=== PATIENT | male | born 1965 ===

== ENCOUNTER 2020-06-10 19:27 | Emergency (ER) | payer MEDICAID, SELFPAY ==
[2020-06-10 19:42] VITALS: BP 123/65; PULSE 127; RESP 18; TEMP 37.9; O2SAT 96; BMI 30.5
[2020-06-10 20:00] VITALS: BP 140/77; PULSE 95; RESP 18; TEMP 37.1; O2SAT 97
[2020-06-10 22:00] VITALS: BP 141/73; PULSE 83; RESP 16; TEMP 37.8; O2SAT 96
--- NOTE | 2020-06-10 22:22 | ED.WOUNDLAC ---
HPI - Wound/Laceration General Chief Complaint: Wound/Laceration Stated Complaint: RED INFLAMED SKIN (FINGER) Time Seen by Provider: 06/10/20 22:22 History of Present Illness HPI narrative: Patient is a 54-year-old male status post laceration to the dorsum of left long finger. At the distal IP joint. Patient claims he was trying to open a bag was trimmed been it. Subsequently cut his own hand. This happened approximately 2-3 days ago. Patient denies any fever or chills. No coughing or congestion or upper respiratory symptoms. No diaphoresis. No systemic complaints. Complaining increasing swelling to the finger. Patient not sure about his tetanus status. No history of diabetes, hypertension, mi, family history of [place]. Related Data Previous Rx's Medication Instructions Recorded amoxicillin-pot clavulanate 1 tab PO BID #14 tab 06/10/20 [Augmentin] Allergies Allergy/AdvReac Type Severity Reaction Status Date / Time No Known Allergies Allergy Verified 06/10/20 19:48 Review of Systems Review of Systems: Constitutional: No Weight loss, No Fever, No Chills, No Night Sweats, No Fatigue, No Malaise ENT/Mouth: No Hearing loss, No Ear Pain, No Nasal Congestion, No Sinus Pain, No Hoarseness, No sore throat, No Rhinorrhea, No Swallowing Difficulty Eyes: No Eye Pain, No Swelling, No Redness, No Foreign Body, No Discharge, No Vision Changes Cardiovascular: No Chest Pain, No SOB, No Dyspnea on Exertion, No Orthopnea, No Edema, No Palpitations Respiratory: No Cough, No Sputum, No Wheezing, No Smoke Exposure, No Dyspnea Gastrointestinal: No Nausea, No Vomiting, No Diarrhea, No Constipation, No abdominal Pain, No Hematochezia, No Melena Genitourinary: no irregular bleeding, No Dysuria, No Urinary Frequency, No Hematuria, No Urinary Incontinence, No Urgency, No Flank Pain, No Urinary Flow Changes, No Hesitancy Musculoskeletal: No joint pain, No Myalgias, No Joint Swelling Skin: Positive laceration to the left long finger Positive swelling Neuro: No Weakness, No Numbness, No Paresthesias, No Loss of Consciousness, No Dizziness, No Headache Psych: No Anxiety/Panic, No Depression, No SI/HI/AH/VH, No Social Issues, Heme/Lymph: No Bruising, No Bleeding,No Lymphadenopathy Endocrine: No Polyuria, No Polydipsia, No Temperature Intolerance [facility] Past Medical History Attestation statement: The following information was validated with the patient. Medical History High cholesterol Social History Social History Alcohol intake: current Alcohol intake frequency: a few times a week Smoking Status: Current every day smoker Use of substances other than those prescribed or required for medical reasons: No Advance Directives: No Advance Directives Information Provided: No Physical Exam Vital Signs: Vital Signs: Vital Signs Temp Pulse Resp BP Pulse Ox 06/10/20 22:00 100.0 F 83 16 141/73 H 96 06/10/20 20:00 98.8 F 95 18 140/77 H 97 06/10/20 19:42 100.2 F 127 H 18 123/65 96 Body Mass Index 30.5 Appearance: Alert. Oriented X3. No acute distress. Eyes: Pupils equal, round and reactive to light. ENT: Pharynx normal. Neck: Normal inspection. Neck supple. No lymph nodes noted. No crepitus CVS: Normal heart rate and rhythm. Pulses normal. Normal S1 and S2 Respiratory: No respiratory distress. Breath sounds normal. No Wheezing. No rales Abdomen: Soft and nontender. No rigidity. No distention. good BS x4 Skin: Skin warm and dry. Normal skin color. Normal skin turgor. Extremities: examination of the left long finger showed a 3 cm laceration over the distal artery or IP joint on the dorsum side. There is swelling of the finger. There is no sausage finger noted. There is no flexor sheath tenderness. Patient did not have pain on passive movement of the finger. Patient has good movement of the proximal and distal IP joint. Neuro: Oriented X 3. No motor deficit. No sensory deficit. Moving all extermities. No slurred speech MDM - Wound/Laceration MDM Narrative Medical decision making narrative: Although patient had clear swelling to the area. Signs of infection. Patient did not ]have signs consistent with having tenosynovitis. Will start patient on a dose of IV antibiotics. We will go ahead and have patient closely follow-up with Hand tomorrow. Will discuss the case with Hand surgery. Case discussed with Gem, the PA installation tech for Orthopedics. Will follow up with patient tomorrow. Patient started on Zosyn. Will give patient a prescription for Augmentin. Worsening condition return. Ice elevate as much as possible Lab Data Result diagrams: 06/10/20 23:19 06/10/20 23:19 Labs: Lab Results 06/10/20 06/10/20 06/10/20 Range/Units 23:19 23:19 23:19 WBC 6.9 (4.8-10.8) X10*3/uL RBC 4.31 L (4.60-5.80) X10*6/uL Hgb 13.8 L (14.0-18.0) g/dl Hct 41.1 L (42-52) % MCV 95.4 (80-98) fL MCH 32.0 (27.0-33.0) pg MCHC 33.6 (31.0-36.0) g/dl RDW 11.8 (11.0-16.0) % Plt Count 238 (160-400) X10*3/uL MPV 9.4 (9.4-12.4) fL Immature Gran % (Auto) 0.3 (0.0-0.4) % Neut % (Auto) 65.6 (45-73) % Lymph % (Auto) 24.3 (20-40) % [place] % (Auto) 7.7 (2-11) % Eos % (Auto) 1.5 (0-4) % Baso % (Auto) 0.6 (0-2) % Lymph # (Auto) 1.7 (1.2-4.9) X10*3/uL [place] # (Auto) 0.5 (0.1-1.2) X10*3/uL Eos # (Auto) 0.1 (0.0-0.4) X10*3/uL Baso # (Auto) 0.0 (0.0-0.2) X10*3/uL Abs Immat Gran (auto) 0.02 (0.00-0.03) X10*3/uL Absolute Neuts (auto) 4.5 (2.0-8.3) X10*3/uL Absolute Nucleated RBC 0.000 (0.0-0.012) X10*3/uL Nucleated RBC % (auto) 0.0 (0.0-0.2) /100WBC Sodium 141 (135-145) mmol/L Potassium 3.9 (3.3-5.1) mmol/l Chloride 105 (96-108) mmol/L Carbon Dioxide 30 H (22-29) mmol/L Anion Gap 10 L (12-20) BUN 14 (9-16) mg/dL Creatinine 1.09 (0.5-1.4) mg/dL Estim Creat Clear Calc 82.2 Estimated GFR > 60 Random Glucose 93 (60-115) mg/dL Lactic Acid 1.0 (0.5-2.0) mmol/L Calcium 9.2 (8.4-10.2) mg/dL Discharge Plan Discharge Clinical Impression: Laceration, Cellulitis Patient Disposition: Home, Self-Care Instructions: Cellulitis (ED) Prescriptions: New amoxicillin-pot clavulanate [Augmentin] 875-125 mg tablet 1 tab PO BID Qty: 14 RF: 0 Referrals: Raymond Peñaloza MD [Physician] - 1 day
--- NOTE | 2020-06-10 22:37 | XR_ITS ---
EXAMINATION: XR FINGER, LEFT CLINICAL INFORMATION: 54-year-old male patient with pain and swelling of the left third finger. COMPARISON: None TECHNIQUE: Three views of the left third finger including a PA view of the left hand. FINDINGS: There is diffuse soft tissue swelling of the entire left third finger. There is no visible fracture or dislocation. Punctate calcification is seen in the region of the flexor tendon adjacent to the middle phalanx. Also, a small bone spicule is seen in the soft tissues just medial to the distal aspect of the proximal phalanx. No active joint disease is seen. No visible erosions. No radiopaque foreign bodies are present. IMPRESSION: Significant soft tissue swelling of the left third finger. Punctate calcification of the flexor tendon. Bone spicule the soft tissues adjacent to the proximal interphalangeal joint. No fracture.
[2020-06-10] MEDS: Piperacillin Sodium/Tazobactam 4.5 GM in 0.9 % Sodium Chloride 100 ML IV (23:23)
[2020-06-10 23:31] LABS: MANUAL DIFF FLAG NO
[2020-06-10 23:32] LABS: Basophils Percent Auto 0.6 % (0-2); Eosinophils Absolute Auto 0.1 X10*3/uL (0.0-0.4); Eosinophils Percent Auto 1.5 % (0-4); Hematocrit 41.1 % (42-52); Hemoglobin 13.8 g/dl (14.0-18.0); Imm Gran Abs Auto 0.02 X10*3/uL (0.00-0.03); Imm Gran Pct Auto 0.3 % (0.0-0.4); Lymphocytes Absolute Auto 1.7 X10*3/uL (1.2-4.9); Lymphocytes Percent Auto 24.3 % (20-40); Mean Corpuscular HGB Conc 33.6 g/dl (31.0-36.0); Mean Corpuscular Volume 95.4 fL (80-98); Mean Platelet Volume 9.4 fL (9.4-12.4); Monocytes Absolute Auto 0.5 X10*3/uL (0.1-1.2); Monocytes Percent Auto 7.7 % (2-11); Neutrophils Absolute Auto 4.5 X10*3/uL (2.0-8.3); Neutrophils Percent Auto 65.6 % (45-73); Platelet Count 238 X10*3/uL (160-400); Red Blood Count 4.31 X10*6/uL (4.60-5.80); Red Cell Distribution Width 11.8 % (11.0-16.0); White Blood Count 6.9 X10*3/uL (4.8-10.8)
[2020-06-11 00:02] LABS: Anion Gap 10 (12-20); Blood Urea Nitrogen 14 mg/dL (9-16); Calcium 9.2 mg/dL (8.4-10.2); Carbon Dioxide 30 mmol/L (22-29); Chloride 105 mmol/L (96-108); Creatinine Clr Calc Pharmacy 82.2; Estimated Glomerular Filt Rate > 60; Glucose Random 93 mg/dL (60-115); Potassium 3.9 mmol/l (3.3-5.1); Sodium 141 mmol/L (135-145)
== END 2020-06-11 00:33 | disposition home or self-care (01) ==
PROVIDERS: Emergency Provider Emergency Medicine Emergency Medical Services
DX: S61.213A Laceration without foreign body of left middle finger without damage to nail, initial encounter (principal); W45.8XXA Other foreign body or object entering through skin, initial encounter; L03.012 Cellulitis of left finger; F17.200 Nicotine dependence, unspecified, uncomplicated; Y93.89 Activity, other specified; Y92.019 Unspecified place in single-family (private) house as the place of occurrence of the external cause; Y99.9 Unspecified external cause status
CPT/HCPCS: 36415; 73140; 80048; 83605; 85025; 87040; 96365; 99284

== ENCOUNTER 2020-06-23 22:09 | Emergency (ER) | payer MEDICAID, SELFPAY ==
--- NOTE | 2020-06-23 22:47 | XR_ITS ---
EXAMINATION: XR FINGER, LEFT CLINICAL INFORMATION: Injury to middle finger. COMPARISON: 06/10/2020 TECHNIQUE: 3 views of the left 3rd digit. FINDINGS: Again noted is a few swelling of the left 3rd digit. The previously seen calcification in the region of the flexor tendon seen previously is again noted. Again seen is the well defined ovoid spicule of bone just medial to the distal proximal phalanx which could be secondary to degenerative change or old trauma. Some mild degenerative changes are present at the DIP joint. XR/XR finger LT min 2V IMPRESSION: No real significant interval change when compared to the study of 06/10/2020. Again seen are the small calcifications in the region of the flexor tendon bone spicule medial to the PIP joint. No acute finding is seen.
[2020-06-23 23:31] VITALS: BP 96/50; PULSE 83; RESP 16; TEMP 36.8; O2SAT 93; BMI 31.9
--- NOTE | 2020-06-23 23:32 | ED_ITS ---
HPI - Extremity Problem General Chief complaint: Extremity Injury, Upper Stated complaint: lac on finger Time Seen by Provider: 06/23/20 22:38 Source: patient Mode of arrival: ambulatory Limitations: no limitations ( charge master specialist present) History of Present Illness HPI Narrative: states he injured his finger 2-1/2 weeks ago or so for him which he was seen here in emergency room had a cut repaired and has since follow-up with his primary care doctor and new in orthopedics where he has a procedure scheduled unsure with the procedures they called him today in and has a scheduled follow-up however in the intermediate he states he was working in a car and hit his finger cause pain. He has a finger splint on he denies any blood broken skin, redness, swelling, fever. No other injury. MD Complaint: extremity pain Onset (ago): hour(s) Pain Consistency: intermittent Location: left Relieving factors: cold therapy Associated symptoms: denies other symptoms Related Data Previous Rx's Medication Instructions Recorded amoxicillin-pot clavulanate 1 tab PO BID #14 tab 06/10/20 [Augmentin] Allergies Allergy/AdvReac Type Severity Reaction Status Date / Time No Known Allergies Allergy Verified 06/10/20 19:48 Review of Systems Review of Systems: Constitutional: No Weight loss, No Fever, No Chills, No Night Sweats, No Fatigue, No Malaise ENT/Mouth: No Hearing loss, No Ear Pain, No Nasal Congestion, No Sinus Pain, No Hoarseness, No sore throat, No Rhinorrhea, No Swallowing Difficulty Eyes: No Eye Pain, No Swelling, No Redness, No Foreign Body, No Discharge, No Vision Changes Cardiovascular: No Chest Pain, No SOB, No Dyspnea on Exertion, No Orthopnea, No Edema, No Palpitations Respiratory: No Cough, No Sputum, No Wheezing, No Smoke Exposure, No Dyspnea Musculoskeletal: No joint pain, No Myalgias, No Joint Swelling Skin: No Skin Lesions, No rash Neuro: No Weakness, No Numbness, No Paresthesias, No Loss of Consciousness, No Dizziness, No Headache Psych: No Social Issues Heme/Lymph: No Bruising, No Bleeding,No Lymphadenopathy Endocrine: No Polyuria, No Polydipsia, No Temperature Intolerance Yes all othe r systems are reviewed and are negative PMFSH Past Medical History Attestation statement: The following information was validated with the patient. Medical History High cholesterol Social History Social History Alcohol intake: current Alcohol intake frequency: a few times a week Smoking Status: Current every day smoker Advance Directives: No Advance Directives Information Provided: No Physical Exam Vital Signs: Vital Signs: Reviewed Const: General: cooperative and healthy appearing; No acute distress or intoxicated appearing Nutritional Appearance: average body habitus Orientation/consciousness: patient oriented x3 HENMT: Head: Yes normal to inspection Ears: hearing grossly normal bilaterally Eyes: General: appearance normal, both eyes and all related structures Visual Pretty: normal visual pretty by confrontation Chest: Chest palpation & inspection: normal inspection of the chest Resp: Effort & Inspection: normal respiratory effort Cardio: Jugular venous distension: no JVD Skin: General skin exam: no rashes or lesions noted Neuro: General: patient oriented x3 Extrem: Other: MDM - Extremity (Nontraumatic) MDM Narrative Medical decision making narrative: no signs of acute infection. Repeat x-ray without any evidence of acute abnormality. Unsure about type of procedure he has scheduled with doing an ortho he will call tomorrow has a scheduled appointment. Given that it is little past midnight offices are closed at this time. Will have him follow-up closely with Ortho. Patient verbalized understanding charge master specialist present for the duration of the visit. Patient will be discharged home with splint. Imaging Data Left finger x-ray: Radiologist's impression: [place] [id number] XRay Report Signed Patient: Dedrick Reed [facility]#: [id number] : 1965Acct:[id number] Age/Sex: 54 / MADM Date: 06/23/20 Loc: HO.ED Attending Dr: Ordering Physician: Ivan Chand NP Date of Service: 06/23/20 Procedure(s): XR finger LT min 2V Accession Number(s): [id number] cc: Ivan Chand SYNTHETIC STAPLE EXTRUDER~ EXAMINATION: XR FINGER, LEFT CLINICAL INFORMATION: Injury to middle finger. COMPARISON: 06/10/2020 TECHNIQUE: 3 views of the left 3rd digit. FINDINGS: Again noted is a few swelling of the left 3rd digit. The previously seen calcification in the region of the flexor tendon seen previously is again noted. Again seen is the well defined ovoid spicule of bone just medial to the distal proximal phalanx which could be secondary to degenerative change or old trauma. Some mild degenerative changes are present at the DIP joint. XR/XR finger LT min 2V IMPRESSION: No real significant interval change when compared to the study of 06/10/2020. Again seen are the small calcifications in the region of the flexor tendon bone spicule medial to the PIP joint. No acute finding is seen. Dictated By:KIKI BIGGS MD Signed By:<Electronically signed by KIKI BIGGS MD in OV>06/23/209 DD/ 46 TD/TT: [address] Magistrate: Discharge Plan Discharge Clinical Impression: Finger pain, left Patient Disposition: Home, Self-Care Instructions: Finger Sprain (ED) Prescriptions: No Action amoxicillin-pot clavulanate [Augmentin] 875-125 mg tablet 1 tab PO BID Qty: 14 RF: 0 Referrals: Tyrell De Los Santos MD [Physician] - 1 week
--- NOTE | 2020-06-24 00:06 | PC.NURSE ---
PT UPSET BECAUSE [facility] WILL NOT GIVE PATIENT ANYTHING MORE THAN MOTRIN OR TYLENOL. USED TELEPHONE TO D.C PATIENT. PT LEAVING WITHOUT PAPERWORK
== END 2020-06-24 00:08 | disposition home or self-care (01) ==
PROVIDERS: Emergency Provider Student in an Organized Health Care Education/Training Program
DX: M79.645 Pain in left finger(s) (principal); M79.89 Other specified soft tissue disorders; F17.200 Nicotine dependence, unspecified, uncomplicated; Z71.6 Tobacco abuse counseling
CPT/HCPCS: 73140; 99283

== ENCOUNTER 2022-02-01 11:32 | Emergency (ER) | payer OTHER, SELFPAY ==
--- NOTE | 2022-02-01 11:41 | ECG_ITS ---
Test Reason : OD? Blood Pressure : / mmHG Vent. Rate : 086 BPM Atrial Rate : 086 BPM P-R Int : 150 ms QRS Dur : 084 ms QT Int : 370 ms P-R-T Axes : 055 -02 025 degrees QTc Int : 442 ms Normal sinus rhythm Normal ECG When compared with ECG of 22-JAN-2009 12:20, No significant change was found Referred By: Cara Donnelly Electronically Signed By:Linden Chowdhury
--- NOTE | 2022-02-01 11:41 | ED_ITS ---
HPI - Overdose General Chief Complaint: ETOH/Substance Use Stated Complaint: ETOH INTOXICATION PER EMS Time Seen by Provider: 02/01/22 11:33 Source: EMS Mode of arrival: EMS Limitations: other (Intoxicated) History of Present Illness HPI Narrative: Patient comes to the emergency room by EMS. Bystanders called the ambulance, patient was found intoxicated sitting outside a liquor store. Patient admits that he has been drinking quite a bit this morning and also has been using cocaine and heroin. Patient is very somnolent, unable to give any further history. States that he occasionally has chest pain, unclear if he has chest pain at this moment. Patient has this with him a bag full of Suboxone lozenges Related Data Previous Rx's Medication Instructions Recorded amoxicillin 875 mg-potassium 1 tab PO BID #14 tabs 06/10/20 clavulanate 125 mg tablet (Augmentin) Allergies Allergy/AdvReac Type Severity Reaction Status Date / Time No Known Allergies Allergy Verified 06/10/20 19:48 Review of Systems Review of Systems: Yes Unobtainable due to mental status [facility] Past Medical History Medical History (Updated 02/01/22 @ 13:12 by Cara Donnelly MD) High cholesterol Polysubstance abuse Social History Social History Alcohol intake: current Alcohol intake frequency: a few times a week Advance Directives: No Advance Directives Information Provided: No Physical Exam Vital Signs: Vital Signs: Last Vital Signs Pulse 108 H 02/01/22 11:58 Resp 12 02/01/22 11:48 BP 116/57 L 02/01/22 11:48 Pulse Ox 95 02/01/22 11:58 O2 Del Method 02/01/22 11:58 BMI result Body Mass Index 34.5 Const: Other: Appearance: Somnolent, easily arousable but falls back asleep quickly Eyes: Bilateral pinpoint pupils, round and reactive to light. ENT: Pharynx normal. Neck: Normal inspection. Neck supple. No lymph nodes noted. No crepitus CVS: Normal heart rate and rhythm. Pulses normal. Normal S1 and S2 Respiratory: No respiratory distress. Breath sounds normal. No Wheezing. No rales , oxygen saturation 85% on room air Abdomen: Soft and nontender. No rigidity. No distention. Skin: Skin warm and dry. Normal skin color. Normal skin turgor. Extremities: No lower extremity edema. No Lacerations. No Rash Neuro: Oriented X 3. No motor deficit. No sensory deficit. Moving all extremities. No slurred speech. CN 2 through 12 grossly intact Psych: Somnolent Course Course Course Narrative: Patient's oxygen saturations 85% on room air, patient is somnolent, easily arousable but falls asleep. Patient was given IM Zofran and 1 dose of Narcan. Patient is waking up, denies SI or HI Patient remains somnolent, much more easily arousable, converse aiding. Oxygen saturation 96% on room air. CARE/SUDE consult pending. Patient will be provided with home Narcan upon discharge. Physician observation started at 13:10 14:32, patient is alert, awake, has steady gait. The care team evaluated the patient. Patient states that he is already in therapy and has Suboxone. Patient states he used heroin this time because of a stressor in his life but he usually does well with Suboxone. Patient declined any further care. MDM - Overdose Lab Data Result diagrams: 02/01/22 11:51 02/01/22 11:51 Labs: Lab Results 02/01/22 02/01/22 02/01/22 Range/Units 11:51 11:51 11:51 WBC 9.2 (4.8-10.8) X10*3/uL RBC 4.43 L (4.60-5.80) X10*6/uL Hgb 14.2 (14.0-18.0) g/dl Hct 41.6 L (42.0-52.0) % MCV 93.9 (80.0-98.0) fL MCH 32.1 (27.0-33.0) pg MCHC 34.1 (31.0-36.0) g/dl RDW 12.2 (11.0-16.0) % Plt Count 182 (160-400) X10*3/uL MPV 10.2 (9.4-12.4) fL Immature Gran % (Auto) 0.2 (0.0-0.4) % Neut % (Auto) 67.7 (45-73) % Lymph % (Auto) 23.9 (20-40) % [place] % (Auto) 6.6 (2-11) % Eos % (Auto) 1.2 (0-4) % Baso % (Auto) 0.4 (0-2) % Lymph # (Auto) 2.2 (1.2-4.9) X10*3/uL [place] # (Auto) 0.6 (0.1-1.2) X10*3/uL Eos # (Auto) 0.1 (0.0-0.4) X10*3/uL Baso # (Auto) 0.0 (0.0-0.2) X10*3/uL Abs Immat Gran (auto) 0.02 (0.00-0.03) X10*3/uL Absolute Neuts (auto) 6.2 (2.0-8.3) x10*3/uL Absolute Nucleated RBC 0.000 (0.0-0.012) X10*3/uL Nucleated RBC % (auto) 0.0 (0.0-0.2) /100WBC Sodium 138 (135-145) mmol/L Potassium 3.8 (3.3-5.1) mmol/L Chloride 106 (96-108) mmol/L Carbon Dioxide 21 L (22-29) mmol/L Anion Gap 15 (12-20) BUN 16 (9-16) mg/dL Creatinine 1.09 (0.5-1.4) mg/dL Estim Creat Clear Calc 90.8 Estimated GFR > 60 Random Glucose 86 (60-115) mg/dL Calcium 8.9 (8.4-10.2) mg/dL Magnesium 2.1 (1.6-2.6) mg/dL Total Bilirubin 0.7 (0.0-1.0) mg/dL Direct Bilirubin 0.3 (0.0-0.5) mg/dL AST 40 H (5-37) U/L ALT 34 (0-40) U/L Alkaline Phosphatase 77 (39-117) U/L Troponin I High Sens (<3.5-35.0) ng/L Total Protein 6.7 (6.5-8.0) g/dL Albumin 4.2 (3.5-5.0) g/dL Ethyl Alcohol 132 mg/dL 02/01/22 Range/Units 11:51 WBC (4.8-10.8) X10*3/uL RBC (4.60-5.80) X10*6/uL Hgb (14.0-18.0) g/dl Hct (42.0-52.0) % MCV (80.0-98.0) fL MCH (27.0-33.0) pg MCHC (31.0-36.0) g/dl RDW (11.0-16.0) % Plt Count (160-400) X10*3/uL MPV (9.4-12.4) fL Immature Gran % (Auto) (0.0-0.4) % Neut % (Auto) (45-73) % Lymph % (Auto) (20-40) % [place] % (Auto) (2-11) % Eos % (Auto) (0-4) % Baso % (Auto) (0-2) % Lymph # (Auto) (1.2-4.9) X10*3/uL [place] # (Auto) (0.1-1.2) X10*3/uL Eos # (Auto) (0.0-0.4) X10*3/uL Baso # (Auto) (0.0-0.2) X10*3/uL Abs Immat Gran (auto) (0.00-0.03) X10*3/uL Absolute Neuts (auto) (2.0-8.3) x10*3/uL Absolute Nucleated RBC (0.0-0.012) X10*3/uL Nucleated RBC % (auto) (0.0-0.2) /100WBC Sodium (135-145) mmol/L Potassium (3.3-5.1) mmol/L Chloride (96-108) mmol/L Carbon Dioxide (22-29) mmol/L Anion Gap (12-20) BUN (9-16) mg/dL Creatinine (0.5-1.4) mg/dL Estim Creat Clear Calc Estimated GFR Random Glucose (60-115) mg/dL Calcium (8.4-10.2) mg/dL Magnesium (1.6-2.6) mg/dL Total Bilirubin (0.0-1.0) mg/dL Direct Bilirubin (0.0-0.5) mg/dL AST (5-37) U/L ALT (0-40) U/L Alkaline Phosphatase (39-117) U/L Troponin I High Sens 6.7 (<3.5-35.0) ng/L Total Protein (6.5-8.0) g/dL Albumin (3.5-5.0) g/dL Ethyl Alcohol mg/dL Discharge Plan Discharge Clinical Impression: Polysubstance abuse, Accidental overdose Patient Disposition: Home, Self-Care Instructions: Adult Overdose (ED), Polysubstance Abuse (ED) Additional Instructions: Please follow-up with your primary care physician tomorrow. If you have any worsening or new symptoms, please return to the emergency room or call 911 Prescriptions: No Action amoxicillin-pot clavulanate [Augmentin] 875-125 mg tablet 1 tab PO BID Qty: 14 0RF
[2022-02-01] MEDS: ondansetron HCL 4 MG/2 ML VIAL IM (11:46)
[2022-02-01 11:48] VITALS: BP 107/65; BP 116/57; PULSE 100; PULSE 86; RESP 12; O2SAT 85; O2SAT 95; BMI 34.5
[2022-02-01] MEDS: Naloxone HCl Nasal 4 MG SPRAY 8 MG NOSTRILALT (11:48)
--- NOTE | 2022-02-01 11:50 | PC.NURSE ---
patient lethargic upon arrival to ED. O2 sat 85%. patient given 4mg nasal narcan with good effect. security called to bedside to record changer patient.
[2022-02-01 11:55] LABS: MANUAL DIFF FLAG NO
[2022-02-01 11:58] VITALS: PULSE 108; O2SAT 95
[2022-02-01 11:59] LABS: Basophils Percent Auto 0.4 % (0-2); Eosinophils Absolute Auto 0.1 X10*3/uL (0.0-0.4); Eosinophils Percent Auto 1.2 % (0-4); Hematocrit 41.6 % (42.0-52.0); Hemoglobin 14.2 g/dl (14.0-18.0); Imm Gran Abs Auto 0.02 X10*3/uL (0.00-0.03); Imm Gran Pct Auto 0.2 % (0.0-0.4); Lymphocytes Absolute Auto 2.2 X10*3/uL (1.2-4.9); Lymphocytes Percent Auto 23.9 % (20-40); Mean Corpuscular HGB Conc 34.1 g/dl (31.0-36.0); Mean Corpuscular Hemoglobin 32.1 pg (27.0-33.0); Mean Corpuscular Volume 93.9 fL (80.0-98.0); Mean Platelet Volume 10.2 fL (9.4-12.4); Monocytes Absolute Auto 0.6 X10*3/uL (0.1-1.2); Monocytes Percent Auto 6.6 % (2-11); Neutrophils Absolute Auto 6.2 x10*3/uL (2.0-8.3); Neutrophils Percent Auto 67.7 % (45-73); Platelet Count 182 X10*3/uL (160-400); Red Blood Count 4.43 X10*6/uL (4.60-5.80); Red Cell Distribution Width 12.2 % (11.0-16.0); White Blood Count 9.2 X10*3/uL (4.8-10.8)
[2022-02-01 12:13] LABS: Ethanol 132 mg/dL
[2022-02-01 12:17] LABS: Alanine Aminotransferase 34 U/L (0-40); Albumin Level 4.2 g/dL (3.5-5.0); Alkaline Phosphatase 77 U/L (39-117); Anion Gap 15 (12-20); Aspartate Amino Transferase 40 U/L (5-37); Bilirubin Direct 0.3 mg/dL (0.0-0.5); Bilirubin Total 0.7 mg/dL (0.0-1.0); Blood Urea Nitrogen 16 mg/dL (9-16); Calcium 8.9 mg/dL (8.4-10.2); Carbon Dioxide 21 mmol/L (22-29); Chloride 106 mmol/L (96-108); Creatinine Clr Calc Pharmacy 90.8; Estimated Glomerular Filt Rate > 60; Glucose Random 86 mg/dL (60-115); Magnesium 2.1 mg/dL (1.6-2.6); Potassium 3.8 mmol/L (3.3-5.1); Sodium 138 mmol/L (135-145); Total Protein 6.7 g/dL (6.5-8.0)
[2022-02-01 12:53] LABS: Troponin-I High Sensitivity 6.7 ng/L (<3.5-35.0)
--- NOTE | 2022-02-01 13:55 | MHC.RECOVSUP ---
Recovery Support note: Patient is a 56 year old Nepali speaking male who presented to [facility] ED after being found in the community on the ground. This software writer met with patient to discuss substance use and recovery supports. Patient reports he did not use any heroin however he was drinking. Patient reports he typically is able to control his drinking and moderate it however he has a lot of life stressors and today his drinking got out of control. Patient states I'm on Suboxone, I can't use heroin. Patient reports he has not used heroin in a long time and indicates it has been months since his last use. Patient reports he gets his Suboxone through the [facility] and that he also has a counselor and acid recovery operator through [facility]. Patient reports he has been diagnosed with major depressive disorder and bipolar disorder. Patient reports he feels well supported by [facility] and states he is able to go there for additional support if he feels he needs it. Encouraged patient to reach out for support when he feels he is unable to moderate his alcohol consumption and encouraged patient to consider abstinance. Patient acknowledged. Discussed case with patient's RN and ED provider.
== END 2022-02-01 14:53 | disposition home or self-care (01) ==
PROVIDERS: Emergency Provider Emergency Medicine
DX: T40.1X1A Poisoning by heroin, accidental (unintentional), initial encounter (principal); F11.20 Opioid dependence, uncomplicated; F14.10 Cocaine abuse, uncomplicated; Y92.480 Sidewalk as the place of occurrence of the external cause
CPT/HCPCS: 36415; 80048; 80076; 82077; 83735; 84484; 85025; 93005; 96372; 99283; 99284; J2405

== ENCOUNTER → 2022-07-19 12:40 | Outpatient (REF) | payer MEDICAID, SELFPAY ==
--- NOTE | 2022-07-19 12:43 | CA_ITS ---
Transthoracic Echocardiogram Patient (Last, First, Middle): Dedrick Reed M Gender: Male Date of : 1965 Age: 56 Procedure Date: 07/19/2022 Procedure Type: Transthoracic Echocardiogram Location: OP Height: 170.18 cm Weight: 99.79 kg BSA: 2.11 m2 Heart Rate: 84 bpm BP: 122 / 74 mmHg Preschool Principal: DEANDRE Referring MD: Karoline NORMAN Symptoms: SOB R06.02 Study Quality: Adequate w contrast ECG Rhythm: Sinus Conclusions: - The left ventricular systolic function is normal. The calculated ejection fraction is 55% by biplane method. - No obvious valvular pathology seen on this study. Findings Procedure Information Contrast agent, definity, is being given per protocol without apparent complications. Left Ventricle Normal left ventricular cavity size. There is normal left ventricular wall thickness. The left ventricular systolic function is normal. The calculated ejection fraction is 55% by biplane method. There is no evidence of regional wall motion abnormalities. Diastolic function is normal for age. Right Ventricle Normal right ventricular cavity size and systolic function. Atria Both atria are normal in size. Aortic Valve There is a normal trileaflet aortic valve. There is no aortic valve stenosis. There is no aortic valve regurgitation. Mitral Valve The mitral valve appears normal. There is no mitral valve regurgitation. There is no mitral valve stenosis. Pulmonic Valve The pulmonic valve is likely normal. Tricuspid Valve There is no tricuspid valve regurgitation. Tricuspid regurgitation envelope is inadequate for calculation of right ventricular systolic pressure. Great Vessels The asc aorta is normal in size. Venous The inferior vena cava is normal in size and collapses greater than 50% with inspiration. Pericardium/Pleural There is no evidence of pericardial effusion. Prior Study Comparison No prior study available for comparison. Recommendations, Care & Conclusions No obvious valvular pathology seen on this study. Measurements 2D Linear Measurements IVSd: 0.75 0.6-0.9/0.6-1.0 cm LVIDd: 5.27 3.9-5.3/4.2-5.9 cm LVIDd Index: 2.50 2.4-3.2/2.2-3.1 cm/m2 LVIDs: 3.26 2.0-3.6 cm LVPWd: 0.73 0.7-1.1 cm LA Diam: 3.50 2.7-3.8/3.0-4.0 cm LAIDs Index: 1.66 1.5-2.3 cm/m2 LV Mass: 167.63 67-162/88-224 g LV Mass Index: 79.45 43-95/49-115 g/m2 LVOT Diam: 2.10 3.0+(-)1.3 cm 2D Systolic Function EF 4C: 58.40 >55% EF 2C: 49.10 >55% EF BiP: 54.50 >55% Mitral Valve MV Pk E: 0.81 MV PK A: 0.54 MV Decel Time: 173.00 E/A: 1.50 E'Lateral: 11.30 E'Medial: 9.25 E/E' Med: 8.80 E/E' Lat: 7.20 PHT: 51.00 MVA PHT: 4.31 Decel Cowley: 4.67 Aortic Valve AoV Pk Julian: 1.61 AoV Mn Julian: 1.05 AoV VTI: 0.30 AoV Pk Grad: 10.00 Aov Mn Grad: 5.00 MAC Cont.VTI: 3.00 LVOT LVOT Pk Julian: 1.29 LVOT Mn Julian: 0.86 LVOT VTI: 0.26 LVOT Pk Grad: 7.00 LVOT Mn Grad: 3.00 LVOT Diam: 2.10 LVOT Area: 3.46 Diastolic Function MV Pk E: 0.81 MV Pk A: 0.54 E/A: 1.50 E'Medial: 9.25 E/E' Med: 8.80 E' Laterial: 11.30 E/E' Lat: 7.20 Right Ventricle TAPSE (mm): 29.10 TVS' Julian: 14.00 Tricuspid Valve RA Press: 3.00 Great Vessels Aorta Sinus of Valsalva: 3.30 2.0-3.5 cm Ao Asc: 3.20 2.1-3.4 cm Pulmonary Veins Pulm Vein S/D 1.20 Pulmonary Valve PV Pk Julian: 1.14 Peak PV Grad: 5.00 Updated in Other Vendor System with Status of Final Del Brown MD electronically signed on 07/19/2022 4:05:09 PM with status of Final
== END ==
LOC: HO.CARD 12:40
PROVIDERS: PCP Registered Nurse; Visit Provider Registered Nurse
DX: R06.02 Shortness of breath (principal)
CPT/HCPCS: 93306; Q9957

== ENCOUNTER 2022-12-28 10:40 | Outpatient (REF) | payer MEDICAID, SELFPAY ==
--- NOTE | ~2022-12-28 | XR_ITS ---
EXAMINATION: XR HAND, RIGHT XR HAND, LEFT CLINICAL INFORMATION: Bilateral hand pain at the DIP joints. COMPARISON: Previous left finger x-ray June 2020. TECHNIQUE: 3 views of both hands. FINDINGS: LEFT: There is amputation of the distal 3rd finger. No fracture or dislocation. Mild arthritis at the IP joints with joint space narrowing and osteophyte formation. This is greatest at the IP joint of the thumb. Soft tissues are unremarkable. RIGHT: Bone alignment is normal. No fracture or dislocation. Small radiopaque soft tissue foreign bodies adjacent to the proximal phalanx of the thumb. Mild osteoarthritis at the 1st INTERMEDIATE joint and IP joint, greatest at the IP joint of the thumb and DIP joint of the 3rd finger. XR/XR hand RT min 3V IMPRESSION: Mild bilateral osteoarthritis. 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 Small radiopaque soft tissue foreign bodies adjacent to the proximal phalanx of the right thumb.
--- NOTE | ~2022-12-28 | XR_ITS ---
EXAMINATION: XR HAND, RIGHT XR HAND, LEFT CLINICAL INFORMATION: Bilateral hand pain at the DIP joints. COMPARISON: Previous left finger x-ray June 2020. TECHNIQUE: 3 views of both hands. FINDINGS: LEFT: There is amputation of the distal 3rd finger. No fracture or dislocation. Mild arthritis at the IP joints with joint space narrowing and osteophyte formation. This is greatest at the IP joint of the thumb. Soft tissues are unremarkable. RIGHT: Bone alignment is normal. No fracture or dislocation. Small radiopaque soft tissue foreign bodies adjacent to the proximal phalanx of the thumb. Mild osteoarthritis at the 1st [facility] joint and IP joint, greatest at the IP joint of the thumb and DIP joint of the 3rd finger. XR/XR hand LT min 3V IMPRESSION: Mild bilateral osteoarthritis. 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 Small radiopaque soft tissue foreign bodies adjacent to the proximal phalanx of the right thumb.
== END 2022-12-28 10:41 | disposition home or self-care (01) ==
LOC: HO.XRAY 10:40
PROVIDERS: Visit Provider Registered Nurse
DX: M79.641 Pain in right hand (principal); M79.642 Pain in left hand
CPT/HCPCS: 73130

== ENCOUNTER 2023-04-28 10:03 | Outpatient (AMB) | payer MEDICAID, SELFPAY ==
--- NOTE | 2023-04-28 10:13 | A.OFFVIS_ITS ---
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 Patient reports pain started in his thumb that radiates into his other fingers. He has numbness and tingling. No previous tx. He was seen by his PCP who told him that he has arthritis. Finds no relief with gabapentin. 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 He states he has constant pain, numbness and tingling in his bilateral thumb which radiates into his arm and other fingers. His pain is worse in the right hand. He also c/o pain with grasping objects and his pain is aggravated in the mornings. He finds no relief with gabapentin. He has not had any treatment or injury in the past. He is currently not working. [facility] Medical History (Updated 04/28/23 @ 12:49 by Praveen Casarez PA-C) Polysubstance abuse High cholesterol Social History (Updated 04/28/23 @ 10:19 by Vanessa Devries Keira) Alcohol intake: current Alcohol intake frequency: a few times a week Patient Tobacco Use Status: Current everyday Tobacco user Current occupational status: unemployed Current occupation: right hand dominant Review of Systems Const All systems reviewed & are unremarkable except as noted in HPI and below Physical Exam Vital Signs: BMI result Body Mass Index 40.7 Extrem Other: Bilateral thumb: Pain at the base of the thumb along the CMC joint. Pain with CMC grind, they are able to make a full fist and fully extend. NVI. Results Reviewed Results Reviewed: xrays of bilat hands obtained 01/17/23 show mild cmc oa Assessment & Plan Assessment & Plan (1) Osteoarthritis of carpometacarpal (CMC) joint of both thumbs: Code(s): M18.0 - Bilateral primary osteoarthritis of first carpometacarpal joints Plan An EMG/nerve conduction study was ordered for bilateral hands. He was also given an off the shelf bilateral thumb spica brace to wear at nighttime. Once the study is complete, he will see us back for further recommendations. Orders: Orders NE electromyogram (EMG) Today R20.0 - Anesthesia of skin, R20.2 - Paresthesia of skin NE nerve conduction velocity Today R20.0 - Anesthesia of skin, R20.2 - Paresthesia of skin Patient Instructions: Scribed for Praveen Casarez PA-C, by Trav Leonard medical technician assistant, on 04/28/2023 at 10:00 AM EST. I, Praveen Casarez PA-C, have personally reviewed and agree with the information entered by the scribe. Coding Level of Care Code New Pt Level 3 (88439) Diagnoses Osteoarthritis of carpometacarpal (CMC) joint of both thumbs M18.0
[2023-04-28 10:15] VITALS: BMI 40.7
== END 2023-04-28 11:38 | disposition home or self-care (01) ==
PROVIDERS: PCP Registered Nurse; Visit Provider Physician Assistant
DX: M18.0 Bilateral primary osteoarthritis of first carpometacarpal joints (principal)
CPT/HCPCS: 99203

== ENCOUNTER → 2023-04-28 10:03 | Outpatient (BNVA) | payer MEDICAID, SELFPAY | PROVIDERS: PCP Registered Nurse; Visit Provider Physician Assistant | DX: M18.0 Bilateral primary osteoarthritis of first carpometacarpal joints (principal) | CPT/HCPCS: 99212 ==

== ENCOUNTER 2023-05-13 12:58 | Outpatient (AMB) | payer MEDICAID, SELFPAY ==
--- NOTE | 2023-05-13 13:06 | MHC.OFFVIS ---
Intake Vital Signs 05/13/23 13:13 Height 5 ft 7 in Weight 260 lb BMI 40.7 BP 126/84 Blood Pressure Location Lt brachial Position Sitting Respiration 16 Pulse 70 Pulse Source Pulse Oximeter Pulse Oximetry (%) 95 Oxygen Delivery Method Room Air Intake Visit Reasons: lumbar pain Allergies No Known Allergies Allergy (Verified 05/13/23 13:14) HPI HPI Comments History of Present Illness Details Dedrick is a very pleasant 57-year-old male who presents to the office today for evaluation and management of his chronic lower back pain. Patient reports he has been suffering with pain across his lower back for greater than 10 years. Patient reports today his pain is 10/10. He completed physical therapy about 4 months ago and has been doing home exercise program with no relief. He has tried Tylenol, Motrin without relief. He currently takes gabapentin 100 mg 3 times daily and states this does not alleviate his pain. Patient endorses pain across lower back with radiation into the buttocks and thighs. Pain is worse with sitting for extended period time, standing for extended period of time, walking and using the stairs. Patient denies shocking or electrical pain down either leg. He states he had an MRI at the beginning of the year in [place], we do not have these images for review. He was told by his primary care doctor that there is a pinched nerve. Patient denies red flag symptoms including new loss of bowel, bladder or saddle anesthesia. In terms of muscle damage condition is described as aching, throbbing, stabbing, burning and sharp. Patient reports the pain is negatively impacting his normal function and ability to perform activities of daily living. Patient currently smoking 1 pack per day, denies current use of alcohol or illicit substances. He is currently enrolled in outpatient MAT program and takes Suboxone daily. [facility] Medical History (Updated 05/13/23 @ 13:56 by Aretha Peguero APRN, INTERIOR SURFACE INSULATION WORKER) Polysubstance abuse High cholesterol Social History (Updated 04/28/23 @ 10:19 by Vanessa Devries Keira) Alcohol intake: current Alcohol intake frequency: a few times a week Patient Tobacco Use Status: Current everyday Tobacco user Current occupational status: unemployed Current occupation: right hand dominant Review of Systems Const All systems reviewed & are unremarkable except as noted in HPI and below Physical Exam Vital Signs: Last Vital Signs Pulse 70 05/13/23 13:13 Resp 16 05/13/23 13:13 BP 126/84 05/13/23 13:13 Pulse Ox 95 05/13/23 13:13 Oxygen Delivery Method Room Air 05/13/23 13:13 BMI result Body Mass Index 40.7 General: awake, alert, oriented. Answers questions appropriately. Fully engaged in examination. Skin: warm, dry, intact HEENT: Normocephalic. Hearing intact. Cardiac: External chest normal in appearance. Respiratory: No cough, audible wheezing or stridor. Abdomen: without gross distension. Neurological: Oriented to person, place, time and situation. Thought process intact. No gait abnormalities appreciated. Psychiatric: Appropriate mood and affect. Good judgment and insight. Back/Spine/Pelvis Other: Lumbar exam: Able to stand on bilateral tiptoes and bilateral heels. Able to transition from sit to stand unassisted. Ambulates with bilaterally normal heel strike and toe off Visual inspection without gross abnormality Tender to palpation over PSIS Nontender to palpation over midline lumbar vertebrae ROM: extension to 15 degrees. flexion to 80 degrees Strength: 5/5 BLE Sensation: intact and symmetric BLE DTR: intact and symmetric Straight leg raises with and without dorsiflexion negative bilaterally Facet loading positive bilaterally TAMIKO positive bilaterally Gaenslen positive bilaterally Thigh thrust positive bilaterally SI compression positive bilaterally Assessment & Plan Assessment & Plan (1) Lumbar facet arthropathy: Code(s): M47.816 - Spondylosis without myelopathy or radiculopathy, lumbar region (2) Lumbar spondylosis: Code(s): M47.816 - Spondylosis without myelopathy or radiculopathy, lumbar region (3) Sacroiliac joint dysfunction of both sides: Code(s): M53.3 - Sacrococcygeal disorders, not elsewhere classified Plan Dedrick is a very pleasant 57-year-old male who presented to the office today for evaluation management of his chronic lower back pain. History, physical exam and provocative testing consistent with bilateral sacroiliac joint dysfunction and lumbar facet arthritis. XR LS ordered for further evaluation Patient has exhausted conservative treatment including nonsteroidal anti-inflammatory medication, prescription gabapentin, physical therapy and home exercise program. Discussed options for treatment including diagnostic interventional testing, steroid injections, peripheral nerve stimulation with Sprint, RFA and more permanent neuromodulation. Will schedule patient for fluoroscopy guided bilateral diagnostic sacroiliac joint injection with local anesthetic. If patient does not receive adequate relief of his pain consider diagnostic bilateral L3-L4 dorsal root L5 medial branch blocks. All questions and concerns have been answered and patient agrees with the plan. Follow up after injections and sooner if needed. Orders: Orders XR lumbar spine 4V min Today M47.816 - Spondylosis without myelopathy or radiculopathy, lumbar region Coding Level of Care Code New Pt Level 4 (54579) Diagnoses Lumbar facet arthropathy M47.816 Lumbar spondylosis M47.816 Sacroiliac joint dysfunction of both sides M53.3
[2023-05-13 13:13] VITALS: BP 126/84; PULSE 70; RESP 16; O2SAT 95; BMI 40.7
== END 2023-05-13 13:32 | disposition home or self-care (01) ==
PROVIDERS: PCP Registered Nurse; Visit Provider Registered Nurse Emergency
DX: M47.816 Spondylosis without myelopathy or radiculopathy, lumbar region (principal); M53.3 Sacrococcygeal disorders, not elsewhere classified
CPT/HCPCS: 99204

== ENCOUNTER → 2023-05-13 12:58 | Outpatient (BNVA) | payer MEDICAID, SELFPAY | PROVIDERS: PCP Registered Nurse; Visit Provider Registered Nurse Emergency | DX: M47.816 Spondylosis without myelopathy or radiculopathy, lumbar region (principal); M53.3 Sacrococcygeal disorders, not elsewhere classified | CPT/HCPCS: 99212 ==

== ENCOUNTER 2023-05-18 12:19 | Outpatient (REF) | payer MEDICAID, SELFPAY ==
--- NOTE | ~2023-05-18 | XR_ITS ---
EXAMINATION: XR LUMBOSACRAL SPINE WITH OBLIQUES CLINICAL INFORMATION: Spondylosis without myelopathy or radiculopathy. COMPARISON: MRI from 01/01/2019 and the radiograph from 07/04/2006 TECHNIQUE: AP, both oblique, and lateral views of the lumbar spine. Lateral view of the lumbosacral junction. FINDINGS: There is mild straightening of lumbar lordosis, similar to 2006. There is no significant narrowing of the joint spaces but there is marginal Vonda oh spurring of endplates of L2-L5 and there is trace of vacuum phenomenon at the level of L5-S1. Oblique views revealed no evidence of spondylolysis or listhesis but mild facet arthropathy at the level of L4-L5 bilaterally. Sacroiliac joints are unremarkable. XR/XR lumbar spine 4V min IMPRESSION: Mild multilevel degenerative changes in lumbar spine, more prominent at the level of L5-S1.
== END 2023-05-18 12:20 | disposition home or self-care (01) ==
LOC: HO.XRAY 12:19
PROVIDERS: PCP Registered Nurse; Visit Provider Registered Nurse Emergency
DX: M47.816 Spondylosis without myelopathy or radiculopathy, lumbar region (principal)
CPT/HCPCS: 72110

== ENCOUNTER 2023-05-31 06:08 | Outpatient (REF) | payer MEDICAID, SELFPAY ==
--- NOTE | ~2023-05-31 | FL_ITS ---
EXAMINATION: XR FLUOROSCOPY WITH IMAGES CLINICAL INFORMATION: Sacrococcygeal disorders, not elsewhere classified. COMPARISON: None available. TECHNIQUE: Fluoroscopy Supervised By: Dr. Jose Alberto Hill. Fluoroscopy Time: 0.1 minute. Cumulative Dose: 8.95 mGy. DAP: 0.155 Gycm2. Images: 2. FINDINGS: Image demonstrate needle placement and contrast injection of bilateral sacroiliac joints FL/FL guidance in treatment room IMPRESSION: Fluoroscopy guidance for pain management procedure
== END 2023-05-31 06:09 | disposition home or self-care (01) ==
LOC: CF 06:08
PROVIDERS: Visit Provider Anesthesiology
DX: M53.3 Sacrococcygeal disorders, not elsewhere classified (principal); M47.816 Spondylosis without myelopathy or radiculopathy, lumbar region
CPT/HCPCS: 27096

== ENCOUNTER 2023-05-31 13:33 | Outpatient (AMB) | payer MEDICAID, SELFPAY ==
--- NOTE | 2023-05-31 13:52 | MHC.OFFVIS ---
Intake Vital Signs 05/31/23 14:38 05/31/23 14:38 Height 5 ft 7 in 5 ft 7 in Weight 260 lb 260 lb BMI 40.7 40.7 BP 136/72 136/80 Blood Pressure Location Lt brachial Lt brachial Position Sitting Sitting Respiration 18 18 Pulse 95 99 Pulse Source Pulse Oximeter Pulse Oximeter Pulse Oximetry (%) 96 96 Oxygen Delivery Method Room Air Room Air Comment pre-op post-op Intake Visit Reasons: BILATERAL DIAGNOSTIC SIJ INJECTIONS Allergies No Known Allergies Allergy (Verified 05/31/23 14:39) [facility] Medical History (Updated 05/13/23 @ 13:56 by Aretha Peguero APRN, ZIPPER MEASURER) Polysubstance abuse High cholesterol Social History (Updated 04/28/23 @ 10:19 by Vanessa Devries [facility]) Alcohol intake: current Alcohol intake frequency: a few times a week Patient Tobacco Use Status: Current everyday Tobacco user Current occupational status: unemployed Current occupation: right hand dominant Physical Exam Vital Signs: Last Vital Signs Pulse 99 05/31/23 14:38 Resp 18 05/31/23 14:38 BP 136/80 05/31/23 14:38 Pulse Ox 96 05/31/23 14:38 Oxygen Delivery Method Room Air 05/31/23 14:38 BMI result Body Mass Index 40.7 Assessment & Plan Assessment & Plan (1) Lumbar facet arthropathy: Code(s): M47.816 - Spondylosis without myelopathy or radiculopathy, lumbar region (2) Lumbar spondylosis: Code(s): M47.816 - Spondylosis without myelopathy or radiculopathy, lumbar region (3) Sacroiliac joint dysfunction of both sides: Code(s): M53.3 - Sacrococcygeal disorders, not elsewhere classified Plan: bilateral diagnostic sacroiliac joint injection Informed consent was explained thoroughly to the patient. All questions about benefits and risks for the procedure were answered. Patient came to the operating room and was positioned prone on the operating table with the pillow under the pelvis. Time out was performed delineating name and of the patient, allergies and the nature of the procedure. The lower back and buttocks of the patient were prepped with ChloraPrep prepped and draped with sterile utility towels. C-arm was brought over the operating field and sq picture of patient's pelvis was demonstrated on the screen. For the right joint tilting C-arm contralateral to the site of the joint the most posterior portion of the joints was superimposed with anterior silhouette of the joint. Skin was injected in the projection of the joint slightly medial to the location of the joint with 25 gauge 1/2 inch needle using local lidocaine 2% .After that 22 gauge 3 and 1/2 inch needle was driven to the right joint in tunnel vision fashion. When needle entered the joint capsule injection of the contrast was performed demonstrating intra-articular and minimally periarticular spread of the contrast. After that 5 cc. of ropivacaine 0.5% was injected into the joint. Upon completion of the injections the needle was removed Sterile dressing was applied. The procedure was repeated on the lefts SI joint in the mirroring fashion. Upon completion of the injection patient was taken outside of the operating room to the recovery room where recovered uneventfully. Plan Dedrick is a very pleasant 57-year-old male who presented to the office today for evaluation management of his chronic lower back pain. History, physical exam and provocative testing consistent with bilateral sacroiliac joint dysfunction and lumbar facet arthritis. XR LS ordered for further evaluation Patient has exhausted conservative treatment including nonsteroidal anti-inflammatory medication, prescription gabapentin, physical therapy and home exercise program. Discussed options for treatment including diagnostic interventional testing, steroid injections, peripheral nerve stimulation with Sprint, RFA and more permanent neuromodulation. Will schedule patient for fluoroscopy guided bilateral diagnostic sacroiliac joint injection with local anesthetic. If patient does not receive adequate relief of his pain consider diagnostic bilateral L3-L4 dorsal root L5 medial branch blocks. All questions and concerns have been answered and patient agrees with the plan. Follow up after injections and sooner if needed. Orders: Orders FL guidance in treatment room Today M53.3 - Sacrococcygeal disorders, not elsewhere classified Coding Level of Care Code Procedure Only Diagnoses Lumbar facet arthropathy M47.816 Lumbar spondylosis M47.816 Sacroiliac joint dysfunction of both sides M53.3
[2023-05-31 14:38] VITALS: BP 136/72; BP 136/80; PULSE 95; PULSE 99; RESP 18; O2SAT 96; BMI 40.7
== END 2023-05-31 14:29 | disposition home or self-care (01) ==
LOC: HO.PMCPRC 13:33
PROVIDERS: PCP Registered Nurse; Visit Provider Anesthesiology
DX: M53.3 Sacrococcygeal disorders, not elsewhere classified (principal); M47.816 Spondylosis without myelopathy or radiculopathy, lumbar region
CPT/HCPCS: 27096

== ENCOUNTER 2023-06-01 13:11 | Outpatient (REF) | payer MEDICAID, SELFPAY | END 2023-06-01 13:12 | disposition home or self-care (01) | LOC: HO.HHCLNP 13:11 | PROVIDERS: Visit Provider Registered Nurse | DX: L60.2 Onychogryphosis (principal) | CPT/HCPCS: 87101; 87220 ==

== ENCOUNTER 2023-06-08 13:26 | Outpatient (AMB) | payer MEDICAID, SELFPAY ==
[2023-06-08 13:33] VITALS: BP 120/86; PULSE 80; O2SAT 97; BMI 40.7
--- NOTE | 2023-06-08 13:33 | MHC.OFFVIS ---
Intake Vital Signs 06/08/23 13:33 Height 5 ft 7 in Weight 260 lb BMI 40.7 BP 120/86 Blood Pressure Location Lt brachial Position Sitting Pulse 80 Pulse Source Pulse Oximeter Pulse Oximetry (%) 97 Oxygen Delivery Method Room Air Intake Visit Reasons: BILATERAL DIAGNOSTIC SIJ INJECTIONS/05/31/23 Memory Care Program Resident Required: Yes Memory Care Program Resident Name: Nancy Tomlin Allergies No Known Allergies Allergy (Verified 06/08/23 13:34) HPI HPI Comments History of Present Illness Details Dedrick presents back to the office today for follow up, 1 week s/p bilateral diagnostic SIJ injections. Patient reports 90% pain relief following the injection that lasted through the night and into the next morning. He also reports improvement in mobility and function in the hours after the injection. Patient denies untoward effects of the procedure. He would like to proceed with bilateral therapeutic SIJ injections. Prior: Dedrick is a very pleasant 57-year-old male who presents to the office today for evaluation and management of his chronic lower back pain. Patient reports he has been suffering with pain across his lower back for greater than 10 years. Patient reports today his pain is 10/10. He completed physical therapy about 4 months ago and has been doing home exercise program with no relief. He has tried Tylenol, Motrin without relief. He currently takes gabapentin 100 mg 3 times daily and states this does not alleviate his pain. Patient endorses pain across lower back with radiation into the buttocks and thighs. Pain is worse with sitting for extended period time, standing for extended period of time, walking and using the stairs. Patient denies shocking or electrical pain down either leg. He states he had an MRI at the beginning of the year in [place], we do not have these images for review. He was told by his primary care doctor that there is a pinched nerve. Patient denies red flag symptoms including new loss of bowel, bladder or saddle anesthesia. In terms of muscle damage condition is described as aching, throbbing, stabbing, burning and sharp. Patient reports the pain is negatively impacting his normal function and ability to perform activities of daily living. Patient currently smoking 1 pack per day, denies current use of alcohol or illicit substances. He is currently enrolled in outpatient MAT program and takes Suboxone daily. [facility] Medical History (Updated 05/13/23 @ 13:56 by Aretha Peguero APRN, PROCUREMENT MANAGER) Polysubstance abuse High cholesterol Social History (Updated 04/28/23 @ 10:19 by FAISAL Elmore) Alcohol intake: current Alcohol intake frequency: a few times a week Patient Tobacco Use Status: Current everyday Tobacco user Current occupational status: unemployed Current occupation: right hand dominant Review of Systems Const All systems reviewed & are unremarkable except as noted in HPI and below Physical Exam Vital Signs: Last Vital Signs Pulse 80 06/08/23 13:33 BP 120/86 06/08/23 13:33 Pulse Ox 97 06/08/23 13:33 Oxygen Delivery Method Room Air 06/08/23 13:33 BMI result Body Mass Index 40.7 General: awake, alert, oriented. Answers questions appropriately. Fully engaged in examination. Skin: warm, dry, intact HEENT: Normocephalic. Hearing intact. Cardiac: External chest normal in appearance. Respiratory: No cough, audible wheezing or stridor. Abdomen: without gross distension. Neurological: Oriented to person, place, time and situation. Thought process intact. Psychiatric: Appropriate mood and affect. Good judgment and insight. Back/Spine/Pelvis Other: Lumbar exam: Able to transition from sit to stand unassisted. Ambulates with bilaterally normal heel strike and toe off Assessment & Plan Assessment & Plan (1) Lumbar facet arthropathy: Code(s): M47.816 - Spondylosis without myelopathy or radiculopathy, lumbar region (2) Lumbar spondylosis: Code(s): M47.816 - Spondylosis without myelopathy or radiculopathy, lumbar region (3) Sacroiliac joint dysfunction of both sides: Code(s): M53.3 - Sacrococcygeal disorders, not elsewhere classified Plan Dedrick is a very pleasant 57-year-old male who presented to the office today for follow up 1 week s/p bilateral diagnostic SIJ injections. Patient reports 90% pain relief following the procedure that lasted until the following day. He states he was able to be more active with improved function without pain increase in the hours after the injection. Schedule for Fluoroscopy guided bilateral therapeutic SIJ injections with local anesthetic. Patient has exhausted conservative treatment including nonsteroidal anti-inflammatory medication, prescription gabapentin, physical therapy and home exercise program. All questions and concerns have been answered and patient agrees with the plan. Follow up after injections and sooner if needed. Coding Level of Care Code Est Pt Level 3 (00337) Diagnoses Lumbar facet arthropathy M47.816 Lumbar spondylosis M47.816 Sacroiliac joint dysfunction of both sides M53.3
== END 2023-06-08 13:41 | disposition home or self-care (01) ==
PROVIDERS: PCP Registered Nurse; Visit Provider Registered Nurse Emergency
DX: M47.816 Spondylosis without myelopathy or radiculopathy, lumbar region (principal); M53.3 Sacrococcygeal disorders, not elsewhere classified
CPT/HCPCS: 99213

== ENCOUNTER 2023-06-08 13:50 | Outpatient (REF) | payer MEDICAID, SELFPAY ==
--- NOTE | 2023-06-08 13:53 | EMG_ITS ---
Chief complaint: Bilateral hand pain and numbness Reason for referral: Evaluate for Carpal Tunnel Syndrome Referred by: Praveen DHILLON Procedure done: Bilateral upper extremities NCS Precautions and/or limitations: No needle EMG, poor study tolerance The limb temperature was monitored continuously and remained between 32-36 degrees C during the performance of the NCS. Nerve Conduction Studies Anti Sensory Summary Table ?Stim Site NR Onset (ms) Norm Onset (ms) Peak (ms) Norm Peak (ms) O-P Amp (?V) Norm O-P Amp Site1 Site2 Delta-0 (ms) Dist (cm) Julian (m/s) Norm Julian (m/s) Left Median Anti Sensory (2nd Digit) Wrist ? 4.2 4.9 <3.6 16.8 >10 Wrist 2nd Digit 4.2 14.0 33 Right Median Anti Sensory (2nd Digit) Wrist ? 4.2 5.2 <3.6 9.0 >10 Wrist 2nd Digit 4.2 14.0 33 Right Radial Anti Sensory (Thumb) Forearm ? 2.2 2.7 <3.1 18.5 Forearm Thumb 2.2 0.0 Left Ulnar Anti Sensory (5th Digit) Wrist ? 3.3 4.4 <3.7 18.6 >15.0 Wrist 5th Digit 3.3 14.0 42 Right Ulnar Anti Sensory (5th Digit) Wrist ? 3.9 4.3 <3.7 5.3 >15.0 Wrist 5th Digit 3.9 14.0 36 Motor Summary Table ?Stim Site NR Onset (ms) Norm Onset (ms) O-P Amp (mV) Norm O-P Amp iAmp (mV) Amp (1st) (%) Site1 Site2 Delta-0 (ms) Dist (cm) Julian (m/s) Norm Julian (m/s) Left Median Motor (Abd Poll Brev) Wrist ? 4.9 <3.9 12.5 >4.5 14.1 100.0 Elbow Wrist 4.5 23.0 51 >45 Elbow ? 9.4 12.1 13.6 96.8 Right Median Motor (Abd Poll Brev) Wrist ? 4.5 <3.9 11.6 >4.5 13.8 100.0 Elbow Wrist 4.7 19.0 40 >45 Elbow ? 9.2 10.9 13.0 94.0 Left Ulnar Motor (Abd Dig Minimi) Wrist ? 3.1 <3.0 2.1 >5 2.6 100.0 B Elbow Wrist 3.5 19.0 54 >45 B Elbow ? 6.6 2.1 2.5 100.0 A Elbow B Elbow 2.2 10.0 45 >45 A Elbow ? 8.8 1.9 2.4 90.5 Right Ulnar Motor (Abd Dig Minimi) Wrist ? 2.2 <3.0 5.5 >5 6.6 100.0 B Elbow Wrist 4.8 22.5 47 >45 B Elbow ? 7.0 5.2 6.1 94.5 A Elbow B Elbow 1.7 10.0 59 >45 A Elbow ? 8.7 5.1 6.1 92.7 FINDINGS: Right median motor nerve showed prolonged distal latency, normal amplitude and slow conduction velocity. Left median motor nerve showed prolonged distal latency, normal amplitude and normal conduction velocity. Left ulnar motor nerve showed prolonged distal latency, small amplitudes and slowing of conduction velocity across the elbow. Bilateral median sensory nerves showed prolonged peak latency. Right median sensory also showed small amplitude. Bilateral ulnar sensory nerves showed prolonged peak latency. Right ulnar sensory also showed small amplitude. All other nerves tested were within normal. IMPRESSION: 1. This is an abnormal study. 2. There is electrodiagnostic evidence for bilateral moderate-severe median neuropathy at the wrist, consistent with carpal tunnel syndrome. 3. There is electrodiagnostic evidence for left ulnar neuropathy at the elbow. 4. Cannot rule out a chronic right ulnar neuropathy. Thank you for your kind referral. Meredith Murphy MD, OLIVIA Board Certified, [place] [employer] and [employer] (ABPMR) Board Certified, [place] Board [employer] Electro[employer]ostic [employer] (ABEM) CODIN and MTDD
== END 2023-06-08 13:51 | disposition home or self-care (01) ==
LOC: HO.NEURO 13:50
PROVIDERS: PCP Registered Nurse; Visit Provider Physician Assistant
DX: R20.0 Anesthesia of skin (principal); R20.2 Paresthesia of skin; M47.816 Spondylosis without myelopathy or radiculopathy, lumbar region; M53.3 Sacrococcygeal disorders, not elsewhere classified
CPT/HCPCS: 95911; 99212

== ENCOUNTER → 2023-06-08 13:53 | Outpatient (BNV) | payer MEDICAID, SELFPAY | PROVIDERS: PCP Registered Nurse; Visit Provider Physical Medicine & Rehabilitation | DX: G56.13 Other lesions of median nerve, bilateral upper limbs (principal); G56.03 Carpal tunnel syndrome, bilateral upper limbs | CPT/HCPCS: 95911 ==

== ENCOUNTER 2023-06-21 06:21 | Outpatient (REF) | payer MEDICAID, SELFPAY | END 2023-06-21 06:22 | disposition home or self-care (01) | LOC: CF 06:21 | PROVIDERS: Visit Provider Anesthesiology | DX: Z13.89 Encounter for screening for other disorder (principal) ==

== ENCOUNTER 2023-08-04 18:56 | Outpatient (REF) | payer MEDICAID, SELFPAY | END 2023-08-04 18:57 | disposition home or self-care (01) | LOC: HO.HHCLNP 18:56 | PROVIDERS: Visit Provider Family Medicine | DX: R30.9 Painful micturition, unspecified (principal) | CPT/HCPCS: 87086 ==

== ENCOUNTER 2023-12-02 09:15 | Outpatient (REF) | payer MEDICAID, SELFPAY ==
[2023-12-02 11:55] LABS: Prothrombin Time 12.3 SEC (11.1-13.3)
[2023-12-02 12:47] LABS: HBc Num1 5.97 S/CO (0.00-0.79); HBsAGNum1 0.33 S/CO (0.00-0.99); Hepatitis A Antibody IgM 0.24 Index (0-0.79); Hepatitis B Surface Antigen Negative (Negative); ~HepC Num1 14.73 S/CO (0.00-0.79); ~Hepatitis A Antibody IgM Nonreactive (Nonreactive); ~Hepatitis B Surface Antibody REACTIVE (Nonreactive); ~Hepatitis C Antibody Reactive (Nonreactive)
[2023-12-02 12:51] LABS: Alanine Aminotransferase 23 U/L (0-40); Albumin Level 4.1 g/dL (3.5-5.0); Alkaline Phosphatase 73 U/L (39-117); Amylase 74 U/L (28-100); Aspartate Amino Transferase 23 U/L (5-37); Bilirubin Direct 0.2 mg/dL (0.0-0.5); Bilirubin Total 0.5 mg/dL (0.0-1.0); Lipase 40 U/L (8-78); Total Protein 7.3 g/dL (6.5-8.0)
[2023-12-02 14:12] LABS: HBc Num2 6.03 S/CO; HBc Num3 6.05 S/CO; Hepatitis B Core Antibody Reactive (Nonreactive)
[2023-12-06 06:48] LABS: HCV Log PCR <1.18 NOT DETECTED Log IU/mL (NOT DETECTED); HepC Viral Load <15 NOT DETECTED IU/mL (NOT DETECTED)
[2023-12-08 18:18] LABS: FIB-ALT 15 U/L (9-46); FIB-Alpha-2-Macroglobulin 170 mg/dL (106-279); FIB-Apolipoprotein A1 128 mg/dL (94-176); FIB-GGT 35 U/L (3-85); FIB-Haptoglobin 142 mg/dL (43-212); FIB-Total Bilirubin 0.5 mg/dL (0.2-1.2); Liver Fibrosis Score 0.25; Liver Fibrosis Stage F0-F1; Nec Inflam Act Grade A0; Nec Inflam Act Score 0.05
== END 2023-12-02 09:16 | disposition home or self-care (01) ==
LOC: HO.HHCL 09:15
PROVIDERS: Visit Provider Registered Nurse
DX: R10.13 Epigastric pain (principal); R10.11 Right upper quadrant pain; Z86.19 Personal history of other infectious and parasitic diseases
CPT/HCPCS: 36415; 80076; 81596; 82150; 83690; 85610; 86704; 86706; 86709; 86803; 87340; 87522

== ENCOUNTER 2023-12-06 09:34 | Outpatient (REF) | payer MEDICAID, SELFPAY ==
[2023-12-07 08:17] LABS: ~HepC Num1 15.12 S/CO (0.00-0.79); ~Hepatitis C Antibody Reactive (Nonreactive)
[2023-12-08 14:18] LABS: HCV Log PCR <1.18 NOT DETECTED Log IU/mL (NOT DETECTED); HepC Viral Load <15 NOT DETECTED IU/mL (NOT DETECTED)
[2023-12-14 00:14] LABS: FIB-ALT 23 U/L (9-46); FIB-Alpha-2-Macroglobulin 176 mg/dL (106-279); FIB-Apolipoprotein A1 124 mg/dL (94-176); FIB-GGT 34 U/L (3-85); FIB-Haptoglobin 158 mg/dL (43-212); FIB-Total Bilirubin 0.5 mg/dL (0.2-1.2); Liver Fibrosis Score 0.26; Liver Fibrosis Stage F0-F1; Nec Inflam Act Grade A0; Nec Inflam Act Score 0.09
== END 2023-12-06 09:35 | disposition home or self-care (01) ==
LOC: HO.HHCL 09:34
PROVIDERS: Visit Provider Registered Nurse
DX: R10.13 Epigastric pain (principal)
CPT/HCPCS: 36415; 81596; 86803; 87522

== ENCOUNTER 2023-12-07 11:37 | Outpatient (REF) | payer MEDICAID, SELFPAY | END 2023-12-07 11:38 | disposition home or self-care (01) | LOC: HO.CHCLNP 11:37 | PROVIDERS: Visit Provider Registered Nurse | DX: Z13.89 Encounter for screening for other disorder (principal) ==

== ENCOUNTER 2023-12-08 13:05 | Outpatient (REF) | payer MEDICAID, SELFPAY | END 2023-12-08 13:06 | disposition home or self-care (01) | LOC: HO.HHCL 13:05 | PROVIDERS: Visit Provider Registered Nurse | DX: Z13.89 Encounter for screening for other disorder (principal) ==

== ENCOUNTER 2023-12-09 11:51 | Outpatient (REF) | payer MEDICAID, SELFPAY | END 2023-12-09 11:52 | disposition home or self-care (01) | LOC: HO.CHCLNP 11:51 | PROVIDERS: Visit Provider Registered Nurse | DX: R10.13 Epigastric pain (principal); Z86.19 Personal history of other infectious and parasitic diseases | CPT/HCPCS: 87338 ==

== ENCOUNTER 2023-12-14 10:53 | Outpatient (REF) | payer MEDICAID, SELFPAY ==
[2023-12-14 12:29] LABS: Alanine Aminotransferase 18 U/L (0-40); Albumin Level 4.1 g/dL (3.5-5.0); Alkaline Phosphatase 71 U/L (39-117); Anion Gap 11 (12-20); Aspartate Amino Transferase 19 U/L (5-37); Bilirubin Total 0.8 mg/dL (0.0-1.0); Blood Urea Nitrogen 8 mg/dL (9-16); Calcium 9.3 mg/dL (8.4-10.2); Carbon Dioxide 25 mmol/L (22-29); Chloride 107 mmol/L (96-108); Estimated Glomerular Filt Rate > 60; Glucose Random 94 mg/dL (60-115); Potassium 4.1 mmol/L (3.3-5.1); Sodium 139 mmol/L (135-145); Total Protein 7.3 g/dL (6.5-8.0)
== END 2023-12-14 10:54 | disposition home or self-care (01) ==
LOC: HO.LAB 10:53
PROVIDERS: PCP Registered Nurse; Visit Provider Registered Nurse
DX: B35.1 Tinea unguium (principal)
CPT/HCPCS: 36415; 80053

== ENCOUNTER 2023-12-22 18:26 | Outpatient (REF) | payer MEDICAID, SELFPAY ==
[2023-12-22 18:41] LABS: Appearance Urine Clear; Color Urine Yellow; Glucose Urine UA Negative (Negative); Leukocyte Esterase Urine Large (3+) (Negative); Nitrite Urine Negative (Negative); PH 7.5 (5.0-9.0); UMIC TRIGGER UACC YES; Urine Blood Negative (Negative); Urine Ketones Negative (Negative); Urine Protein Negative (Neg-Trace)
[2023-12-22 18:43] LABS: Bacteria Urine None Seen (None Seen); Hyaline Casts Urine 0-2 /LPF (0-2); RBC Urine 0-2 /HPF (0-2); Squamous Epithelial Cell Urine 0-2 /HPF (0-2); UACC Culture Trigger YES; WBC Urine 21-50 /HPF (0-5)
[2023-12-23 03:56] LABS: CT PCR NOT DETECTED (Not Detect.); NG PCR NOT DETECTED (Not Detect.)
== END 2023-12-22 18:27 | disposition home or self-care (01) ==
LOC: HO.HHCLNP 18:26
PROVIDERS: Visit Provider Student in an Organized Health Care Education/Training Program
DX: R31.9 Hematuria, unspecified (principal)
CPT/HCPCS: 0353U; 81001; 87086; 87088; 87186

== ENCOUNTER 2023-12-23 09:44 | Outpatient (REF) | payer MEDICAID, SELFPAY ==
--- NOTE | ~2023-12-23 | XR_ITS ---
EXAMINATION: XR ABDOMEN COMPLETE CLINICAL INDICATION: Hematuria, evaluate for nephrolithiasis. COMPARISON: Abdominal ultrasound 03/23/2007. TECHNIQUE: 2 views of the abdomen. FINDINGS: No radiopacities or calcific densities to suggest nephrolithiasis, although evaluation is mildly limited due to overlying gaseous and stool distention of the colon. Right upper quadrant surgical clips. Nonobstructive bowel gas pattern. Mild to moderate degree of colonic stool burden. Visualized lung bases are clear. No acute osseous findings. XR/XR abdomen min 2V IMPRESSION: 1. No radiographic evidence of nephrolithiasis. 2. Nonobstructive bowel gas pattern. 3. Mild to moderate colonic stool burden.
== END 2023-12-23 09:45 | disposition home or self-care (01) ==
LOC: HO.HHCX 09:44
PROVIDERS: Visit Provider Student in an Organized Health Care Education/Training Program
DX: R31.9 Hematuria, unspecified (principal)
CPT/HCPCS: 74019

== ENCOUNTER 2024-01-10 19:42 | Outpatient (REF) | payer MEDICAID, SELFPAY | END 2024-01-10 19:43 | disposition home or self-care (01) | LOC: HO.HHCLNP 19:42 | PROVIDERS: Visit Provider Internal Medicine | DX: R39.9 Unspecified symptoms and signs involving the genitourinary system (principal) | CPT/HCPCS: 87086; 87088; 87186 ==

== ENCOUNTER 2024-01-23 16:23 | Outpatient (REF) | payer MEDICAID, SELFPAY ==
[2024-01-23 17:50] LABS: Appearance Urine Clear; Color Urine Yellow; Glucose Urine UA Negative (Negative); Leukocyte Esterase Urine Trace (Negative); Nitrite Urine Negative (Negative); PH 6.5 (5.0-9.0); Specific Gravity - Urine 1.025 (1.005-1.025); UMIC TRIGGER UACC YES; Urine Blood Negative (Negative); Urine Ketones Trace mg/dL (Negative); Urine Protein Negative (Neg-Trace)
[2024-01-23 18:23] LABS: Bacteria Urine None Seen (None Seen); Calcium Oxalate Crystals Urine Present; Hyaline Casts Urine 0-2 /LPF (0-2); RBC Urine 0-2 /HPF (0-2); Squamous Epithelial Cell Urine 0-2 /HPF (0-2); WBC Urine 0-5 /HPF (0-5)
== END 2024-01-23 16:24 | disposition home or self-care (01) ==
LOC: HO.CHCLNP 16:23
PROVIDERS: Visit Provider Registered Nurse
DX: R39.9 Unspecified symptoms and signs involving the genitourinary system (principal)
CPT/HCPCS: 81001

== ENCOUNTER 2024-01-30 16:20 | Outpatient (REF) | payer MEDICAID, SELFPAY | END 2024-01-30 16:21 | disposition home or self-care (01) | LOC: HO.HHCLNP 16:20 | PROVIDERS: Visit Provider Nurse Practitioner Family | DX: R39.9 Unspecified symptoms and signs involving the genitourinary system (principal) | CPT/HCPCS: 87086 ==

== ENCOUNTER 2024-02-20 12:49 | Outpatient (REF) | payer MEDICAID, SELFPAY ==
--- NOTE | ~2024-02-20 | US_ITS ---
EXAMINATION: US RETROPERITONEAL LIMITED (RENAL ONLY) CLINICAL INFORMATION: Microscopic hematuria. Flank pain.. COMPARISON: None available. TECHNIQUE: Grayscale ultrasound and color Doppler exam used. FINDINGS: RIGHT KIDNEY: 12.6 x 6.4 x 7 cm (SAG x AP x TRV). The kidney is normal in size, contour, and echogenicity. Renal cortical thickness is normal. No calculi or suspicious focal parenchymal lesions. No hydronephrosis. There is a 2.3 cm cyst upper pole right kidney which is anechoic, simple cyst. No follow-up imaging is recommended for simple renal cyst. LEFT KIDNEY: 12.7 x 5.5 x 5.1 cm (SAG x AP x TRV). The kidney is normal in size, contour, and echogenicity. Renal cortical thickness is normal. No renal calculi or hydronephrosis. Complex septated cystic lesion upper pole left kidney measuring 1.7 cm. This is a 4 mm calcification along the wall. This can be further evaluated with CT urogram exam. US/US renal BI IMPRESSION: Complex cystic lesion upper pole left kidney measuring 1.7 cm. This is a 4 mm calcification along the wall. This can be further evaluated with CT urogram.
== END 2024-02-20 12:50 | disposition home or self-care (01) ==
LOC: HO.US 12:49
PROVIDERS: PCP Registered Nurse; Visit Provider Internal Medicine
DX: R10.9 Unspecified abdominal pain (principal)
CPT/HCPCS: 76775

== ENCOUNTER 2024-02-24 13:40 | Emergency (ER) | payer MEDICAID, SELFPAY ==
--- NOTE | ~2024-02-24 | CT_ITS ---
EXAMINATION: CT ABDOMEN AND PELVIS WITHOUT CONTRAST CLINICAL INFORMATION: Bilateral flank pain COMPARISON: None available. TECHNIQUE: Multidetector volumetric imaging was performed from the superior aspect of the liver through the pubic symphysis. Sagittal and coronal reformatted images were obtained on the technologist's workstation. This CT examination was performed using dose optimization techniques as appropriate, variously including the following: *Automated exposure control *Adjustment of mA and/or kV according to patient size (this includes techniques or standardized protocols for targeted exams where dose is matched to indication/reason for exam; i.e. extremities or head) *Use of iterative reconstruction technique DLP: 850 mGy-cm FINDINGS: LUNG BASES: The visualized lung bases are unremarkable. LIVER, GALLBLADDER, AND BILIARY TREE: The liver is normal in size, shape, and attenuation. No focal hepatic lesion or biliary ductal dilatation is present. Gallbladder is surgically absent. PANCREAS: Unremarkable. SPLEEN: Unremarkable. There is small splenule seen ADRENAL GLANDS: Unremarkable. KIDNEYS AND URETERS: Right kidney revealed punctate calcification in the parenchyma most likely small stone in upper pole 2.9 x 2.4 cm low-attenuation lesion most likely cyst with attenuation of 6 HU, most likely cyst. Left kidney revealed punctate parenchymal calcification, no hydroureteronephrosis or cyst cysts. BLADDER: Unremarkable. GASTROINTESTINAL TRACT: The small and large bowel are unremarkable. The appendix is unremarkable. ABDOMINAL WALL: No significant hernia is appreciated. LYMPH NODES: Normal. VASCULAR: Unremarkable. PELVIC VISCERA: Unremarkable. OSSEOUS STRUCTURES: Mild degenerative changes lower lumbar spine CT/CT abdomen pelvis wo IV con IMPRESSION: 1. No explanation for flank pain. 2. Right renal cyst. 3. Bilateral nephrolithiasis without hydroureteronephrosis. 4. Status post cholecystectomy. 5. Mild degenerative changes lower lumbar spine. Fleischner guidelines were followed.
[2024-02-24 13:45] VITALS: BP 153/76; PULSE 62; RESP 18; TEMP 36.4; O2SAT 99; BMI 35.9
--- NOTE | 2024-02-24 13:49 | ED_ITS ---
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 Vaughan HPI narrative: 58-year-old male came in for evaluation of left flank pain x3 days ago, pain was described as 10/10, no recent strenuous activity, has not noticed any blood in the urine, normal urination without dysuria or frequency urination, no fever, no chills. Related Data Home Medications ?Medication ?Instructions ?Recorded ?Confirmed gabapentin 800 mg tablet 800 mg PO TID 04/28/23 buprenorphine 8 mg-naloxone 2 mg 2 tab sublingual DAILY 05/13/23 sublingual tablet ketotifen fumarate 0.025 % (0.035 1 drp ophthalmic-Right itch 05/13/23 %) eye drops (Eye Itch Relief) lidocaine 5 % topical patch patch topical 05/13/23 nicotine 7 mg/24 hr daily transdermal 05/13/23 transdermal patch omeprazole 40 mg capsule,delayed 40 mg PO QAM 05/13/23 release prazosin 2 mg capsule 4 mg PO BEDTIME PRN nightmares 05/13/23 quetiapine 100 mg tablet mg PO 05/13/23 quetiapine 200 mg tablet 200 mg PO BEDTIME 05/13/23 Previous Rx's ?Medication ?Instructions ?Recorded amoxicillin 875 mg-potassium 1 tab PO BID #14 tabs 06/10/20 clavulanate 125 mg tablet (Augmentin) Allergies Allergy/AdvReac Type Severity Reaction Status Date / Time No Known Allergies Allergy Verified 02/24/24 13:48 Review of Systems 2 Review of Systems: All other systems are reviewed and are negative Constitutional: Reports as per HPI and Reports no additional constitutional complaints Eyes: Reports as per HPI and Reports no additional eye complaints Reports system reviewed and no additional complaints, except as documented Cardiovascular: Reports as per HPI and Reports no additional cardiovascular complaints Respiratory: Reports as per HPI and Reports no additional respiratory complaints Gastrointestinal: Reports as per HPI and Reports no additional gastrointestinal complaints Genitourinary: Reports no additional female genitourinary complaints Musculoskeletal: Reports no additional musculoskeletal complaints Skin/Breast: Reports system reviewed and no additional complaints, except as docu Psychiatric: Reports no additional psychiatric complaints Endocrine: Reports no additional endocrine complaints Hematologic/Lymphatic: Reports no additional hematologic/lymphatic complaints Allergic/Immunologic: Reports no additional allergic/immunologic complaints Reports system reviewed and no additional complaints, except as documented and Reports Abnormal speech present [facility] Past Medical History Medical History Nicotine dependence, cigarettes, uncomplicated History of latent tuberculosis Polysubstance abuse High cholesterol Surgical History History of cholecystectomy (~2004) Social History Social History Alcohol intake: current Alcohol intake frequency: a few times a week Patient Tobacco Use Status: Current everyday Tobacco user Advance Directives: No Advance Directives Information Provided: No Do you have a plan to hurt others: No Plan Current occupational status: unemployed Current occupation: right hand dominant Physical Exam ED Vital Signs: Vital Signs - 24 hr 02/24/24 13:45 02/24/24 15:13 Temperature 97.5 F 98.0 F Pulse Rate 62 63 Respiratory Rate 18 16 Blood Pressure 153/76 H 131/73 Pulse Oximetry 99 96 Oxygen Delivery Method Room Air Room Air BMI result Body Mass Index 35.9 Vital signs have been reviewed and appear to be correct. Blood pressure elevated. Heart rate normal. Respiratory rate normal. Temperature normal. Oxygen saturation normal. Appearance: Alert. Oriented X3. No acute distress. Head: Normal external exam. Normocephalic. Atraumatic. No Stone signs noted. No raccoon eyes noted Eyes: PERRLA. EOMI. Conjunctiva and sclera normal. Eyelids normal. ENT: TM's Normal. Pharynx normal. Uvula midline. Moist mucous membranes. No trismus noted. No drooling noted. No muffled voice noted. Neck: Normal inspection. Neck supple. FROM. No adenopathy. Thyroid Normal. No meningeal signs. No neck mass noted. CVS: Normal heart rate and rhythm. Heart sound normal. No murmurs noted. Pulses normal throughout. Respiratory: No respiratory distress. Painless inspiration. Breath sounds normal. No wheezes/rales/rhonchi noted. Chest nontender. No accessory muscle usage noted or decreased air movement noted. Abdomen: Soft and nontender. Bowel sounds normal in all 4 quadrants. No distention noted. No organomegaly noted. No visible injury noted. Back: No CVA tenderness. Full range of motion noted. Skin: Skin warm and dry. Normal skin color. Normal skin turgor. No rashes/lesions/lacerations noted. Extremities: No lower extremity edema. Extremities exhibit normal range of motion. Extremities nontender. Neuro: Oriented X 3. Cranial nerve exam: II-XII are grossly intact No motor deficit. No sensory deficit. Reflexes normal. Course Course Course Narrative: This is an RME done by JACQUIE Hess: Additional HPI, ROS, PE not included below will be deferred to primary provider. 58 yo male with pmh SI joint dysfunction, osteoarthritis of thumbs presenting with bilateral flank pain. Reports he had a US of kidneys which showed renal cysts, here for worsening pain. Appearance: Alert.? Oriented X3.? No acute cardiopulmonary distress distress.? Head: Normocephalic, atraumatic, no step-offs or deformities Neck: Normal inspection.? Neck supple.? CVS: Pulses normal.? Respiratory: No respiratory distress.? Skin: ? Normal skin color. Extremities: 5/5 strength to bilateral upper and lower extremities Back: No midline tenderness, no C-spine tenderness, full range of motion, No CVA tenderness bilaterally Neuro: Oriented X 3.? No motor deficit.? No sensory deficit. Reevaluation(s) Reevaluation #1: Left flank pain unclear etiology, hematuria, CT of the abdomen pelvis show no acute pathology. Will discharge the patient to follow up with Dr. Chapa for hematuria and flank pain. Time: 17:33 Medical Decision Making Differential Diagnosis Differential Diagnoses: The differential diagnosis associated with the presentation includes (Renal colic, kidney stone, YENIFER, electrolyte derangement, severe anemia, UTI, diverticulitis, colitis, pancreatitis, acute appendicitis.) Admission/Observation Consideration of admission/observation: Escalation of care including admission/observation considered Lab Data MDM Lab Attestation statement: I reviewed the patient's lab results. 02/24/24 15:19 02/24/24 15:19 Labs: Lab Results 02/24/24 02/24/24 Range/Units 15:19 16:04 WBC 7.4 (4.8-10.8) X10*3/uL RBC 4.62 (4.60-5.80) X10*6/uL Hgb 14.4 (14.0-18.0) g/dl Hct 40.8 L (42.0-52.0) % MCV 88.3 (80.0-98.0) fL MCH 31.2 (27.0-33.0) pg MCHC 35.3 (31.0-36.0) g/dl RDW 12.7 (11.0-16.0) % Plt Count 213 (160-400) X10*3/uL MPV 9.5 (9.4-12.4) fL Immature Gran % (Auto) 0.3 (0.0-0.4) % Neut % (Auto) 60.5 (45-73) % Lymph % (Auto) 32.5 (20-40) % [place] % (Auto) 5.2 (2-11) % Eos % (Auto) 1.1 (0-4) % Baso % (Auto) 0.4 (0-2) % Lymph # (Auto) 2.4 (1.2-4.9) X10*3/uL [place] # (Auto) 0.4 (0.1-1.2) X10*3/uL Eos # (Auto) 0.1 (0.0-0.4) X10*3/uL Baso # (Auto) 0.0 (0.0-0.2) X10*3/uL Abs Immat Gran (auto) 0.02 (0.00-0.03) X10*3/uL Absolute Neuts (auto) 4.5 (2.0-8.3) x10*3/uL Absolute Nucleated RBC 0.000 (0.0-0.012) X10*3/uL Nucleated RBC % (auto) 0.0 (0.0-0.2) /100WBC Sodium 139 (135-145) mmol/L Potassium 4.1 (3.3-5.1) mmol/L Chloride 105 (96-108) mmol/L Carbon Dioxide 26 (22-29) mmol/L Anion Gap 12 (12-20) BUN 9 (9-16) mg/dL Creatinine 0.80 (0.5-1.4) mg/dL Estim Creat Clear Calc 115.7 Estimated GFR > 60 Random Glucose 93 (60-115) mg/dL Calcium 9.5 (8.4-10.2) mg/dL Total Bilirubin 0.5 (0.0-1.0) mg/dL AST 25 (5-37) U/L ALT 20 (0-40) U/L Alkaline Phosphatase 73 (39-117) U/L Total Protein 7.2 (6.5-8.0) g/dL Albumin 4.2 (3.5-5.0) g/dL Urine Color Yellow Urine Appearance Clear Urine pH 6.0 (5.0-9.0) Ur Specific [place] 1.020 (1.005-1.025) Urine Protein Negative (Neg-Trace) mg/dL Urine Glucose (UA) Negative (Negative) mg/dL Urine Ketones Negative (Negative) mg/dL Urine Blood Small (1+) H (Negative) Urine Nitrite Negative (Negative) Ur Leukocyte Esterase Negative (Negative) Urine RBC 3-5 H (0-2) /HPF Urine WBC 0-5 (0-5) /HPF Ur Squamous Epith Cells 0-2 (0-2) /HPF Urine Bacteria None Seen (None Seen) Hyaline Casts 0-2 (0-2) /LPF Independent Interpretation I performed an independent interpretation of an: CT Scan (Abdomen pelvis:1. No explanation for flank pain. 2. Right renal cyst. 3. Bilateral nephrolithiasis without hydroureteronephrosis. 4. Status post cholecystectomy. 5. Mild degenerative changes lower lumbar spine. ) Radiology Impression Discussion of test interpretation with radiology: I have reviewed the radiologist's reading. Discharge Plan Discharge Clinical Impression: Acute left flank pain, Hematuria Patient Disposition: Home, Self-Care Instructions: Hematuria (ED) Additional Instructions: Take Tylenol 500 mg tablet every 6 hours if needed for pain, drink plenty of fluid. Prescriptions: No Action amoxicillin-pot clavulanate [Augmentin] 875-125 mg tablet 1 tab PO BID Qty: 14 0RF gabapentin 800 mg tablet 800 mg PO TID quetiapine 200 mg tablet 200 mg PO BEDTIME nicotine 7 mg/24 hr patch 24 hour transdermal omeprazole 40 mg capsule,delayed release(DR/EC) 40 mg PO QAM quetiapine 100 mg tablet PO lidocaine 5 % adhesive patch,medicated topical ketotifen fumarate [Eye Itch Relief] 0.025 % (0.035 %) drops 1 drp ophthalmic-Right prazosin 2 mg capsule 4 mg PO BEDTIME PRN (Reason: nightmares) buprenorphine-naloxone 8-2 mg tablet, sublingual 2 tab sublingual DAILY Referrals: Ed Chapa MD [Physician] - Print Language: French
[2024-02-24 15:13] VITALS: BP 131/73; PULSE 63; RESP 16; TEMP 36.7; O2SAT 96
--- NOTE | 2024-02-24 15:22 | MHC.EDTECH ---
This pct just assumed care of Patient ,vitals taken and blood drawn and sent to lab ,Patient a&o ,call deluna within Patient reach .
[2024-02-24 15:23] LABS: MANUAL DIFF FLAG NO
[2024-02-24 15:24] LABS: Basophils Percent Auto 0.4 % (0-2); Eosinophils Absolute Auto 0.1 X10*3/uL (0.0-0.4); Eosinophils Percent Auto 1.1 % (0-4); Hematocrit 40.8 % (42.0-52.0); Hemoglobin 14.4 g/dl (14.0-18.0); Imm Gran Abs Auto 0.02 X10*3/uL (0.00-0.03); Imm Gran Pct Auto 0.3 % (0.0-0.4); Lymphocytes Absolute Auto 2.4 X10*3/uL (1.2-4.9); Lymphocytes Percent Auto 32.5 % (20-40); Mean Corpuscular HGB Conc 35.3 g/dl (31.0-36.0); Mean Corpuscular Hemoglobin 31.2 pg (27.0-33.0); Mean Corpuscular Volume 88.3 fL (80.0-98.0); Mean Platelet Volume 9.5 fL (9.4-12.4); Monocytes Absolute Auto 0.4 X10*3/uL (0.1-1.2); Monocytes Percent Auto 5.2 % (2-11); Neutrophils Absolute Auto 4.5 x10*3/uL (2.0-8.3); Neutrophils Percent Auto 60.5 % (45-73); Platelet Count 213 X10*3/uL (160-400); Red Blood Count 4.62 X10*6/uL (4.60-5.80); Red Cell Distribution Width 12.7 % (11.0-16.0); White Blood Count 7.4 X10*3/uL (4.8-10.8)
[2024-02-24 15:38] LABS: Alanine Aminotransferase 20 U/L (0-40); Albumin Level 4.2 g/dL (3.5-5.0); Alkaline Phosphatase 73 U/L (39-117); Anion Gap 12 (12-20); Aspartate Amino Transferase 25 U/L (5-37); Bilirubin Total 0.5 mg/dL (0.0-1.0); Blood Urea Nitrogen 9 mg/dL (9-16); Calcium 9.5 mg/dL (8.4-10.2); Carbon Dioxide 26 mmol/L (22-29); Chloride 105 mmol/L (96-108); Creatinine Clr Calc Pharmacy 115.7; Estimated Glomerular Filt Rate > 60; Glucose Random 93 mg/dL (60-115); Potassium 4.1 mmol/L (3.3-5.1); Sodium 139 mmol/L (135-145); Total Protein 7.2 g/dL (6.5-8.0)
--- NOTE | 2024-02-24 16:04 | MHC.EDTECH ---
Patient urine sample collected and sent to lab .
[2024-02-24 16:11] LABS: Appearance Urine Clear; Color Urine Yellow; Glucose Urine UA Negative (Negative); Leukocyte Esterase Urine Negative (Negative); Nitrite Urine Negative (Negative); UMIC TRIGGER UACC YES; Urine Blood Small (1+) (Negative); Urine Ketones Negative (Negative); Urine Protein Negative (Neg-Trace)
[2024-02-24 16:30] LABS: Bacteria Urine None Seen (None Seen); Hyaline Casts Urine 0-2 /LPF (0-2); Squamous Epithelial Cell Urine 0-2 /HPF (0-2); WBC Urine 0-5 /HPF (0-5)
[2024-02-24 17:41] VITALS: BP 142/93; PULSE 66; RESP 16; TEMP 36.8; O2SAT 96
[2024-02-24 18:10] VITALS: BP 142/93; PULSE 66; RESP 16; TEMP 36.8; O2SAT 96
== END 2024-02-24 18:11 | disposition home or self-care (01) ==
PROVIDERS: Physician Assistant; Emergency Provider Emergency Medicine
DX: R31.9 Hematuria, unspecified (principal); R10.9 Unspecified abdominal pain; E78.00 Pure hypercholesterolemia, unspecified; F11.20 Opioid dependence, uncomplicated; F19.10 Other psychoactive substance abuse, uncomplicated; F17.210 Nicotine dependence, cigarettes, uncomplicated; Z79.899 Other long term (current) drug therapy
CPT/HCPCS: 36415; 74176; 80053; 81001; 85025; 99283; 99284

== ENCOUNTER 2024-03-16 13:32 | Outpatient (AMB) | payer MEDICAID, SELFPAY ==
--- NOTE | 2024-03-16 13:47 | A.OFFVIS_ITS ---
Intake Visit Reasons: recurrent UTI Intake Note: New Patient presents for initial visit for recurrent uti Urology Medications: none Blood Thinner:none PVR: 18ml's Nut Dehydrator Operator Required: Yes Nut Dehydrator Operator Name: SOLE DUMONT Allergies No Known Allergies Allergy (Verified 03/16/24 14:07) Medication List - Last Reconciled 03/16/24 by ESTER Hermosillo-BC atorvastatin 80 mg PO BEDTIME buprenorphine-naloxone 8-2 mg 2 tabs sublingual DAILY gabapentin 800 mg PO TID ketotifen fumarate 0.025%(0.035%) (Eye Itch Relief) 1 drp ophthalmic-Right lidocaine 5% patches topical nicotine transdermal omeprazole 40 mg PO QAM prazosin 4 mg PO BEDTIME PRN quetiapine 200 mg PO BEDTIME quetiapine mg PO sulfamethoxazole-trimethoprim 800-160 mg (Bactrim DS) 1 tab PO BID 14 days HPI Comments Details: Dedrick is a 58-year-old Comoran-speaking male patient of Dr. Beltran. He has a past medical history of substance abuse, nicotine dependence, and hypercholesteremia. He presents to the office today as a new patient for recurrent urinary tract infections. She reports having seeked emergency room care approximately 3 weeks ago for bilateral flank pain he had been experiencing at which time he was noted to have a urinary tract infection and has since completed antibiotic therapy. He reports he had been doing well up until approximately 2 days ago when he started experiencing urinary frequency, urinary urgency, dysuria, and foul-smelling urine. In office urinalysis results reviewed with the patient today. 2+ leukocytes, positive nitrates, and microscopic hematuria. He does report a longstanding history of nicotine dependence. In review of patient's chart it appears CT of the abdomen was ordered and performed 03/14 these results reviewed with the patient today. Right kidney revealed punctate calcification in the pericardium, most likely small stones. In the upper pole 2.9 cm low-attenuation lesion most likely cyst. Left kidney revealed punctate parenchymal calcifications, no hydronephrosis or cyst noted. The bladder is unremarkable. PVR 18 mL. In review of patient's chart it appears urine cultures 12/22/23 and 01/10/24 note E coli. Discussed potential causes of recurrent urinary tract infections. Discussed possible near future in office cystoscopy and or microgen for further assessment and evaluation. Discussed obtaining PSA however will await treatment of current urinary tract infection. He otherwise denies hematuria, dysuria, foul smelling urine, changes to urinary stream, flank pain, fever, and or chills. [facility] Medical History Nicotine dependence, cigarettes, uncomplicated History of latent tuberculosis Polysubstance abuse High cholesterol Surgical History History of cholecystectomy (~2004) Social History Alcohol intake: current Alcohol intake frequency: a few times a week Patient Tobacco Use Status: Current everyday Tobacco user Current occupational status: unemployed Current occupation: right hand dominant Review of Systems Eyes Reports no additional complaints ENT Reports no additional complaints Card Reports as per HPI Resp Reports no additional complaints GI Reports no additional complaints Reports as per HPI Musc Reports no additional complaints Neuro Reports no additional complaints Psych Reports as per HPI Endo Reports no additional complaints Jignesh/Lymph Reports no additional complaints Aller/Immun Reports no additional complaints Physical Exam Const General: cooperative, healthy appearing, comfortable, no acute distress, well developed, alert and awake Nutritional Appearance: overweight Orientation/consciousness: patient oriented x3 Limitations: no limitations HEENT Head: Yes normal to inspection, Yes normocephalic and Yes atraumatic Ears: hearing grossly normal bilaterally Eyes General: appearance normal, both eyes and all related structures Neck Neck: Yes normal visual inspection and Yes trachea midline Chest Chest palpation & inspection: normal inspection of the chest Resp Effort & Inspection: normal respiratory effort and able to speak in complete sentences Cardio Rate: regular rate GI Inspection: Yes normal to inspection General: Yes no CVA tenderness Back/Spine/Pelvis Back: no CVA tenderness Skin General skin exam: no rashes or lesions noted Neuro General: patient oriented x3 Extrem General: Yes normal to inspection Psych Appearance: grossly normal and well kempt Mental Status: mental status grossly normal Speech and movement: Normal speech and movement present and Clear speech present Affect: normal affect Attitude: cooperative Thought process: Normal thought process present Thought content: Normal thought content present Insight: Fair insight present (Psych) Judgement: Fair judgement present (Psych) Office Procedures Post Void Residual Post Residual Void Post Void Residual (PVR): 18 [id number]-[id number] Void Residual by ultrasound Results AMB Urinalysis, Automated UA Leukoctes 125 Anabel/uL Last Edit by Sionic Mobileyce Laniss on 03/16/24 14:00 UA Nitrite Negative Last Edit by Brandyce Bress on 03/16/24 14:00 UA Urobilinogen 0.2 mg/dL Last Edit by Brandyce Bress on 03/16/24 14:00 UA Protein 15 mg/dL Last Edit by Brandyce Bress on 03/16/24 14:00 UA pH 6.0 Last Edit by Brandyce Bress on 03/16/24 14:00 UA Blood 25 Ravi/uL Last Edit by Sionic [employer] on 03/16/24 14:00 UA Specific [place] 1.020 Last Edit by Sionic Mobiley[employer] on 03/16/24 14:00 UA Ketone Positive Last Edit by Terapiopriscilla [employer] Labsmonserrat on 03/16/24 14:00 UA Bilirubin 1 mg/dL Last Edit by Terapioe Antix Labsmonserrat on 03/16/24 14:00 UA Glucose 0 mg/dL Last Edit by [employer] on 03/16/24 14:00 Results Reviewed Results Reviewed: Laboratory Last Values Urine pH (Auto) 6.0 03/16/24 13:58 Specific [place] (Auto) 1.020 03/16/24 13:58 Urine Protein (Auto) 15 mg/dL 03/16/24 13:58 Glucose (UA)(Auto) 0 mg/dL 03/16/24 13:58 Urine Ketones (Auto) Positive 03/16/24 13:58 Urine Blood (Auto) 25 Ravi/uL 03/16/24 13:58 Urine Nitrite (Auto) Negative 03/16/24 13:58 Urine Bilirubin (Auto) 1 mg/dL 03/16/24 13:58 Urine Urobilinogen (Auto) 0.2 mg/dL 03/16/24 13:58 Leukocyte Esterase (Auto) 125 Anabel/uL 03/16/24 13:58 Date of Service: 02/24/24 EXAMINATION: CT ABDOMEN AND PELVIS WITHOUT CONTRAST FINDINGS: LUNG BASES: The visualized lung bases are unremarkable. LIVER, GALLBLADDER, AND BILIARY TREE: The liver is normal in size, shape, and attenuation. No focal hepatic lesion or biliary ductal dilatation is present. Gallbladder is surgically absent. PANCREAS: Unremarkable. SPLEEN: Unremarkable. There is small splenule seen ADRENAL GLANDS: Unremarkable. KIDNEYS AND URETERS: Right kidney revealed punctate calcification in the parenchyma most likely small stone in upper pole 2.9 x 2.4 cm low-attenuation lesion most likely cyst with attenuation of 6 HU, most likely cyst. Left kidney revealed punctate parenchymal calcification, no hydroureteronephrosis or cyst cysts. BLADDER: Unremarkable. GASTROINTESTINAL TRACT: The small and large bowel are unremarkable. The appendix is unremarkable. ABDOMINAL WALL: No significant hernia is appreciated. LYMPH NODES: Normal. VASCULAR: Unremarkable. PELVIC VISCERA: Unremarkable. OSSEOUS STRUCTURES: Mild degenerative changes lower lumbar spine CT/CT abdomen pelvis wo IV con IMPRESSION: 1. No explanation for flank pain. 2. Right renal cyst. 3. Bilateral nephrolithiasis without hydroureteronephrosis. 4. Status post cholecystectomy. 5. Mild degenerative changes lower lumbar spine. Fleischner guidelines were followed. Assessment & Plan Assessment & Plan (1) Complicated urinary tract infection: Code(s): N39.0 - Urinary tract infection, site not specified Category: Medical (2) Recurrent urinary tract infection: Code(s): N39.0 - Urinary tract infection, site not specified Category: Medical Plan In office urinalysis results reviewed with the patient today; will send for urine culture. PVR [address] results reviewed with the patient today; as noted above. Start Bactrim as discussed and prescribed. Discussed, educated, and stressed the importance of adequate hydration. Discussed possible causes of recurrent urinary tract infections. Discussed obtaining PSA in the near future given patient with current UTI. Discussed possible near future in office cystoscopy and or microgen for further assessment and evaluation. Follow up in one month with PVR; or sooner with any issues, concerns, or questions. Orders: Orders AMB Urinalysis Automated Today Z13.9 - Encounter for screening, unspecified AMB Post Void Residual by ultrasound Today Z13.9 - Encounter for screening, unspecified Urine Culture Today R31.9 - Hematuria, unspecified, Z13.9 - Encounter for screening, unspecified Urine Cytology Today R31.9 - Hematuria, unspecified Medications: New sulfamethoxazole-trimethoprim 800-160 mg (Bactrim DS) 1 tab PO BID 28 tabs 0RF 14 days N39.0 - Urinary tract infection, site not specified Patient Instructions: The patient had an opportunity to ask questions regarding the treatment plan. All questions were answered. Physical exam, labs, and imaging were discussed and reviewed in detail. As well as risks, benefits, and discussion of treatment choices. No major barriers to understanding were identified. The patient expressed understanding and agreement with the above treatment plan. The patient was made aware they should contact our office by phone for worsening of their current condition, the appearance of new symptoms, or with any questions or concerns. Compliance is encouraged with any medications and follow up testing that is ordered. It is a privilege to be allowed the opportunity to participate in? your urological care.? Again, if you have any questions or concerns If you have any questions or concerns please do not hesitate to contact me. The office is [phone]. This note is constructed using voice recognition software. While every effort has been made to ensure accuracy operations forester errors may have been included. Yours sincerely, ESTER Hermosillo-ALEXSANDRA Coding Level of Care Code New Pt Level 4 (71199) Diagnoses Complicated urinary tract infection N39.0 Recurrent urinary tract infection N39.0 CPT Codes Post Residual Void - PVR CPT Code: 33432-Maqa Void Residual by ultrasound ([id number])
== END 2024-03-16 14:16 | disposition home or self-care (01) ==
PROVIDERS: PCP Registered Nurse; Visit Provider Nurse Practitioner Family
DX: Z13.9 Encounter for screening, unspecified (principal); N39.0 Urinary tract infection, site not specified
CPT/HCPCS: 99204

== ENCOUNTER 2024-03-16 13:32 | Outpatient (REF) | payer MEDICAID, SELFPAY ==
[2024-03-16 16:17] LABS: Urine Cytology See Pathology rpt
== END 2024-03-16 13:33 | disposition home or self-care (01) ==
LOC: HO.LNP 13:32
PROVIDERS: PCP Registered Nurse; Visit Provider Nurse Practitioner Family
DX: R31.9 Hematuria, unspecified (principal); N39.0 Urinary tract infection, site not specified
CPT/HCPCS: 51798; 81003; 87086; 87088; 87186; 88112; 99212

== ENCOUNTER 2024-04-16 12:55 | Outpatient (REF) | payer MEDICAID, SELFPAY ==
[2024-04-16 16:22] LABS: Urine Cytology See Pathology rpt
== END 2024-04-16 12:56 | disposition home or self-care (01) ==
LOC: HO.LNP 12:55
PROVIDERS: PCP Registered Nurse; Visit Provider Nurse Practitioner Family
DX: R31.9 Hematuria, unspecified (principal); F17.210 Nicotine dependence, cigarettes, uncomplicated; N39.0 Urinary tract infection, site not specified
CPT/HCPCS: 51798; 81003; 88112; 99212

== ENCOUNTER 2024-04-16 12:55 | Outpatient (AMB) | payer MEDICAID, SELFPAY ==
--- NOTE | 2024-04-16 13:08 | A.OFFVIS_ITS ---
Intake Visit Reasons: 1m follow up/PVR Intake Note: Patient presents for follow up visit on: recurrent uti Urology Medications: none Blood Thinner:none PVR: 79ml's Risk And Insurance Manager Required: Yes Risk And Insurance Manager Services: Risk And Insurance Manager Present Risk And Insurance Manager Name: Bruna Barrera Accompanied by: Self / Same As Patient Allergies No Known Allergies Allergy (Verified 04/16/24 14:01) Medication List - Last Reconciled 04/16/24 by ESTER Hermosillo- atorvastatin 80 mg PO BEDTIME buprenorphine-naloxone 8-2 mg 2 tabs sublingual DAILY gabapentin 800 mg PO TID ketotifen fumarate 0.025%(0.035%) (Eye Itch Relief) 1 drp ophthalmic-Right lidocaine 5% patches topical nicotine transdermal omeprazole 40 mg PO QAM prazosin 4 mg PO BEDTIME PRN quetiapine 200 mg PO BEDTIME quetiapine mg PO HPI Comments Details: Dedrick is a 58-year-old Upper Sor[place]-speaking male patient of Dr. Beltran. He has a past medical history of substance abuse, nicotine dependence, and hypercholesteremia. He presents to the office today for follow-up. Of note, patient was seen approximately 1 month ago as a new patient for recurrent urinary tract infections at which time urinalysis noted 2+ leukocytes and positive nitrates and patient was treated with Bactrim. In discussion with the patient today patient reports completion of antibiotic therapy as prescribed. He reports lower urinary tract symptoms he had been experiencing has since subsided. He does however continue report back pain. In assessment of the patient today no CVA tenderness noted bilaterally. It appears pain upon palpation of low-back. Previous workup has included a CT 03/14 that noted right kidney revealed punctate calcification in the pericardium, most likely small stones. In the upper pole 2.9 cm low-attenuation lesion most likely cyst. Left kidney revealed punctate parenchymal calcifications, no hydronephrosis or cyst noted. The bladder is unremarkable. Urine cultures are as follows: 12/22/23, 01/10/24 and 03/14 noted E coli. In office urinalysis results reviewed with the patient today negative leukocytes negative nitrates however patient continues with microscopic hematuria. Discussed potential causes of recurrent urinary tract infections as well as microscopic hematuria. Discussed possible near future in office cystoscopy and or microgen for further assessment and evaluation. Discussed obtaining PSA. He otherwise denies hematuria, dysuria, foul smelling urine, changes to urinary stream, fever, and or chills. [facility] Medical History Nicotine dependence, cigarettes, uncomplicated History of latent tuberculosis Polysubstance abuse High cholesterol Surgical History History of cholecystectomy (~2004) Social History Alcohol intake: current Alcohol intake frequency: a few times a week Patient Tobacco Use Status: Current everyday Tobacco user Current occupational status: unemployed Current occupation: right hand dominant Review of Systems Eyes Reports no additional complaints ENT Reports no additional complaints Card Reports as per HPI Resp Reports no additional complaints GI Reports no additional complaints Reports as per HPI Musc Reports no additional complaints Neuro Reports no additional complaints Psych Reports as per HPI Endo Reports no additional complaints Jignesh/Lymph Reports no additional complaints Aller/Immun Reports no additional complaints Physical Exam Const General: cooperative, healthy appearing, comfortable, no acute distress, well developed, alert and awake Orientation/consciousness: patient oriented x3 Limitations: no limitations HEENT Head: Yes normal to inspection, Yes normocephalic and Yes atraumatic Ears: hearing grossly normal bilaterally Eyes General: appearance normal, both eyes and all related structures Neck Neck: Yes normal visual inspection and Yes trachea midline Chest Chest palpation & inspection: normal inspection of the chest Resp Effort & Inspection: normal respiratory effort and able to speak in complete sentences Cardio Rate: regular rate GI Inspection: Yes normal to inspection General: Yes no CVA tenderness Back/Spine/Pelvis Back: no CVA tenderness Skin General skin exam: no rashes or lesions noted Neuro General: patient oriented x3 Extrem General: Yes normal to inspection Psych Appearance: grossly normal and well kempt Mental Status: mental status grossly normal Speech and movement: Normal speech and movement present and Clear speech present Affect: normal affect Attitude: cooperative Thought process: Normal thought process present Thought content: Normal thought content present Insight: Fair insight present (Psych) Judgement: Fair judgement present (Psych) Office Procedures Post Void Residual Post Residual Void Post Void Residual (PVR): 79 [id number] Void Residual by ultrasound Results AMB Urinalysis, Automated UA Leukoctes 0 Anabel/uL Last Edit by Parmjit Johnson on 04/16/24 13:26 UA Nitrite Last Edit by Brandyce Elizabeth on 04/16/24 13:26 UA Urobilinogen 0.2 mg/dL Last Edit by Brandyce Bress on 04/16/24 13:26 UA Protein 30 mg/dL Last Edit by Brandyce Elizabeth on 04/16/24 13:26 UA pH 6.0 Last Edit by Brandyce Bress on 04/16/24 13:26 UA Blood 10 Ravi/uL Last Edit by Brandyce Bress on 04/16/24 13:26 UA Specific [place] 1.020 Last Edit by Brandyce Bress on 04/16/24 13:26 UA Ketone Negative Last Edit by Raphaelyce Bress on 04/16/24 13:26 UA Bilirubin 0 mg/dL Last Edit by Raphaelyce Elizabeth on 04/16/24 13:26 UA Glucose 0 mg/dL Last Edit by Parmjit Johnson on 04/16/24 13:26 Results Reviewed Results Reviewed: Laboratory Last Values Urine pH (Auto) 6.0 04/16/24 13:24 Specific [place] (Auto) 1.020 04/16/24 13:24 Urine Protein (Auto) 30 mg/dL 04/16/24 13:24 Glucose (UA)(Auto) 0 mg/dL 04/16/24 13:24 Urine Ketones (Auto) Negative 04/16/24 13:24 Urine Blood (Auto) 10 Ravi/uL 04/16/24 13:24 Urine Bilirubin (Auto) 0 mg/dL 04/16/24 13:24 Urine Urobilinogen (Auto) 0.2 mg/dL 04/16/24 13:24 Leukocyte Esterase (Auto) 0 Anabel/uL 04/16/24 13:24 Date of Service: 02/24/24 EXAMINATION: CT ABDOMEN AND PELVIS WITHOUT CONTRAST FINDINGS: LUNG BASES: The visualized lung bases are unremarkable. LIVER, GALLBLADDER, AND BILIARY TREE: The liver is normal in size, shape, and attenuation. No focal hepatic lesion or biliary ductal dilatation is present. Gallbladder is surgically absent. PANCREAS: Unremarkable. SPLEEN: Unremarkable. There is small splenule seen ADRENAL GLANDS: Unremarkable. KIDNEYS AND URETERS: Right kidney revealed punctate calcification in the parenchyma most likely small stone in upper pole 2.9 x 2.4 cm low-attenuation lesion most likely cyst with attenuation of 6 HU, most likely cyst. Left kidney revealed punctate parenchymal calcification, no hydroureteronephrosis or cyst cysts. BLADDER: Unremarkable. GASTROINTESTINAL TRACT: The small and large bowel are unremarkable. The appendix is unremarkable. ABDOMINAL WALL: No significant hernia is appreciated. LYMPH NODES: Normal. VASCULAR: Unremarkable. PELVIC VISCERA: Unremarkable. OSSEOUS STRUCTURES: Mild degenerative changes lower lumbar spine IMPRESSION: 1. No explanation for flank pain. 2. Right renal cyst. 3. Bilateral nephrolithiasis without hydroureteronephrosis. 4. Status post cholecystectomy. 5. Mild degenerative changes lower lumbar spine. Assessment & Plan Assessment & Plan (1) Recurrent urinary tract infection: Code(s): N39.0 - Urinary tract infection, site not specified Category: Medical Plan In office urinalysis results reviewed with the patient today; as noted above; will send for urine cytology. Recent/previous CT results reviewed with the patient today; as noted above. Patient currently denies any bothersome urinary issues. PVR 0 mL. Discussed at length potential causes of recurrent urinary tract infections. Discussed, educated, and stressed the importance of adequate hydration in relation to recurrent urinary tract infections as well as overall health and well-being. Will obtain retroperitoneal ultrasound for further assessment evaluation. Will obtain PSA Follow-up in 3 months with imaging and PSA to be completed prior; or sooner with any issues, concerns, and or questions. Orders: Orders AMB Post Void Residual by ultrasound Today N39.0 - Urinary tract infection, site not specified US retroperitoneal comp Today N39.0 - Urinary tract infection, site not specified AMB Urinalysis Automated Today Z13.9 - Encounter for screening, unspecified Urine Cytology Today F17.210 - Nicotine dependence, cigarettes, uncomplicated, R31.9 - Hematuria, unspecified Prostate Specific Antigen Today N39.0 - Urinary tract infection, site not specified Patient Instructions: The patient had an opportunity to ask questions regarding the treatment plan. All questions were answered. Physical exam, labs, and imaging were discussed and reviewed in detail. As well as risks, benefits, and discussion of treatment choices. No major barriers to understanding were identified. The patient expressed understanding and agreement with the above treatment plan. The patient was made aware they should contact our office by phone for worsening of their current condition, the appearance of new symptoms, or with any questions or concerns. Compliance is encouraged with any medications and follow up testing that is ordered. It is a privilege to be allowed the opportunity to participate in? your urological care.? Again, if you have any questions or concerns If you have any questions or concerns please do not hesitate to contact me. The office is [phone]. This note is constructed using voice recognition software. While every effort has been made to ensure accuracy power distribution engineer errors may have been included. Yours sincerely, JAYCEE Hermosillo Coding Level of Care Code Est Pt Level 3 (02454) Diagnoses Recurrent urinary tract infection N39.0 CPT Codes Post Residual Void - PVR CPT Code: 85552-Hrhc Void Residual by ultrasound ([id number])
== END 2024-04-16 13:32 | disposition home or self-care (01) ==
PROVIDERS: PCP Registered Nurse; Visit Provider Nurse Practitioner Family
DX: Z13.9 Encounter for screening, unspecified (principal); N39.0 Urinary tract infection, site not specified
CPT/HCPCS: 99213

== ENCOUNTER 2024-05-22 09:30 | Outpatient (REF) | payer MEDICAID, SELFPAY | END 2024-05-22 09:31 | disposition home or self-care (01) | LOC: HO.HHCL 09:30 | PROVIDERS: Visit Provider Emergency Medicine | DX: R63.0 Anorexia (principal) | CPT/HCPCS: 87338 ==

== ENCOUNTER 2024-06-29 11:26 | Outpatient (REF) | payer MEDICAID, SELFPAY ==
--- NOTE | ~2024-06-29 | US_ITS ---
EXAMINATION: US RETROPERITONEAL COMPLETE (RENAL) CLINICAL INFORMATION: Urinary tract infection, site not specified. COMPARISON: CT abdomen and pelvis 02/24/2024. Renal ultrasound 02/20/2024. X-ray abdomen 12/23/2023. Ultrasound abdomen 03/23/2007. TECHNIQUE: Real-time imaging of the kidneys and bladder. FINDINGS: RIGHT KIDNEY: 11.4 x 6.5 x 4.1 cm (SAG x AP x TRV). The kidney is normal in size and contour. Renal cortical thickness is normal. There is increased renal cortical echotexture. No renal calculi. There is mild pelviectasis, without nery hydronephrosis. At the upper pole, a 2.3 cm benign, simple cyst is seen, which requires no imaging follow-up. LEFT KIDNEY: 12.3 x 4.9 x 6.1 cm (SAG x AP x TRV). The kidney is normal in size, contour, and echogenicity. Renal cortical thickness is normal. There is increased renal cortical echotexture. No calculi or focal parenchymal lesions. No hydronephrosis. BLADDER: Well distended and normal. Right ureteral jet is demonstrated; left is not. Prevoid bladder volume is 543 mL. Postvoid bladder volume is 28 mL. PROSTATE GLAND: Prostate dimensions are 3.9 x 3.9 x 4.9 cm, volume 38.4 mL. US/US retroperitoneal comp IMPRESSION: 1. There is increased bilateral renal cortical echotexture, which can be associated with medical renal disease. 2. No renal mass or calculus is seen bilaterally. There is mild right renal pelviectasis. No nery hydronephrosis is seen bilaterally. 3. There is mild prostatomegaly. Electronically signed by: David Wilks MD 07/01/2024 10:23 PM [facility] [place]
== END 2024-06-29 11:27 | disposition home or self-care (01) ==
LOC: HO.US 11:26
PROVIDERS: PCP Registered Nurse; Visit Provider Nurse Practitioner Family
DX: N39.0 Urinary tract infection, site not specified (principal)
CPT/HCPCS: 76770

== ENCOUNTER 2024-07-06 09:52 | Outpatient (REF) | payer MEDICAID, SELFPAY ==
[2024-07-06 11:01] LABS: Anion Gap 13 (12-20); Blood Urea Nitrogen 12 mg/dL (9-16); Calcium 9.4 mg/dL (8.4-10.2); Carbon Dioxide 25 mmol/L (22-29); Chloride 106 mmol/L (96-108); Cholesterol 295 mg/dL (<200); Estimated Glomerular Filt Rate > 60; Glucose Random 115 mg/dL (60-115); HDL Cholesterol 44 mg/dL (>40); LDL Cholesterol Calculated 217 mg/dL (<100); Sodium 140 mmol/L (135-145); Triglycerides 170 mg/dL (<150)
== END 2024-07-06 09:53 | disposition home or self-care (01) ==
LOC: HO.LAB 09:52
PROVIDERS: Nurse Practitioner Family; PCP Registered Nurse; Visit Provider Registered Nurse
DX: I10 Essential (primary) hypertension (principal); N39.0 Urinary tract infection, site not specified
CPT/HCPCS: 36415; 80048; 80061; 84153

== ENCOUNTER 2024-07-09 14:02 | Outpatient (AMB) | payer MEDICAID, SELFPAY ==
--- NOTE | 2024-07-09 14:03 | MHC.OFFVIS ---
Intake Visit Reasons: 1-3 month follow up US/PSA Intake Note: Patient presents today for tele visit follow up on: recurrent uti, ultrasound, and lab results Imaging Completed: 06/29/24 PSA: 1.20 Urology Medications: none Blood Thinner:none Recycling Attendant Required: Yes Recycling Attendant Name: [id number] Accompanied by: Self / Same As Patient Allergies No Known Allergies Allergy (Verified 07/09/24 15:43) Medication List - Last Reconciled 07/09/24 by ESTER Hermosillo- atorvastatin 80 mg PO BEDTIME buprenorphine-naloxone 8-2 mg 2 tabs sublingual DAILY gabapentin 800 mg PO TID ketotifen fumarate 0.025%(0.035%) (Eye Itch Relief) 1 drp ophthalmic-Right lidocaine 5% patches topical nicotine transdermal omeprazole 40 mg PO QAM prazosin 4 mg PO BEDTIME PRN quetiapine 200 mg PO BEDTIME quetiapine mg PO HPI Comments Details: Dedrick is a 58-year-old [place]-speaking male patient of Dr. Beltran. He has a past medical history of substance abuse, nicotine dependence, and hypercholesteremia. He is being followed up on today via telehealth for his recurrent urinary tract infections. In discussion with the patient today he reports noting UTI like symptoms for the last 2 weeks. He reports dysuria and foul-smelling urine. We discussed importance of calling office with any UTI like symptoms at time of UTI like symptoms and or seeking medical treatment. We discussed obtaining urine for urinalysis for further assessment evaluation will await results for potential treatment. Recent retroperitoneal ultrasound results and PSA results reviewed with the patient today. Bilateral kidneys are normal in size and contour. Right kidney with increased renal cortical echotexture. Bilateral kidneys with no renal calculi. Right kidney with 2.3 benign simple cysts seen which requires no imaging follow-up per radiology report. The bladder is well distended and normal. Pre void bladder volume is a proximally 540 mL. Postvoid bladder volume is a proximally 30 mL. Prostate measures a proximally 38 mL. PSA 07/15 1.2. Urine cultures are as follows: 12/22/23, 01/10/24 and 03/14 noted E coli. Discussed potential causes of recurrent urinary tract infections as well as microscopic hematuria. We discussed in office cystoscopy and or microgen for further assessment and evaluation. He otherwise denies hematuria, changes to urinary stream, fever, and or chills. Urine cytology 03/14 and 04/14 Negative for high-grade urothelial carcinoma. [facility] Medical History Nicotine dependence, cigarettes, uncomplicated History of latent tuberculosis Polysubstance abuse High cholesterol Surgical History History of cholecystectomy (~2004) Social History Alcohol intake: current Alcohol intake frequency: a few times a week Patient Tobacco Use Status: Current everyday Tobacco user Current occupational status: unemployed Current occupation: right hand dominant Review of Systems Eyes Reports no additional complaints ENT Reports no additional complaints Card Reports as per HPI Resp Reports no additional complaints GI Reports no additional complaints Reports as per HPI Musc Reports no additional complaints Neuro Reports no additional complaints Psych Reports as per HPI Endo Reports no additional complaints Jignesh/Lymph Reports no additional complaints Aller/Immun Reports no additional complaints Physical Exam Const General: cooperative Orientation/consciousness: patient oriented x3 Resp Effort & Inspection: able to speak in complete sentences Neuro General: patient oriented x3 Psych Speech and movement: Clear speech present Attitude: cooperative Thought content: Normal thought content present Insight: Fair insight present (Psych) Judgement: Fair judgement present (Psych) Telehealth Telehealth Telehealth Platform: T[employer] Location of provider rendering services: practice address Location of patient: address on file Patient Identification confirmed using: Name, : Yes Telehealth method: voice only Patient verbally consented to treatment: Yes Patient verbally consented to billing insurance company: Yes Patient informed of any privacy concerns related to visit: Yes Minutes spent on Phone/Video with Pt.: 20 Results Reviewed Results Reviewed: Date of Service: 06/29/24 Procedure(s): US retroperitoneal comp FINDINGS: RIGHT KIDNEY: 11.4 x 6.5 x 4.1 cm (SAG x AP x TRV). The kidney is normal in size and contour. Renal cortical thickness is normal. There is increased renal cortical echotexture. No renal calculi. There is mild pelviectasis, without nery hydronephrosis. At the upper pole, a 2.3 cm benign, simple cyst is seen, which requires no imaging follow-up. LEFT KIDNEY: 12.3 x 4.9 x 6.1 cm (SAG x AP x TRV). The kidney is normal in size, contour, and echogenicity. Renal cortical thickness is normal. There is increased renal cortical echotexture. No calculi or focal parenchymal lesions. No hydronephrosis. BLADDER: Well distended and normal. Right ureteral jet is demonstrated; left is not. Prevoid bladder volume is 543 mL. Postvoid bladder volume is 28 mL. PROSTATE GLAND: Prostate dimensions are 3.9 x 3.9 x 4.9 cm, volume 38.4 mL. IMPRESSION: 1. There is increased bilateral renal cortical echotexture, which can be associated with medical renal disease. 2. No renal mass or calculus is seen bilaterally. There is mild right renal pelviectasis. No nery hydronephrosis is seen bilaterally. 3. There is mild prostatomegaly. Assessment & Plan Assessment & Plan (1) Foul smelling urine: Code(s): R82.90 - Unspecified abnormal findings in urine Category: Medical (2) Dysuria: Code(s): R30.0 - Dysuria Category: Medical (3) Recurrent urinary tract infection: Code(s): N39.0 - Urinary tract infection, site not specified Category: Medical Plan Order placed for urinalysis and culture; will await culture results for potential treatment. Recent retroperitoneal ultrasound results reviewed with the patient today; as noted above. Recent PSA results reviewed with the patient today; as noted above. Urine cytology results reviewed with the patient today; as noted above. We discussed at length potential causes of recurrent urinary tract infections as well as microscopic hematuria We discussed in office cystoscopy for further assessment evaluation. Discussed and stressed the importance of seeking medical treatment and or calling office with any UTI like symptoms. Follow-up in office cystoscopy; or sooner with any issues, concerns, and or questions. Orders: Orders UA CC w/rflx Micro + Cult Today N39.0 - Urinary tract infection, site not specified, R30.0 - Dysuria, R82.90 - Unspecified abnormal findings in urine Patient Instructions: The patient had an opportunity to ask questions regarding the treatment plan. All questions were answered. Physical exam, labs, and imaging were discussed and reviewed in detail. As well as risks, benefits, and discussion of treatment choices. No major barriers to understanding were identified. The patient expressed understanding and agreement with the above treatment plan. The patient was made aware they should contact our office by phone for worsening of their current condition, the appearance of new symptoms, or with any questions or concerns. Compliance is encouraged with any medications and follow up testing that is ordered. It is a privilege to be allowed the opportunity to participate in? your urological care.? Again, if you have any questions or concerns If you have any questions or concerns please do not hesitate to contact me. The office is [phone]. This note is constructed using voice recognition software. While every effort has been made to ensure accuracy grade teacher errors may have been included. Yours sincerely, JAYCEE Hermosillo Coding Level of Care Code Tele Est Pt Level 4 (35268) Diagnoses Foul smelling urine R82.90 Dysuria R30.0 Recurrent urinary tract infection N39.0
== END 2024-07-09 15:07 | disposition home or self-care (01) ==
LOC: HO.HUSH 14:02
PROVIDERS: PCP Registered Nurse; Visit Provider Nurse Practitioner Family
DX: R82.90 Unspecified abnormal findings in urine (principal); R30.0 Dysuria; N39.0 Urinary tract infection, site not specified
CPT/HCPCS: 99214

== ENCOUNTER → 2024-07-09 14:02 | Outpatient (BNVA) | payer MEDICAID, SELFPAY | PROVIDERS: PCP Registered Nurse; Visit Provider Nurse Practitioner Family ==

== ENCOUNTER 2024-07-17 10:10 | Outpatient (REF) | payer MEDICAID, SELFPAY ==
[2024-07-17 11:43] LABS: Appearance Urine Clear; Color Urine Yellow; Glucose Urine UA Negative (Negative); Leukocyte Esterase Urine Negative (Negative); Nitrite Urine Negative (Negative); PH 7.5 (5.0-9.0); Specific Gravity - Urine 1.015 (1.005-1.025); Urine Blood Negative (Negative); Urine Ketones Negative (Negative); Urine Protein Negative (Neg-Trace)
== END 2024-07-17 10:11 | disposition home or self-care (01) ==
LOC: HO.HHCL 10:10
PROVIDERS: Visit Provider Nurse Practitioner Family
DX: N39.0 Urinary tract infection, site not specified (principal); R30.0 Dysuria; R82.90 Unspecified abnormal findings in urine
CPT/HCPCS: 81003

== ENCOUNTER 2024-09-24 18:02 | Outpatient (REF) | payer MEDICAID, SELFPAY ==
--- OUTSIDE RECORDS SUMMARY | 2024-09-24 18:04 | XMS_ITS | Encounter Summary ---
Author Organization [employer] Address [address] [facility] 7t [place] [address] Care Team Providers Care Rehab Consultant Name Role Phone Karoline Beltran LICENSED NURSE PRACTITIONER Primary Care Provider [phone] Azalia Villalta PharmD Unavailable [phone] Reason for Referral * Consultation (Routine) - Authorized Specialty Diagnoses / Procedures Referred By Contac t Referred To Contact Pharmacy Diagnoses Essential (primary) hypertension Hawa Martins MD [address] [place] [address] Phone: tel: fax: Referral ID Status Reason Start Date Expiration Date Visits Requested Visits Authorized [id number] Authorized Consult and Treat 07/16/2024 07/16/2025 6 6 Encounter Details Date Type Department Care Team ([facility] st Contact Info) Description 07/16/2024 Orders Only [facility] [address] [place] [phone] Hawa Martins MD [address], [place] [phone] Essential (primary) hypertension (Primary Dx) Social History Tobacco Use Types Packs/Day Years Used Date Smoking Tobacco: Some Days Cigarettes Passive Smoke Exposure: Current Smokeless Tobacco: Never Comments:Pt stated stop smok ing two weeks ago. Today 06/01/2023 Alcohol Use Standard Drinks/Week Comments Never 0 (1 standard drink = 0.6 oz pur e alcohol) Alcohol Answer Date Recorded Frequency of Alcohol Consumption Not on file 06/01/2024 Average Number of Drinks Not on file 024 Frequency of Binge Drinking Not on file 05/22 Score 0 06/01/2024 Depression Answer Date Recorded Patient Health Questionnaire-9 Score 15 06/25/2024 Patient Health Questionnaire-9 Score 15 06/25/2024 Last PHQ-9: Questionnaire Data Not on file 1 08/25/2023 Housing Stability Answer Date Recorded What is your housing situation today? I have dora gayle 02/09/[address] you li ve. Do you have problems with any of the following? None of the above 02/09/2024 Food Insecurity Answer Date Recorded Within the past 12 months, y ou worried that your food would run out before you got money to buy more: Never True 02/09/2024 Within the past 12 months,th e food you bought just didn't last and you didn't have enough money to get more: Never True Transportation Answer Date Recorded In the past 12 months, has l ack of transportation kept you from medical appts, meetings, work or from getting things needed for daily living? Yes, it has kept me from medical appointments or getting medications. 02/09/2024 Utilities Answer Date Recorded In the past 12 months, has t he electric, gas, oil or water company threatened to shut off services in your home? No 02/09/2024 Depression Answer Date Recorded Patient Health Questionnaire-2 Score 5 06/25/2024 Internet Access Answer Date Recorded Internet Access Q1 Yes 04/21/2024 Internet Access Q2 Not on file 04/21/2024 Sex and Gender Information Value Date Recorded Sex Assigned at Male 06/21/2022 10:19 AM EDT Legal Sex Male 10:19 AM EDT Gender Identity Male 06/21/2022 10:19 AM EDT Sexual Orientation Straight 06/21/2022 10 :19 AM EDT documented as of this encounter Plan of Treatment Upcoming Encounters Date Type Department Care Team (Late st Contact Info) Description 09/27/2024 1:30 PM EST Office Visit [facility] OPTOM[facility]RY [address] [place] [address] Val Lugo, OD [address] [place] [address] 09/28/2024 2:30 PM EST Office Visit [facility] MED [facility] PEDS [address] [place] [address] Karoline Beltran FNP [address] [place] [address] 10/03/2024 9:00 AM EST Office Visit [facility] [address] [place] [address] Leopoldo Bateman MD [address] [place] [address] Scheduled Referrals Name Type Priority Associated Diagnoses Orde r Schedule Referral to Pharmacy CDTM Outpatient Referral Routine Essential (primary) hypertension Ordered: 07/16/2024 documented as of this encounter Visit Diagnoses Diagnosis Essential (primary) hypertension- Primary Unspecified essential hypertension documented in this encounter Additional Health Concerns Assessment Noted Time PHQ-9 Depression Total Score: 15 024 12:05 PM EST documented as of this encounter Care Teams Rehab Consultant Relationship Specialty Start Date End Date Karoline Beltran FNP [address] [place] [address] PCP - General Family Medicine 06/15/21 Azalia Villalta, WillieD [address] [place] [address] Pharmacist Internal Medicine 05/15/24 documented as of this encounter
--- OUTSIDE RECORDS SUMMARY | 2024-09-24 18:04 | XMS_ITS | Encounter Summary ---
Author Organization [employer] Address [address] [facility] 7t [place] [address] Care Team Providers Care Orthodontic Technician Assistant Name Role Phone Karoline Beltran Primary Care Provider [phone] Anurag Lo Unavailable Unavailable Sarahi Rey RN Unavailable [phone] Azalia Villalta PharmD Unavailable [phone] Reason for Visit * Reason Onset Date Comments Returning Call 05/07/2024 Encounter Details Date Type Department Care Team ([facility] st Contact Info) Description 05/07/[address] [facility] [address] [place] [address] Karoline Beltran FNP [address] [place] [address] Returning Call Social History Tobacco Use Types Packs/Day Years Used Date Smoking Tobacco: Some Days Cigarettes Passive Smoke Exposure: Current Smokeless Tobacco: Never Comments:Pt stated stop smok ing two weeks ago. Today 06/01/2023 Alcohol Use Standard Drinks/Week Comments Never 0 (1 standard drink = 0.6 oz pur e alcohol) Depression Answer Date Recorded Patient Health Questionnaire-9 Score 12 01/29/2024 Patient Health Questionnaire-9 Score 12 01/29/2024 Last PHQ-9: Questionnaire Data Not on file 0 01/29/2024 Housing Stability Answer Date Recorded What is [...] the past 12 months, has t he [email or web address], gas, oil or water company threatened to shut off services in your home? No 02/09/2024 Depression Answer Date Recorded Patient Health Questionnaire-2 Score 4 01/29/2024 Internet Access Answer Date Recorded Internet Access Q1 Yes 04/21/2024 Internet Access Q2 Not on file 04/21/2024 Sex and Gender Information Value Date Recorded Sex Assigned at Male 06/21/2022 10:19 AM EDT Legal Sex Male 10:19 AM EDT Gender Identity Male 06/21/2022 10:19 AM EDT Sexual Orientation Straight 06/21/2022 10 :19 AM EDT documented as of this encounter Miscellaneous Notes * Telephone Encounter - Viraj Albert - 05/07/2024 2:52 PM EDT Tc from pt returning call regarding message below. CHW Anurag Lo placed outbound call to patient for follow up call on SDOH needs and PT1. documented in this encounter Plan of Treatment Upcoming Encounters Date Type Department Care Team (Late st Contact Info) Description 09/27/2024 1:30 PM EST Office Visit [facility] OPT[facility] [address] [place] [address] Parish, Val, OD [address] [place] [address] 09/28/2024 2:30 PM EST Office [address] [facility] MED & PEDS [address] [place] [address] Karoline Beltran FNP [address] [place] [address] 10/03/2024 9:00 AM EST Office [facility] [address] [place] [address] Leopoldo Bateman MD [address] [place] [address] documented as of this encounter Visit Diagnoses Not on filedocumented in this encounter Additional Health Concerns Assessment Noted Time PHQ-9 Depression Total Score: 12 024 8:34 PM EDT documented as of this encounter Care Teams Orthodontic Technician Assistant Relationship Specialty Start Date End Date Karoline Beltran FNP [address] [place] [address] PCP - General Family Medicine 06/15/21 Anurag Lo Community Health Worker 02/09/24 05/10/24 Sarahi Rey RN [address] [place] [address] Door Glass Installer 02/09/24 05/10/24 Azalia Villalta, Maninder [address] [place] [address] Pharmacist Internal Medicine 05/15/24 documented as of this encounter
--- OUTSIDE RECORDS SUMMARY | 2024-09-24 18:04 | XMS_ITS | Encounter Summary ---
Author Organization [employer] Address [address] [facility] 7t [place] [address] Care Team Providers Care Manufacturing Supervisor 2Nd Shift Name Role Phone Karoline Beltran AIRCONDITIONING DRAFTING OFFICER Primary Care Provider [phone] Azalia Villalta PharmD Unavailable [phone] Reason for Visit * Reason Comments Recovery Supports Encounter Details Date Type Department Care Team ([facility] Contact Info) Description 09/19/2024 Patient Outreach [facility] [address] [place], [place] [phone] Davy Bahtia Recovery Supports Social History Tobacco Use Types Packs/Day Years [...] AM EDT documented as of this encounter Progress Notes * Davy Bhatia - 09/19/2024 3:47 PM EST I met with Dedrick today. Setting: in person at [facility] Recovery Wellness Goals worked on: Social Stability Action taken/next steps: Attended recovery support group and Offered person centered recovery support Additional comments: HERMINIO Bhatia documented in this encounter Plan of Treatment Upcoming Encounters Date Type Department Care Team (Late st Contact Info) Description 09/27/2024 1:30 PM EST Office Visit [facility] OPTOM[facility]RY [address] [place] [address] Parish, Val, OD [address] [place] [address] 09/28/2024 2:30 PM EST Office Visit [facility] MED & PEDS [address] [place] [address] Karoline Beltran, AIRCONDITIONING DRAFTING OFFICER [address] [place] [address] 10/03/2024 9:00 AM EST Office Visit [facility] MED[facility] [address] [place] [address] Leopoldo Bateman MD [address] [place] [address] documented as of this encounter Visit Diagnoses Not on filedocumented in this encounter Additional Health Concerns Assessment Noted Time PHQ-9 Depression Total Score: 15 024 12:05 PM EST documented as of this encounter Care Teams Manufacturing Supervisor 2Nd Shift Relationship Specialty Start Date End Date Karoline Beltran FNP [address] [place] [address] PCP - General Family Medicine 06/15/21 Azalia Villalta, WillieD [address] [place] [phone] Pharmacist Internal Medicine 05/15/24 documented as of this encounter
--- OUTSIDE RECORDS SUMMARY | 2024-09-24 18:04 | XMS_ITS | Encounter Summary ---
Author Organization [employer] Address [address] [facility] [address]t [place] [address] Care Team Providers Care Bobbin Cleaner Name Role Phone Karoline Beltran CLINICAL LABORATORY TECHNOLOGIST Primary Care Provider [phone] Azalia Villalta PharmD Unavailable [phone] Reason for Visit * Reason Onset Date Comments Med Refill 08/31/2024 Encounter Details Date Type Department Care Team (Late st Contact Info) Description 08/31/2024 Refill [facility] [address] [place] [address] Zehra Rodgers, ADARSH Opioid dependence, uncomplicated ([facility]) Social History Tobacco Use Types Packs/Day Years [...] the past 12 months, has t he [employer], [employer], oil or water [employer] threatened to shut off services in your [...] Description 09/27/2024 1:30 PM EST Office Visit [facility] OPTOMETRY [address] [place] [address] Parish, Val, OD [address] [place] [address] 09/28/2024 2:30 PM EST Office Visit [facility] CH[facility] MED & PEDS [address] [place] [address] Karoline Beltran FNP [address] [place] [address] 10/03/2024 9:00 AM EST Office Visit [facility] MEDICINE [address] [place] [address] Leopoldo Bateman MD [address] [place] [address] documented as of this encounter Visit Diagnoses Diagnosis Opioid dependence, uncomplicated (CMS/HCC) documented in this encounter Additional Health Concerns Assessment Noted Time PHQ-9 Depression Total Score: 15 024 12:05 PM EST documented as of this encounter Care Teams Bobbin Cleaner Relationship Specialty Start Date End Date Karoline Beltran FNP [address] [place] [address] PCP - General Family Medicine 06/15/21 Azalia Villalta, Maninder [address] [place] [address] Pharmacist Internal Medicine 05/15/24 documented as of this encounter
--- OUTSIDE RECORDS SUMMARY | 2024-09-24 18:04 | XMS_ITS | Encounter Summary ---
Author Organization [employer] Address [address] [facility] [address] [place] [address] Care Team Providers Care Otr Company Driver Name Role Phone Karoline Beltran [place] Primary Care Provider [phone] Azalia Villalta PharmD Unavailable [phone] Encounter Details Date Type Department Care Team (Latest Contact Info) Description 09/24/2024 Travel Social History Tobacco Use Types Packs/Day Years [...] Description 09/27/2024 1:30 PM EST Office Visit [facility] OPT[facility] [address] [place] [address] Parish, Val, OD [address] [place] [address] 09/28/2024 2:30 PM EST Office Visit [facility] MED & PEDS [address] [place] [address] Karoline Beltran FNP [address] [place] [address] 10/03/2024 9:00 AM EST Office Visit [facility] MEDIC[facility] [address] [place] [address] Leopoldo Bateman MD [address] [place] [address] documented as of this encounter Visit Diagnoses Not on filedocumented in this encounter Additional Health Concerns Assessment Noted Time PHQ-9 Depression Total Score: 15 024 12:05 PM EST documented as of this encounter Care Teams Otr Company Driver Relationship Specialty Start Date End Date Karoline Beltran FNP [address] [place] [address] PCP - General Family Medicine 06/15/21 Azalia Villalta, WillieD [address] [place] [address] Pharmacist Internal Medicine 05/15/24 documented as of this encounter
--- OUTSIDE RECORDS SUMMARY | 2024-09-24 18:04 | XMS_ITS | Encounter Summary ---
Author Organization [employer] Address [address] [facility] [address] [place] [address] Care Team Providers Care [place] Point Splitter Name Role Phone Karoline Beltran INSURANCE BROKER Primary Care Provider [phone] Azalia Villalta PharmD Unavailable [phone] Reason for Referral * Consultation (Routine) - Authorized Specialty Diagnoses / Procedures Referred By Contac t Referred To Contact Pharmacy Diagnoses Essential (primary) hypertension Hawa Martins MD [address] [place] [address] Phone: tel: fax: Referral ID Status Reason Start Date Expiration Date Visits Requested Visits Authorized [id number] Authorized Consult and Treat 06/15/2024 06/15/2025 6 6 Encounter Details Date Type Department Care Team ([facility] st Contact Info) Description 06/15/2024 Orders Only [facility] [address] [place] [phone] Hawa Martins MD [address] [place], [place] [phone] Essential (primary) hypertension (Primary Dx) Social History [...] Description 09/27/2024 1:30 PM EST Office Visit [facility] OPT[facility] [address] [place] [address] Val Lugo, OD [address] [place] [address] 09/28/2024 2:30 PM EST Office Visit [facility] [address] [place] [address] Karoline Beltran FNP [address] [place] [address] 10/03/2024 9:00 AM EST Office Visit [facility] [address] [place] [address] Leopoldo Bateman MD [address] [place] [address] Scheduled Referrals Name Type Priority Associated Diagnoses Orde r Schedule Referral to Pharmacy CDTM Outpatient Referral Routine Essential (primary) hypertension Ordered: 06/15/2024 documented as of this encounter Visit Diagnoses Diagnosis Essential (primary) hypertension- Primary Unspecified essential hypertension documented in this encounter Additional Health Concerns Assessment Noted Time PHQ-9 Depression Total Score: 12 01/28/ 024 8:34 PM EDT documented as of this encounter Care Teams Ball Point Splitter Relationship Specialty Start Date End Date Karoline Beltran FNP [address] [place] [address] PCP - General Family Medicine 06/15/21 Azalia Villalta, WillieD [address] [place] [address] Pharmacist Internal Medicine 05/15/24 documented as of this encounter
--- OUTSIDE RECORDS SUMMARY | 2024-09-24 18:04 | XMS_ITS | Encounter Summary ---
Author Organization [employer] Address [address] [facility] [address] [place] [address] Care Team Providers Care Fmd Teacher Name Role Phone Karoline Beltran SHARED SERVICES AND OUTSOURCING MANAGER Primary Care Provider [phone] Azalia Villalta PharmD Unavailable [phone] Encounter Details Date Type Department Care Team ([facility] st Contact Info) Description 05/14/2024 Telephone [facility] MEDICINE [address], [place] [phone] Azalia Villalta, PharmD [address] [place] [address] Social History Tobacco Use Types Packs/Day Years [...] encounter Miscellaneous Notes * Telephone Encounter - Azalia Villalta PharmD - 05/14/2024 8:31 AM EDT Please consider providing a new referral for CDTM HTN as required to be provided from supervising physician of PCP BALDEMAR Beltran. This has been pended to this TC note. Thank you! documented in this encounter Plan of Treatment Upcoming Encounters Date Type Department Care Team (Late st Contact Info) Description 09/27/2024 1:30 PM EST Office Visit [facility] OPTOMETRY [address] [place] [address] Parish, Val, OD [address] [place] [address] 09/28/2024 2:30 PM EST Office Visit [facility] MED & PEDS [address] [place] [address] Karoline Beltran FNP [address] [place] [address] 10/03/2024 9:00 AM EST Office Visit [facility] MEDICINE [address] [place] [address] Leopoldo Bateman MD [address] [place], [place] [phone] documented as of this encounter Visit Diagnoses Diagnosis Essential (primary) hypertension- Primary Unspecified essential hypertension documented in this encounter Additional Health Concerns Assessment Noted Time PHQ-9 Depression Total Score: 12 024 8:34 PM EDT documented as of this encounter Care Teams Fmd Teacher Relationship Specialty Start Date End Date Karoline Beltran FNP [address] [place] [address] PCP - General Family Medicine 06/15/21 Azalia Villalta PharmD [address] [place] [address] Pharmacist Internal Medicine 05/15/24 documented as of this encounter
--- OUTSIDE RECORDS SUMMARY | 2024-09-24 18:04 | XMS_ITS | Encounter Summary ---
Author Organization [employer] Address [address] [facility] [address] [place] [address] Care Team Providers Care Seo Expert Name Role Phone Karoline Beltran CH[employer] Primary Care Provider [phone] Azalia Villalta PharmD Unavailable [phone] Reason for Referral * Consultation (Routine) - Authorized Specialty Diagnoses / Procedures Referred By Contac t Referred To Contact Pharmacy Diagnoses Essential (primary) hypertension Hawa Martins MD [address] [place] [address] Phone: tel: fax: Referral ID Status Reason Start Date Expiration Date Visits Requested Visits Authorized [id number] Authorized Consult and Treat 05/16/2024 05/16/2025 6 6 Encounter Details Date Type Department Care Team ([facility] Contact Info) Description 05/16/2024 Orders Only [facility] MEDICINE [address] [place] [address] [phone] Hawa Martins MD [address] [place], [place] [phone] Essential (primary) hypertension (Primary Dx) Social History [...] Description 09/27/2024 1:30 PM EST Office Visit [facility] OPTOMETRY [address] [place] [address] Parish, Val, OD [address] [place] [address] 09/28/2024 2:30 PM EST Office Visit [facility] CHC MED & PEDS [address] [place] [address] Karoline Beltran, CH[employer]ER [employer]LE [address] [place] [address] 10/03/2024 9:00 AM EST Office Visit [facility] MEDICINE [address] [place] [address] Leopoldo Bateman MD [address] [place] [address] Scheduled Referrals Name Type Priority Associated Diagnoses Orde r Schedule Referral to Pharmacy CDTM Outpatient Referral Routine Essential (primary) hypertension Ordered: 05/16/2024 documented as of this encounter Visit Diagnoses Diagnosis Essential (primary) hypertension- Primary Unspecified essential hypertension documented in this encounter Additional Health Concerns Assessment Noted Time PHQ-9 Depression Total Score: 12 024 8:34 PM EDT documented as of this encounter Care Teams Seo Expert Relationship Specialty Start Date End Date Karoline Beltran FNP [address] [place] [phone] PCP - General Family Medicine 06/15/21 Azalia Villalta, WillieD [address] [place] [phone] Pharmacist Internal Medicine 05/15/24 documented as of this encounter
--- OUTSIDE RECORDS SUMMARY | 2024-09-24 18:04 | XMS_ITS | Clinical Summary ---
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 multivitamin (Theragran) tablet take 1 tablet by oral route every day with food 019 Active econazole nitrate 1 % creamIndications: Tinea pedis of both feet Apply topically if needed each day for rash. 15 g 023 Active Acetaminophen Extra Strength 500 MG tabletIndications :Arthropathy TAKE 1 TO 2 TABLETS BY MOUTH EVERY TWELVE HOURS NEEDED FOR PAIN. DO NOT EXCEED 4 TABLETS PER DAY. 100 tablet 2 024 Active docusate sodium (Colace) 100 MG capsule TAKE 1 CAPSULE BY MOUTH TWICE DAILY NEEDED FOR CONSTIPATION 180 capsule 3 024 Active lidocaine (Lidoderm) 5 % patch APPLY 1 PATCH TOPICALLY TO SKIN, LEAVE ON FOR 12 HOURS AND OFF FOR 12 HOURS DIRECTED 30 patch 11 024 Active omeprazole (PriLOSEC) [address] capsuleIndication s:Gastroesophagea l reflux disease, unspecified whether esophagitis present TAKE 1 CAPSULE BY MOUTH EVERY DAY BEFORE BREAKFAST DO NOT BREAK, CRUSH, DISSOLVE OR CHEW 90 capsule 024 Active cyclobenzaprine (Flexeril) 10 MG tabletIndications :Lumbar facet arthropathy TAKE 1 TABLET BY MOUTH THREE TIMES DAILY IN THE MORNING, AT NOON, AND AT BEDTIME NEEDED FOR MUSCLE SPASMS 90 tablet 2 024 Active naloxone (Narcan) 4 mg/0.1 mL nasal spray FOR SUSPECTED OPIOID OVERDOSE. SPRAY 0.1mL IN ONE NOSTRIL. REPEAT IN ALTERNATE NOSTRIL 2-3 MINUTES IF NEEDED. SEEK MEDICAL ATTENTION IMMEDIATELY EVEN IF PATIENT RESPONDS. 2 each 11 024 Active Blood Pressure kit Use to check blood pressure as directed and when symptomatic 1 kit 024 Active tadalafil (Cialis) 10 MG tablet Take 1 tablet (10 mg) by mouth if needed for erectile dysfunction. 10 mg as a single dose 30 minutes or more prior to anticipated sexual activity; do not take more than once daily 20 tablet 1 024 2024 Active meloxicam (Mobic) 15 MG tablet TAKE 1 TABLET BY MOUTH EVERY DAY NEEDED FOR PAIN MODERATE 30 tablet 2 024 Active nicotine (Nicoderm CQ) 14 MG/24HR patchIndications: Cigarette smoker Place 1 patch on the skin 1 (one) time each day at the same time. 42 patch 024 Active nicotine (Nicoderm CQ) 7 MG/24HR patchIndications: Cigarette smoker Place 1 patch on the skin 1 (one) time each day at the same time. 14 patch 024 Active atorvastatin (Lipitor) 80 MG tablet TAKE 1 TABLET BY MOUTH AT BEDTIME 90 tablet 3 024 Active gabapentin (Neurontin) 800 MG tabletIndications :Lumbar facet arthropathy Take 1 tablet (800 mg) by mouth 3 times daily. 90 tablet 3 024 Active famotidine (Pepcid) 20 MG tabletIndications :Gastroesophageal reflux disease, unspecified whether esophagitis present Take 1 tablet (20 mg) by mouth if needed in the morning and at bedtime for heartburn or indigestion. 180 tablet 1 024 Active ezetimibe (Zetia) 10 MG tabletIndications :Mixed hyperlipidemia TAKE 1 TABLET BY MOUTH ONCE DAILY 90 tablet 024 Active olmesartan (BENIcar) 5 MG tabletIndications :Essential (primary) hypertension TAKE 1 TABLET BY MOUTH EVERY MORNING 90 tablet 025 Active Buprenorphine HCl-Naloxone HCl (Suboxone) 8-2 MG SL filmIndications:O pioid dependence, uncomplicated (CMS/HCC) Place 1 Film under the tongue 3 times daily for 28 days. Do not start before September 05, 2024. 84 Film 025 2024 Active melatonin 3 MG tablet 1 tab PO 2 hr prior to bedtime 020 2024 Discontinued(M ed list cleanup (will not trigger notification to Pharmacy)) ketotifen (Zaditor) 0.025 % ophthalmic solution Administer 1 drop into the right eye if needed in the morning and at bedtime (itching). 5 mL 023 2024 Discontinued(M ed list cleanup (will not trigger notification to Pharmacy)) Carboxymeth-Glyc- Polysorb PF 0.5-1-0.5 % solutionIndicatio ns:Routine health maintenance Administer one drop into affected eye as needed for dry eye and itching 30 each 2 023 2024 Discontinued(M ed list cleanup (will not trigger notification to Pharmacy)) Buprenorphine HCl-Naloxone HCl (Suboxone) 8-2 MG SL filmIndications:O pioid dependence, uncomplicated (CMS/HCC) Place 1 Film under the tongue 3 times daily for 28 days. Do not start before August 08, 2024. 84 Film 024 2024 Discontinued(R eorder (will not trigger notification to Pharmacy)) Active Problems Problem Noted Date Diagnosed Date Flank pain 09/24/2024 Dysuria 09/24/2024 Moderate episode of recurrent major depressive d isorder 06/25/2024 Bilateral renal cysts 06/07/2024 Overview (06/07/2024): Followed by Urology - [facility] Consult Mar 2024 - review of CT abdomen w/ & w/o, demonstrated few stones in right kidney and low density calcification in left kidney. Also demonstrated bilateral simple cysts and 1.1cm Bosniak cat 2 cyst in right kidney lower pole. Non- obstructing nephrolithiasis Screening for colorectal cancer 06/01/2024 Overview (06/07/2024): Colon cancer screening: Cologuard ordered 06/01/24 PSA: followed by Urology (2023) Assessment & Plan (06/07/2024 8:03 PM EDT): COVID IZ administered today Hematuria 02/01/2024 Overview (06/07/2024): Following with [facility] Urine cytology February 2024 negative for high-grade urothelial carcinoma. Consult Mar 2024 - review of CT abdomen w/ & w/o, demonstrated few stones in right kidney and low density calcification in left kidney. Also demonstrated bilateral simple cysts and 1.1cm Bosniak cat 2 cyst in right kidney lower pole. Non- obstructing nephrolithiasis Assessment & Plan (02/02/2024 4:02 PM EDT): Pt with symptomatic hematuria, will treat for uti with culture , if neg will refer to urology Loud snoring 01/29/2024 Overview (01/29/2024): Referral to Sleep Medicine placed 01/23/24 Tinnitus of both ears 01/29/2024 Assessment & Plan (01/29/2024 8:27 PM EDT): Intermittent, bilateral, not worsening Check with pharmacy regarding possible med SE Consider referral to ENT if persistent Cystitis 12/22/2023 Assessment & Plan (12/22/2023 4:37 PM EDT): Pt w LUTS , afebrile . Here Urine dipstick w blood trace. LE mod ,rest neg 12/14/2023 cr 0.79,GFR > 60 Does reports 3 weeks ago noted small amount of blood in urethra Will tx empirically for now as possible UTI ,but will r/o masses or nephrolithiasis -UA w reflex to cx -ch/gn urine -pelvic US and XR to r/o nephrolithiasis for hematuria -nitrofurantoin BID x 7 days -f w PCP -has apt already scheduled for 01/23/2024 , if neg workup and has again episodes of hematuria would need urologist referral and CT urogram -alarm signs and symptoms discussed w pt Cigarette smoker 06/02/2023 Overview (09/24/2023): -Cigg/day: previously 1 ppd -Age started: 15 y/o -Total years smokin -Pack year history: 42 Encouraged smoking cessation resources such as pharmacomtherapy, [facility] smoking cessation group, and [facility] pharmacy smoking cessation clinic -Continues with NRT patches with good effect -LDCT: form signed and faxed to [facility] 09/23/23 Lumbar facet arthropathy 09/02/2022 Overview (06/14/2023): MRI lumbar spine December 2018: 1. There is mild to moderate facet arthropathy at L5-S1 and there is abroad- based posterior disc protrusion. There is impingement on the traversing left S1 nerve root. -Discussed multimodal approach to chronic pain including pharm and non-pharm options. -Continue with gabapentin 800mg TID, reviewed med safety and SE -Continue with lidocaine patches PRN -Encouraged to continue with [facility] acupuncture clinic & PT as has noted improvement with intervention -Following with [facility] Pain Management ?? Received lumbar injection on 05/31/23 and 06/08/23 with noted relief Assessment & Plan (06/07/2024 8:03 PM EDT): -DME request for low back support brace sent May 2024 Assessment & Plan (09/02/2022 7:52 AM EST): -Discussed multimodal approach to chronic pain including pharm and non-pharm options. -Continue with gabapentin 800mg BID, reviewed med safety and SE -Continue with lidocaine patches PRN -Information provided about [facility] acupuncture clinic -Previously referred to PT and reports has noted mild improvement in pain -Consider referral to pain management/physiatry Opioid dependence, uncomplicated 08/30/2022 History of cholecystectomy 02/28/2021 Overview (09/01/2022): Surgical clips in RUQ reported on XR L-spine Bilateral knee pain 02/28/2021 Overview (09/01/2022): Last Assessment & Plan: Already had knee XR, c/w OA Suspect hip pain is also OA Check hip XRays Last Assessment & Plan: Dedrick is a 55-year-old male who is been participating outpatient physical therapy for treatment of bilateral knee pain. Unfortunately patient has only participated in 1 skilled PT session since initial evaluation on 05-20-21. Due to limited physical therapy sessions, patient has made limited progress in skilled PT since initial evaluation. Patient demonstrates improved active right knee flexion range of motion to 124 degrees and left knee range of motion to 114 degrees. Patient continues to demonstrate decreased proximal and lower extremity strength, impaired balance, antalgic gait, and poor sit to stand mechanics. Session today focused on review of bed level proximal strengthening exercises progression to sit to stand mechanics training on edge of plinth. Patient benefited from verbal cues in order to attain anterior superior weight shift and engage gluteal musculature. Patient would benefit from skilled physical therapy focusing on proximal and lower extremity strengthening, flexibility program, balance training, gait training, and progression of functional ability tract training. Patient will benefit from skilled PT 1-2X per week for 4 additional weeks in order to attain stated goals. Hyperlipidemia 12/19/2020 Assessment & Plan (05/04/2023 12:22 PM EDT): -Continue with med management through Cards ?? Atorvastatin 80mg nightly (refill through PCP sent today) ?? PCSK9-I Repatha -Reviewed lifestyle modifications Lab Results Component Value Date CHOLESTEROL 323 (H) 09/23/2022 LDLCHOL 254 (H) 09/23/2022 TRIG 147 09/23/2022 HDLCHOL 38 (L) 09/23/2022 CHOLHDLRAT 8.5 (H) 09/23/2022 Assessment & Plan (02/04/2023 4:37 PM EDT): -Continue with med management through Cards ?? Atorvastatin 80mg nightly ?? PCSK9-I Repatha -Reviewed lifestyle modifications Lab Results Component Value Date CHOLESTEROL 323 (H) 09/23/2022 LDLCHOL 254 (H) 09/23/2022 TRIG 147 09/23/2022 HDLCHOL 38 (L) 09/23/2022 CHOLHDLRAT 8.5 (H) 09/23/2022 Assessment & Plan (12/12/2022 8:37 PM EDT): -Continue with med management through Cards ?? Atorvastatin 80mg nightly ?? PCSK9-I Repatha -Discontinue rosuvastatin prescribed through primary care to avoid duplicate statin -Reviewed lifestyle modifications Essential (primary) hypertension 12/06/2020 Overview (06/07/2024): BP goal: < 140/90 mmHg (ideally < 130/80 mmHg) Medications: Initiated on olmesartan 5mg daily on 06/01/24. Reviewed med safety and SE Maintenance: BMP: check in 2 weeks after med start Lipid Panel: ordered Assessment & Plan (06/07/2024 7:59 PM EDT): Encourage Lifestyle Interventions: -Routine aerobic exercise - initial goal of 30 min walk 3-5x/week. Increase as tolerated with goal 150 minutes weekly -low-sodium diet (goal: <2g/day) and heart healthy diet such as DASH to reduce BP and ASCVD risk. -Home BP monitoring 2-3 x/week (or more frequently as directed) -Seek immediate medical attention for chest pain, palpitations, SOB, syncope, or sudden changes in mental status. -Do not change or discontinue current prescriptions without first consulting health care provider Assessment & Plan (06/14/2023 10:38 AM EDT): -Reports readings normal at home, possibly elevated in the setting of pain -Return precautions reviewed Bilateral lower extremity edema 09/12/2020 Overview (02/04/2023): -Echo 07/19/22 w/o obvious valvular pathology, left ventricular systolic function is normal, EF 55% -Continue bumetanide 1mg daily PRN. Reviewed med safety/SE -BMP WNL 09/20/22 -Established with [facility] Sep 2022 -Recurrent, assoc w BLE edema ?? 10/27/22: Lower extremity vascular study that showed incompetent veins and vessels Assessment & Plan (02/04/2023 4:23 PM EDT): ?? Continue with Bumex 1mg daily PRN ?? Encouraged elevation of feet, compression stockings, low salt diet Assessment & Plan (09/02/2022 7:57 AM EST): -Echo 07/19/22 w/o obvious valvular pathology, left ventricular systolic function is normal, EF 55% -Restart diuretic - switch to bumetanide 0.5mg daily PRN. Reviewed med safety/SE -Repeat BMP in 2 weeks -Referral to Cards for further eval Anxiety disorder 08/04/2020 Overview (09/01/2022): Last Assessment & Plan: Has provider On quetiapine TB lung, latent 08/04/2020 Overview (06/07/2024): From outside documentation: RIF start date: 05/14/2014. stop date 09/10/2014 RIF stare date: 05/14/2014 Osteomyelitis of finger 08/04/2020 Overview (09/01/2022): Added automatically from request for surgery [id number] GERD (gastroesophageal reflux disease) 9 Assessment & Plan (12/05/2023 6:36 PM EDT): Refill omeprazole 40mg daily sent to the pharmacy Assessment & Plan (09/24/2023 2:49 PM EST): Refill sent to the pharmacy Insomnia 01/11/2019 Assessment & Plan (06/14/2023 10:25 AM EDT): ?? After appt, provider able to clarify information with [facility] pharmacy. Pt last picked up psych meds on 02/11/23 for 30 day supply: ?? Seroquel ?? Doxepin ?? Hydroxyzine ?? Psychiatrist: Dr. Whitaker. Pt is not sure if he has upcoming appt with their office. Encourage to call. PCP will also send message to Dr. Whitaker regarding patient plan. Hepatitis C 04/28/2018 Assessment & Plan (12/05/2023 6:36 PM EDT): -Previous hx of tx Hep C -Will recheck for Hep C infx Resolved Problems Problem Noted Date Diagnosed Date Resolved Date UTI symptoms 01/10/2024 06/01/2024 Assessment & Plan (02/02/2024 4:03 PM EDT): Will treat presumtively, if culture neg referral to urology Assessment & Plan (01/29/2024 8:25 PM EDT): UA in office demonstrated hematuria, but not consistent with active infection Encouraged to follow up with Urology as scheduled Encouraged adequate hydration ED/urgent care precautions Assessment & Plan (01/10/2024 11:52 AM EDT): Drink plenty of water, do not hold urine Patient has an upcoming renal US to be done Macrobid for 1 week and pyridium for his symptoms UA with culture, patient to be contacted with results Recurrent urinary tract infection 01/10/2024 06/01/2024 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 stop date 09/10/2014 RIF stare date: 05/14/2014 Chronic low back pain 08/21/20202022 Overview (09/01/2022): LUMBAR SPINE WITH FLEXION AND EXTENSION VIEWS: 10/01/2020 HISTORY: Pain COMPARISON: None listed TECHNIQUE: Standing AP, lateral flexion and extension views. FINDINGS/IMPRESSION: Rightward convexity of the lumbar spine. Lordosis is maintained. Trace posterior offset L5 on S1 noted on extension view that slightly worsens on flexion. Alignment is otherwise preserved on neutral, extension and flexion views. Vertebral body heights are normal. Disc narrowing at L5-S1. Marginal osteophyte formation at multiple levels and facet hypertrophy in the lower lumbar spine. Surgical clips in the right upper quadrant. Visualized lung bases are Clear. MRI LUMBAR SPINE WITHOUT CONTRAST 10/20/2020 HISTORY: lumbar pain with severe radiculopathy sciatica leg weakness and recent fall COMPARISON: Plain films from October 01, 2020 FINDINGS: There are degenerative changes with disc desiccation and Modic type II endplate changes at L5-S1. Modic 2 changes are also seen at T11-T12. The vertebral body heights and disc spaces are otherwise well-maintained and alignment is grossly normal. There is no acute fracture. The conus terminates at the L1 level. There is no abnormal signal seen in the visualized cord. The L2-L3 levels unremarkable. The L3-L4 level demonstrates a disc bulge but no significant canal or neural foraminal narrowing. The L4-L5 level demonstrates a broad-based disc bulge with mild bilateral neural foraminal narrowing. There is no significant canal narrowing. The L5-S1 level demonstrates a disc bulge and facet hypertrophy with mild left neural foraminal narrowing. There is no significant canal narrowing. IMPRESSION: Multilevel degenerative changes as described above. 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 Limited progress towards intermodal owner operator truck driver goals 2nd to recent onset of B knee pain. Objectively, the patient has improved upright posture, and improved lumbar range of motion with minimal pain reported. He reports improved mobility with physical therapy however has recently been complaining of increased left knee pain which limits him. Patient has appointment to f/u with provider regarding recent onset of knee pain. Patient has been discharged from PT with an HEP and has been advised to contact PT with further questions/concerns. Chronic sciatica 09/07/2018 09/02/2022 Encounters * This document contains information received from the source organization and may not represent a complete record from that organization. Date Type Department Care Team Description 09/24/2024 2:40 PM EST Office Visit [facility] [address] [id number] Flank pain (Primary Dx); Dysuria 09/24/2024 Travel 09/19/2024 9:00 AM EST Office Visit [facility] [address] [place] [phone] Leopoldo Bateman MD Opioid dependence, uncomplicated (CMS/HCC) (Primary Dx) 09/19/2024 Patient Outreach [address] [phone] Davy Bhatia Recovery Supports 09/19/2024 Travel 08/31/2024 Refill [facility] [address] [place] [phone] Zehra Rodgers RN Opioid dependence, uncomplicated (CMS/HCC) 08/23/2024 Refill [facility] [address], [place] [phone] Karoline Beltran FNP Essential (primary) hypertension 08/16/2024 Telephone [facility] [address] [place] [address] Karoline Beltran FNP August08/08/2024 9:00 AM EST Office Visit [facility] [address] [place] [phone] Leopoldo Bateman MD Opioid dependence, uncomplicated (CMS/HCC) (Primary Dx) 08/08/2024 Travel 08/07/2024 Refill [facility] [address] [place] [phone] Zehra Rodgers RN Opioid dependence, uncomplicated (CMS/HCC) 08/07/2024 Refill [facility] [address] [place] [phone] Zehra Rodgers RN Opioid dependence, uncomplicated (CMS/HCC) 08/01/2024 9:00 AM EST Office Visit [facility] [address] [place] [phone] Leopoldo Bateman MD Opioid dependence, uncomplicated (CMS/HCC) (Primary Dx) 08/01/2024 Travel 07/26/2024 Refill [facility] [address] [place] [phone] Karoline Beltran FNP Gastroesophageal reflux disease, unspecified whether esophagitis present (Primary Dx) 07/25/2024 9:00 AM EST Clinical Support [address] [phone] Zehra Rodgers RN Opioid type dependence, continuous (CMS/HCC) 07/25/2024 Travel 07/18/2024 9:00 AM EST Clinical Support [address] [address] Anahi Archibald RN Opioid type dependence, continuous (CMS/HCC) (Primary Dx) 07/18/2024 Travel 07/16/2024 Orders Only [address] [address] Hawa Martins MD Essential (primary) hypertension (Primary Dx) 07/13/[address] [address] Zehra Rodgers RN Opioid dependence, uncomplicated (CMS/HCC) 07/12/[address] [address] Hawa Martins MD 07/11/2024 9:00 AM EST Office Visit [address] [phone] Leopoldo Bateman MD Opioid dependence, uncomplicated (CMS/HCC) (Primary Dx) 07/11/2024 Travel 07/10/2024 Telephone [facility] [address] [place], [place] [phone] Karoline Beltran FNP Medication Question 07/06/2024 Orders Only GENERIC EXTERNAL DATA DEPARTMENT Provider, Generic External Data 07/04/2024 9:00 AM EST Office Visit [address] [phone] Leopoldo Bateman MD Opioid dependence, uncomplicated (CMS/HCC) (Primary Dx) 07/04/2024 Travel 07/03/[address] [address] Karoline Beltran FNP Lumbar facet arthropathy 06/29/2024 Orders Only [facility] External Provider, [facility] 06/28/[address] [phone] Karoline Beltran FNP c/b requested 06/27/2024 9:00 AM EST Office Visit [facility] [address] [place] [address] Leopoldo Bateman MD Opioid dependence, uncomplicated (CMS/HCC) (Primary Dx) 06/27/2024 Travel 06/25/2024 Patient Outreach [facility] [address] [facility] [place] [address] Tobias Carballo from Last 3 Months Immunizations Name Administration Dates Next Due Influenza Injectable Quadriv alant Preservative Free IIV4 MDCK 05/21/2021 Influenza injectable quadriv alent preservative free 06/01/2023,07/06/2022,06/13/2020 Influenza, seasonal, injecta ble, preservative free 05/15/2024 Moderna Covid-19 Vaccine 6+ Bivalent 12/02/2022, 11/18/2022 Pfizer Covid-19 Vaccine 12+ 06/01/2024, Pneumococcal Conjugate PCV 20 02/03/2023 Pneumococcal Polysaccharide PPSV23 04/28/2018 Tdap 04/28/2018 Zoster, Recombinant 08/08/2024 Family History Medical History Relation Name Comments Diabetes Brother Coronary artery disease Father Heart attack Father Hypertension Mother Relation Name Status Comments Brother Father Mother Social History Tobacco Use Types Packs/Day Years Used Date Smoking Tobacco: Some Days Cigarettes Passive Smoke Exposure: Current Smokeless Tobacco: Never Tobacco Cessation:Ready to Q uit: No; Counseling Given: Yes Comments:Pt stated stop smoking two weeks ago. Today 06/01/2023 Alcohol Use [...] Orientation Straight 06/21/2022 10 :19 AM EDT Last Filed Vital Signs Vital Sign Reading Time Taken Comments Blood Pressure 139/75 09/24/2024 2:54 PM EST Pulse 81 09/24/2024 2:54 PM EST Temperature 36.8 ??C (98.2 ??F) 09/24/2024 2:54 PM ES T Respiratory Rate 18 09/24/2024 2:54 PM EST Oxygen Saturation 99% 09/24/2024 2:54 PM EST Inhaled Oxygen Concentration - - Weight 108 kg (237 lb) 09/24/2024 2:54 PM EST Height 170.2 cm (5' 7 ) 06/01/2024 2:06 PM EDT Body Mass Index 37.12 06/01/2024 2:06 PM EDT Plan of Treatment Upcoming Encounters Date Type Department Care Team (Late st Contact Info) Description 09/27/2024 1:30 PM EST Office Visit [facility] [address] [place] [address] Val Lugo, OD [address] [place] [address] 09/28/2024 2:30 PM EST Office Visit [facility] [address], [place] [phone] Rachelldayanna Karoline, WIRE THREADER [address] [place], [place] [phone] 10/03/2024 9:00 AM EST Office Visit [facility] [address] [place] [address] Leopoldo Bateman MD [address] [place], [place] [phone] Health Maintenance Due Date Last Done Comments CT Colonography 1965 Colonoscopy 1965 FIT 1965 FOBT 1965 Sigmoidoscopy 1965 Hepatitis A Vaccines (1 of 2 - Risk 2-dose series) 1984 Zoster Vaccines (2 of 2) 10/03/2024 08/08/2024 Depression Monitoring (PHQ-9) 12/23/2024 06/25/2024, 06/25/2024 SDOH Screening 02/08/2025 02/09/2024 Alcohol/Substance Use Screening 06/01/2025 06/01/2024 Depression Screening 06/25/2025 06/25/2024, 06/25/20 Tobacco Screening 08/08/2025 08/08/2024 Colorectal Cancer Screening 07/05/2027 FIT DNA/Cologuard 07/05/2027 07/05/2024 DTaP/Tdap/Td Vaccines (2 - Td or Tdap) 04/28/2028 04/28/2018 Lipid Panel 07/06/2029 07/06/2024, 09/23/2022 RSV Patients and Patients Aged 60 years or older (1 - 1-dose 75+ series) 2040 HIV Screening Completed 09/23/2022, 05/23, 12/16/2021, Additional history exists Pneumococcal Vaccine: 50+ Years Completed 02/03/2023, 04/28/2018 Influenza Vaccine Completed 05/15/2024, , 07/06/2022, Additional history exists COVID-19 Vaccine Completed 06/01/2024, 10/2023, 12/02/2022, Additional history exists HIB Vaccines Aged Out No longer eligi ble based on patient's age to complete this topic HPV Vaccines Aged Out No longer eligi ble based on patient's age to complete this topic Hepatitis B Vaccines Discontinued IPV Vaccines Aged Out No longer eligi ble based on patient's age to complete this topic Meningococcal Vaccine Aged Out No robina kiley eligible based on patient's age to complete this topic RSV under 20 months Aged Out No longe r eligible based on patient's age to complete this topic Rotavirus Vaccines Aged Out No longer eligible based on patient's age to complete this topic Procedures Procedure Name Priority Date/Time Associated Diagnosis Comments POCT URINALYSIS DIPSTICK Routine 09/24/2024 3:13 PM EST Dysuria POCT AVANI-14 URINE DRUG SCREEN Routine 08/09/2024 8:44 AM EST Opioid dependence, uncomplicated (CMS/HCC) POCT AVANI-14 URINE DRUG SCREEN Routine 07/18/2024 9:04 AM EST Opioid type dependence, continuous (CMS/HCC) PSA, TOTAL Routine 07/06/2024 10:05 AM EST LIPID PANEL, STANDARD Routine 07/06/2024 10:05 AM EST Essential (primary) hypertension BASIC METABOLIC PANEL Routine 07/06/2024 10:05 AM EST Essential (primary) hypertension LAB COLOGUARD?? COLON CANCER SCREEN Routine 07/05/2024 7:30 AM EST Screening for colon cancer US RETROPERITONEAL COMPLETE Routine 06/29/2024 1:05 PM EST HIV 1 RNA, QN PCR W/RFL VLADIMIR (RTI,PI,INTEGRASE) Routine 09/23/2022 9:32 AM EST Routine adult health maintenance from Last 3 Months or Most Recently Relevant to Health Maintenance Results * (ABNORMAL) POCT urinalysis dipstick manually resulted (09/24/2024 3:13 PM EST) Color, UA Yellow Clarity, UA Clear Glucose, UA Negative Bilirubin, UA Negative Ketones, UA Negative Spec Grav, UA 1.030 Blood, UA Positive(A) Negative, None Detected Comment:Trace pH, UA 6.0 Protein, UA Negative Urobilinogen, UA 1.0 Leukocytes, UA Negative Negative, Rare, Trace Nitrite, UA Negative Negative, None Detected Appearance, UA OK Urine 09/24/2024 3:13 PM EST Doris Brooks NP POINT OF CARE TEST ENTER/EDIT OR DERABLES Final Result * POCT AVANI-14 Urine Drug Screen (08/09/2024 8:44 AM EST) Only the most recent of2 resultswithin the time period is included. THC Positive Cocaine Screen, Urine Negative Opiate Screen, Urine Negative Methamphetamine Screen Urine Negative Amphetamine Screen, Urine Negative Benzodiazepines Screen, Urine Negative Barbiturate Screen, Urine Negative Methadone Screen, Urine Negative Buprenophine Screen, Urine Positive TCA, Urine Negative MDMA Urine Negative ng/mL Oxycodone Screen, Urine Negative Phencyclidine (PCP), Urine Negative Propoxyphene, Urine Negative Fentanyl, Urine Negative Urine Urine specimen obtained by clean catch procedure / Unknown 08/09/2024 8:44 AM EST Leopoldo Bateman MD POINT OF CARE TEST ENTER/EDIT OR DERABLES Final Result * PSA,Total (07/06/2024 10:05 AM EST) Prostate Specific Antigen 1.20 <0.05 - 4.0 ng/mL [facility] Comment:PSA methodology: Abb lilly Alijaredty i ChemiluminescentMicroparticle Immunoassay (CMIA) 07/06/2024 10:0 5 AM EST 07/06/2024 10:05 AM EST us Generic External Data Provider LAB BLOOD ORDERAB LES Final Result [facility] [address] [place] [address] [phone] * (ABNORMAL) Lipid Panel, Standard (07/06/2024 10:05 AM EST) Triglycerides 170(H) <150 mg/dL [facility] Comment:Desirable Triglyceri de: less than 150 mg/dLBorderline High Triglyceride 150-199 mg/dLHigh Triglyceride: 200-499 mg/dLVery High Triglyceride: greater than or equal to 5OO mg/dL Cholesterol 295(H) <200 mg/dL [facility] Comment:Desirable Cholestero l: less than 200 mg/dLBorderline High Cholesterol: 200-239 mg/dLHigh Cholesterol: greater than 239 mg/dL LDL Cholesterol Calculated 217(H) <100 mg/dL [facility] Comment:Desirable LDL: less than 100 mg/dLNear Optimal/Above Optimal LDL: 110- 129 mg/dLBorderline High LDL: 130-159 mg/dLHigh LDL: 160-189 mg/dLVery High LDL: greater than or equal to 190 mg/dL HDL Cholesterol 44 >40 mg/dL [facility] Comment:Desirable HDL: great er than 40 mg/dL Note: This HDL assay may give artificially low results in patients with liver disease. Blood Venous blood specimen / Unknown 07/06/2024 10:05 AM EST 07/06/2024 10:05 AM EST us Karoline Beltran WIRE THREADER LAB BLOOD ORDERABLES Final Res ult [facility] [address] [place] [address] [phone] * Basic Metabolic Panel (07/06/2024 10:05 AM EST) Sodium 140 135 - 145 mmol/L [facility] Potassium 4.0 3.3 - 5.1 mmol/L [facility] Chloride 106 96 - 108 mmol/L [facility] Carbon Dioxide 25 22 - 29 mmol/L [facility] Anion Gap 13 12 - 20 [facility] Urea Nitrogen (BUN) 12 9 - 16 mg/dL [facility] Creatinine, Serum 0.79 0.5 - 1.4 mg/dL [facility] Estimated Glomerular Filt Rate >60 [facility] Comment:Chronic Kidney Disea se: Estimated GFR < 60 mL/min/1.52z9Ynnije Kidney Disease: Estimated GFR < 15 mL/min/1.73m2 Glucose 115 60 - 115 mg/dL [facility] Calcium 9.4 8.4 - 10.2 mg/dL [facility] Blood Venous blood specimen / Unknown 07/06/2024 10:05 AM EST 07/06/2024 10:05 AM EST us Karoline Beltran WIRE THREADER LAB BLOOD ORDERABLES Final Res ult [facility] [address] [place] [phone] * (ABNORMAL) Cologuard?? colon cancer screening (07/05/2024 7:30 AM EST) Cologuard Result Positive( A) Negative 07/15/2024 3:28 AM EST [facility] [employer] (CLIA #:[id number]) Comment: POSITIVE TEST RESULT. A positive Cologuard result should be followed with a colonoscopy or visual examination of the colon. The normal value (reference range) for this assay is negative. TEST DESCRIPTION: Composite algorithmic analysis of stool DNA-biomarkers with hemoglobin immunoassay. ?? Quantitative values of individual biomarkers are not reportable and are not associated with individual biomarker result reference ranges. Cologuard is intended for colorectal cancer screening of adults of either sex, 45 years or older, who are at average-risk for colorectal cancer (CRC). Cologuard has been approved for use by the U.S. FDA. The performance of Cologuard was established in a cross sectional study of average-risk adults aged 50-84. Cologuard performance in patients ages 45 to 49 years was estimated by sub-group analysis of near-age groups. Colonoscopies performed for a positive result may find as the most clinically significant lesion: colorectal cancer [4.0%], advanced adenoma (including sessile serrated polyps greater than or equal to 1cm diameter) [20%] or non- advanced adenoma [31%]; or no colorectal neoplasia [45%]. These estimates are derived from a prospective cross-sectional screening study of 10,000 individuals at average risk for colorectal cancer who were screened with both Cologuard and colonoscopy. (Nik Mittal al, N Engl J Med 2014;370(14):9526-9379.) Cologuard may produce a false negative or false positive result (no colorectal cancer or precancerous polyp present at colonoscopy follow up). A negative Cologuard test result does not guarantee the absence of CRC or advanced adenoma (pre-cancer). The current Cologuard screening interval is every 3 years. ([employer] [employer] and U.S. Multi-Society Task Force). Cologuard performance data in a 10,000 patient pivotal study using colonoscopy as the reference method can be accessed at the following location: www.RoboCent/results. Additional description of the Cologuard test process, warnings and precautions can be found at www.eyeQrd.Pockethernet. Stool specimen (specimen) 07/05/2024 7:30 AM EST 07/07/2024 3:42 PM EST Karoline Beltran [facility] MOLECULAR DIAGNOSTICS TODD BARAHONA Final Result [employer] (CLIA #:[id number]) [address] [place] [address], * US Retroperitoneal Complete (06/29/2024 1:05 PM EST) Anatomical Region Laterality Modality Ultrasound 06/29/2024 1:05 PM EST Narrative 07/01/2024 10:26 PM EST ? [facility] ?[address] ?[place] [address] ? Ultrasound Report ? Signed ? Patient: Reed Camargo,Ricardo ?MR#: ?? [id number] ? : 1965 ?Acct:[id number] ? Age/Sex: 58 / M ?ADM Date: 06/29/24 ? Loc: HO.US ? Attending Dr: Maria Del Carmen NORMAN-BC ? Ordering Physician: Maria Del Carmen Hall ?? Date of Service: 06/29/24 ?? Procedure(s): US retroperitoneal comp ?? Accession Number(s): [id number] ? cc: Maria Del Carmen HallBC; Karoline Beltran ? EXAMINATION: ?? US RETROPERITONEAL COMPLETE (RENAL) ? CLINICAL INFORMATION: ?? Urinary tract infection, site not specified. ? COMPARISON: ?? CT abdomen and pelvis 02/24/2024. Renal ultrasound 02/20/2024. X-ray ?? abdomen 12/23/2023. Ultrasound abdomen 03/23/2007. ? TECHNIQUE: ?? Real-time imaging of the kidneys and bladder. ? FINDINGS: ? RIGHT KIDNEY: 11.4 x 6.5 x 4.1 cm (SAG x AP x TRV). The kidney is ?? normal in size and contour. Renal cortical thickness is normal. There ?? is increased renal cortical echotexture. No renal calculi. There is ?? mild pelviectasis, without nery hydronephrosis. ? At the upper pole, a 2.3 cm benign, simple cyst is seen, which requires ?? no imaging follow-up. ? LEFT KIDNEY: 12.3 x 4.9 x 6.1 cm (SAG x AP x TRV). The kidney is normal ?? in size, contour, and echogenicity. Renal cortical thickness is normal. ?? There is increased renal cortical echotexture. No calculi or focal ?? parenchymal lesions. No hydronephrosis. ? BLADDER: Well distended and normal. Right ureteral jet is demonstrated; ?? left is not. Prevoid bladder volume is 543 mL. Postvoid bladder volume ?? is 28 mL. ? PROSTATE GLAND: Prostate dimensions are 3.9 x 3.9 x 4.9 cm, volume 38.4 ?? mL. ? US/US retroperitoneal comp ?? IMPRESSION: ? 1. There is increased bilateral renal cortical echotexture, which can ?? be associated with medical renal disease. ? 2. No renal mass or calculus is seen bilaterally. There is mild right ?? renal pelviectasis. No nery hydronephrosis is seen bilaterally. ? 3. There is mild prostatomegaly. ? Electronically signed by: ??David Wilks MD ??07/01/2024 10:23 PM EST RP ? Dictated By: ?David Wilks MD ? Signed By: ?<Electronically signed by David Wilks MD in OV> ? 07/01/243 ? DD/ 1305 ? TD/TT: 06/29/24 1329 ? [facility] Therapist: SUJATHA ? Procedure Note Donemiliano, Image - 07/01/2024 [place] [address] Ultrasound Report Signed Patient: Dedrick Dawn [facility]#: [id number] : 1965Acct:[id number] Age/Sex: 58 / MADM Date: 06/29/24 Loc: HO.US Attending Dr: Maria Del Carmen CHAMPION Ordering Physician: Maria Del Carmen Hall Date of Service: 06/29/24 Procedure(s): US retroperitoneal comp Accession Number(s): [id number] cc: Maria Del Carmen Hall; Karoline Beltran EXAMINATION: US RETROPERITONEAL COMPLETE (RENAL) CLINICAL INFORMATION: Urinary tract infection, site not specified. COMPARISON: CT abdomen and pelvis 02/24/2024. Renal ultrasound 02/20/2024. X-ray abdomen 12/23/2023. Ultrasound abdomen 03/23/2007. TECHNIQUE: Real-time imaging of the kidneys and bladder. FINDINGS: RIGHT KIDNEY: 11.4 x 6.5 x 4.1 cm (SAG x AP x TRV). The kidney is normal in size and contour. Renal cortical thickness is normal. There is increased renal cortical echotexture. No renal calculi. There is mild pelviectasis, without nery hydronephrosis. At the upper pole, a 2.3 cm benign, simple cyst is seen, which requires no imaging follow-up. LEFT KIDNEY: 12.3 x 4.9 x 6.1 cm (SAG x AP x TRV). The kidney is normal in size, contour, and echogenicity. Renal cortical thickness is normal. There is increased renal cortical echotexture. No calculi or focal parenchymal lesions. No hydronephrosis. BLADDER: Well distended and normal. Right ureteral jet is demonstrated; left is not. Prevoid bladder volume is 543 mL. Postvoid bladder volume is 28 mL. PROSTATE GLAND: Prostate dimensions are 3.9 x 3.9 x 4.9 cm, volume 38.4 mL. US/US retroperitoneal comp IMPRESSION: 1. There is increased bilateral renal cortical echotexture, which can be associated with medical renal disease. 2. No renal mass or calculus is seen bilaterally. There is mild right renal pelviectasis. No nery hydronephrosis is seen bilaterally. 3. There is mild prostatomegaly. Electronically signed by: David Wilks MD 07/01/2024 10:23 PM [facility] Dictated By: David Wilks MD Signed By: <Electronically signed by David Wilks MD in OV> 07/01/24 2223 DD/ 1305 TD/TT: 06/29/24 1329 [facility] Therapist: SUJATHA Authordenise Provider Result Type Result Stat [facility] External Provider IMG US PROCEDURES Final Result * HIV-1 RNA, Quantitative, Real-Time PCR with Reflex to Genotype (RTI, PI, Integrase) (09/23/2022 9:32 AM EST) HIV 1 RNA, QN PCR NOT DETECTED copies/mL [facility], HIV 1 RNA, QN PCR NOT DETECTED Log copies/mL [facility], Comment: REFERENCE RANGE: NOT DETECTED copies/mL ?NOT DETECTED ??Log copies/mL This test was performed using Real-Time Polymerase Chain Reaction. Reportable range is 20 to 10,000,000 copies/mL (1.30-7.00 Log copies/mL). 09/23/2022 9:32 AM EST 09/23/2022 9:33 AM EST Narrative [facility] - 09/26/2022 1:23 AM EST FASTING:UNKNOWN FASTING: UNKNOWN Karoline NORMAN LAB BLOOD ORDERABLES Final Res ult [facility] [address], [place] [address] [facility], [place] [address] from Last 3 Months or Most Recently Relevant to Health Maintenance [place] [address] [address] C3 Care Teams Steam Table Worker Relationship Specialty Start Date End Date Karoline Beltran FNP [address] [place] [address] PCP - General Family Medicine 06/15/21 Azalia Villalta, PharmD [address] [place] [phone] Pharmacist Internal Medicine 05/15/24
--- OUTSIDE RECORDS SUMMARY | 2024-09-24 18:04 | XMS_ITS | Encounter Summary ---
Author Organization [employer] Address [address] [facility] 7t [place] [address] Care Team Providers Care Skin Installer Name Role Phone Karoline Beltran Primary Care Provider [phone] Anurag Lo Unavailable Unavailable Sarahi Rey RN Unavailable [phone] Azalia Villalta PharmD Unavailable [phone] Reason for Visit * Reason Onset Date Comments Ultrasound Order 11/29/2023 Encounter Details Date Type Department Care Team ([facility] st Contact Info) Description 11/29/2023 Telephone [facility] [address] [place] [address] Karoline Beltran FNP [address] [place] [address] Ultrasound Order Social History Tobacco Use Types Packs/Day Years Used Date Smoking Tobacco: Every Day Cigarettes Passive Smoke Exposure: Current Smokeless Tobacco: Never Comments:Pt stated stop smok ing two weeks ago. Today 06/01/2023 Alcohol Use Standard Drinks/Week Comments Never 0 (1 standard drink = 0.6 oz pur e alcohol) PHQ-2 Answer Date Recorded Patient Health Questionnaire-2 Score 3 09/01/2022 Housing Stability Answer Date Recorded What is your housing situation today? I have dora nalini 06/07/[address] you li ve. Do you have problems with any of the following? None of the above 06/07/2023 Food Insecurity Answer Date Recorded Within the past 12 months, y ou worried that your food would run out before you got money to buy more: Never True 06/07/2023 Within the past 12 months,th e food you bought just didn't last and you didn't have enough money to get more: Never True Transportation Answer Date Recorded In the past 12 months, has l ack of transportation kept you from medical appts, meetings, work or from getting things needed for daily living? No 06/07/2023 Utilities Answer Date Recorded In the past 12 months, has t he electric, gas, oil or water company threatened to shut off services in your home? No 06/07/2023 Depression Answer Date Recorded Patient Health Questionnaire-2 Score 3 09/01/2022 Sex and Gender Information Value Date Recorded Sex Assigned at Male 06/21/2022 10:19 AM EDT Legal Sex Male 10:19 AM EDT Gender Identity Male 06/21/2022 10:19 AM EDT Sexual Orientation Straight 06/21/2022 10 :19 AM EDT documented as of this encounter Miscellaneous Notes * Telephone Encounter - Viraj Albert - 11/29/2023 12:48 PM EDT Tc from [facility] with [facility] calling to inform ultrasound order of the abdomen with elastography can't be completed with them. If any questions please contact Dilan at [phone]. documented in this encounter Plan of Treatment Upcoming Encounters Date Type Department Care Team (Late st Contact Info) Description 09/27/2024 1:30 PM EST Office Visit [facility] [address] [place] [address] ParishVal kaur, OD [address] [place] [address] 09/28/2024 2:30 PM EST Office Visit [facility] [address] [place] [address] Karoline Beltran FNP [address] [place] [address] 10/03/2024 9:00 AM EST Office Visit [facility] [address] [place] [address] Leopoldo Bateman MD [address] [place] [address] documented as of this encounter Visit Diagnoses Not on filedocumented in this encounter Care Teams Skin Installer Relationship Specialty Start Date End Date Karoline Beltran FNP [address] [place] [address] PCP - General Family Medicine 06/15/21 Anurag Lo Community Health Worker 02/09/24 05/10/24 Sarahi Rey, ADARSH [address] [place] [address] Bee Raiser 02/09/24 05/10/24 Azalia Villalta, WillieD [address] [place] [phone] Pharmacist Internal Medicine 05/15/24 documented as of this encounter
--- OUTSIDE RECORDS SUMMARY | 2024-09-24 18:04 | XMS_ITS | Encounter Summary ---
Author Organization [employer] Address [address] [facility] 7t [place] [address] Care Team Providers Care Muffle Operator Name Role Phone Karoline Beltran OUTBOARD MOTOR TESTER Primary Care Provider [phone] Azalia Villalta PharmD Unavailable [phone] Reason for Visit * Reason Onset Date Comments Med Refill 08/07/2024 Encounter Details Date Type Department Care Team (Late st Contact Info) Description 08/07/2024 Refill [facility] MED[facility] [address] [place] [address] Zehra Rodgers, ADARSH Opioid dependence, uncomplicated ([facility]) Social History Tobacco Use Types Packs/Day Years [...] the past 12 months, has t he [email or web address], [employer], oil or water [employer] threatened to shut off services in your [...] Description 09/27/2024 1:30 PM EST Office Visit [facility] OPTOMETRY [address] [place] [address] Parish, Avl, OD [address] [place] [address] 09/28/2024 2:30 PM EST Office Visit [facility] PEDS [address] [place] [address] Karoline Beltran FNP [address] [place] [address] 10/03/2024 9:00 AM EST Office Visit [facility] MED[facility] [address] [place] [address] Leopoldo Bateman MD [address] [place] [address] documented as of this encounter Visit Diagnoses Diagnosis Opioid dependence, uncomplicated (CMS/HCC) documented in this encounter Additional Health Concerns Assessment Noted Time PHQ-9 Depression Total Score: 15 024 12:05 PM EST documented as of this encounter Care Teams Muffle Operator Relationship Specialty Start Date End Date Karoline Beltran FNP [address] [place] [address] PCP - General Family Medicine 06/15/21 Azalia Villalta, Maninder [address] [place] [address] Pharmacist Internal Medicine 05/15/24 documented as of this encounter
--- OUTSIDE RECORDS SUMMARY | 2024-09-24 18:04 | XMS_ITS | Encounter Summary ---
Author Organization [employer] Address [address] [facility] [address] [place] [address] Care Team Providers Care Receiver Name Role Phone Karoline Beltran DOOR FRAME BUILDER Primary Care Provider [phone] Azalia Villalta PharmD Unavailable [phone] Reason for Referral * Imaging (Routine) - Authorized Specialty Diagnoses / Procedures Referred By Contac t Referred To Contact Radiology Diagnoses Flank pain Procedures US RENAL BI Doris Brooks NP [address] [place] [address] Phone: tel: fax: [address] Phone: tel: fax: Referral ID Status Reason Start Date Expiration Date V isits Requested Visits Authorized [id number] Authorized 09/24/2024 09/24/2025 1 1 Reason for Visit * Reason Comments Flank Pain Encounter Details Date Type Department Care Team (Late st Contact Info) Description 09/24/2024 2:40 PM EST Office Visit [facility] [address] [place], [place] [phone] Flank pain (Primary Dx); Dysuria Social History Tobacco Use Types Packs/Day Years [...] AM EDT documented as of this encounter Last Filed Vital Signs Vital Sign Reading Time Taken Comments Blood Pressure 139/75 09/24/2024 2:54 PM EST Pulse 81 09/24/2024 2:54 PM EST Temperature 36.8 ??C (98.2 ??F) 09/24/2024 2:54 PM ES T Respiratory Rate 18 09/24/2024 2:54 PM EST Oxygen Saturation 99% 09/24/2024 2:54 PM EST Inhaled Oxygen Concentration - - Weight 108 kg (237 lb) 09/24/2024 2:54 PM EST Height - - Body Mass Index 37.12 06/01/2024 2:06 PM EDT documented in this encounter Plan of Treatment Upcoming Encounters Date Type Department Care Team (Late st Contact Info) Description 09/27/2024 1:30 PM EST Office Visit [facility] OPTOMETRY [address] [place] [address] ParishVal kaur, OD [address] [place] [address] 09/28/2024 2:30 PM EST Office Visit [facility] [address] [place], [place] [phone] Karoline Beltran, DOOR FRAME BUILDER [address] [place] [address] 10/03/2024 9:00 AM EST Office Visit [facility] [address] [place] [address] Leopoldo Bateman MD [address] [place] [address] Scheduled Orders Name Type Priority Associated Diagnoses Orde r Schedule US RENAL BI Imaging Routine Flank pain Expected: 09/24/2024, Expires: 09/24/2025 Basic Metabolic Panel Lab Routine Flank pain Expected: 09/24/2024 (Approximate), Expires: 09/24/2025 Culture, Urine, Routine Microbiology Routine Dysuria Ordered: 09/24/2024 documented as of this encounter Procedures Procedure Name Priority Date/Time Associated Diagnosis Comments POCT URINALYSIS DIPSTICK Routine 09/24/2024 3:13 PM EST Dysuria documented in this encounter Results * (ABNORMAL) POCT urinalysis dipstick manually [...] Urine 09/24/2024 3:13 PM EST Doris Brooks PERSONAL LINES SALES EXECUTIVE POINT OF CARE TEST ENTER/EDIT OR DERABLES Final Result documented in this encounter Visit Diagnoses Diagnosis Flank pain- Primary Abdominal pain, unspecified site Dysuria documented in this encounter Additional Health Concerns Assessment Noted Time PHQ-9 Depression Total Score: 15 024 12:05 PM EST documented as of this encounter Care Teams Receiver Relationship Specialty Start Date End Date Karoline Beltran FNP [address] [place] [phone] PCP - General Family Medicine 06/15/21 Azalia Villalta PharmD [address] [place] [phone] Pharmacist Internal Medicine 05/15/24 documented as of this encounter
--- OUTSIDE RECORDS SUMMARY | 2024-09-24 18:04 | XMS_ITS | Encounter Summary ---
Author Organization [employer] Address [address] [facility] 7t [place] [address] Care Team Providers Care Infertility Nurse Name Role Phone Karoline Beltran TAX EXAMINING TECHNICIAN Primary Care Provider [phone] Anurag Lo Unavailable Unavailable Sarahi Rey RN Unavailable [phone] Azalia Villalta PharmD Unavailable [phone] Encounter Details Date Type Department Care Team ([facility] st Contact Info) Description 11/29/2023 Telephone [facility] CHC MED & PEDS [address] [place], [place] [phone] Karoline Beltran FNP [address] [place] [address] Social History Tobacco Use Types Packs/Day Years [...] housing situation today? I have dora gayle 06/07/[address] you li [...] enough money to get more: Never True 10/ Transportation Answer Date Recorded In the past [...] encounter Miscellaneous Notes * Telephone Encounter - Steph Alex - 11/29/2023 1:42 PM EDT Pt calling in to inform had a missed call from the office . But I did not see any message tasked . Pt is waiting for a response regarding last message . * Telephone Encounter - ESTER Sterling - 11/29/2023 1:15 PM EDT The H . Pylori Antigen EIA Stool is viewable in [employer], ordered 11/28/23. Please call to follow up. If they wanted a printed order could easily be looked up by the [facility] or team FD staff while pt was in office, no need to waste the sample and pt time/effort. If there is an issue with the order itself, please let me know. Otherwise, please follow up to determine where breakdown in communication happened. Thank you. * Telephone Encounter - Steph Alex - 11/29/2023 11:08 AM EDT Tc from pt calling in to inform came in to drop off stool sample today to the labs but pt was inform they do not have order on file . Pt was upset and throw out the sample and left . Pt is calling into inform situation and would need a new sample cup . Please call pt to clarify . documented in this encounter Plan of Treatment Upcoming Encounters Date Type Department Care Team (Late st Contact Info) Description 09/27/2024 1:30 PM EST Office Visit [facility] OPTOMETRY [address] [place] [address] Val Lugo, OD [address] [place] [address] 09/28/2024 2:30 PM EST Office Visit [facility] CHC MED & PEDS [address] [place] [address] Karoline Beltran FNP [address] [place] [address] 10/03/2024 9:00 AM EST Office Visit [facility] MEDICINE [address] [place] [address] Leopoldo Bateman MD [address] [place] [address] documented as of this encounter Visit Diagnoses Not on filedocumented in this encounter Care Teams Infertility Nurse Relationship Specialty Start Date End Date Karoline Beltran FNP [address] [place] [address] PCP - General Family Medicine 06/15/21 Anurag Lo Community Health Worker 02/09/24 05/10/24 Sarahi Rey, ADARSH 505 [place] [address] Rod Hanger 02/09/24 05/10/24 Azalia Villalta PharmD 230 [place] [address] Pharmacist Internal Medicine 05/15/24 documented as of this encounter
--- OUTSIDE RECORDS SUMMARY | 2024-09-24 18:04 | XMS_ITS | Encounter Summary ---
Author Organization [employer] Address [address] [facility] 7t [place] [address] Care Team Providers Care Barn Boss Name Role Phone Karoline Beltran BLOW MOLDING MACHINE TENDER Primary Care Provider [phone] Azalia Villalta PharmD Unavailable [phone] Reason for Visit * Reason Comments GBAT Encounter Details Date Type Department Care Team (Latest Contact Info) Description 09/19/2024 9:00 AM EST Office Visit [facility] MEDICINE [address] [place], [place] [phone] Leopoldo Bateman MD [address] [place] [address] Opioid dependence, uncomplicated (CMS/HCC) (Primary Dx) Social History Tobacco Use Types [...] as of this encounter Progress Notes * Leopoldo Bateman MD - 09/19/2024 9:00 AM EST Patient has been in the MAT program for 4 years 11 months, Intake date: 11/05/2019 Current Suboxone dose of 24/6 mg daily with appointments on a 4-week schedule Behavioral health provider is PEDRO LFTs last done 06/10/22 Hep C 06/10/22: HCV RNA <15 HIV: 06/10/22: non-reactive Last PCP appt 02/03/23 [place] PAT reviewed by provider Last LFT: 09/23/2022 LAST GBAT VISIT 08/08/2024 UTOX: POS BUP, THC NEG FOR ALL OTHER SUBSTANCES Patient presents for Group-Based Opioid Treatment for OUD Reviewed the group goals, expectations and policies Consented to the group treatment options Actively participated in the group discussion with the topic of: Toolbox for Maintaining Sobriety Following staff present at the visit: Physician, Fish Straightener, Clinician, Team RN, and MedicalAssistant Opportunities provided to address individual medical/medication/BH concerns States doing well without cravings or relapse TODAY GBAT VISIT 09/19/2024 Patient presents for Group-Based Opioid Treatment for OUD Reviewed the group goals, expectations and policies Consented to the group treatment options Actively participated in the group discussion with the topic of: Extended Check-In Following staff present at the visit: Physician, Fish Straightener, Clinician, Team RN, and MedicalAssistant Opportunities provided to address individual medical/medication/BH concerns States doing well without cravings or relapse Review of Systems Psychiatric/Behavioral: Negative for behavioral problems and dysphoric mood. The patient is not nervous/anxious. Physical Exam Constitutional: Appearance: Normal appearance. Pulmonary: Effort: Pulmonary effort is normal. Neurological: Mental Status: He is alert. Psychiatric: Mood and Affect: Mood normal. Behavior: Behavior normal. Dedrick was seen today for gbat. Diagnoses and all orders for this visit: Opioid dependence, uncomplicated (CMS/HCC) (Primary) Patient presents for Group-Based Addiction Treatment of OUD Reviewed the group goals, expectations and policies Consented to the group treatment options Actively participated in the group discussed Future discussion topics reviewed Patient is tolerating current treatment of Buprenorphine Reviewed behavioral modification and accessing services Group counseling provided with a focus on support system, tools for achieving/maintaining recovery Reviewed barriers for these goals Discussed strategies to address when faced situations that may trigger use Mass ENTRY LEVEL ACCOUNTANT reviewed Following staff present at the visit: Physician, Clinician, Team RN, Fish Straightener and Forensic Locksmith Follow up in 1 week for the next GBAT meeting This information has been disclosed to you from records protected by federal confidentiality rules (42 CFR Part 2). The federal rules prohibit you from making any further disclosure of information inthis record that identifies a patient as having or having had a substance use disorder either directly, by reference to publicly available information, or through verification of such identification by another person unless further disclosure is expressly permitted by the written consent of the individual whose information is being disclosed or as otherwise permitted by (see2.3.1). The federal rules restrict any use of the information to investigate or prosecute with regard to a crime any patient with a substance use disorder, except as provided at 2.12??(5) and 2.65. documented in this encounter Plan of Treatment Upcoming Encounters Date Type Department Care Team (Late st Contact Info) Description 09/27/2024 1:30 PM EST Office Visit [facility] OPTOMETRY [address] [place] [address] Parish, Val, OD 230 [place] [address] 09/28/2024 2:30 PM EST Office Visit [facility] CHC MED & PEDS [address] [place] [address] Karoline Beltran FNP 505 [place] [address] 10/03/2024 9:00 AM EST Office Visit [facility] MEDICINE [address] [place] [address] Leopoldo Bateman MD [address] [place] [address] documented as of this encounter Visit Diagnoses Diagnosis Opioid dependence, uncomplicated (CMS/HCC)- Primary documented in this encounter Additional Health Concerns Assessment Noted Time PHQ-9 Depression Total Score: 15 024 12:05 PM EST documented as of this encounter Care Teams Barn Boss Relationship Specialty Start Date End Date Karoline Beltran FNP [address] [place] [address] PCP - General Family Medicine 06/15/21 Azalia Villalta PharmD [address] [place] [address] Pharmacist Internal Medicine 05/15/24 documented as of this encounter
--- OUTSIDE RECORDS SUMMARY | 2024-09-24 18:04 | XMS_ITS | Encounter Summary ---
Author Organization [employer] Address [address] [facility] 7t [place] [address] Care Team Providers Care Residency Coordinator Name Role Phone Karoline Beltran EQUITIES ANALYST Primary Care Provider [phone] Anurag Lo Unavailable Unavailable Sarahi Rey RN Unavailable [phone] Azalia Villalta PharmD Unavailable Reason for Visit * Reason Comments Med Refill Encounter Details Date Type Department Care Team (Late st Contact Info) Description 02/01/2023 Refill [facility] MEDICINE [address] [place] [address] Nj Hong MD [address] [place] [address] Opioid dependence, uncomplicated (CMS/HCC) Social History Tobacco Use Types Packs/Day Years Used Date Smoking Tobacco: Every Day Cigarettes Smokeless Tobacco: Never Alcohol Use Standard Drinks/Week Comments Never 0 (1 standard drink = 0.6 oz pur e alcohol) PHQ-2 Answer Date Recorded Patient Health Questionnaire-2 Score 3 09/01/2022 Depression Answer Date Recorded Patient Health Questionnaire-2 Score 3 09/01/2022 Sex and Gender Information Value Date Recorded Sex Assigned at Male 06/21/2022 10:19 AM EDT Legal Sex Male 10:19 AM EDT Gender Identity Male 06/21/2022 10:19 AM EDT Sexual Orientation Straight 06/21/2022 10 :19 AM EDT COVID-19 Exposure Response Date Recorded In the last 10 days, have yo u been in contact with someone who was confirmed or suspected to have Coronavirus/COVID-19? No / Unsure 02/03/2023 10:11 AM EDT documented as of this encounter Plan of Treatment Upcoming Encounters Date Type Department Care Team (Late st Contact Info) Description 09/27/2024 1:30 PM EST Office Visit [facility] OPTOMETRY [address] [place] [address] Parish Val, OD [address] [place] [address] 09/28/2024 2:30 PM EST Office Visit [facility] CHC MED & PEDS [address] [place] [address] Karoline Beltran FNP 505 [place] [address] 10/03/2024 9:00 AM EST Office Visit [facility] MEDICINE [address] [place] [address] Leopoldo Bateman MD [address] [place] [address] documented as of this encounter Visit Diagnoses Diagnosis Opioid dependence, uncomplicated (CMS/HCC) documented in this encounter Care Teams Residency Coordinator Relationship Specialty Start Date End Date Karoline Beltran FNP [address] [place] [address] PCP - General Family Medicine 06/15/21 Anurag Lo Community Health Worker 02/09/24 05/10/24 Sarahi Rey RN [address] [place] [address] Spray Operator 02/09/24 05/10/24 Azalia Villalta PharmD [address] [place] [address] Pharmacist Internal Medicine 05/15/24 documented as of this encounter
--- OUTSIDE RECORDS SUMMARY | 2024-09-24 18:04 | XMS_ITS | Encounter Summary ---
Author Organization [employer] Address [address] [facility] 7t [place] [address] Care Team Providers Care Supervisor Customer Records Division Name Role Phone Karoline Beltran SET BUILDER Primary Care Provider [phone] Anurag Lo Unavailable Unavailable Sarahi Rey RN Unavailable [phone] Azalia Villalta PharmD Unavailable [phone] Reason for Visit * Reason Comments Med Refill Encounter Details Date Type Department Care Team (Late st Contact Info) Description 02/05/2024 Refill [facility] MEDICINE [address] [place] [address] Karoline Beltran FNP [address] [place] [address] Arthropathy Social History Tobacco Use Types Packs/Day Years [...] Recorded Patient Health Questionnaire-2 Score 4 01/29/2024 Sex and Gender Information Value Date Recorded Sex Assigned at Male 06/21/2022 10:19 AM EDT Legal Sex Male 10:19 AM EDT Gender Identity Male 06/21/2022 10:19 AM EDT Sexual Orientation Straight 06/21/2022 10 :19 AM EDT documented as of this encounter Plan of Treatment Upcoming Encounters Date Type Department Care Team (Late st Contact Info) Description 09/27/2024 1:30 PM EST Office Visit [facility] OPTOMETRY [address] [place] [address] Parish, Val, OD [address] [place] [address] 09/28/2024 2:30 PM EST Office Visit [facility] CHC MED & PEDS [address] [place] [address] Karoline Beltran, SET BUILDER 505 [place] [address] 10/03/2024 9:00 AM EST Office Visit [facility] MEDICINE [address] [place] [address] Leopoldo Bateman MD [address] [place] [address] documented as of this encounter Visit Diagnoses Diagnosis Arthropathy Unspecified arthropathy, site unspecified documented in this encounter Additional Health Concerns Assessment Noted Time PHQ-9 Depression Total Score: 12 024 8:34 PM EDT documented as of this encounter Care Teams Supervisor Customer Records Division Relationship Specialty Start Date End Date Karoline Beltran FNP [address] [place] [address] PCP - General Family Medicine 06/15/21 Anurag Lo Community Health Worker 02/09/24 05/10/24 Sarahi Rey RN [address] [place] [address] Bread And Pastry Baker 02/09/24 05/10/24 Azalia Villalta PharmD [address] [place] [address] Pharmacist Internal Medicine 05/15/24 documented as of this encounter
--- OUTSIDE RECORDS SUMMARY | 2024-09-24 18:04 | XMS_ITS | Encounter Summary ---
Author Organization [employer] Address 75 [facility] 7t [place] [address] Care Team Providers Care Pony Edger Name Role Phone Karoline Beltran GRASS CUTTER Primary Care Provider [phone] Azalia Villalta PharmD Unavailable [phone] Encounter Details Date Type Department Care Team (Latest Contact Info) Description 09/19/2024 Travel Social History Tobacco Use Types Packs/Day [...] Description 09/27/2024 1:30 PM EST Office Visit [facility] OPTOMETRY [address] [place] [address] Parish, Val, OD [address] [place] [address] 09/28/2024 2:30 PM EST Office Visit [facility] CHC MED & PEDS [address] [place] [address] Karoline Beltran FNP [address] [place] [address] 10/03/2024 9:00 AM EST Office Visit [facility] MEDICINE [address] [place] [address] Leopoldo Bateman MD [address] [place] [address] documented as of this encounter Visit Diagnoses Not on filedocumented in this encounter Additional Health Concerns Assessment Noted Time PHQ-9 Depression Total Score: 15 024 12:05 PM EST documented as of this encounter Care Teams Pony Edger Relationship Specialty Start Date End Date Karoline Beltran FNP [address] [place] [address] PCP - General Family Medicine 06/15/21 Azalia Villalta, WillieD [address] [place] [address] Pharmacist Internal Medicine 05/15/24 documented as of this encounter
== END 2024-09-24 18:03 | disposition home or self-care (01) ==
LOC: HO.HHCLNP 18:02
PROVIDERS: Visit Provider Nurse Practitioner Family
DX: R30.0 Dysuria (principal)
CPT/HCPCS: 87086

== ENCOUNTER 2024-09-25 08:47 | Outpatient (REF) | payer MEDICAID, SELFPAY ==
[2024-09-25 12:14] LABS: Alanine Aminotransferase 26 U/L (0-40); Albumin Level 4.4 g/dL (3.5-5.0); Alkaline Phosphatase 61 U/L (39-117); Anion Gap 14 (12-20); Aspartate Amino Transferase 33 U/L (5-37); Bilirubin Direct 0.2 mg/dL (0.0-0.5); Bilirubin Total 0.7 mg/dL (0.0-1.0); Blood Urea Nitrogen 12 mg/dL (9-16); Calcium 9.1 mg/dL (8.4-10.2); Carbon Dioxide 27 mmol/L (22-29); Chloride 106 mmol/L (96-108); Cholesterol 176 mg/dL (<200); Estimated Glomerular Filt Rate > 60; Glucose Random 96 mg/dL (60-115); HDL Cholesterol 36 mg/dL (>40); LDL Cholesterol Calculated 121 mg/dL (<100); Potassium 4.3 mmol/L (3.3-5.1); Sodium 143 mmol/L (135-145); Total Protein 7.5 g/dL (6.5-8.0); Triglycerides 97 mg/dL (<150)
== END 2024-09-25 08:48 | disposition home or self-care (01) ==
LOC: HO.HHCL 08:47
PROVIDERS: Visit Provider Nurse Practitioner Family
DX: R10.9 Unspecified abdominal pain (principal); E78.2 Mixed hyperlipidemia
CPT/HCPCS: 36415; 80048; 80061; 80076

== ENCOUNTER 2024-10-10 14:28 | Outpatient (REF) | payer MEDICAID, SELFPAY ==
--- NOTE | ~2024-10-10 | US_ITS ---
CLINICAL HISTORY: flank pain, intermittent hematuria US Renal Comparison: None Findings: Right kidney normal size and echotexture, 12.9 cm length. Left kidney normal size and echotexture, 13.5 cm length. A few bilateral simple renal cysts measuring up to 21 mm. Duplicated left renal collecting system. No hydronephrosis. IMPRESSION: No hydronephrosis. No evidence of renal stone on ultrasound. This document has been electronically signed by: Mary Hollis MD on 10/12/2024 10:36:00
--- OUTSIDE RECORDS SUMMARY | 2024-10-10 14:32 | XMS_ITS | Encounter Summary ---
Author Organization [employer] Address 75 [facility] 7t [place] [address] Care Team Providers Care Stump Blower Name Role Phone Karoline Beltran DECORATING AND ASSEMBLY SUPERVISOR Primary Care Provider [phone] Azalia Villalta PharmD Unavailable [phone] Encounter Details Date Type Department Care Team (Latest Contact Info) Description 09/28/2024 Travel Social History Tobacco Use Types Packs/Day [...] Care Team (Late st Contact Info) Description 10/31/2024 9:00 AM EDT Office Visit [facility] MEDICINE [address] [place] [address] Leopoldo Bateman MD [address] [place] [address] 12/24/2024 1:45 PM EDT Office Visit [facility] CHC MED & PEDS [address] [place] [address] Karoline Beltran FNP [address] [place] [address] 01/21/2025 10:30 AM EDT Office Visit [facility] OPTOMETRY [address] [place] [address] Val Lugo, JENNIFER [address] [place] [address] documented as of this encounter Visit Diagnoses Not on filedocumented in this encounter Additional Health Concerns Assessment Noted Time PHQ-9 Depression Total Score: 15 024 12:05 PM EST documented as of this encounter Care Teams Stump Blower Relationship Specialty Start Date End Date Karoline Beltran FNP [address] [place] [address] PCP - General Family Medicine 06/15/21 Azalia Villalta, WillieD [address] [place] [address] Pharmacist Internal Medicine 05/15/24 documented as of this encounter
--- OUTSIDE RECORDS SUMMARY | 2024-10-10 14:32 | XMS_ITS | Encounter Summary ---
Author Organization [employer] Address [address] [facility] 7t [place] [address] Care Team Providers Care Wax Specialist Name Role Phone Karoline Beltran RATE REVIEWER Primary Care Provider [phone] Anurag Lo Unavailable Unavailable Sarahi Rye RN Unavailable [phone] Azalia Villalta PharmD Unavailable Reason for Visit * Reason Comments Med Refill Encounter Details Date Type Department Care Team (Late st Contact Info) Description 02/01/2023 Refill [facility] MEDICINE [address] [place] [address] Nj Hong MD [address] [place] [address] Opioid dependence, uncomplicated (CMS/HCC) Social History Tobacco [...] Description 10/31/2024 9:00 AM EDT Office Visit [facility] MEDICINE [address] [place] [address] Leopoldo Bateman MD [address] [place] [address] 12/24/2024 1:45 PM EDT Office Visit [facility] CHC MED & PEDS [address] [place] [address] Karoline Beltran FNP [address] [place] [address] 01/21/2025 10:30 AM EDT Office Visit [facility] OPTOMETRY [address] [place] [address] ParishVal kaur, OD [address] [place] [address] documented as of this encounter Visit Diagnoses Diagnosis Opioid dependence, uncomplicated (CMS/HCC) documented in this encounter Care Teams Wax Specialist Relationship Specialty Start Date End Date Karoline Beltran FNP [address] [place] [address] PCP - General Family Medicine 06/15/21 Anurag Lo Community Health Worker 02/09/24 05/10/24 Sarahi Rey, ADARSH [address] [place] [address] Hands And Dial Inspector 02/09/24 05/10/24 Azalia Villalta PharmD [address] [place] [address] Pharmacist Internal Medicine 05/15/24 documented as of this encounter
--- OUTSIDE RECORDS SUMMARY | 2024-10-10 14:32 | XMS_ITS | Encounter Summary ---
Author Organization [employer] Address [address] [facility] 7t [place] [address] Care Team Providers Care Nurse'S Assistant Name Role Phone Karoline Beltran [employer]TER [employer]PORT Primary Care Provider [phone] Azalia Villalta PharmD Unavailable [phone] Reason for Referral * Consultation (Routine) - Authorized Specialty Diagnoses / Procedures Referred By Contac t Referred To Contact Pharmacy Diagnoses Essential (primary) hypertension Hawa Martins MD [address] [place] [address] Phone: tel: fax: Referral ID Status Reason Start Date Expiration Date Visits Requested Visits Authorized [id number] Authorized Consult and Treat 05/16/2024 05/16/2025 6 6 Encounter Details Date Type Department Care Team ([facility] Contact Info) Description 05/16/2024 Orders Only [facility] MEDICINE [address] [place] [phone] Hawa Martins MD [address] [place], [place] [phone] Essential (primary) hypertension (Primary Dx) Social History [...] Description 10/31/2024 9:00 AM EDT Office Visit [facility] MEDICINE [address] [place] [address] Leopoldo Bateman MD [address] [place] [address] 12/24/2024 1:45 PM EDT Office Visit [facility] CHC MED & PEDS [address] [place] [address] Karoline Beltran FNP [address] [place] [address] 01/21/2025 10:30 AM EDT Office Visit [facility] OPTOMETRY [address] [place] [address] Parish Val, OD [address] [place] [address] Scheduled Referrals Name Type Priority Associated Diagnoses Orde r Schedule Referral to Pharmacy CDTM Outpatient Referral Routine Essential (primary) hypertension Ordered: 05/16/2024 documented as of this encounter Visit Diagnoses Diagnosis Essential (primary) hypertension- Primary Unspecified essential hypertension documented in this encounter Additional Health Concerns Assessment Noted Time PHQ-9 Depression Total Score: 12 024 8:34 PM EDT documented as of this encounter Care Teams Nurse'S Assistant Relationship Specialty Start Date End Date Karoline Beltran FNP [address] [place] [address] PCP - General Family Medicine 06/15/21 Azalia Villalta, WillieD [address] [place] [address] Pharmacist Internal Medicine 05/15/24 documented as of this encounter
--- OUTSIDE RECORDS SUMMARY | 2024-10-10 14:32 | XMS_ITS | Encounter Summary ---
Author Organization [employer] Address [address] [facility] 7[address] [place] [address] Care Team Providers Care Automobile Body Repair Chief Name Role Phone Karoline Beltran KNITTING SUPERVISOR Primary Care Provider [phone] Azalia Villalta PharmD Unavailable [phone] Reason for Referral * Imaging (Routine) - Authorized Specialty Diagnoses / Procedures Referred By Contac t Referred To Contact Radiology Diagnoses Flank pain Procedures US RENAL BI Doris Brooks NP [address] [place] [address] Phone: tel: fax: [address] Phone: tel: fax: Referral ID Status Reason Start Date Expiration Date V isits Requested Visits Authorized [id number] Authorized 09/24/2024 09/24/2025 1 1 Reason for Visit * Reason Comments Flank Pain Encounter Details Date Type Department Care Team (Late st Contact Info) Description 09/24/2024 2:40 PM EST Office Visit [facility] [address] [place], [place] [phone] Doris Brooks NP [address] [place], [place] [phone] Flank pain (Primary Dx); Dysuria; Hematuria, unspecified type Social History Tobacco Use Types Packs/Day Years [...] 2:06 PM EDT documented in this encounter Progress Notes * Doris Brooks, SPREADER BOX OPERATOR - 09/24/2024 3:20 PM EST Subjective: Derdick Reed is a 59 y.o. male who presents to the office for a sick visit. HPI 1.5 weeks of kidney pain Has had two infections , treated with abx Getting up from a chair causes pain Finished yesterday, ampicillin from [place] No dysuria, intermittent hematuria Pain is constant Denies prostate symptoms, urgency , incomplete emptying, fever or chills Patient Active Problem List Diagnosis ??? Opioid dependence, uncomplicated (CMS/HCC) ??? Anxiety disorder ??? Bilateral lower extremity edema ??? Essential (primary) hypertension ??? GERD (gastroesophageal reflux disease) ??? Hepatitis C ??? History of cholecystectomy ??? Hyperlipidemia ??? TB lung, latent ??? Insomnia ??? Bilateral knee pain ??? Osteomyelitis of finger (CMS/HCC) ??? Lumbar facet arthropathy ??? Cigarette smoker ??? Cystitis ??? Loud snoring ??? Tinnitus of both ears ??? Hematuria ??? Screening for colorectal cancer ??? Bilateral renal cysts ??? Moderate episode of recurrent major depressive disorder (CMS/HCC) ??? Flank pain ??? Dysuria Review of Systems Constitutional: Negative for activity change and appetite change. Cardiovascular: Negative for chest pain. Genitourinary: Positive for flank pain and hematuria. Negative for decreased urine volume, difficulty urinating, dysuria, penile pain, penile swelling and scrotal swelling. Allergies Allergen Reactions ??? Bupropion Anaphylaxis Objective: Visit Vitals BP 139/75 (BP Location: Left arm, Patient Position: Sitting, BP Cuff Size: Adult) Pulse 81 Temp 98.2 ??F (36.8 ??C) (Temporal) Resp 18 Wt 237 lb (108 kg) SpO2 99% BMI 37.12 kg/m?? Smoking Status Some Days BSA 2.26 m?? Physical Exam Vitals reviewed. Constitutional: Appearance: Normal appearance. HENT: Head: Normocephalic. Cardiovascular: Rate and Rhythm: Normal rate and regular rhythm. Heart sounds: Normal heart sounds. Pulmonary: Breath sounds: Normal breath sounds. Abdominal: Palpations: Abdomen is soft. Tenderness: There is no right CVA tenderness or left CVA tenderness. Comments: Right sided lower flank pain Musculoskeletal: Cervical back: Neck supple. Neurological: Mental Status: He is alert. Psychiatric: Mood and Affect: Mood normal. Assessment/Plan: Problem List Items Addressed This Visit Hematuria Overview Following with [facility]/ Urology Urine cytology February 2024 negative for high-grade urothelial carcinoma. Consult Mar 2024 - review of CT abdomen w/ & w/o, demonstrated few stones in right kidney and low density calcification in left kidney. Also demonstrated bilateral simple cysts and 1.1cm Bosniak cat 2 cyst in right kidney lower pole. Non-obstructing nephrolithiasis Current Assessment & Plan Microscopic hematuria today Pt reports pain is consistent with previous kidney pain Ultrasound ordered Culture pending Flank pain - Primary Current Assessment & Plan See plan below,. Ua reassuring pt reports completed abx course Culture pending Relevant Orders US RENAL BI Basic Metabolic Panel Dysuria Relevant Orders POCT urinalysis dipstick manually resulted (Completed) Culture, Urine, Routine Current Outpatient Medications Medication Sig Dispense Refill ??? Acetaminophen Extra Strength 500 MG tablet TAKE 1 TO 2 TABLETS BY MOUTH EVERY TWELVE HOURS NEEDED FOR PAIN. DO NOT EXCEED 4 TABLETS PER DAY. 100 tablet 2 ??? atorvastatin (Lipitor) 80 MG tablet TAKE 1 TABLET BY MOUTH AT BEDTIME 90 tablet 3 ??? Blood Pressure kit Use to check blood pressure as directed and when symptomatic 1 kit 0 ??? Buprenorphine HCl-Naloxone HCl (Suboxone) 8-[address] 1 Film under the tongue 3 times daily for 28 days. Do not start before September 05, 2024. 84 Film 0 ??? cyclobenzaprine (Flexeril) 10 MG tablet TAKE 1 TABLET BY MOUTH THREE TIMES DAILY IN THE MORNING, AT NOON, AND AT BEDTIME NEEDED FOR MUSCLE SPASMS 90 tablet 2 ??? docusate sodium (Colace) 100 MG capsule TAKE 1 CAPSULE BY MOUTH TWICE DAILY NEEDED FOR CONSTIPATION 180 capsule 3 ??? econazole nitrate 1 % cream Apply topically if needed each day for rash. 15 g 0 ??? ezetimibe (Zetia) 10 MG tablet TAKE 1 TABLET BY MOUTH ONCE DAILY 90 tablet 0 ??? famotidine (Pepcid) 20 MG tablet Take 1 tablet (20 mg) by mouth if needed in the morning and atbedtime for heartburn or indigestion. 180 tablet 1 ??? gabapentin (Neurontin) 800 MG tablet Take 1 tablet (800 mg) by mouth 3 times daily. 90 tablet 3 ??? lidocaine (Lidoderm) 5 % patch APPLY 1 PATCH TOPICALLY TO SKIN, LEAVE ON FOR 12 HOURS AND OFF FOR 12 HOURS DIRECTED 30 patch 11 ??? meloxicam (Mobic) 15 MG tablet TAKE 1 TABLET BY MOUTH EVERY DAY NEEDED FOR PAIN MODERATE 30 tablet 2 ??? multivitamin (Theragran) tablet take 1 tablet by oral route every day with food ??? naloxone (Narcan) 4 mg/0.1 mL nasal spray FOR SUSPECTED OPIOID OVERDOSE. SPRAY 0.1mL IN ONE NOSTRIL. REPEAT IN ALTERNATE NOSTRIL 2-3 MINUTES IF NEEDED. SEEK MEDICAL ATTENTION IMMEDIATELY EVEN IF PATIENT RESPONDS. 2 each 11 ??? nicotine (Nicoderm CQ) 14 MG/24HR patch Place 1 patch on the skin 1 (one) time each day at the same time. 42 patch 0 ??? nicotine (Nicoderm CQ) 7 MG/24HR patch Place 1 patch on the skin 1 (one) time each day at the same time. 14 patch 0 ??? olmesartan (BENIcar) 5 MG tablet TAKE 1 TABLET BY MOUTH EVERY MORNING 90 tablet 0 ??? omeprazole (PriLOSEC) [address] capsule TAKE 1 CAPSULE BY MOUTH EVERY DAY BEFORE BREAKFAST DO NOT BREAK, CRUSH, DISSOLVE OR CHEW 90 capsule 0 ??? tadalafil (Cialis) 10 MG tablet Take 1 tablet (10 mg) by mouth if needed for erectile dysfunction. 10 mg as a single dose 30 minutes or more prior to anticipated sexual activity; do not take morethan once daily 20 tablet 1 No current facility-administered medications for this visit. Visit Conducted in: Korean Translation by: Provided by [facility] staff member AB Cho , documented in this encounter Miscellaneous Notes * Assessment & Plan Note - Doris Brooks NP - 09/24/2024 6:44 PM ESTAssociated Problem(s): Flank pain See plan below,. Ua reassuring pt reports completed abx course Culture pending * Assessment & Plan Note - Doris Brooks NP - 09/24/2024 6:43 PM ESTAssociated Problem(s): Hematuria Microscopic hematuria today Pt reports pain is consistent with previous kidney pain Ultrasound ordered Culture pending documented in this encounter Plan of Treatment Upcoming Encounters Date Type Department Care Team (Late st Contact Info) Description 10/31/2024 9:00 AM EDT Office Visit [facility] [address] [place] [address] Leopoldo Bateman MD [address] [place] [address] 12/24/2024 1:45 PM EDT Office Visit [facility] [address] [place] [address] Karoline Beltran, KNITTING SUPERVISOR [address] [place] [address] 01/21/2025 10:30 AM EDT Office Visit [facility] [address] [place] [address] ParishVal kaur, OD [address] [place] [address] Scheduled Orders Name Type Priority Associated Diagnoses Orde r Schedule US RENAL BI Imaging Routine Flank pain Expected: 09/24/2024, Expires: 09/24/2025 documented as of this encounter Procedures Procedure Name Priority Date/Time Associated Diagnosis Comments BASIC METABOLIC PANEL Routine 09/25/2024 8:53 AM EST Flank pain CULTURE, URINE, ROUTINE Routine 09/24/2024 3:14 PM EST Dysuria POCT URINALYSIS DIPSTICK Routine 09/24/2024 3:13 PM EST Dysuria documented in this encounter Results * Basic Metabolic Panel (09/25/2024 8:53 AM EST) Sodium 143 135 - 145 mmol/L [facility] Potassium 4.3 3.3 - 5.1 mmol/L [facility] Chloride 106 96 - 108 mmol/L [facility] Carbon Dioxide 27 22 - 29 mmol/L [facility] Anion Gap 14 12 - 20 [facility] Urea Nitrogen (BUN) 12 9 - 16 mg/dL [facility] Creatinine, Serum 0.81 0.5 - 1.4 mg/dL [facility] Estimated Glomerular Filt Rate >60 [facility] Comment:Chronic Kidney Disea se: Estimated GFR < 60 mL/min/[id number] Kidney Disease: Estimated GFR < 15 mL/min/1.73m2 Glucose 96 60 - 115 mg/dL [facility] Calcium 9.1 8.4 - 10.2 mg/dL [facility] Blood Venous blood specimen / Unknown 09/25/2024 8:53 AM EST 09/25/2024 11:27 AM EST Doris Brooks NP LAB BLOOD ORDERABLES Final Resul t [facility] [address] [place] [address] [phone] * Culture, Urine, Routine (09/24/2024 3:14 PM EST) Urine Urine specimen obtained by clean catch procedure / Unknown 09/24/2024 3:14 PM EST 09/24/2024 6:03 PM EST Comment:UACC Narrative [facility] - 09/26/2024 11:34 AM EST Urine Culture Report Result Urine Culture < 10,000 cfu/ml Specimen Source: Urine clean catch Doris Brooks SPREADER BOX OPERATOR LAB MICROBIOLOGY - GENERAL ORDER DANIEL Final Result [facility] [address] [place] [address] [phone] * (ABNORMAL) POCT urinalysis dipstick manually resulted [...] Urine 09/24/2024 3:13 PM EST Doris Brooks SPREADER BOX OPERATOR POINT OF CARE TEST ENTER/EDIT OR DERABLES Final Result documented in this encounter Visit Diagnoses Diagnosis Flank pain- Primary Abdominal pain, unspecified site Dysuria Hematuria, unspecified type documented in this encounter Additional Health Concerns Assessment Noted Time PHQ-9 Depression Total Score: 15 024 12:05 PM EST documented as of this encounter Care Teams Automobile Body Repair Chief Relationship Specialty Start Date End Date Karoline Beltran FNP [address] [place] [address] PCP - General Family Medicine 06/15/21 Azalia Villalta PharmD [address] [place] [address] Pharmacist Internal Medicine 05/15/24 documented as of this encounter
--- OUTSIDE RECORDS SUMMARY | 2024-10-10 14:32 | XMS_ITS | Encounter Summary ---
Author Organization [employer] Address [address] [facility] 7[address] [place] [address] Care Team Providers Care Closing Agent Name Role Phone Karoline Beltran MANAGER VEHICLE Primary Care Provider [phone] Azalia Villalta PharmD Unavailable [phone] Reason for Visit * Reason Onset Date Comments Results 09/26/2024 Encounter Details Date Type Department Care Team ([facility] st Contact Info) Description 09/26/2024 Telephone [facility] [address] [place], [place] [phone] Katherine Guerrero MA Results Social History Tobacco Use Types Packs/Day Years [...] encounter Miscellaneous Notes * Telephone Encounter - Katherine Guerrero MA - 09/26/2024 2:48 PM EST Related information to Pt. Pt understood. * Telephone Encounter - Katherine Guerrero MA - 09/26/2024 2:48 PM EST ----- Message from Doris Brooks sent at 09/26/2024 12:20 PM EST ----- Please let pt know urine culture was negative and blood work was normal documented in this encounter Plan of Treatment Upcoming Encounters Date Type Department Care Team (Late st Contact Info) Description 10/31/2024 9:00 AM EDT Office Visit [facility] [address] [place] [address] Leopoldo Bateman MD [address] [place] [address] 12/24/2024 1:45 PM EDT Office Visit [facility] [address] [place] [address] Karoline Beltran FNP [address] [place] [address] 01/21/2025 10:30 AM EDT Office Visit [facility] [address] [place] [address] Val Lugo, OD [address] [place] [address] documented as of this encounter Visit Diagnoses Not on filedocumented in this encounter Additional Health Concerns Assessment Noted Time PHQ-9 Depression Total Score: 15 024 12:05 PM EST documented as of this encounter Care Teams Closing Agent Relationship Specialty Start Date End Date Karoline Beltran FNP [address] [place] [address] PCP - General Family Medicine 06/15/21 Azalia Villalta, WillieD [address] [place] [address] Pharmacist Internal Medicine 05/15/24 documented as of this encounter
--- OUTSIDE RECORDS SUMMARY | 2024-10-10 14:32 | XMS_ITS | Encounter Summary ---
Author Organization [employer] Address [address] [facility] 7t [place] [address] Care Team Providers Care Senior Recruitment Consultant Name Role Phone Karoline Beltran PUBLIC HEALTH ADMINISTRATOR Primary Care Provider [phone] Azalia Villalta PharmD Unavailable [phone] Encounter Details Date Type Department Care Team (Latest Contact Info) Description 10/10/2024 Travel Social History Tobacco Use Types Packs/Day [...] Description 10/31/2024 9:00 AM EDT Office Visit [facility] [address] [place] [address] Leopoldo Bateman MD [address] [place] [address] 12/24/2024 1:45 PM EDT Office Visit [facility] [address] [place] [address] Karoline Beltran, PUBLIC HEALTH ADMINISTRATOR [address] [place] [address] 01/21/2025 10:30 AM EDT Office Visit [facility] [address] [place] [address] Val Lugo, OD [address] [place] [address] documented as of this encounter Goals Goal Patient Goal Type Associated Problems Recent Progress Patient-Stated? Author Increase coping skills to promote long-term recovery and improve ability to perform daily activities General On track( 025 1:28 PM EST) No Zehra Rodgers RN documented as of this encounter Visit Diagnoses Not on filedocumented in this encounter Additional Health Concerns Assessment Noted Time PHQ-9 Depression Total Score: 15 024 12:05 PM EST documented as of this encounter Care Teams Senior Recruitment Consultant Relationship Specialty Start Date End Date Karoline Beltran FNP [address] [place] [address] PCP - General Family Medicine 06/15/21 Azalia Villalta, WillieD [address] [place] [address] Pharmacist Internal Medicine 05/15/24 documented as of this encounter
--- OUTSIDE RECORDS SUMMARY | 2024-10-10 14:32 | XMS_ITS | Encounter Summary ---
Author Organization [employer] Address [address] [facility] 7t [place] [address] Care Team Providers Care Parent Partner Name Role Phone Karoline Beltran INDUSTRIAL GAS FITTER HELPER Primary Care Provider [phone] Azalia Villalta PharmD Unavailable [phone] Reason for Referral * Consultation (Routine) - Authorized Specialty Diagnoses / Procedures Referred By Contac t Referred To Contact Pharmacy Diagnoses Essential (primary) hypertension Hawa Martins MD [address] [place] [address] Phone: tel: fax: Referral ID Status Reason Start Date Expiration Date Visits Requested Visits Authorized [id number] Authorized Consult and Treat 06/15/2024 06/15/2025 6 6 Encounter Details Date Type Department Care Team ([facility] st Contact Info) Description 06/15/2024 Orders Only [facility] [address] [place] [phone] Hawa Martins MD [address] [place], [place] [phone] Essential (primary) hypertension (Primary Dx) Social History [...] Description 10/31/2024 9:00 AM EDT Office Visit [facility] [address] [place] [address] Leopoldo Bateman MD [address] [place] [address] 12/24/2024 1:45 PM EDT Office Visit [facility] [address] [place] [address] Karoline Beltran FNP [address] [place] [address] 01/21/2025 10:30 AM EDT Office Visit [facility] [address] [place] [address] ParishVal kaur, OD [address] [place] [address] Scheduled Referrals Name Type Priority Associated Diagnoses Orde r Schedule Referral to Pharmacy CDTM Outpatient Referral Routine Essential (primary) hypertension Ordered: 06/15/2024 documented as of this encounter Visit Diagnoses Diagnosis Essential (primary) hypertension- Primary Unspecified essential hypertension documented in this encounter Additional Health Concerns Assessment Noted Time PHQ-9 Depression Total Score: 12 024 8:34 PM EDT documented as of this encounter Care Teams Parent Partner Relationship Specialty Start Date End Date Karoline Beltran FNP [address] [place] [address] PCP - General Family Medicine 06/15/21 Azalia Villalta, WillieD [address] [place] [address] Pharmacist Internal Medicine 05/15/24 documented as of this encounter
--- OUTSIDE RECORDS SUMMARY | 2024-10-10 14:32 | XMS_ITS | Encounter Summary ---
Author Organization [employer] Address [address] [facility] 7t [place] [address] Care Team Providers Care Cloth Roll Winder Name Role Phone Karoline Beltran Primary Care Provider [phone] Azalia Villalta PharmD Unavailable [phone] Reason for Referral * Consultation (Routine) - Authorized Specialty Diagnoses / Procedures Referred By Dusty latif Referred To Contact Gastroenterology Diagnoses Positive colorectal cancer screening using Cologuard test Karoline Beltran FNP [address] [place] [address] Phone: tel: fax: [facility]ology [address] [facility] 3rd [address] [place], [place] Phone: tel: fax: Referral ID Status Reason Start Date Expiration Date Visits Requested Visits Authorized [id number] Authorized Specialty Services Required 10/08/2024 10/08/2025 1 1 * Imaging (Routine) - Authorized Specialty Diagnoses / Procedures Referred By Dusty latif Referred To Contact Radiology Diagnoses Mass of right hand Procedures US SOFT TISSUE Karoline Beltran FNP [address] [place] [address] Phone: tel: fax: [facility] [address] [place] [address] Phone: tel: fax: Referral ID Status Reason Start Date Expiration Date V isits Requested Visits Authorized [id number] Authorized 09/28/2024 09/28/2025 1 1 Encounter Details Date Type Department Care Team (Late st Contact Info) Description 09/28/2024 2:30 PM EST Office Visit [facility] [address] [place] [address] Karoline Beltran FNP [address] [place] [address] Positive colorectal cancer screening using Cologuard test (Primary Dx); Mass of right hand; UTI symptoms; Mixed hyperlipidemia; Cystitis; Loud snoring Social History Tobacco Use Types Packs/Day Years [...] Sign Reading Time Taken Comments Blood Pressure 134/86 09/28/2024 2:22 PM EST Pulse 97 09/28/2024 2:18 PM EST Temperature 36.9 ??C (98.5 ??F) 09/28/2024 2:18 PM ES T Respiratory Rate 20 09/28/2024 2:18 PM EST Oxygen Saturation 98% 09/28/2024 2:18 PM EST Inhaled Oxygen Concentration - - Weight 104 kg (230 lb 6 oz) 09/28/2024 2:[address] Height 170.2 cm (5' 7 ) 09/28/2024 2:18 PM EST Body Mass Index 36.08 09/28/2024 2:18 PM EST documented in this encounter Progress Notes * Karoline Beltran, ECOTHERAPIST - 09/28/2024 2:30 PM EST Subjective: Dedrick Reed is a 59 y.o. male w/ PMH GERD, Hep C s/p tx, H.Pylori, LTBI, OUD on suboxone, who presents to the office for a follow up visit: chronic conditions. Interim History: Last PCP visit: 06/01/24 Cologuard positive on 07/05/24. He was scheduled for [facility] GI appt in Jul 2024 for decreased appetite (does not recall if he attended appt - will request records and send updated referral for positive cologuard). HPI: - Intermittent dysuria with flank pain. Has been following closely with [facility]. Denies any gross hematuria. Reports symptoms present over the past few days. Recently evaluated on 09/24/24 for hematuria and flank pain s/p course of abx - urine culture not c/w infection. Renal US pending. Reports has upcoming Urology appt. Denies F/C/N/V/D. - Mass on posterior aspect right hand that has been present for the past 1-2 months. Non-tender. Noredness or swelling. Review of Systems Constitutional: Negative for chills, fatigue and fever. Respiratory: Negative for cough, shortness of breath and wheezing. Cardiovascular: Negative for chest pain and palpitations. Gastrointestinal: Negative for diarrhea and vomiting. Genitourinary: Positive for dysuria and flank pain. Negative for hematuria, scrotal swelling and urgency. Skin: Negative for rash. Psychiatric/Behavioral: Negative for suicidal ideas. Visit Vitals BP 134/86 (BP Location: Right arm, Patient Position: Sitting, BP Cuff Size: Large adult) Pulse 97 Temp 98.5 ??F (36.9 ??C) (Oral) Resp 20 Ht 5' 7 (1.702 m) Wt 230 lb 6 oz (104 kg) SpO2 98% BMI 36.08 kg/m?? Smoking Status Some Days BSA 2.22 m?? Physical Exam Vitals reviewed. Constitutional: Appearance: Normal appearance. HENT: Head: Atraumatic. Right Ear: External ear normal. Left Ear: External ear normal. Cardiovascular: Rate and Rhythm: Normal rate and regular rhythm. Pulmonary: Effort: Pulmonary effort is normal. Breath sounds: Normal breath sounds. Abdominal: Tenderness: There is left CVA tenderness. Comments: Mild left CVA tenderness on exam Skin: Comments: Right hand: posterior side 12mm skin lesion. No erythema, edema, or tenderness to palpation Neurological: Mental Status: He is alert and oriented to person, place, and time. Psychiatric: Mood and Affect: Mood normal. Behavior: Behavior normal. Problem List Items Addressed This Visit Respiratory Loud snoring Overview Referral to Sleep Medicine placed 01/23/24 Established with [facility] Consult Aug 2024 - plan for home sleep study Genitourinary Cystitis Overview Jun 2024: US retroperitoneal ordered by [facility] 1. There is increased bilateral renal cortical echotexture, which can be associated with medical renal disease. 2. No renal mass or calculus is seen bilaterally. There is mild right renal pelviectasis. No nery hydronephrosis is seen bilaterally. 3. There is mild prostatomegaly. Current Assessment & Plan - Continues following with [facility] - Intermittent dysuria and CVA tenderness on exam - UA (+) hematuria and (+) proteinuria. Nephrolithiasis in differential - Encouraged to call to schedule pending imaging - Reports upcoming appt with Urology shortly, reviewed ED precautions before PRN Other Hyperlipidemia Current Assessment & Plan -LDL improved from 217 to 121 over the course of 3 months, which Mr. Reed primarily attributes tomed adherence and eliminating soda from his diet. Congratulated on the improvement. -Continue with med management through [facility] Atorvastatin 80mg nightly (previous refill through PCP) Ezetimibe 10mg daily PCSK9-I Repatha -Reviewed lifestyle modifications Lab Results Component Value Date CHOL 176 09/25/2024 CHOL 295 (H) 07/06/2024 TRIG 97 09/25/2024 TRIG 170 (H) 07/06/2024 TRIG 147 09/23/2022 HDL 36 (L) 09/25/2024 HDL 44 07/06/2024 LDLCHOLCAL 121 (H) 09/25/2024 LDLCHOLCAL 217 (H) 07/06/2024 Other Visit Diagnoses Positive colorectal cancer screening using Cologuard test - Primary Relevant Orders Referral to Gastroenterology Mass of right hand Relevant Orders US SOFT TISSUE UTI symptoms Relevant Orders POCT Urinalysis (Completed) Follow up: 3 months, sooner as needed documented in this encounter Miscellaneous Notes * Assessment & Plan Note - ESTER Sterling - 10/08/2024 4:33 PM ESTAssociated Problem(s): Cystitis - Continues following with [facility] - Intermittent dysuria and CVA tenderness on exam - UA (+) hematuria and (+) proteinuria. Nephrolithiasis in differential - Reports upcoming appt with Urology shortly, reviewed ED precautions before PRN * Assessment & Plan Note - ESTER Sterling - 10/08/2024 4:31 PM ESTAssociated Problem(s): Hyperlipidemia -LDL improved from 217 to 121 over the course of 3 months, which Mr. Reed primarily attributes tomed adherence and eliminating soda from his diet. Congratulated on the improvement. -Continue with med management through [facility] Atorvastatin 80mg nightly (previous refill through PCP) Ezetimibe 10mg daily PCSK9-I Repatha -Reviewed lifestyle modifications Lab Results Component Value Date CHOL 176 09/25/2024 CHOL 295 (H) 07/06/2024 TRIG 97 09/25/2024 TRIG 170 (H) 07/06/2024 TRIG 147 09/23/2022 HDL 36 (L) 09/25/2024 HDL 44 07/06/2024 LDLCHOLCAL 121 (H) 09/25/2024 LDLCHOLCAL 217 (H) 07/06/2024 documented in this encounter Plan of Treatment Upcoming Encounters Date Type Department Care Team (Late st Contact Info) Description 10/31/2024 9:00 AM EDT Office Visit [facility] [address] [place] [address] Leopoldo Bateman MD [address] [place] [address] 12/24/2024 1:45 PM EDT Office Visit [facility] [address] [place] [address] Karoline Beltran FNP [address] [place] [address] 01/21/2025 10:30 AM EDT Office Visit [facility] [address] [place] [address] Val Lugo, JENNIFER [address] [place] [address] Scheduled Orders Name Type Priority Associated Diagnoses Orde r Schedule US SOFT TISSUE Imaging Routine Mass of right hand Expected: 09/28/2024, Expires: 09/28/2025 Scheduled Referrals Name Type Priority Associated Diagnoses Order Schedule Referral to Gastroenterology Outpatient Referral Routine Positive colorectal cancer screening using Cologuard test Expected: 10/08/2024 (Approximate), Expires: 10/08/2025 documented as of this encounter Procedures Procedure Name Priority Date/Time Associated Diagnosis Comments POCT URINALYSIS DIPSTICK Routine 09/28/2024 3:12 PM EST UTI symptoms documented in this encounter Results * (ABNORMAL) POCT Urinalysis (09/28/2024 3:12 PM EST) Color, UA Yellow Clarity, UA Clear Glucose, UA Negative Bilirubin, UA Negative Ketones, UA Negative Spec Grav, UA 1.030 Blood, UA Positive(A) Negative, None Detected Comment:small pH, UA 6.0 Protein, UA 2+ 125++ Urobilinogen, UA 1.0 Leukocytes, UA Negative Negative, Rare, Trace Nitrite, UA Negative Negative, None Detected Appearance, UA clear QC Media Lot # [id number] Lot# Expiration Date ,255 Urine 09/28/2024 3:12 PM EST Karoline [facility] POINT OF CARE TEST ENTER/EDIT ORDERABLES Final Result documented in this encounter Visit Diagnoses Diagnosis Positive colorectal cancer screening using Cologuard test- Primary Mass of right hand UTI symptoms Mixed hyperlipidemia Cystitis Unspecified cystitis Loud snoring documented in this encounter Additional Health Concerns Assessment Noted Time PHQ-9 Depression Total Score: 15 06/25/ 024 12:05 PM EST documented as of this encounter Care Teams Cloth Roll Winder Relationship Specialty Start Date End Date Karoline Beltran FNP [address] [place] [address] PCP - General Family Medicine 06/15/21 Azalia Villalta PharmD [address] [place] [address] Pharmacist Internal Medicine 05/15/24 documented as of this encounter
--- OUTSIDE RECORDS SUMMARY | 2024-10-10 14:32 | XMS_ITS | Encounter Summary ---
Author Organization [employer] Address [address] [facility] 7t [place] [address] Care Team Providers Care Metal Furniture Assembly Supervisor Name Role Phone Karoline Beltran Primary Care Provider [phone] Azalia Villalta PharmD Unavailable [phone] Reason for Visit * Reason Comments Med Refill Encounter Details Date Type Department Care Team ([facility] Contact Info) Description 10/10/2024 Refill [facility] [address] [place] [address] Karoline Beltran FNP [address] [place] [address] Lumbar facet arthropathy Social History Tobacco Use Types Packs/Day Years [...] the past 12 months, has t he [employer], gas, oil or water company threatened to [...] Description 10/31/2024 9:00 AM EDT Office Visit [facility] [address] [place] [address] Leopoldo Bateman MD [address] [place] [address] 12/24/2024 1:45 PM EDT Office Visit [facility] [address] [place] [address] Karoline Beltran FNP [address] [place] [address] 01/21/2025 10:30 AM EDT Office Visit [facility] [address] [place] [address] Val Lugo, OD [address] [place] [address] documented as of this encounter Goals Goal Patient Goal Type Associated Problems Recent Progress Patient-Stated? Author Increase coping skills to promote long-term recovery and improve ability to perform daily activities General On track( 025 1:28 PM EST) Zehra Danielle, RN documented as of this encounter Visit Diagnoses Diagnosis Lumbar facet arthropathy Spondylosis of unspecified site without mention of myelopathy documented in this encounter Additional Health Concerns Assessment Noted Time PHQ-9 Depression Total Score: 15 024 12:05 PM EST documented as of this encounter Care Teams Metal Furniture Assembly Supervisor Relationship Specialty Start Date End Date Karoline Beltran FNP [address] [place] [address] PCP - General Family Medicine 06/15/21 Azalia Villalta PharmD [address] [place] [address] Pharmacist Internal Medicine 05/15/24 documented as of this encounter
--- OUTSIDE RECORDS SUMMARY | 2024-10-10 14:32 | XMS_ITS | Encounter Summary ---
Author Organization [employer] Address [address] [facility] 7t [place] [address] Care Team Providers Care Parking Meter Mechanic Name Role Phone Karoline Beltran SIGNAL OPERATOR Primary Care Provider [phone] Azalia Villalta PharmD Unavailable [phone] Reason for Visit * Reason Comments GBOT F/U Encounter Details Date Type Department Care Team (Latest Contact Info) Description 10/10/2024 9:00 AM EST Clinical Support [facility] [address] [place] [address] Zehra Rodgers, ADARSH Opioid dependence, uncomplicated (CMS/HCC) Social History Tobacco [...] the past 12 months, has t he [employer], [employer], oil or water [employer] threatened to shut off services in your [...] as of this encounter Progress Notes * Zehra Rodgers RN - 10/10/2024 9:00 AM EST Patient has been in the MAT program for 4 years 11 months, Intake date: 11/05/2019 Current Suboxone dose of 24/6 mg daily with appointments on a 4-week schedule Behavioral health provider is PEDRO LFTs last done 06/10/22 Hep C 06/10/22: HCV RNA <15 HIV: 06/10/22: non-reactive Last PCP appt 02/03/23 AB TRISTAN reviewed by provider Last LFT: 09/23/2022 LAST GBAT VISIT: 10/03/2024 UTOX: POS BUP, THC NEG FOR ALL OTHER SUBSTANCES Patient presents for Group-Based Opioid Treatment for OUD Reviewed the group goals, expectations and policies Consented to the group treatment options Actively participated in the group discussion with the topic of: Changing Negative Perspectives ofDetoxification Following staff present at the visit: Physician, International Tax Manager, Clinician, Team RN, and MedicalAssistant Opportunities provided to address individual medical/medication/ concerns States doing well without cravings or relapse THIS GBOT VISIT: 10/10/2023 Patient presents for Group-Based Opioid Treatment for OUD Reviewed the group goals, expectations and policies Consented to the group treatment options Mindfulness practice Actively participated in the group discussion with the topic of: Continued Discussion on Changing Negative Perspectives of Detoxification Following staff present at the visit: International Tax Manager, Clinician, Clinician Coiled Tubing Supervisor, Team RN, and Battery Checker Opportunities provided to address individual medical/medication/ concerns States doing well without cravings or relapse Follow up in 3 weeks for the GBAT meeting This information has been disclosed [...] Description 10/31/2024 9:00 AM EDT Office Visit [facility] [address] [place] [address] Leopoldo Bateman MD [address] [place] [address] 12/24/2024 1:45 PM EDT Office Visit [facility] [address] [place] [address] Karoline Beltran FNP [address] [place] [address] 01/21/2025 10:30 AM EDT Office Visit [facility] [address] [place] [address] Parish Val, OD [address] [place] [address] documented as of this encounter Goals Goal Patient Goal Type Associated Problems Recent Progress Patient-Stated? Author Increase coping skills to promote long-term recovery and improve ability to perform daily activities General On track( 025 1:28 PM EST) No Zehra Rodgers, ADARSH documented as of this encounter Visit Diagnoses Diagnosis Opioid dependence, uncomplicated (CMS/HCC) documented in this encounter Additional Health Concerns Assessment Noted Time PHQ-9 Depression Total Score: 15 024 12:05 PM EST documented as of this encounter Care Teams Parking Meter Mechanic Relationship Specialty Start Date End Date Karoline Beltran FNP [address] [place] [address] PCP - General Family Medicine 06/15/21 Azalia Villalta PharmD [address] [place] [address] Pharmacist Internal Medicine 05/15/24 documented as of this encounter
--- OUTSIDE RECORDS SUMMARY | 2024-10-10 14:32 | XMS_ITS | Encounter Summary ---
Author Organization [employer] Address [address] [facility] 7t [place] [address] Care Team Providers Care Fur Puller Name Role Phone Karoline Beltran MILK DRIER Primary Care Provider [phone] Anurag Lo Unavailable Unavailable Sarhai Rey RN Unavailable [phone] Azalia Villalta PharmD Unavailable [phone] Encounter Details Date Type Department Care Team (Late st Contact Info) Description 06/01/2023 Abstract [facility] [address] [place] [address] Karoline Beltran FNP [address] [place] [address] Social History Tobacco Use Types Packs/Day Years [...] housing situation today? I have dora gayle 05/30/[address] you li ve. Do you have problems with any of the following? None of the above 05/30/2023 Food Insecurity Answer Date Recorded Within the past 12 months, y ou worried that your food would run out before you got money to buy more: Never True 05/30/2023 Within the past 12 months,th e food you bought just didn't last and you didn't have enough money to get more: Never True 04/2023 Transportation Answer Date Recorded In the past 12 months, has l ack of transportation kept you from medical appts, meetings, work or from getting things needed for daily living? No 05/30/2023 Utilities Answer Date Recorded In the past 12 months, has t he electric, gas, oil or water company threatened to shut off services in your home? No 05/30/2023 Depression Answer Date Recorded Patient Health Questionnaire-2 [...] Description 10/31/2024 9:00 AM EDT Office Visit [facility] [address] [place] [address] Leopoldo Bateman MD [address] [place] [address] 12/24/2024 1:45 PM EDT Office Visit [facility] [address] [place] [address] Karoline Beltran FNP [address] [place] [address] 01/21/2025 10:30 AM EDT Office Visit [facility] [address] [place] [address] Val Lugo, OD [address] [place] [address] documented as of this encounter Visit Diagnoses Not on filedocumented in this encounter Care Teams Fur Puller Relationship Specialty Start Date End Date Karoline Beltran FNP [address] [place] [address] PCP - General Family Medicine 06/15/21 Anurag Lo Community Health Worker 02/09/24 05/10/24 Sarahi Rey, ADARSH [address] [place] [address] Electrolysis Operator 02/09/24 05/10/24 Azalia Villalta, Maninder [address] [place] [address] Pharmacist Internal Medicine 05/15/24 documented as of this encounter
--- OUTSIDE RECORDS SUMMARY | 2024-10-10 14:32 | XMS_ITS | Encounter Summary ---
Author Organization [employer] Address [address] [facility] 7t [place] [address] Care Team Providers Care Car Repairer Pullman Name Role Phone Karoline Beltran Primary Care Provider [phone] Anurag Lo Unavailable Unavailable Sarahi Rey RN Unavailable [phone] Azalia Villalta PharmD Unavailable [phone] Reason for Visit * Reason Onset Date Comments Ultrasound Order 11/29/2023 Encounter Details Date Type Department Care Team ([facility] st Contact Info) Description 11/29/2023 Telephone [facility] [address] [place] [address] Karoline Beltran FNP [address] [place] [address] Ultrasound Order Social History Tobacco Use Types [...] If any questions please contact Dilan at [phone]. documented in this encounter Plan of Treatment Upcoming Encounters Date Type Department Care Team ([facility] st Contact Info) Description 10/31/2024 9:00 AM EDT Office Visit [facility] [address] [place] [address] Leopoldo Bateman MD [address] [place] [address] 12/24/2024 1:45 PM EDT Office Visit [facility] [address] [place] [address] Karoline Beltran FNP [address] [place] [address] 01/21/2025 10:30 AM EDT Office Visit [facility] [address] [place] [address] Val Lugo, JENNIFER [address] [place] [address] documented as of this encounter Visit Diagnoses Not on filedocumented in this encounter Care Teams Car Repairer Pullman Relationship Specialty Start Date End Date Karoline Beltran FNP [address] [place] [address] PCP - General Family Medicine 06/15/21 Anurag Lo Community Health Worker 02/09/24 05/10/24 Sarahi Rey, ADARSH [address] [place] [address] Social Organization Professor 02/09/24 05/10/24 Azalia Villalta, Maninder [address] [place] [address] Pharmacist Internal Medicine 05/15/24 documented as of this encounter
--- OUTSIDE RECORDS SUMMARY | 2024-10-10 14:32 | XMS_ITS | Encounter Summary ---
Author Organization [employer] Address [address] [facility] [address] [place] [address] Care Team Providers Care Leadership Recruiter Name Role Phone Karoline Beltran COMPUTED TOMOGRAPHY TECHNICIAN Primary Care Provider [phone] Azalia Villalta PharmD Unavailable [phone] Reason for Visit * Reason Comments GBAT Encounter Details Date Type Department Care Team (Latest Contact Info) Description 10/03/2024 9:00 AM EST Office Visit [facility] [address] [place], [place] [phone] Leopoldo Bateman MD [address] [place] [address] Opioid dependence, uncomplicated (CMS/HCC) (Primary Dx) Social [...] Progress Notes * Leopoldo Bateman MD - 10/03/2024 9:00 AM EST Patient has been in [...] provider Last LFT: 09/23/2022 LAST GBAT VISIT 09/19/2024 Patient presents for Group-Based Opioid Treatment for OUD Reviewed the group goals, expectations and policies Consented to the group treatment options Actively participated in the group discussion with the topic of: Extended Check-In Following staff present at the visit: Physician, Pediatric Physician, Clinician, Team RN, and MedicalAssistant Opportunities provided to address individual medical/medication/ concerns States doing well without cravings or relapse TODAY GBAT VISIT 10/03/2024 UTOX: POS BUP, THC NEG FOR ALL OTHER SUBSTANCES Patient presents for Group-Based Opioid Treatment for OUD Reviewed the group goals, expectations and policies Consented to the group treatment options Actively participated in the group discussion with the topic of: Changing Negative Perspectives ofDetoxification Following staff present at the visit: Physician, Pediatric Physician, Clinician, Team RN, and MedicalAssistant Opportunities provided [...] orders for this visit: Opioid dependence, uncomplicated ([facility]) (Primary) - POCT AVANI-14 Urine Drug Screen Patient presents for Group-Based Addiction Treatment of [...] faced situations that may trigger use [employer] reviewed Following staff present at the visit: Physician, Clinician, Team RN, Pediatric Physician and Computer Systems Analyst Follow up in 1 week for the [...] Description 10/31/2024 9:00 AM EDT Office Visit [facility] [address] [place] [address] Leopoldo Bateman MD [address] [place] [address] 12/24/2024 1:45 PM EDT Office Visit [facility] [address] [place], [place] [phone] Karoline Beltran, COMPUTED TOMOGRAPHY TECHNICIAN [address] [place], [place] [phone] 01/21/2025 10:30 AM EDT Office Visit [facility] [address] [place] [address] Parish, Val, OD [address] [place] [address] documented as of this encounter Procedures Procedure Name Priority Date/Time Associated Diagnosis Comments POCT AVANI-14 URINE DRUG SCREEN Routine 10/03/2024 8:54 AM EST Opioid dependence, uncomplicated ([facility]) documented in this encounter Results * POCT AVANI-14 Urine Drug Screen (10/03/2024 8:54 AM EST) THC Positive Cocaine Screen, Urine Negative Opiate [...] obtained by clean catch procedure / Unknown 10/03/2024 8:54 AM EST us Leopoldo Bateman MD POINT OF CARE TEST ENTER/EDIT OR DERABLES Final Result documented in this encounter Visit Diagnoses Diagnosis Opioid dependence, uncomplicated (CMS/HCC)- Primary documented in this encounter Additional Health Concerns Assessment Noted Time PHQ-9 Depression Total Score: 15 024 12:05 PM EST documented as of this encounter Care Teams Leadership Recruiter Relationship Specialty Start Date End Date Karoline Beltran FNP [address] [place] [address] PCP - General Family Medicine 06/15/21 Azalia Villalta PharmD [address] [place] [address] Pharmacist Internal Medicine 05/15/24 documented as of this encounter
--- OUTSIDE RECORDS SUMMARY | 2024-10-10 14:32 | XMS_ITS | Encounter Summary ---
Author Organization [employer] Address [address] [facility] [address] [place] [address] Care Team Providers Care Hydraulic Repairer Name Role Phone Karoline Beltran PRESS SHOP SUPERVISOR Primary Care Provider [phone] Azalia Villalta PharmD Unavailable [phone] Reason for Visit * Reason Onset Date Comments Chart Prep 09/25/2024 Encounter Details Date Type Department Care Team ([facility] st Contact Info) Description 09/25/2024 Telephone C [facility] [address] [place] [address] Jayla Hager MA Chart Prep Social History Tobacco Use Types Packs/Day Years [...] the past 12 months, has t he [employer], gas, oil or water [employer] threatened to shut off services in your [...] encounter Miscellaneous Notes * Telephone Encounter - Jayla Ren MA - 09/25/2024 5:38 PM EST Chart Prep Labs: done Images: not done Vaccines due: yes Referrals: pending appt Screenings: n/a Overdue care gaps: PHQ-9 documented in this encounter Plan of Treatment Upcoming Encounters Date Type Department Care Team (Late st Contact Info) Description 10/31/2024 9:00 AM EDT Office Visit [facility] [address] [place] [address] Leopoldo Bateman MD [address] [place] [address] 12/24/2024 1:45 PM EDT Office Visit [facility] [address] [place], [place] [phone] Karoline Beltran FNP [address] [place] [address] 01/21/2025 10:30 AM EDT Office Visit [facility] [address] [place] [address] Val Lugo, OD [address] [place] [address] documented as of this encounter Visit Diagnoses Not on filedocumented in this encounter Additional Health Concerns Assessment Noted Time PHQ-9 Depression Total Score: 15 024 12:05 PM EST documented as of this encounter Care Teams Hydraulic Repairer Relationship Specialty Start Date End Date Karoline Beltran FNP [address] [place] [address] PCP - General Family Medicine 06/15/21 Azalia Villalta, WillieD [address] [place] [address] Pharmacist Internal Medicine 05/15/24 documented as of this encounter
--- OUTSIDE RECORDS SUMMARY | 2024-10-10 14:32 | XMS_ITS | Clinical Summary ---
Author Organization [employer] Address [address] [facility] 7t [place] [address] Care Team Providers Care Central Services Tech Name Role Phone Karoline Beltran DAMAGE ADJUSTER Primary Care Provider [phone] Azalia Villalta PharmD Unavailable [phone] Allergies Active Allergy Reactions Criticality Noted Date [...] for 28 days. Do not start before October 03, 2024. 84 Film 025 2024 Active melatonin [...] September 05, 2024. 84 Film 025 2024 Discontinued(R eorder (will not trigger notification to Pharmacy)) Active Problems Problem Noted Date Diagnosed Date Flank pain 09/24/2024 Assessment & Plan (09/24/2024 6:44 PM EST): See plan below,. Ua reassuring pt reports completed abx course Culture pending Dysuria 09/24/2024 Moderate episode of recurrent major depressive d isorder 06/25/2024 Bilateral renal cysts 06/07/2024 Overview (06/07/2024): Followed by Urology - [facility] Consult Mar 2024 - review of [...] today Hematuria 02/01/2024 Overview (06/07/2024): Following with [facility]/ Urology Urine cytology February 2024 negative for high-grade urothelial carcinoma. Consult Mar 2024 - review of CT abdomen w/ & w/o, demonstrated few stones in right kidney and low density calcification in left kidney. Also demonstrated bilateral simple cysts and 1.1cm Bosniak cat 2 cyst in right kidney lower pole. Non- obstructing nephrolithiasis Assessment & Plan (09/24/2024 6:43 PM EST): Microscopic hematuria today Pt reports pain is consistent with previous kidney pain Ultrasound ordered Culture pending Assessment & Plan (02/02/2024 4:02 PM EDT): Pt with symptomatic hematuria, will treat for uti with culture , if neg will refer to urology Loud snoring 01/29/2024 Overview (10/08/2024): Referral to Sleep Medicine placed 01/23/24 Established with [facility] Consult Aug 2024 - plan for home sleep study Tinnitus of both ears 01/29/2024 Assessment & Plan (01/29/2024 8:27 PM EDT): Intermittent, bilateral, not worsening Check with pharmacy regarding possible med SE Consider referral to ENT if persistent Cystitis 12/22/2023 Overview (10/08/2024): Jun 2024: US retroperitoneal ordered by [facility] Urology 1. There is increased bilateral renal cortical echotexture, which can be associated with medical renal disease. 2. No renal mass or calculus is seen bilaterally. There is mild right renal pelviectasis. No nery hydronephrosis is seen bilaterally. 3. There is mild prostatomegaly. Assessment & Plan (10/08/2024 4:33 PM EST): - Continues following with [facility] Urology - Intermittent dysuria and CVA tenderness on exam - UA (+) hematuria and (+) proteinuria. Nephrolithiasis in differential - Reports upcoming appt with Urology shortly, reviewed ED precautions before PRN Assessment & Plan (12/22/2023 4:37 PM EDT): [...] as pharmacomtherapy, [facility] smoking cessation group, and [facility] pharmacy smoking cessation clinic -Continues with NRT patches with good effect -LDCT: form signed and faxed to [facility] 09/23/23 Lumbar facet arthropathy 09/02/2022 Overview (06/14/2023): [...] lidocaine patches PRN -Encouraged to continue with [facility] acupuncture clinic & PT as has noted improvement with intervention -Following with [facility] Pain Management ?? Received lumbar injection on [...] with lidocaine patches PRN -Information provided about [facility] acupuncture clinic -Previously referred to PT and [...] stated goals. Hyperlipidemia 12/19/2020 Assessment & Plan (10/08/2024 4:31 PM EST): -LDL improved from 217 to 121 over the course of 3 months, which Mr. Reed primarily attributes to med adherence and eliminating soda from his diet. [...] 121 (H) 09/25/2024 LDLCHOLCAL 217 (H) 07/06/2024 Assessment & Plan (05/04/2023 12:22 PM EDT): [...] (09/01/2022): Added automatically from request for surgery [id number] GERD (gastroesophageal reflux disease) 9 Assessment & Plan (12/05/2023 6:36 PM EDT): Refill omeprazole 40mg daily sent to the pharmacy Assessment & Plan (09/24/2023 2:49 PM EST): Refill sent to the pharmacy Insomnia 01/11/2019 Assessment & Plan (06/14/2023 10:25 AM EDT): ?? After appt, provider able to clarify information with [facility] pharmacy. Pt last picked up psych meds [...] has met all short term and 1 senior living goal. Limited progress towards senior living goals 2nd to recent onset of B [...] further questions/concerns. Chronic sciatica 09/07/2018 09/02/2022 Encounters Date Type Department Care Team Description 10/10/2024 9:00 AM EST Clinical Support [facility] MEDICINE [address] [place] [address] Zehra Rodgers, RN Opioid dependence, uncomplicated ([facility]) 10/10/2024 Travel 10/10/2024 Refill [facility] MEDICINE [address] [place] [address] Phalen, Karoline, DAMAGE ADJUSTER Lumbar facet arthropathy 10/03/2024 9:00 AM EST Office Visit [facility] MEDICINE [address] [place] [phone] Leopoldo Bateman MD Opioid dependence, uncomplicated (CMS/HCC) (Primary Dx) 10/03/2024 Travel 09/28/2024 2:30 PM EST Office Visit [facility]EDS [address] [place] [address] Karoline Beltran, DAMAGE ADJUSTER Positive colorectal cancer screening using Cologuard test (Primary Dx); Mass of right hand; UTI symptoms; Mixed hyperlipidemia; Cystitis; Loud snoring 09/28/2024 Travel 09/26/2024 Refill [facility] MEDICINE [address] [place] [phone] Zehra Rodgers RN Opioid dependence, uncomplicated (CMS/HCC) 09/26/[address] [address] Katherine Guerrero MA Results 09/25/2024 Telephone [facility] [address] [place] [address] Jayla Hager MA Chart Prep 09/25/2024 Orders Only [facility] [address] [place] [address] Karoline Beltran, DAMAGE ADJUSTER 09/24/2024 2:40 PM EST Office Visit [facility] WALK-IN CENTER [address] [place] [phone] Doris Brooks NP Flank pain (Primary Dx); Dysuria; Hematuria, unspecified type 09/24/2024 Travel 09/19/2024 9:00 AM EST Office Visit [address] [address] Leopoldo Bateman MD Opioid dependence, uncomplicated (CMS/HCC) (Primary Dx) 09/19/2024 Patient Outreach [address] [address] Davy Bhatia Recovery Supports 09/19/2024 Travel 08/31/[address] [address] Zehra Rodgers RN Opioid dependence, uncomplicated (CMS/HCC) 08/23/2024 Refill [facility] CHC MED & PEDS [address] [place] [address] Karoline Beltran FNP Essential (primary) hypertension 08/16/2024 Telephone [facility] [address] [place] [address] Karoline Beltran FNP August08/08/2024 9:00 AM EST Office Visit [facility] MEDICINE [address] [place] [phone] Leopoldo Bateman MD Opioid dependence, uncomplicated (CMS/HCC) (Primary Dx) 08/08/2024 Travel 08/07/2024 Refill [facility] MEDICINE [address] [place] [phone] Zehra Rodgers RN Opioid dependence, uncomplicated (CMS/HCC) 08/07/2024 Refill [facility] MEDICINE [address] [place] [phone] Zehra Rodgers RN Opioid dependence, uncomplicated (CMS/HCC) 08/01/2024 9:00 AM EST Office Visit [address] [address] Leopoldo Bateman MD Opioid dependence, uncomplicated (CMS/HCC) (Primary Dx) 08/01/2024 Travel 07/26/2024 Refill [facility] WALK-IN CENTER [address] [place] [phone] Karoline Beltran FNP Gastroesophageal reflux disease, unspecified whether esophagitis present (Primary Dx) 07/25/2024 9:00 AM EST Clinical Support [address] [address] Zehra Rodgers RN Opioid type dependence, continuous (CMS/HCC) 07/25/2024 Travel 07/18/2024 9:00 AM EST Clinical Support [address] [address] Anahi Archibald RN Opioid type dependence, continuous (CMS/HCC) (Primary Dx) 07/18/2024 Travel 07/16/2024 Orders Only [facility] MEDICINE [address] [place] [address] Hawa Martins MD Essential (primary) hypertension (Primary Dx) 07/13/2024 Refill [facility] MEDICINE [address] [place] [phone] Zehra Rodgers, RN Opioid dependence, uncomplicated (CMS/HCC) 07/12/2024 Telephone [facility] MEDICINE [address] [place] [address] Hawa Martins MD 07/11/2024 9:00 AM EST Office Visit [facility] MEDICINE [address] [place] [address] Leopoldo Bateman MD Opioid dependence, uncomplicated (CMS/HCC) (Primary Dx) 07/11/2024 Travel 07/10/2024 Telephone [facility] CHC MED & PEDS [address] [place], [place] [phone] Karoline Beltran FNP Medication Question from Last 3 Months Immunizations Name Administration [...] Mass Index 36.08 09/28/2024 2:18 PM EST Plan of Treatment Upcoming Encounters Date Type Department Care Team (Late st Contact Info) Description 10/31/2024 9:00 AM EDT Office Visit [facility] MEDICINE [address] [place] [address] Leopoldo Bateman MD [address] [place] [address] 12/24/2024 1:45 PM EDT Office Visit [facility] CHC MED & PEDS [address] [place] [address] Karoline Beltran, DAMAGE ADJUSTER [address] [place] [address] 01/21/2025 10:30 AM EDT Office Visit [facility] OPTOMETRY [address] [place] [address] Parish, Val, OD [address] [place] [address] Health Maintenance Due Date Last Done Comments CT Colonography 1965 Colonoscopy 1965 FIT 1965 FOBT 1965 Sigmoidoscopy 1965 Hepatitis A Vaccines (1 of 2 - Risk 2-dose series) 1984 Zoster Vaccines (2 of 2) 10/03/2024 08/08/2024 Colorectal Cancer Screening 10/08/2024 FIT DNA/Cologuard 10/08/2024 07/05/2024 Depression Monitoring (PHQ-9) 12/23/2024 06/25/2024, 06/25/2024 SDOH Screening 02/08/2025 02/09/2024 Alcohol/Substance Use Screening 06/01/2025 06/01/2024 Depression Screening 06/25/2025 06/25/2024, 06/25/20 Tobacco Screening 09/28/2025 09/28/2024 DTaP/Tdap/Td Vaccines (2 - Td or Tdap) 04/28/2028 04/28/2018 Lipid Panel 09/25/2029 09/25/2024, 06/22, 09/23/2022 RSV Patients and Patients Aged 60 [...] on patient's age to complete this topic Goals Goal Patient Goal Type Associated Problems Recent Progress Patient-Stated? Author Increase coping skills to promote long-term recovery and improve ability to perform daily activities General On track( 025 1:28 PM EST) Zehra Danielle psychologist industrial organizational Procedure Name Priority Date/Time Associated Diagnosis Comments POCT AVANI-14 URINE DRUG SCREEN Routine 10/03/2024 8:54 AM EST Opioid dependence, uncomplicated (CMS/HCC) POCT URINALYSIS DIPSTICK Routine 09/28/2024 3:12 PM EST UTI symptoms LIPID PANEL, STANDARD Routine 09/25/2024 8:53 AM EST HEPATIC FUNCTION PANEL Routine 09/25/2024 8:53 AM EST BASIC METABOLIC PANEL Routine 09/25/2024 8:53 AM EST Flank pain CULTURE, URINE, ROUTINE Routine 09/24/2024 3:14 PM EST Dysuria POCT URINALYSIS DIPSTICK Routine 09/24/2024 3:13 PM EST Dysuria POCT AVANI-14 URINE DRUG SCREEN Routine 08/09/2024 8:44 AM EST Opioid dependence, uncomplicated (CMS/HCC) POCT AVANI-14 URINE DRUG SCREEN Routine 07/18/2024 9:04 AM EST Opioid type dependence, continuous (CMS/HCC) LAB COLOGUARD?? COLON CANCER SCREEN Routine 07/05/2024 7:30 AM EST Screening for colon cancer HIV 1 RNA, QN PCR W/RFL VLADIMIR (RTI,PI,INTEGRASE) Routine 09/23/2022 9:32 AM EST Routine adult health maintenance from Last 3 Months or Most Recently Relevant to Health Maintenance Results * POCT AVANI-14 Urine Drug Screen (10/03/2024 8:54 AM EST) Only the most recent of3 resultswithin the time period is included. THC [...] procedure / Unknown 10/03/2024 8:54 AM EST Leopoldo Bateman MD POINT OF CARE TEST ENTER/EDIT OR DERABLES Final Result * (ABNORMAL) POCT Urinalysis (09/28/2024 3:12 PM EST) Only the most recent of2 resultswithin the time period is included. Color, UA Yellow Clarity, UA Clear Glucose, UA Negative Bilirubin, UA Negative Ketones, UA Negative Spec Grav, UA 1.030 Blood, UA Positive(A) Negative, None Detected Comment:small pH, UA 6.0 Protein, UA 2+ 125++ Urobilinogen, UA 1.0 Leukocytes, UA Negative Negative, Rare, Trace Nitrite, UA Negative Negative, None Detected Appearance, UA clear QC Media Lot # [id number] Lot# Expiration Date Urine 09/28/2024 3:12 PM EST Karoline Beltran [facility] POINT OF CARE TEST ENTER/EDIT ORDERABLES Final Result * Hepatic Function Panel (09/25/2024 8:53 AM EST) Bilirubin, Total 0.7 0.0 - 1.0 mg/dL [facility] Bilirubin, Direct 0.2 0.0 - 0.5 mg/dL [facility] Aspartate Amino Transferase 33 5 - 37 U/L [facility] Alanine Aminotransferase 26 0 - 40 U/L [facility] Total Protein 7.5 6.5 - 8.0 g/dL [facility] Albumin Level 4.4 3.5 - 5.0 g/dL [facility] Alkaline Phosphatase 61 39 - 117 U/L [facility] 09/25/2024 8:53 AM EST 09/25/2024 11:27 AM EST Karoline Beltran [facility] LAB BLOOD ORDERABLES Final Res ult [facility] [address] [place] [phone] [phone] * (ABNORMAL) Lipid Panel, Standard (09/25/2024 8:53 AM EST) Triglycerides 97 <150 mg/dL [facility] Comment:Desirable Triglyceri de: less than 150 mg/dLBorderline High Triglyceride 150-199 mg/dLHigh Triglyceride: 200-499 mg/dLVery High Triglyceride: greater than or equal to 5OO mg/dL Cholesterol 176 <200 mg/dL [facility] Comment:Desirable Cholestero l: less than 200 mg/dLBorderline High Cholesterol: 200-239 mg/dLHigh Cholesterol: greater than 239 mg/dL LDL Cholesterol Calculated 121(H) <100 mg/dL [facility] Comment:Desirable LDL: less than 100 mg/dLNear Optimal/Above Optimal LDL: 110- 129 mg/dLBorderline High LDL: 130-159 mg/dLHigh LDL: 160-189 mg/dLVery High LDL: greater than or equal to 190 mg/dL HDL Cholesterol 36(L) >40 mg/dL [facility] Comment:Desirable HDL: great er than 40 mg/dL Note: This HDL assay may give artificially low results in patients with liver disease. 09/25/2024 8:53 AM EST 09/25/2024 11:27 AM EST us Karoline Beltran DAMAGE ADJUSTER LAB BLOOD ORDERABLES Final Res ult [facility] [address] [place] [phone] * Basic Metabolic Panel (09/25/2024 8:53 AM EST) Sodium 143 135 - 145 mmol/L [facility] Potassium 4.3 3.3 - 5.1 mmol/L [facility] Chloride 106 96 - 108 mmol/L [facility] Carbon Dioxide 27 22 - 29 mmol/L [facility] Anion Gap 14 12 - 20 [facility] Urea Nitrogen (BUN) 12 9 - 16 mg/dL [facility] Creatinine, Serum 0.81 0.5 - 1.4 mg/dL [facility] Estimated Glomerular Filt Rate >60 [facility] Comment:Chronic Kidney Disea se: Estimated GFR < 60 mL/min/1.54c5Hdvzds Kidney Disease: Estimated GFR < 15 mL/min/1.73m2 Glucose 96 60 - 115 mg/dL [facility] Calcium 9.1 8.4 - 10.2 mg/dL [facility] Blood Venous blood specimen / Unknown 09/25/2024 8:53 AM EST 09/25/2024 11:27 AM EST Doris Brooks NP LAB BLOOD ORDERABLES Final Resul t Performing Organization Address City/[facility]/ZIP Co de Phone Number [facility] [address] [place] [phone] * Culture, Urine, Routine (09/24/2024 3:14 PM EST) Urine Urine specimen obtained by clean catch procedure / Unknown 09/24/2024 3:14 PM EST 09/24/2024 6:03 PM EST Comment:UACC Narrative [facility] - 09/26/2024 11:34 AM EST Urine Culture Report Result Urine Culture < 10,000 cfu/ml Specimen Source: Urine clean catch Doris Brooks NP LAB MICROBIOLOGY - GENERAL ORDER DANIEL Final Result Performing Organization Address [facility] Co de Phone Number [facility] [address] [place] [phone] * (ABNORMAL) Cologuard?? colon cancer screening (07/05/2024 7:30 AM EST) Cologuard Result Positive( A) Negative 07/15/2024 3:28 AM EST [facility] (CLIA #:[id number]) Comment: POSITIVE TEST RESULT. A positive Cologuard [...] screened with both Cologuard and colonoscopy. (Nik Rascon. et al, N Engl J Med 2014;370(14):7062-2040.) Cologuard may produce a false negative or false positive result (no colorectal cancer or precancerous polyp present at colonoscopy follow up). A negative Cologuard test result does not guarantee the absence of CRC or advanced adenoma (pre-cancer). The current Cologuard screening interval is every 3 years. ([place] [employer] Society and U.S. Multi-Society Task Force). Cologuard performance data in a 10,000 patient pivotal study using colonoscopy as the reference method can be accessed at the following location: www.[employer]/results. Additional description of the Cologuard test process, warnings and precautions can be found at www.cologuard.com. Stool specimen (specimen) 07/05/2024 7:30 AM EST 07/07/2024 3:42 PM EST Karoline Beltran [facility] MOLECULAR DIAGNOSTICS TODD BARAHONA Final Result [facility] (CLIA #:[id number]) [phone] [place] [address], * HIV-1 RNA, Quantitative, Real-Time PCR with Reflex to Genotype (RTI, PI, Integrase) (09/23/2022 9:32 AM EST) HIV 1 RNA, QN PCR NOT DETECTED copies/mL [facility], HIV 1 RNA, QN PCR NOT DETECTED Log copies/mL [facility], Comment: REFERENCE RANGE: NOT DETECTED copies/mL ?NOT DETECTED ??Log copies/mL This test was performed using Real-Time Polymerase Chain Reaction. Reportable range is 20 to 10,000,000 copies/mL (1.30-7.00 Log copies/mL). 09/23/2022 9:32 AM EST 09/23/2022 9:33 AM EST Narrative [facility] - 09/26/2022 1:23 AM EST FASTING:UNKNOWN FASTING: UNKNOWN Karoline Beltran [facility] BLOOD ORDERABLES Final Res ult [facility] [address], [place] [phone] [facility], [address] [place] [phone] from Last 3 Months or Most Recently Relevant to Health Maintenance Insurance C3 Care Teams Central Services Tech Relationship Specialty Start Date End Date Karoline Beltran FNP [address] [place] [phone] PCP - General Family Medicine 06/15/21 Azalia Villalta, WillieD [address] [place] [phone] Pharmacist Internal Medicine 05/15/24
--- OUTSIDE RECORDS SUMMARY | 2024-10-10 14:32 | XMS_ITS | Encounter Summary ---
Author Organization [employer] Address [address] [facility] [address] [place] [address] Care Team Providers Care Agricultural Service Worker Name Role Phone Karoline Beltran Primary Care Provider [phone] Anurag Lo Unavailable Unavailable Sarahi Rey RN Unavailable [phone] Azalia Villalta PharmD Unavailable Reason for Visit * Reason Onset Date Comments Returning Call 05/07/2024 Encounter Details Date Type Department Care Team ([facility] st Contact Info) Description 05/07/2024 Telephone [facility] MEDICINE [address] [place] [address] Karoline Beltran FNP [address] [place] [address] Returning Call Social History Tobacco Use Types [...] Description 10/31/2024 9:00 AM EDT Office Visit [facility] MEDICINE [address] [place] [address] Leopoldo Bateman MD [address] [place] [address] 12/24/2024 1:45 PM EDT Office Visit [facility] CH[facility] MED & PEDS [address] [place] [address] Karoline Beltran FNP [address] [place] [address] 01/21/2025 10:30 AM EDT Office Visit [facility] OPTOMETRY [address] [place] [address] Val Lugo, OD [address] [place] [address] documented as of this encounter Visit Diagnoses Not on filedocumented in this encounter Additional Health Concerns Assessment Noted Time PHQ-9 Depression Total Score: 12 024 8:34 PM EDT documented as of this encounter Care Teams Agricultural Service Worker Relationship Specialty Start Date End Date Karoline Beltran FNP [address] [place] [address] PCP - General Family Medicine 06/15/21 Anurag Lo Community Health Worker 02/09/24 05/10/24 Sarahi Rey RN [address] [place] [phone] [employer] 02/09/24 05/10/24 Azalia Villalta PharmD [address] [place] [address] Pharmacist Internal Medicine 05/15/24 documented as of this encounter
--- OUTSIDE RECORDS SUMMARY | 2024-10-10 14:32 | XMS_ITS | Encounter Summary ---
Author Organization [employer] Address [address] [facility] [address] [place] [address] Care Team Providers Care Furnace Filler Name Role Phone Rbuy Karoline CRAYON GRADER Primary Care Provider [phone] Azalia Villalta PharmD Unavailable [phone] Encounter Details Date Type Department Care Team ([facility] st Contact Info) Description 09/25/2024 Orders Only [facility] CHC MED & PEDS [address] [place], [place] [phone] Karoline Beltran FNP [address] [place] [address] Social History Tobacco Use Types Packs/Day Years [...] the past 12 months, has t he [employer] gas, oil or water company threatened to [...] 10/31/2024 9:00 AM EDT Office Visit [facility] MEDICINE [address] [place] [address] Leopoldo Bateman MD [address] [place] [address] 12/24/2024 1:45 PM EDT Office Visit [facility] CHC MED & PEDS [address] [place] [address] Karoline Beltran, CRAYON GRADER [address] [place] [address] 01/21/2025 10:30 AM EDT Office Visit [facility] OPTOMETRY [address] [place] [address] ParishVal kaur, OD [address] [place] [address] documented as of this encounter Procedures Procedure Name Priority Date/Time Associated Diagnosis Comments HEPATIC FUNCTION PANEL Routine 09/25/2024 8:53 AM EST LIPID PANEL, STANDARD Routine 09/25/2024 8:53 AM EST documented in this encounter Results * (ABNORMAL) Lipid Panel, Standard (09/25/2024 8:53 AM EST) Triglycerides 97 <150 mg/dL [facility] Comment:Desirable Triglyceri de: less than 150 mg/dLBorderline High Triglyceride 150-199 mg/dLHigh Triglyceride: 200-499 mg/dLVery High Triglyceride: greater than or equal to 5OO mg/dL Cholesterol 176 <200 mg/dL [facility] Comment:Desirable Cholestero l: less than 200 mg/dLBorderline High Cholesterol: 200-239 mg/dLHigh Cholesterol: greater than 239 mg/dL LDL Cholesterol Calculated 121(H) <100 mg/dL [facility] Comment:Desirable LDL: less than 100 mg/dLNear Optimal/Above Optimal LDL: 110- 129 mg/dLBorderline High LDL: 130-159 mg/dLHigh LDL: 160-189 mg/dLVery High LDL: greater than or equal to 190 mg/dL HDL Cholesterol 36(L) >40 mg/dL [facility] Comment:Desirable HDL: great er than 40 mg/dL Note: This HDL assay may give artificially low results in patients with liver disease. 09/25/2024 8:53 AM EST 09/25/2024 11:27 AM EST us Karoline Beltran CRAYON GRADER LAB BLOOD ORDERABLES Final Res ult [facility] [address] [place] [address] [phone] * Hepatic Function Panel (09/25/2024 8:53 AM EST) Bilirubin, Total 0.7 0.0 - 1.0 mg/dL [facility] Bilirubin, Direct 0.2 0.0 - 0.5 mg/dL [facility] Aspartate Amino Transferase 33 5 - 37 U/L [facility] Alanine Aminotransferase 26 0 - 40 U/L [facility] Total Protein 7.5 6.5 - 8.0 g/dL [facility] Albumin Level 4.4 3.5 - 5.0 g/dL [facility] Alkaline Phosphatase 61 39 - 117 U/L [facility] 09/25/2024 8:53 AM EST 09/25/2024 11:27 AM EST us Karoline NORMAN LAB BLOOD ORDERABLES Final Res ult [facility] [address] [place] [address] [phone] documented in this encounter Visit Diagnoses Not on filedocumented in this encounter Additional Health Concerns Assessment Noted Time PHQ-9 Depression Total Score: 15 024 12:05 PM EST documented as of this encounter Care Teams Furnace Filler Relationship Specialty Start Date End Date Karoline Beltran FNP [address] [place] [address] PCP - General Family Medicine 06/15/21 Azalia Villalta, WillieD [address] [place] [address] Pharmacist Internal Medicine 05/15/24 documented as of this encounter
--- OUTSIDE RECORDS SUMMARY | 2024-10-10 14:32 | XMS_ITS | Encounter Summary ---
Author Organization [employer] Address [address] [facility] [address] [place] [address] Care Team Providers Care Engineering Drawings Checker Name Role Phone Karoline Beltran SOCCER COMMENTATOR Primary Care Provider [phone] Azalia Villalta PharmD Unavailable [phone] Encounter Details Date Type Department Care Team [...] Description 10/31/2024 9:00 AM EDT Office Visit [facility] MEDICINE [address] [place] [address] Leopoldo Bateman MD [address] [place] [address] 12/24/2024 1:45 PM EDT Office Visit [facility] CHC MED & PEDS [address] [place] [address] Karoline Beltran FNP [address] [place] [address] 01/21/2025 10:30 AM EDT Office Visit [facility] OPTOMETRY [address] [place] [address] Val Lugo, JENNIFER [address] [place] [address] documented as of this encounter Visit Diagnoses Not on filedocumented in this encounter Additional Health Concerns Assessment Noted Time PHQ-9 Depression Total Score: 15 024 12:05 PM EST documented as of this encounter Care Teams Engineering Drawings Checker Relationship Specialty Start Date End Date Karoline Beltran FNP [address] [place] [address] PCP - General Family Medicine 06/15/21 Azalia Villalta, WillieD [address] [place] [address] Pharmacist Internal Medicine 05/15/24 documented as of this encounter
--- OUTSIDE RECORDS SUMMARY | 2024-10-10 14:32 | XMS_ITS | Encounter Summary ---
Author Organization [employer] Address [address] [facility] [address] [place] [address] Care Team Providers Care Gas Meter Installer Helper Name Role Phone Karoline Beltran ASSOCIATE ATTORNEY Primary Care Provider [phone] Azalia Villalta PharmD Unavailable [phone] Reason for Visit * Reason Onset Date Comments Med Refill 09/26/2024 Encounter Details Date Type Department Care Team (Late st Contact Info) Description 09/26/2024 Refill [facility] MEDICINE [address] [place] [address] Zehra Rodgers, ADARSH Opioid dependence, uncomplicated ([facility]) Social History Tobacco Use Types Packs/Day Years [...] the past 12 months, has t he [employer] oil or water [employer] threatened to shut off services in your [...] Description 10/31/2024 9:00 AM EDT Office Visit [facility] MEDICINE [address] [place] [address] Leopoldo Bateman MD [address] [place] [address] 12/24/2024 1:45 PM EDT Office Visit [facility] CHC MED & PEDS [address] [place] [address] Karoline Beltran, ASSOCIATE ATTORNEY [address] [place] [address] 01/21/2025 10:30 AM EDT Office Visit [facility] OPTOMETRY [address] [place] [address] Val Lugo, OD [address] [place] [address] documented as of this encounter Visit Diagnoses Diagnosis Opioid dependence, uncomplicated (CMS/HCC) documented in this encounter Additional Health Concerns Assessment Noted Time PHQ-9 Depression Total Score: 15 024 12:05 PM EST documented as of this encounter Care Teams Gas Meter Installer Helper Relationship Specialty Start Date End Date Karoline Beltran FNP [address] [place] [address] PCP - General Family Medicine 06/15/21 Azalia Villalta, Maninder [address] [place] [address] Pharmacist Internal Medicine 05/15/24 documented as of this encounter
--- OUTSIDE RECORDS SUMMARY | 2024-10-10 14:32 | XMS_ITS | Encounter Summary ---
Author Organization [facility] Address [address] [place] [address] Care Team Providers Care Upholstery Estimator Name Role Phone Physician, No Pcp Primary Care Provider Unavaila ble Reason for Visit * Reason Comments Flank Pain Encounter Details Date Type Department Care Team (Late st Contact Info) Description 10/02/2024 5:54 PM EST - 10/02/2024 7:[address] [facility] [address] [place] [address] Acute right-sided low back pain with right-sided sciatica (Primary Dx) Discharge Disposition: Home or Self Care Social History Tobacco Use Types Packs/Day Years Used Date Smoking Tobacco: Every Day Cigarettes Smokeless Tobacco: Never Tobacco Cessation:Ready to Q uit: Not Asked; Counseling Given: Not Answered Alcohol Use Standard Drinks/Week Comments Not Currently 0 (1 standard drink = 0.6 oz pur e alcohol) Sex and Gender Information Value Date Recorded Sex Assigned at Male 10/02/2024 6:54 PM EST Legal Sex Male 1:10 PM EST Gender Identity Male 10/02/2024 6:54 PM EST Sexual Orientation Straight 10/02/2024 6: 54 PM EST documented as of this encounter Last Filed Vital Signs Vital Sign Reading Time Taken Comments Blood Pressure 168/68 10/02/2024 4:22 PM EST Pulse 63 10/02/2024 4:22 PM EST Temperature 37 ??C (98.6 ??F) 10/02/2024 4:22 PM EST Respiratory Rate 19 10/02/2024 4:22 PM EST Oxygen Saturation 98% 10/02/2024 4:22 PM EST Inhaled Oxygen Concentration - - Weight 104 kg (230 lb) 10/02/2024 12:28 PM EST Height 170.2 cm (5' 7 ) 10/02/2024 12:28 PM EST Body Mass Index 36.02 10/02/2024 12:28 PM EST documented in this encounter Discharge Instructions * Discharge Instructions* JACQUIE Barajas - 10/02/2024 7:15 PM EST You were seen in the ER for evaluation of back pain. We recommend that you rest and apply a heating pad to your back. Perform gentle range of motion exercies. Avoid any strenuous activity or heavy lifting. You have been prescribed naproxen which is an anti-inflammatory medication you can take twice a day. While taking this, do not take any other NSAIDs which include Motrin/ibuprofen and Aleve. You have also been prescribed a muscle relaxant called Robaxin. Be aware this medication can make you drowsy. Do not drive or drink alcohol while taking this. Follow-up in 2-3 days with your primary care doctor for repeat evaluation. Return to the ER if you develop any high fever, chills, worsening back pain, bladder/bowel dysfunction, numbness/weakness in the legs, you cannot walk or develop any other concerning symptoms. * Attachments The following attachments cannot be sent through Care Everywhere. * Back Pain (Nepali) documented in this encounter Medications at Time of Discharge methocarbamoL (ROBAXIN) 750 mg tablet Take 1 tablet (750 mg total) by mouth 4 (four) times a day for 5 days. 20 each 10/02/2024 naproxen (NAPROSYN) 500 mg tablet Take 1 tablet (500 mg total) by mouth 2 (two) times a day if needed for moderate pain for up to 5 days. 10 tablet 10/02/2024 10/07/2024 documented as of this encounter Ordered Prescriptions Prescription Sig Dispense Quantity Refills Last Filled Start Date End Date methocarbamoL (ROBAXIN) 750 mg tablet Take 1 tablet (750 mg total) by mouth 4 (four) times a day for 5 days. 20 each 10/02/2024 naproxen (NAPROSYN) 500 mg tablet Take 1 tablet (500 mg total) by mouth 2 (two) times a day if needed for moderate pain for up to 5 days. 10 tablet 10/02/2024 documented in this encounter Discharge Disposition Disposition Code Departure Means Destination Comment s Home or Self Care documented in this encounter Progress Notes * Cory Dias RN - 10/02/2024 12:24 PM EST Pt presents from home, reported flank pain, right sided- onset x 2 weeks, symptoms intermittent perpt. Denies urinary symptoms. Denies nausea, vomiting. Reported blood in stool. Alert and oriented x3 * JACQUIE Barajas - 10/02/2024 12:06 PM EST Emergency Medicine Note Patient Name: Dedrick Reed Initial Evaluation: 10/02/2024 : 1965 Patient's PCP: No Pcp Physician Emergency Physician: JACQUIE Barajas History of Present Illness Chief Complaint: Chief Complaint Patient presents with Flank Pain HPI: This is a 59-year-old male with past medical history of GERD, hypercholesterolemia, presentingwith right low back pain rating down the right posterior thigh x 2 weeks in the absence of any falls or injuries. No recent heavy lifting or specific injuries that he can think of. The pain is localized to the right low back musculature, no midline pain. Denies any numbness or tingling of the lowerextremities. Denies any dysuria, hematuria, increased urinary urgency or frequency, urinary retention. Denies any history of kidney stones. He is able to ambulate well. Denies fevers, chills, dizziness, endoscopic was, nausea vomiting, abdominal pain, bowel or bladder abnormalities. No IVDU, saddleanesthesia, urinary retention, incontinence, recent steroid use. ROS: I have performed a ROS with the pertinent positives and negatives documented in the history ofpresent illness. Previous History Past Medical History: Diagnosis Date Acid reflux Hypercholesteremia Past Surgical History: Procedure Laterality Date TONSILLECTOMY Social History Tobacco Use Smoking status: Every Day Types: Cigarettes Smokeless tobacco: Never Substance Use Topics Alcohol use: Not Currently Drug use: Not Currently No family history on file. has No Known Allergies. No current facility-administered medications on file prior to encounter. No current outpatient medications on file prior to encounter. Physical Exam ED Triage Vitals [10/02/24 1228] Temp Heart Rate Resp BP 36.7 ??C (98.1 ??F) 89 20 (!) 141/73 SpO2 Temp Source Heart Rate Source Patient Position 96 % Oral Monitor Sitting BP Location FiO2 (%) Right arm -- GENERAL: Well-Appearing, well-nourished patient. SKIN: Appropriate color for ethnicity, warm, dry. No rashes. HEENT: No stridor, no lymphadenopathy. NECK: Soft, supple, full ROM, Midline structures, nontender, no step-off, no deformity. CHEST: Heart regular rate and rhythm, no rubs, no gallops or murmurs. PULMONARY: Clear to auscultation bilaterally without any adventitious lung sounds. ABDOMINAL: Soft, nondistended nontender with positive bowel sounds. No rebound, no guarding, no CVAtenderness bilaterally. MUSCULOSKELETAL: Normal tone appropriate range of motion, 5 x 5 motor. Negative straight leg raise bilaterally. Focally tender palpation over the right low back musculature. Ambulates with a stable gait. Distal circulation intact. NEURO: Alert and oriented x3, Cranial nerves II through XII are intact, sensation grossly intact tolight touch. Patellar DTRs intact. PSYCHIATRIC: Normal affect, fluid speech, good eye contact and appropriate demeanor. Results Labs Reviewed COMPREHENSIVE METABOLIC PANEL - Abnormal Result Value Sodium 139 Potassium 4.0 Chloride 108 CO2 25 Anion Gap 6 Glucose 106 (*) BUN 9 Creatinine 0.71 eGFR 106 BUN/Creatinine Ratio 12.7 Calcium 9.0 AST (SGOT) 28 ALT (SGPT) 21 Alkaline Phosphatase 69 Total Protein 6.8 Albumin 4.0 Total Bilirubin 0.7 CBC WITH AUTO DIFFERENTIAL - Abnormal WBC 7.9 RBC 4.30 (*) Hemoglobin 13.6 Hematocrit 39.5 (*) MCV 92.1 MCH 31.7 MCHC 34.4 RDW 12.2 Platelets 220 MPV 10.2 NRBC 0.0 NRBC Absolute 0.00 Neutrophils Relative 59.4 Lymphocytes Relative 31.5 Monocytes Relative 6.2 Eosinophils Relative 1.9 Basophils Relative 0.5 Immature Granulocytes Relative 0.5 Neutrophils Absolute 4.70 Lymphocytes Absolute 2.49 Monocytes Absolute 0.49 Eosinophils Absolute 0.15 Basophils Absolute 0.04 Immature Granulocytes Absolute 0.04 (*) URINALYSIS WITH REFLEX MICROSCOPIC AND CULTURE - Abnormal Specific [place] Urine 1.018 pH, Urine 7.0 Leukocytes, Urine Negative Nitrite, Urine Negative Protein, Urine Trace Glucose, Urine Negative Ketones, Urine Negative Urobilinogen, Urine 1.0 Bilirubin, Urine Negative Blood, Urine Trace (*) RBC, Urine 2.3 WBC, Urine 0.5 Squamous Epithelial, Urine 5 Bacteria, Urine Negative Hyaline Casts, Urine 0.0 PROTHROMBIN TIME WITH INR - Normal Protime 11.9 INR 0.9 ACTIVATED PARTIAL THROMBOPLASTIN TIME - Normal aPTT 30.7 CBC AND DIFFERENTIAL Narrative: The following orders were created for panel order CBC and differential. Procedure Abnormality Status --------- ------ CBC auto differential[[id number]] Abnormal Final result Please view results for these tests on the individual orders. URINALYSIS WITH REFLEX MICROSCOPIC AND CULTURE Narrative: The following orders were created for panel order Urinalysis with reflex microscopic and culture. Procedure Abnormality Status --------- ------ Urinalysis with reflex ...[[id number]] Abnormal Final result Russell urine culture tube[[id number]] Final result Please view results for these tests on the individual orders. TYPE AND SCREEN ABO Group A Rh Type Positive Antibody Screen Negative Abnormal Labs Reviewed COMPREHENSIVE METABOLIC PANEL - Abnormal; Notable for the following components: Result Value Glucose 106 (*) All other components within normal limits CBC WITH AUTO DIFFERENTIAL - Abnormal; Notable for the following components: RBC 4.30 (*) Hematocrit 39.5 (*) Immature Granulocytes Absolute 0.04 (*) All other components within normal limits URINALYSIS WITH REFLEX MICROSCOPIC AND CULTURE - Abnormal; Notable for the following components: Blood, Urine Trace (*) All other components within normal limits No orders to display I have discussed the incidental/abnormal imaging and/or lab abnormalities with the patient and haveinstructed them the need for further evaluation and workup with their primary care doctor. I have provided the patient with a paper copy of the abnormality. The laboratory results, imaging results and other diagnostic exam results were reviewed in the EMR. EKG Interpretation Critical Care Time None Differential Diagnosis Sciatica Lumbar strain Lumbar spasm Degenerative disc disease Cord compression syndrome-low suspicion Spinal epidural abscess-low suspicion Nephrolithiasis-low suspicion ? Medical Decision Making Medications - No data to display ED Course as of 021924Oct 02, [id number] Seen and evaluated. Patient is stable, nontoxic in no acute distress. Presents with right low back pain radiating down the posterior right leg over the past 2 weeks. Patient comes in convinced he has a kidney stone however he has no CVA tenderness, UA is not concerning, lab work looks good. Heis focal tenderness to palpation in the right low back musculature and the description of his pain is consistent with sciatica. He has no red flag symptoms for back pain. doubt cord compression syndrome or spinal epidural abscess. He has good strength of bilateral lower extremities. Abdomen is nontender, he has no urinary retention or dysuria. Patient be discharged with Robaxin, warm compresses, n aproxen, close PCP follow-up, gentle stretching, strict return precaution. Patient expressed understanding of plan, all questions answered, [employer] Nepali video surveillance analyst used for all encounters with this patient. [YB] ED Course User Index [YB] JACQUIE Barajas Clinical Impressions as of 10/02/241924 Acute right-sided low back pain with right-sided sciatica Procedures Procedures Diagnosis 1. Acute right-sided low back pain with right-sided sciatica Disposition Discharge ED Prescriptions Medication Sig Dispense Start Date End Date Auth. Provider methocarbamoL (ROBAXIN) 750 mg tablet Take 1 tablet (750 mg total) by mouth 4 (four) times a day for 5 days. 20 each 10/02/2024 10/07/2024 JACQUIE Barajas naproxen (NAPROSYN) 500 mg tablet Take 1 tablet (500 mg total) by mouth 2 (two) times a day if needed for moderate pain for up to 5 days. 10 tablet 10/02/2024 10/07/2024 JACQUIE Barajas Physician Attestation JACQUIE Barajas 10/02/241836 JACQUIE Barajas 10/02/241924 Cosigned by Alex Rose MD at 10/02/2024 7:26 PM EST Associated attestation - Alex Rose MD - 10/02/2024 7:26 PM EST I agree with the Nurse practitioner's/Physician trust manager assistant's note and plan by JACQUIE Barajas dated 10/02/2024 which I have reviewed and edited where appropriate. Alex Rose MD 10/02/24 7:26 PM EST documented in this encounter Plan of Treatment Not on file documented as of this encounter Procedures Procedure Name Priority Date/Time Associated Diagnosis Comments URINALYSIS WITH REFLEX MICROSCOPIC AND CULTURE STAT 10/02/2024 1:13 PM EST RUSSELL URINE CULTURE TUBE STAT 10/02/19 1:13 PM EST URINALYSIS WITH REFLEX MICROSCOPIC AND CULTURE STAT 10/02/2024 1:13 PM EST CBC WITH AUTO DIFFERENTIAL STAT 10/02/2024 1:11 PM EST ACTIVATED PARTIAL THROMBOPLASTIN TIME STAT 10/02/2024 1:11 PM EST PROTHROMBIN TIME WITH INR STAT 10/02/2024 1:11 PM EST CBC AND DIFFERENTIAL STAT 10/02/2024 1:11 PM EST TYPE AND SCREEN STAT 10/02/2024 1:11 PM EST COMPREHENSIVE METABOLIC PANEL STAT 10/02/2024 1:11 PM EST documented in this encounter Results * Russell urine culture tube (10/02/2024 1:13 PM EST) Extra Tube Hold for add-ons. 10/02/2024 3:02 PM EST [facility] Comment:Auto resulted. Urine Urine specimen obtained by clean catch procedure / Unknown Non-blood Collection / Unknown 10/02/2024 1:13 PM EST 10/02/2024 1:58 PM EST Jaspal Crockett DO LAB URINE ORDERABLES Final Result Performing Organization Address City/State/[facility] Co de Phone Number [facility] [address] [place] [address], [place] [phone] * (ABNORMAL) Urinalysis with reflex microscopic and culture (10/02/2024 1:13 PM EST) Specific [place] Urine 1.018 1.003 - 1.030 LAB URINALYSIS - AUTOMATED METHOD 10/02/2024 2:41 PM [facility] pH, Urine 7.0 5.0 - 8.0 pH LAB URINALYSIS - AUTOMATED METHOD 10/02/2024 2:41 PM [facility] Leukocytes, Urine Negative Negative LAB URINALYSIS - AUTOMATED METHOD 10/02/2024 2:41 PM [facility] Nitrite, Urine Negative Negative LAB URINALYSIS - AUTOMATED METHOD 10/02/2024 2:41 PM [facility] Protein, Urine Trace <=Trace mg/dL LAB URINALYSIS - AUTOMATED METHOD 10/02/2024 2:41 PM [facility] Glucose, Urine Negative Negative mg/dL LAB URINALYSIS - AUTOMATED METHOD 10/02/2024 2:41 PM [facility] Ketones, Urine Negative Negative mg/dL LAB URINALYSIS - AUTOMATED METHOD 10/02/2024 2:41 PM [facility] Urobilinogen, Urine 1.0 0.2 - 1.0 mg/dL LAB URINALYSIS - AUTOMATED METHOD 10/02/2024 2:41 PM [facility] Bilirubin, Urine Negative Negative LAB URINALYSIS - AUTOMATED METHOD 10/02/2024 2:41 PM [facility] Blood, Urine Trace(A) Negative LAB URINALYSIS - AUTOMATED METHOD 10/02/2024 2:41 PM [facility] RBC, Urine 2.3 0 - 4 /HPF LAB URINALYSIS - AUTOMATED METHOD 10/02/2024 2:41 PM [facility] WBC, Urine 0.5 0 - 4 /HPF LAB URINALYSIS - AUTOMATED METHOD 10/02/2024 2:41 PM [facility] Squamous Epithelial, Urine 5 0 - 60 /LPF LAB URINALYSIS - AUTOMATED METHOD 10/02/2024 2:41 PM [facility] Bacteria, Urine Negative Negative /HPF LAB URINALYSIS - AUTOMATED METHOD 10/02/2024 2:41 PM [facility] Hyaline Casts, Urine 0.0 0 - 3 /LPF LAB URINALYSIS - AUTOMATED METHOD 10/02/2024 2:41 PM [facility] Urine Urine specimen obtained by clean catch procedure / Unknown Non-blood Collection / Unknown 10/02/2024 1:13 PM EST 10/02/2024 1:59 PM EST Jaspal Crockett DO LAB URINE ORDERABLES Final Result [facility] [address] [place] [address], [place] [phone] * (ABNORMAL) CBC auto differential (10/02/2024 1:11 PM EST) WBC 7.9 4.8 - 10.8 K/mcL LAB HEMETOLOGY METHOD 10/02/2024 2:07 PM [facility] RBC 4.30(L) 4.50 - 5.50 M/mcL LAB HEMETOLOGY METHOD 10/02/2024 2:07 PM [facility] Hemoglobin 13.6 13.5 - 17.5 g/dL LAB HEMETOLOGY METHOD 10/02/2024 2:07 PM [facility] Hematocrit 39.5(L) 42.0 - 54.0 % LAB HEMETOLOGY METHOD 10/02/2024 2:07 PM [facility] MCV 92.1 79.0 - 98.0 FL LAB HEMETOLOGY METHOD 10/02/2024 2:07 PM [facility] MCH 31.7 27.0 - 32.0 pcg LAB HEMETOLOGY METHOD 10/02/2024 2:07 PM [facility] MCHC 34.4 32.0 - 37.0 g/dL LAB HEMETOLOGY METHOD 10/02/2024 2:07 PM [facility] RDW 12.2 11.0 - 15.0 % LAB HEMETOLOGY METHOD 10/02/2024 2:07 PM [facility] Platelets 220 130 - 400 K/mcL LAB HEMETOLOGY METHOD 10/02/2024 2:07 PM [facility] MPV 10.2 7.0 - 11.0 FL LAB HEMETOLOGY METHOD 10/02/2024 2:07 PM [facility] NRBC 0.0 <1.0 % LAB HEMETOLOGY METHOD 10/02/2024 2:07 PM [facility] NRBC Absolute 0.00 <0.10 K/mcL LAB HEMETOLOGY METHOD 10/02/2024 2:07 PM [facility] Neutrophils Relative 59.4 % LAB HEMETOLOGY METHOD 10/02/2024 2:07 PM [facility] Lymphocytes Relative 31.5 % LAB HEMETOLOGY METHOD 10/02/2024 2:07 PM [facility] Monocytes Relative 6.2 % LAB HEMETOLOGY METHOD 10/02/2024 2:07 PM [facility] Eosinophils Relative 1.9 % LAB HEMETOLOGY METHOD 10/02/2024 2:07 PM [facility] Basophils Relative 0.5 % LAB HEMETOLOGY METHOD 10/02/2024 2:07 PM [facility] Immature Granulocytes Relative 0.5 % LAB HEMETOLOGY METHOD 10/02/2024 2:07 PM EST [facility] Neutrophils Absolute 4.70 1.50 - 7.00 K/mcL LAB HEMETOLOGY METHOD 10/02/2024 2:07 PM EST [facility] Lymphocytes Absolute 2.49 1.00 - 5.00 K/mcL LAB HEMETOLOGY METHOD 10/02/2024 2:07 PM EST [facility] Monocytes Absolute 0.49 0.20 - 1.00 K/mcL LAB HEMETOLOGY METHOD 10/02/2024 2:07 PM EST [facility] Eosinophils Absolute 0.15 0.00 - 0.50 K/mcL LAB HEMETOLOGY METHOD 10/02/2024 2:07 PM EST [facility] Basophils Absolute 0.04 0.00 - 0.20 K/mcL LAB HEMETOLOGY METHOD 10/02/2024 2:07 PM EST [facility] Immature Granulocytes Absolute 0.04(H) 0.00 - 0.03 K/mcL LAB HEMETOLOGY METHOD 10/02/2024 2:07 PM EST [facility] Blood Venous blood specimen / Unknown Venipuncture / Unknown 10/02/2024 1:11 PM EST 10/02/2024 1:58 PM EST Jaspal Crockett DO LAB BLOOD ORDERABLES Final Result [facility] [address] [place] [address], * APTT (10/02/2024 1:11 PM EST) aPTT 30.7 24.1 - 39.3 sec LAB COAGULATION METHOD 10/02/2024 2:20 PM EST [facility] Blood Venous blood specimen / Unknown Venipuncture / Unknown 10/02/2024 1:11 PM EST 10/02/2024 1:58 PM EST us Jaspal Crockett DO LAB BLOOD ORDERABLES Final Result Performing Organization Address City/[facility]/ZIP Co de Phone Number [facility] [address] [place] [address], [place] [phone] * Prothrombin time with INR (10/02/2024 1:11 PM EST) Pathologist [facility] Protime 11.9 10.6 - 13.9 sec LAB COAGULATION METHOD 10/02/2024 2:20 PM EST [facility] INR 0.9 LAB COAGULATION METHOD 10/02/2024 2:20 PM EST [facility] Blood Venous blood specimen / Unknown Venipuncture / Unknown 10/02/2024 1:11 PM EST 10/02/2024 1:58 PM EST us Jaspal Crockett DO LAB BLOOD ORDERABLES Final Result Performing Organization Address [facility]/ZIP Co de Phone Number [facility] [address] [place] [address], [place] [phone] * Type and screen (10/02/2024 1:11 PM EST) [facility] ABO Group A 10/02/2024 3:49 PM EST [facility] Rh Type Positive 10/02/2024 3:49 PM EST [facility] Antibody Screen Negative 10/02/2024 3:49 PM EST [facility] Blood Venous blood specimen / Unknown Venipuncture / Unknown 10/02/2024 1:11 PM EST 10/02/2024 1:58 PM EST us Jaspal Crockett DO LAB BLOOD BANK TEST ORDERAB LES Final Result Performing Organization Address City/[facility]/ZIP Co de Phone Number [facility] [address] [place] [address], [place] [phone] * (ABNORMAL) Comprehensive metabolic panel (10/02/2024 1:11 PM EST) Sodium 139 133 - 145 mmol/L LAB CHEMISTRY METHOD 10/02/2024 2:33 PM [facility] Potassium 4.0 3.5 - 5.5 mmol/L LAB CHEMISTRY METHOD 10/02/2024 2:33 PM [facility] Chloride 108 96 - 110 mmol/L LAB CHEMISTRY METHOD 10/02/2024 2:33 PM [facility] CO2 25 21 - 32 mmol/L LAB CHEMISTRY METHOD 10/02/2024 2:33 PM [facility] Anion Gap 6 3 - 11 LAB CHEMISTRY METHOD 10/02/2024 2:33 PM [facility] Glucose 106(H) 70 - 100 mg/dL LAB CHEMISTRY METHOD 10/02/2024 2:33 PM [facility] BUN 9 5 - 25 mg/dL LAB CHEMISTRY METHOD 10/02/2024 2:33 PM [facility] Creatinine 0.71 0.70 - 1.30 mg/dL LAB CHEMISTRY METHOD 10/02/2024 2:33 PM [facility] eGFR 106 >=60 mL/min/1. 73m2 LAB CHEMISTRY METHOD 10/02/2024 2:33 PM [facility] Comment:Calculation based on the??Chronic Kidney Disease Epidemiology Collaboration (CKD-EPI) equation refit??without adjustment for race. BUN/Creatinine Ratio 12.7 LAB CHEMISTRY METHOD 10/02/2024 2:33 PM [facility] Calcium 9.0 8.5 - 10.5 mg/dL LAB CHEMISTRY METHOD 10/02/2024 2:33 PM [facility] AST (SGOT) 28 10 - 42 unit/L LAB CHEMISTRY METHOD 10/02/2024 2:33 PM [facility] ALT (SGPT) 21 10 - 60 unit/L LAB CHEMISTRY METHOD 10/02/2024 2:33 PM EST [facility] Alkaline Phosphatase 69 42 - 121 unit/L LAB CHEMISTRY METHOD 10/02/2024 2:33 PM [facility] Total Protein 6.8 6.0 - 8.0 g/dL LAB CHEMISTRY METHOD 10/02/2024 2:33 PM [facility] Albumin 4.0 3.2 - 5.0 g/dL LAB CHEMISTRY METHOD 10/02/2024 2:33 PM [facility] Total Bilirubin 0.7 0.0 - 1.4 mg/dL LAB CHEMISTRY METHOD 10/02/2024 2:33 PM [facility] Blood Venous blood specimen / Unknown Venipuncture / Unknown 10/02/2024 1:11 PM EST 10/02/2024 1:58 PM EST us Jaspal Crockett DO LAB BLOOD ORDERABLES Final Result [facility] [address] [place] [address], documented in this encounter Visit Diagnoses Diagnosis Acute right-sided low back pain with right-sided sciatica- Primary documented in this encounter Care Teams Upholstery Estimator Relationship Specialty Start Date End Date Physician, No Pcp PCP - General 10/02/24 documented as of this encounter
--- OUTSIDE RECORDS SUMMARY | 2024-10-10 14:32 | XMS_ITS | Clinical Summary ---
Author Organization [facility] Address [address] [place] [address] Phone Care Team Providers Care Rope Coiling Machine Operator Name Role Phone Physician, No Pcp Primary Care Provider Unavaila ble Allergies No known active allergies Medications methocarbamoL (ROBAXIN) 750 mg tablet Take 1 tablet (750 mg total) by mouth 4 (four) times a day for 5 days. 20 each 5 Active naproxen (NAPROSYN) 500 mg tablet Take 1 tablet (500 mg total) by mouth 2 (two) times a day if needed for moderate pain for up to 5 days. 10 tablet 5 10/07/19 25 Encounters Date Type Department Care Team Description 10/02/2024 5:54 PM EST - 10/02/2024 7:29 PM EST Emergency [facility] Emergency [address] [place] [address] Acute right-sided low back pain with right-sided sciatica (Primary Dx) Discharge Disposition: Home or Self Care from Last 3 Months Surgical History Surgery Date Site/Laterality Comments TONSILLECTOMY Medical History Medical History Date Comments Acid reflux Hypercholesteremia Social History Tobacco Use Types Packs/Day Years [...] Orientation Straight 10/02/2024 6: 54 PM EST Obstetrics History Last Filed Vital Signs Vital Sign Reading [...] Mass Index 36.02 10/02/2024 12:28 PM EST Plan of Treatment Health Maintenance Due Date Last Done Comments Hepatitis A Vaccines (1 of 2 - Risk 2-dose series) 1984 Hepatitis B Vaccines (1 of 3 - 19+ 3-dose series) 1984 Colorectal Cancer Screening: Colonoscopy 07/20/2022 HIV Screening 07/20/2022 Hepatitis C Screening 07/20/2022 Social Influencers of Health Screening 07/20/2022 Zoster Vaccines (2 of 2) 10/03/2024 08/08/2024 Depression Screening 06/25/2025 06/25/2024 Hypertension/CHF/CAD Annual BMP Blood Test 10/02/2025 10/02/2024, 09/25/2024, 07/06/2024 DTaP,Tdap,and Td Vaccines (2 - Td or Tdap) 04/28/2028 04/28/2018 Cholesterol Screening (Lipid Panel) 09/25/2029 09/25/2024, 07/06/2024 RSV Immunization Patients 60+ Years Old (1 - 1-dose 75+ series) 2040 Pneumococcal Vaccine: 50+ Years Completed 02/03/2023, 04/28/2018 Pneumococcal Vaccine: Pediatrics (0 to 5 Years) and At-Risk Patients (6 to 64 Years) Completed 02/03/2023, 04/28/2018 Influenza Vaccine Completed 05/15/2024, , 07/06/2022, Additional history exists COVID-19 Vaccine Completed 06/01/2024, 10/2023, 12/02/2022, Additional history exists HIB Vaccines Aged Out No longer eligi ble based on patient's age to complete this topic HPV Vaccines Aged Out No longer eligi ble based on patient's age to complete this topic IPV Vaccines Aged Out No longer eligi ble based on patient's age to complete this topic MMR Vaccines Aged Out No longer eligi ble based on patient's age to complete this topic Meningococcal ACWY Vaccine Aged Out N o longer eligible based on patient's age to complete this topic Meningococcal B Vacine Aged Out No lo nger eligible based on patient's age to complete this topic RSV Immunization Patients Under 20 months Aged Out No longer eligible based on patient's age to complete this topic Varicella Vaccines Aged Out No longer eligible based on patient's age to complete this topic Procedures Procedure Name Priority Date/Time Associated Diagnosis Comments RUSSELL URINE CULTURE TUBE STAT 10/02/19 1:13 PM EST URINALYSIS WITH REFLEX MICROSCOPIC AND CULTURE STAT 10/02/2024 1:13 PM EST URINALYSIS WITH REFLEX MICROSCOPIC AND CULTURE STAT 10/02/2024 1:13 PM EST CBC WITH AUTO DIFFERENTIAL STAT 10/02/2024 1:11 PM EST ACTIVATED PARTIAL THROMBOPLASTIN TIME STAT 10/02/2024 1:11 PM EST PROTHROMBIN TIME WITH INR STAT 10/02/2024 1:11 PM EST TYPE AND SCREEN STAT 10/02/2024 1:11 PM EST COMPREHENSIVE METABOLIC PANEL STAT 10/02/2024 1:11 PM EST CBC AND DIFFERENTIAL STAT 10/02/2024 1:11 PM EST from Last 3 Months Results * (ABNORMAL) Urinalysis with reflex microscopic and culture (10/02/2024 1:13 PM EST) Specific [place] Urine 1.018 1.003 - 1.030 LAB URINALYSIS - AUTOMATED METHOD 10/02/2024 2:41 PM EST [facility] pH, Urine 7.0 5.0 - 8.0 pH LAB URINALYSIS - AUTOMATED METHOD 10/02/2024 2:41 PM [facility] Leukocytes, Urine Negative Negative LAB URINALYSIS - AUTOMATED METHOD 10/02/2024 2:41 PM [facility] Nitrite, Urine Negative Negative LAB URINALYSIS - AUTOMATED METHOD 10/02/2024 2:41 PM [facility] Protein, Urine Trace <=Trace mg/dL LAB URINALYSIS - AUTOMATED METHOD 10/02/2024 2:41 PM [facility] Glucose, Urine Negative Negative mg/dL LAB URINALYSIS - AUTOMATED METHOD 10/02/2024 2:41 PM [facility] Ketones, Urine Negative Negative mg/dL LAB URINALYSIS - AUTOMATED METHOD 10/02/2024 2:41 PM [facility] Urobilinogen, Urine 1.0 0.2 - 1.0 mg/dL LAB URINALYSIS - AUTOMATED METHOD 10/02/2024 2:41 PM [facility] Bilirubin, Urine Negative Negative LAB URINALYSIS - AUTOMATED METHOD 10/02/2024 2:41 PM [facility] Blood, Urine Trace(A) Negative LAB URINALYSIS - AUTOMATED METHOD 10/02/2024 2:41 PM [facility] RBC, Urine 2.3 0 - 4 /HPF LAB URINALYSIS - AUTOMATED METHOD 10/02/2024 2:41 PM [facility] WBC, Urine 0.5 0 - 4 /HPF LAB URINALYSIS - AUTOMATED METHOD 10/02/2024 2:41 PM [facility] Squamous Epithelial, Urine 5 0 - 60 /LPF LAB URINALYSIS - AUTOMATED METHOD 10/02/2024 2:41 PM [facility] Bacteria, Urine Negative Negative /HPF LAB URINALYSIS - AUTOMATED METHOD 10/02/2024 2:41 PM [facility] Hyaline Casts, Urine 0.0 0 - 3 /LPF LAB URINALYSIS - AUTOMATED METHOD 10/02/2024 2:41 PM EST [facility] Urine Urine specimen obtained by clean catch procedure / Unknown Non-blood Collection / Unknown 10/02/2024 1:13 PM EST 10/02/2024 1:59 PM EST Jaspal Crockett DO LAB URINE ORDERABLES Final Result [facility] [address] [place] [address], [place] [phone] * Russell urine culture tube (10/02/2024 1:13 PM EST) Pathologist [facility] Extra Tube Hold for add-ons. 10/02/2024 3:02 PM EST [facility] Comment:Auto resulted. Urine Urine specimen obtained by clean catch procedure / Unknown Non-blood Collection / Unknown 10/02/2024 1:13 PM EST 10/02/2024 1:58 PM EST Jaspal Crockett DO LAB URINE ORDERABLES Final Result Performing Organization Address City/[facility]/ZIP Co de Phone Number [facility] [address] [place] [address], [place] [phone] * (ABNORMAL) CBC auto differential (10/02/2024 1:11 PM EST) WBC 7.9 4.8 - 10.8 K/mcL LAB HEMETOLOGY METHOD 10/02/2024 2:07 PM EST [facility] RBC 4.30(L) 4.50 - 5.50 M/mcL LAB HEMETOLOGY METHOD 10/02/2024 2:07 PM EST [facility] Hemoglobin 13.6 13.5 - 17.5 g/dL LAB HEMETOLOGY METHOD 10/02/2024 2:07 PM EST [facility] Hematocrit 39.5(L) 42.0 - 54.0 % LAB HEMETOLOGY METHOD 10/02/2024 2:07 PM [facility] MCV 92.1 79.0 - 98.0 FL LAB HEMETOLOGY METHOD 10/02/2024 2:07 PM [facility] MCH 31.7 27.0 - 32.0 pcg LAB HEMETOLOGY METHOD 10/02/2024 2:07 PM [facility] MCHC 34.4 32.0 - 37.0 g/dL LAB HEMETOLOGY METHOD 10/02/2024 2:07 PM [facility] RDW 12.2 11.0 - 15.0 % LAB HEMETOLOGY METHOD 10/02/2024 2:07 PM [facility] Platelets 220 130 - 400 K/mcL LAB HEMETOLOGY METHOD 10/02/2024 2:07 PM [facility] MPV 10.2 7.0 - 11.0 FL LAB HEMETOLOGY METHOD 10/02/2024 2:07 PM [facility] NRBC 0.0 <1.0 % LAB HEMETOLOGY METHOD 10/02/2024 2:07 PM [facility] NRBC Absolute 0.00 <0.10 K/mcL LAB HEMETOLOGY METHOD 10/02/2024 2:07 PM [facility] Neutrophils Relative 59.4 % LAB HEMETOLOGY METHOD 10/02/2024 2:07 PM [facility] Lymphocytes Relative 31.5 % LAB HEMETOLOGY METHOD 10/02/2024 2:07 PM [facility] Monocytes Relative 6.2 % LAB HEMETOLOGY METHOD 10/02/2024 2:07 PM [facility] Eosinophils Relative 1.9 % LAB HEMETOLOGY METHOD 10/02/2024 2:07 PM [facility] Basophils Relative 0.5 % LAB HEMETOLOGY METHOD 10/02/2024 2:07 PM EST [facility] Immature Granulocytes Relative 0.5 % LAB HEMETOLOGY METHOD 10/02/2024 2:07 PM [facility] Neutrophils Absolute 4.70 1.50 - 7.00 K/mcL LAB HEMETOLOGY METHOD 10/02/2024 2:07 PM EST [facility] Lymphocytes Absolute 2.49 1.00 - 5.00 K/mcL LAB HEMETOLOGY METHOD 10/02/2024 2:07 PM EST [facility] Monocytes Absolute 0.49 0.20 - 1.00 K/mcL LAB HEMETOLOGY METHOD 10/02/2024 2:07 PM [facility] Eosinophils Absolute 0.15 0.00 - 0.50 K/mcL LAB HEMETOLOGY METHOD 10/02/2024 2:07 PM EST [facility] Basophils Absolute 0.04 0.00 - 0.20 K/mcL LAB HEMETOLOGY METHOD 10/02/2024 2:07 PM EST [facility] Immature Granulocytes Absolute 0.04(H) 0.00 - 0.03 K/mcL LAB HEMETOLOGY METHOD 10/02/2024 2:07 PM [facility] Blood Venous blood specimen / Unknown Venipuncture / Unknown 10/02/2024 1:11 PM EST 10/02/2024 1:58 PM EST us Jaspal Crockett DO LAB BLOOD ORDERABLES Final Result [facility] [address] [place] [address], * APTT (10/02/2024 1:11 PM EST) aPTT 30.7 24.1 - 39.3 sec LAB COAGULATION METHOD 10/02/2024 2:20 PM EST [facility] Blood Venous blood specimen / Unknown Venipuncture / Unknown 10/02/2024 1:11 PM EST 10/02/2024 1:58 PM EST us Jaspal Crockett DO LAB BLOOD ORDERABLES Final Result Performing Organization Address City/[facility]/ZIP Co de Phone Number [facility] [address] [place] [address], [place] [phone] * Prothrombin time with INR (10/02/2024 1:11 PM EST) Protime 11.9 10.6 - 13.9 sec LAB COAGULATION METHOD 10/02/2024 2:20 PM EST [facility] INR 0.9 LAB COAGULATION METHOD 10/02/2024 2:20 PM EST [facility] Blood Venous blood specimen / Unknown Venipuncture / Unknown 10/02/2024 1:11 PM EST 10/02/2024 1:58 PM EST us Jaspal Crockett DO LAB BLOOD ORDERABLES Final Result Performing Organization Address City/[facility]/ZIP Co de Phone Number [facility] [address] [place] [address], [place] [phone] * Type and screen (10/02/2024 1:11 PM EST) ABO Group A 10/02/2024 3:49 PM EST [facility] Rh Type Positive 10/02/2024 3:49 PM EST [facility] Antibody Screen Negative 10/02/2024 3:49 PM EST [facility] Blood Venous blood specimen / Unknown Venipuncture / Unknown 10/02/2024 1:11 PM EST 10/02/2024 1:58 PM EST us Jaspal Camposhon DO LAB BLOOD BANK TEST ORDERAB LES Final Result [facility] [address] [place] [address], * (ABNORMAL) Comprehensive metabolic panel (10/02/2024 1:11 PM EST) Sodium 139 133 - 145 mmol/L LAB CHEMISTRY METHOD 10/02/2024 2:33 PM EST [facility] Potassium 4.0 3.5 - 5.5 mmol/L LAB CHEMISTRY METHOD 10/02/2024 2:33 PM [facility] Chloride 108 96 - 110 mmol/L LAB CHEMISTRY METHOD 10/02/2024 2:33 PM [facility] CO2 25 21 - 32 mmol/L LAB CHEMISTRY METHOD 10/02/2024 2:33 PM [facility] Anion Gap 6 3 - 11 LAB CHEMISTRY METHOD 10/02/2024 2:33 PM [facility] Glucose 106(H) 70 - 100 mg/dL LAB CHEMISTRY METHOD 10/02/2024 2:33 PM [facility] BUN 9 5 - 25 mg/dL LAB CHEMISTRY METHOD 10/02/2024 2:33 PM [facility] Creatinine 0.71 0.70 - 1.30 mg/dL LAB CHEMISTRY METHOD 10/02/2024 2:33 PM [facility] eGFR 106 >=60 mL/min/1. 73m2 LAB CHEMISTRY METHOD 10/02/2024 2:33 PM [facility] Comment:Calculation based on the??Chronic Kidney Disease Epidemiology Collaboration (CKD-EPI) equation refit??without adjustment for race. BUN/Creatinine Ratio 12.7 LAB CHEMISTRY METHOD 10/02/2024 2:33 PM [facility] Calcium 9.0 8.5 - 10.5 mg/dL LAB CHEMISTRY METHOD 10/02/2024 2:33 PM [facility] AST (SGOT) 28 10 - 42 unit/L LAB CHEMISTRY METHOD 10/02/2024 2:33 PM [facility] ALT (SGPT) 21 10 - 60 unit/L LAB CHEMISTRY METHOD 10/02/2024 2:33 PM [facility] Alkaline Phosphatase 69 42 - 121 unit/L LAB CHEMISTRY METHOD 10/02/2024 2:33 PM [facility] Total Protein 6.8 6.0 - 8.0 g/dL LAB CHEMISTRY METHOD 10/02/2024 2:33 PM EST [facility] Albumin 4.0 3.2 - 5.0 g/dL LAB CHEMISTRY METHOD 10/02/2024 2:33 PM [facility] Total Bilirubin 0.7 0.0 - 1.4 mg/dL LAB CHEMISTRY METHOD 10/02/2024 2:33 PM [facility] Blood Venous blood specimen / Unknown Venipuncture / Unknown 10/02/2024 1:11 PM EST 10/02/2024 1:58 PM EST us Jaspal Crockett DO LAB BLOOD ORDERABLES Final Result [facility] [address] [place] [address], from Last 3 Months Insurance MEDICAID - [place] Care Teams Rope Coiling Machine Operator Relationship Specialty Start Date End Date Physician, No Pcp PCP - General 10/02/24
--- OUTSIDE RECORDS SUMMARY | 2024-10-10 14:32 | XMS_ITS | Encounter Summary ---
Author Organization [employer] Address [address] [facility] [address] [place] [address] Care Team Providers Care Quality Control Supervisor Name Role Phone Karoline Beltran STATE TESTED NURSING ASSISTANT Primary Care Provider [phone] Azalia Villalta PharmD Unavailable [phone] Encounter Details Date Type Department Care Team ([facility] st Contact Info) Description 05/14/2024 Telephone [facility] [address] [place], [place] [phone] Azalia Villalta, PharmD [address] [place] [address] Social History Tobacco Use Types Packs/Day Years [...] Description 10/31/2024 9:00 AM EDT Office Visit [facility] [address] [place] [address] Leopoldo Bateman MD [address] [place] [address] 12/24/2024 1:45 PM EDT Office Visit [facility] P[facility] [address] [place] [address] Karoline Beltran FNP [address] [place] [address] 01/21/2025 10:30 AM EDT Office Visit [facility] [address] [place] [address] Parish, Val, OD [address] [place] [address] documented as of this encounter Visit Diagnoses Diagnosis Essential (primary) hypertension- Primary Unspecified essential hypertension documented in this encounter Additional Health Concerns Assessment Noted Time PHQ-9 Depression Total Score: 12 01/28/ 024 8:34 PM EDT documented as of this encounter Care Teams Quality Control Supervisor Relationship Specialty Start Date End Date Karoline Beltran FNP [address] [place] [address] PCP - General Family Medicine 06/15/21 Azalia Villalta PharmD [address] [place] [address] Pharmacist Internal Medicine 05/15/24 documented as of this encounter
--- OUTSIDE RECORDS SUMMARY | 2024-10-10 14:32 | XMS_ITS | Encounter Summary ---
Author Organization [facility] Address [address] [facility] 7[address] [place] [address] Care Team Providers Care Teachers' Assistant Name Role Phone Karoline Beltran WARHEAD MAINTENANCE SPECIALIST Primary Care Provider [phone] Azalia Villalta PharmD Unavailable [phone] Encounter Details Date Type Department Care Team (Latest Contact Info) Description 10/03/2024 Travel Social History Tobacco Use Types Packs/Day [...] Description 10/31/2024 9:00 AM EDT Office Visit [facility] [address] [place] [address] Leopoldo Bateman MD [address] [place] [address] 12/24/2024 1:45 PM EDT Office Visit [facility] MED [facility] PEDS [address] [place] [address] Karoline Beltran FNP [address] [place] [address] 01/21/2025 10:30 AM EDT Office Visit [facility] OPT[facility] [address] [place] [address] Val Lugo, JENNIFER [address] [place] [address] documented as of this encounter Visit Diagnoses Not on filedocumented in this encounter Additional Health Concerns Assessment Noted Time PHQ-9 Depression Total Score: 15 024 12:05 PM EST documented as of this encounter Care Teams Teachers' Assistant Relationship Specialty Start Date End Date Karoline Beltran FNP [address] [place] [address] PCP - General Family Medicine 06/15/21 Azalia Villalta, WillieD [address] [place] [address] Pharmacist Internal Medicine 05/15/24 documented as of this encounter
--- OUTSIDE RECORDS SUMMARY | 2024-10-10 14:32 | XMS_ITS | Encounter Summary ---
Author Organization [employer] Address [address] [facility] [address]t [place] [address] Care Team Providers Care Rental Sales Associate Name Role Phone Karoline Beltran SOLE TRIMMER Primary Care Provider [phone] Azalia Villalta PharmD Unavailable [phone] Reason for Visit * Reason Onset Date Comments Med Refill 08/07/2024 Encounter Details Date Type Department Care Team (Late st Contact Info) Description 08/07/2024 Refill [facility] [address] [place] [address] Zehra Rodgers, ADARSH Opioid dependence, uncomplicated ([facility]) Social History Tobacco Use Types Packs/Day Years [...] the past 12 months, has t he psicofxp, [place], oil or water [employer] threatened to shut off services in your [...] Description 10/31/2024 9:00 AM EDT Office Visit [facility] [address] [place] [address] Leopoldo Bateman MD [address] [place] [address] 12/24/2024 1:45 PM EDT Office Visit [facility] MED [facility] PEDS [address] [place] [address] Karoline Beltran, SOLE TRIMMER [address] [place] [address] 01/21/2025 10:30 AM EDT Office Visit [facility] OPTOMETRY [address] [place] [address] Val Lugo, OD [address] [place] [address] documented as of this encounter Visit Diagnoses Diagnosis Opioid dependence, uncomplicated (CMS/HCC) documented in this encounter Additional Health Concerns Assessment Noted Time PHQ-9 Depression Total Score: 15 024 12:05 PM EST documented as of this encounter Care Teams Rental Sales Associate Relationship Specialty Start Date End Date Karoline Beltran FNP [address] [place] [address] PCP - General Family Medicine 06/15/21 Azalia Villalta, Maninder [address] [place] [address] Pharmacist Internal Medicine 05/15/24 documented as of this encounter
--- OUTSIDE RECORDS SUMMARY | 2024-10-10 14:32 | XMS_ITS | Encounter Summary ---
Author Organization [employer] Address [address] [facility] [address] [place] [address] Care Team Providers Care Apprentice Funeral Director Name Role Phone Karoline Beltran DIRECTOR INDUSTRIAL Primary Care Provider [phone] Anurag Lo Unavailable Unavailable Sarahi Rey RN Unavailable [phone] Azalia Villalta PharmD Unavailable [phone] Encounter Details Date Type Department Care Team ([facility] st Contact Info) Description 11/29/2023 Telephone [facility] PEDS [address] [place], [place] [phone] Karoline Beltran FNP [address] [place] [address] Social History Tobacco Use Types Packs/Day Years [...] is your housing situation today? I have doraparker gayle 06/07/[address] you [...] Pylori Antigen EIA Stool is viewable in Well Done, ordered 11/28/23. Please call to follow up. [...] Description 10/31/2024 9:00 AM EDT Office Visit [facility] [address] [place] [address] Leopoldo Bateman MD [address] [place] [address] 12/24/2024 1:45 PM EDT Office Visit [facility] PEDS [address] [place] [address] Karoline Beltran FNP [address] [place] [address] 01/21/2025 10:30 AM EDT Office Visit [facility] OPTOMETRY [address] [place] [address] Val Lugo, OD [address] [place] [address] documented as of this encounter Visit Diagnoses Not on filedocumented in this encounter Care Teams Apprentice Funeral Director Relationship Specialty Start Date End Date Karoline Beltran FNP [address] [place] [address] PCP - General Family Medicine 06/15/21 Anurag Lo Community Health Worker 02/09/24 05/10/24 Sarahi Rey, ADARSH [address] [place] [address] Channel Program Manager 02/09/24 05/10/24 Azalia Villalta PharmD [address] [place] [address] Pharmacist Internal Medicine 05/15/24 documented as of this encounter
--- OUTSIDE RECORDS SUMMARY | 2024-10-10 14:32 | XMS_ITS | Encounter Summary ---
Author Organization [employer] Address [address] [facility] [address] [place] [address] Care Team Providers Care Business Analytics Manager Name Role Phone Karoline Beltran PIT SLAGMAN Primary Care Provider [phone] Azalia Villalta PharmD Unavailable [phone] Encounter Details Date Type Department Care Team [...] Description 10/31/2024 9:00 AM EDT Office Visit [facility] [address] [place] [address] Leopoldo Bateman MD [address] [place] [address] 12/24/2024 1:45 PM EDT Office Visit [facility] MED & PEDS [address] [place] [address] Karoline Beltran FNP [address] [place] [address] 01/21/2025 10:30 AM EDT Office Visit [facility] OPT[facility] [address] [place] [address] Val Lugo, JENNIFER [address] [place] [address] documented as of this encounter Visit Diagnoses Not on filedocumented in this encounter Additional Health Concerns Assessment Noted Time PHQ-9 Depression Total Score: 15 024 12:05 PM EST documented as of this encounter Care Teams Business Analytics Manager Relationship Specialty Start Date End Date Karoline Beltran FNP [address] [place] [address] PCP - General Family Medicine 06/15/21 Azalia Villalta, WillieD [address] [place] [address] Pharmacist Internal Medicine 05/15/24 documented as of this encounter
--- OUTSIDE RECORDS SUMMARY | 2024-10-10 14:32 | XMS_ITS | Encounter Summary ---
Author Organization [employer] Address [address] [facility] 7t [place] [address] Care Team Providers Care Brim Pouncer Name Role Phone Karoline Beltran BOXING PROMOTER Primary Care Provider [phone] Azalia Villalta PharmD Unavailable [phone] Reason for Referral * Consultation (Routine) - Authorized Specialty Diagnoses / Procedures Referred By Contac t Referred To Contact Pharmacy Diagnoses Essential (primary) hypertension Hawa Martins MD [address] [place] [address] Phone: tel: fax: Referral ID Status Reason Start Date Expiration Date Visits Requested Visits Authorized [id number] Authorized Consult and Treat 07/16/2024 07/16/2025 6 6 Encounter Details Date Type Department Care Team ([facility] st Contact Info) Description 07/16/2024 Orders Only [facility] [address] [place] [address] Hawa Martins MD [address] [place], [place] [phone] Essential (primary) hypertension (Primary Dx) Social History [...] Description 10/31/2024 9:00 AM EDT Office Visit [facility] MEDICINE [address] [place] [address] Leopoldo Bateman MD [address] [place] [address] 12/24/2024 1:45 PM EDT Office Visit [facility] [address] [place] [address] Karoline Beltran FNP [address] [place] [address] 01/21/2025 10:30 AM EDT Office Visit [facility] OPTOMETRY [address] [place] [address] ParishValentín kaurn, OD [address] [place] [address] Scheduled Referrals Name Type Priority Associated Diagnoses Orde r Schedule Referral to Pharmacy CDTM Outpatient Referral Routine Essential (primary) hypertension Ordered: 07/16/2024 documented as of this encounter Visit Diagnoses Diagnosis Essential (primary) hypertension- Primary Unspecified essential hypertension documented in this encounter Additional Health Concerns Assessment Noted Time PHQ-9 Depression Total Score: 15 024 12:05 PM EST documented as of this encounter Care Teams Brim Pouncer Relationship Specialty Start Date End Date Karoline Beltran FNP [address] [place] [address] PCP - General Family Medicine 06/15/21 Azalia Villalta, WillieD [address] [place] [address] Pharmacist Internal Medicine 05/15/24 documented as of this encounter
--- OUTSIDE RECORDS SUMMARY | 2024-10-10 14:33 | XMS_ITS | Encounter Summary ---
Author Organization [employer] Address 75 [facility] 7t [place] [address] Care Team Providers Care Personal Support Worker Name Role Phone Karoline Beltran HOSPITAL NURSE Primary Care Provider [phone] Azalia Villalta PharmD Unavailable [phone] Reason for Visit * Reason Comments Recovery Supports Encounter Details Date Type Department Care Team ([facility] Contact Info) Description 09/19/2024 Patient Outreach [facility] MEDICINE [address] [place], [place] [phone] Davy Bhatia Recovery Supports Social History Tobacco Use Types [...] with Dedrick today. Setting: in person at [facility] Recovery Wellness Goals worked on: Social Stability Action taken/next steps: Attended recovery support group and Offered person centered recovery support Additional comments: HEMRINIO Bhatia documented in this encounter Plan of Treatment Upcoming Encounters Date Type Department Care Team ([facility] st Contact Info) Description 10/31/2024 9:00 AM EDT Office Visit [facility] MEDICINE [address] [place] [address] Leopoldo Bateman MD [address] [place] [address] 12/24/2024 1:45 PM EDT Office Visit [facility] MED & PEDS [address] [place] [address] Karoline Beltran FNP [address] [place] [address] 01/21/2025 10:30 AM EDT Office Visit [facility] OPTOMETRY [address] [place] [address] Val Lugo, OD [address] [place] [address] documented as of this encounter Visit Diagnoses Not on filedocumented in this encounter Additional Health Concerns Assessment Noted Time PHQ-9 Depression Total Score: 15 024 12:05 PM EST documented as of this encounter Care Teams Personal Support Worker Relationship Specialty Start Date End Date Karoline Beltran FNP [address] [place] [address] PCP - General Family Medicine 06/15/21 Azalia Villalta PharmD [address] [place] [address] Pharmacist Internal Medicine 05/15/24 documented as of this encounter
--- OUTSIDE RECORDS SUMMARY | 2024-10-10 14:33 | XMS_ITS | Encounter Summary ---
Author Organization [employer] Address 75 [facility] 7t [place] [address] Care Team Providers Care Seamless Tube Drawer Name Role Phone Karoline Beltran CONTRACT ANALYST Primary Care Provider [phone] Anurag Lo Unavailable Unavailable Sarahi Rey RN Unavailable [phone] Azalia Villalta PharmD Unavailable [phone] Reason for Visit * Reason Comments Med Refill Encounter Details Date Type Department Care Team (Late st Contact Info) Description 02/05/2024 Refill [facility] MEDICINE [address] [place] [address] Karoline Beltran FNP [address] [place] [address] Arthropathy Social History Tobacco Use Types Packs/Day [...] Description 10/31/2024 9:00 AM EDT Office Visit [facility] MEDICINE [address] [place] [address] Leopoldo Bateman MD [address] [place] [address] 12/24/2024 1:45 PM EDT Office Visit [facility] MED & PEDS [address] [place] [address] Karoline Beltran FNP [address] [place] [address] 01/21/2025 10:30 AM EDT Office Visit [facility] OPTOMETRY [address] [place] [address] Val Lugo OD [address] [place] [address] documented as of this encounter Visit Diagnoses Diagnosis Arthropathy Unspecified arthropathy, site unspecified documented in this encounter Additional Health Concerns Assessment Noted Time PHQ-9 Depression Total Score: 12 024 8:34 PM EDT documented as of this encounter Care Teams Seamless Tube Drawer Relationship Specialty Start Date End Date Karoline Bletran FNP [address] [place] [address] PCP - General Family Medicine 06/15/21 Anurag Lo Community Health Worker 02/09/24 05/10/24 Sarahi Rey, ADARSH [address] [place] [address] Sales Record Clerk 02/09/24 05/10/24 Azalia Villalta, WillieD [address] [place] [address] Pharmacist Internal Medicine 05/15/24 documented as of this encounter
--- OUTSIDE RECORDS SUMMARY | 2024-10-10 14:33 | XMS_ITS | Encounter Summary ---
Author Organization [employer] Address 75 [facility] 7t [place] [address] Care Team Providers Care Private Banker Name Role Phone Karoline Beltran CUSTOMER SOLUTIONS ARCHITECT Primary Care Provider [phone] Azalia Villalta PharmD Unavailable [phone] Reason for Visit * Reason Comments GBAT Encounter Details Date Type Department Care Team (Latest Contact Info) Description 09/19/2024 9:00 AM EST Office Visit [facility] MEDICINE [address] [place], [place] [phone] Leopoldo Bateman MD [address] [place] [address] Opioid dependence, uncomplicated (CMS/HCC) (Primary Dx) Social [...] Following staff present at the visit: Physician, Metal Bending Machine Operator, Clinician, Team RN, and MedicalAssistant Opportunities provided to address individual medical/medication/BH concerns States doing well without cravings or relapse TODAY GBAT VISIT 09/19/2024 Patient presents for Group-Based Opioid Treatment for OUD Reviewed the group goals, expectations and policies Consented to the group treatment options Actively participated in the group discussion with the topic of: Extended Check-In Following staff present at the visit: Physician, Metal Bending Machine Operator, Clinician, Team RN, and MedicalAssistant Opportunities provided [...] faced situations that may trigger use Mass METAL FLOORING INSTALLER reviewed Following staff present at the visit: Physician, Clinician, Team RN, Metal Bending Machine Operator and Public Opinion Survey Taker Follow up in 1 week for the [...] AM EDT Office Visit [facility] MEDICINE [address] [place] [address] Leopoldo Bateman MD [address] [place] [address] 12/24/2024 1:45 PM EDT Office Visit [facility] MED & PEDS [address] [place] [address] Karoline Beltran FNP [address] [place] [address] 01/21/2025 10:30 AM EDT Office Visit [facility] OPTOMETRY [address] [place] [address] ParishVal kaur, OD [address] [place] [address] documented as of this encounter Visit Diagnoses Diagnosis Opioid dependence, uncomplicated (CMS/HCC)- Primary documented in this encounter Additional Health Concerns Assessment Noted Time PHQ-9 Depression Total Score: 15 024 12:05 PM EST documented as of this encounter Care Teams Private Banker Relationship Specialty Start Date End Date Karoline Beltran FNP [address] [place] [address] PCP - General Family Medicine 06/15/21 Azalia Villalta PharmD [address] [place] [address] Pharmacist Internal Medicine 05/15/24 documented as of this encounter
== END 2024-10-10 14:29 | disposition home or self-care (01) ==
LOC: HO.US 14:28
PROVIDERS: PCP Registered Nurse; Visit Provider Nurse Practitioner Family
DX: R10.9 Unspecified abdominal pain (principal)
CPT/HCPCS: 76775

== ENCOUNTER → 2024-10-10 14:30 | Outpatient (BNV) | payer MEDICAID, SELFPAY | PROVIDERS: PCP Registered Nurse; Visit Provider Radiology Diagnostic Radiology | DX: R10.9 Unspecified abdominal pain (principal); R31.9 Hematuria, unspecified | CPT/HCPCS: 76775 ==

== ENCOUNTER 2024-10-15 12:52 | Outpatient (REF) | payer MEDICAID, SELFPAY ==
--- NOTE | ~2024-10-15 | US_ITS ---
CLINICAL HISTORY: MASS OF RIGHT HAND, 12MM CYSTIC APPEARING LESION Soft tissue ultrasound of the right hand 3rd metacarpophalangeal joint area. Comparison: None FINDINGS: Images were obtained in the area of clinical concern. In this region, the soft tissue shows normal appearing heterogeneous echotexture. There is no discrete mass or acoustic shadowing. There is no fluid collection identified. IMPRESSION: Negative soft tissue ultrasound. If clinically warranted, further evaluation with MRI may be of benefit. This document has been electronically signed by: Kris Escalona MD on 10/16/2024 15:40:27
--- OUTSIDE RECORDS SUMMARY | 2024-10-15 14:34 | XMS_ITS | Encounter Summary ---
Author Organization [employer] Address [address] [facility] 7t [place] [address] Care Team Providers Care Machine Container Washer Name Role Phone Karoline Beltran PBX TECHNICIAN Primary Care Provider [phone] Azalia Villalta PharmD Unavailable [phone] Reason for Visit * Reason Onset Date Comments Results 09/26/2024 Encounter Details Date Type Department Care Team ([facility] st Contact Info) Description 09/26/2024 Telephone [facility] MEDICINE [address] [place], [place] [phone] Katherine Guerrero [place] Results Social History Tobacco [...] Description 10/31/2024 9:00 AM EDT Office Visit [facility] MEDICINE [address] [place] [address] Leopoldo Bateman MD [address] [place] [address] 12/24/2024 1:45 PM EDT Office Visit [facility] MED & PEDS [address] [place] [address] Karoline Beltran FNP [address] [place] [address] 01/21/2025 10:30 AM EDT Office Visit [facility] OPTOMETRY [address] [place] [address] Val Lugo, OD [address] [place] [address] documented as of this encounter Visit Diagnoses Not on filedocumented in this encounter Additional Health Concerns Assessment Noted Time PHQ-9 Depression Total Score: 15 024 12:05 PM EST documented as of this encounter Care Teams Machine Container Washer Relationship Specialty Start Date End Date Karolien Beltran FNP [address] [place] [address] PCP - General Family Medicine 06/15/21 Azalia Villalta, WillieD [address] [place] [address] Pharmacist Internal Medicine 05/15/24 documented as of this encounter
--- OUTSIDE RECORDS SUMMARY | 2024-10-15 14:34 | XMS_ITS | Encounter Summary ---
Author Organization [employer] Address [address] [facility] 7t [place] [address] Care Team Providers Care House Carpenter Helper Name Role Phone Karoline Beltran Primary Care Provider [phone] Anurag Lo Unavailable Unavailable Sarahi Rey RN Unavailable [phone] Azalia Villalta PharmD Unavailable [phone] Reason for Visit * Reason Onset Date Comments Ultrasound Order 11/29/2023 Encounter Details Date Type Department Care Team ([facility] st Contact Info) Description 11/29/2023 Telephone [facility] MEDICINE [address] [place] [address] Karoline Beltran FNP [address] [place] [address] Ultrasound Order Social History Tobacco Use Types [...] If any questions please contact Dilan at [phone]. documented in this encounter Plan of Treatment Upcoming Encounters Date Type Department Care Team ([facility] st Contact Info) Description 10/31/2024 9:00 AM EDT Office Visit [facility] MEDICINE [address] [place] [address] Leopoldo Bateman MD [address] [place] [address] 12/24/2024 1:45 PM EDT Office Visit [facility] CHC MED & PEDS [address] [place] [address] Karoline Beltran FNP [address] [place] [address] 01/21/2025 10:30 AM EDT Office Visit [facility] OPTOMETRY [address] [place] [address] Val Lugo, JENNIFER [address] [place] [address] documented as of this encounter Visit Diagnoses Not on filedocumented in this encounter Care Teams House Carpenter Helper Relationship Specialty Start Date End Date Karoline Beltran FNP [address] [place] [address] PCP - General Family Medicine 06/15/21 Anurag Lo Community Health Worker 02/09/24 05/10/24 Sarahi Rey, ADARSH [address] [place] [address] Tool Lapper Hand 02/09/24 05/10/24 Azalia Villalta, Maninder [address] [place] [address] Pharmacist Internal Medicine 05/15/24 documented as of this encounter
--- OUTSIDE RECORDS SUMMARY | 2024-10-15 14:34 | XMS_ITS | Encounter Summary ---
Author Organization [facility] Address [address] [place] [address] Care Team Providers Care Supervisor Real Estate Office Name Role Phone Physician, No Pcp Primary Care Provider Unavaila ble Reason for Visit * Reason Comments Flank Pain Encounter Details Date Type Department Care Team (Late st Contact Info) Description 10/02/2024 5:54 PM EST - 10/02/2024 7:29 PM EST Emergency [facility] Emergency [address] [place] [address] Acute right-sided low back pain [...] sent through Care Everywhere. * Back Pain (Turkmen) documented in this encounter Medications at Time [...] REFLEX MICROSCOPIC AND CULTURE - Abnormal Specific Orestes Urine 1.018 pH, Urine 7.0 Leukocytes, Urine [...] Procedure Abnormality Status --------- ------ CBC auto differential[[id number]] Abnormal Final result Please view results for these tests on the individual orders. URINALYSIS WITH REFLEX MICROSCOPIC AND CULTURE Narrative: The following orders were created for panel order Urinalysis with reflex microscopic and culture. Procedure Abnormality Status --------- ------ Urinalysis with reflex ...[[id number]] Abnormal Final result Russell urine culture tube[[id number]] Final result Please view results for these [...] understanding of plan, all questions answered, [employer]men video paper conservator used for all encounters with this patient. [...] EST I agree with the Nurse practitioner's/Physician sociology research assistant's note and plan by JACQUIE Barajas [...] Hold for add-ons. 10/02/2024 3:02 PM EST [facility] Comment:Auto resulted. Urine Urine specimen obtained by clean catch procedure / Unknown Non-blood Collection / Unknown 10/02/2024 1:13 PM EST 10/02/2024 1:58 PM EST Jaspal Crockett DO LAB URINE ORDERABLES Final Result Performing Organization Address City/State/[facility] Co de Phone Number [facility] [address] [place] [address], [place] [phone] * (ABNORMAL) Urinalysis with reflex microscopic and culture (10/02/2024 1:13 PM EST) Specific Orestes Urine 1.018 1.003 - 1.030 LAB URINALYSIS - AUTOMATED METHOD 10/02/2024 2:41 PM [facility] pH, Urine 7.0 5.0 - 8.0 pH LAB URINALYSIS - AUTOMATED METHOD 10/02/2024 2:41 PM [facility] Leukocytes, Urine Negative Negative LAB URINALYSIS - AUTOMATED METHOD 10/02/2024 2:41 PM [facility] Nitrite, Urine Negative Negative LAB URINALYSIS - AUTOMATED METHOD 10/02/2024 2:41 PM [facility] Protein, Urine Trace <=Trace mg/dL LAB URINALYSIS - AUTOMATED METHOD 10/02/2024 2:41 PM [facility] Glucose, Urine Negative Negative mg/dL LAB URINALYSIS - AUTOMATED METHOD 10/02/2024 2:41 PM [facility] Ketones, Urine Negative Negative mg/dL LAB URINALYSIS - AUTOMATED METHOD 10/02/2024 2:41 PM [facility] Urobilinogen, Urine 1.0 0.2 - 1.0 mg/dL LAB URINALYSIS - AUTOMATED METHOD 10/02/2024 2:41 PM [facility] Bilirubin, Urine Negative Negative LAB URINALYSIS - AUTOMATED METHOD 10/02/2024 2:41 PM [facility] Blood, Urine Trace(A) Negative LAB URINALYSIS - AUTOMATED METHOD 10/02/2024 2:41 PM [facility] RBC, Urine 2.3 0 - 4 /HPF LAB URINALYSIS - AUTOMATED METHOD 10/02/2024 2:41 PM [facility] WBC, Urine 0.5 0 - 4 /HPF LAB URINALYSIS - AUTOMATED METHOD 10/02/2024 2:41 PM [facility] Squamous Epithelial, Urine 5 0 - 60 /LPF LAB URINALYSIS - AUTOMATED METHOD 10/02/2024 2:41 PM [facility] Bacteria, Urine Negative Negative /HPF LAB URINALYSIS - AUTOMATED METHOD 10/02/2024 2:41 PM [facility] Hyaline Casts, Urine 0.0 0 - 3 /LPF LAB URINALYSIS - AUTOMATED METHOD 10/02/2024 2:41 PM [facility] Urine Urine specimen obtained by clean catch procedure / Unknown Non-blood Collection / Unknown 10/02/2024 1:13 PM EST 10/02/2024 1:59 PM EST Jaspal Crockett DO LAB URINE ORDERABLES Final Result [facility] [address] [place] [address], [place] [phone] * (ABNORMAL) CBC auto differential (10/02/2024 1:11 PM EST) WBC 7.9 4.8 - 10.8 K/mcL LAB HEMETOLOGY METHOD 10/02/2024 2:07 PM [facility] RBC 4.30(L) 4.50 - 5.50 M/mcL LAB HEMETOLOGY METHOD 10/02/2024 2:07 PM [facility] Hemoglobin 13.6 13.5 - 17.5 g/dL LAB HEMETOLOGY METHOD 10/02/2024 2:07 PM [facility] Hematocrit 39.5(L) 42.0 - 54.0 % LAB HEMETOLOGY METHOD 10/02/2024 2:07 PM [facility] MCV 92.1 79.0 - 98.0 FL LAB HEMETOLOGY METHOD 10/02/2024 2:07 PM [facility] MCH 31.7 27.0 - 32.0 pcg LAB HEMETOLOGY METHOD 10/02/2024 2:07 PM [facility] MCHC 34.4 32.0 - 37.0 g/dL LAB HEMETOLOGY METHOD 10/02/2024 2:07 PM [facility] RDW 12.2 11.0 - 15.0 % LAB HEMETOLOGY METHOD 10/02/2024 2:07 PM [facility] Platelets 220 130 - 400 K/mcL LAB HEMETOLOGY METHOD 10/02/2024 2:07 PM [facility] MPV 10.2 7.0 - 11.0 FL LAB HEMETOLOGY METHOD 10/02/2024 2:07 PM [facility] NRBC 0.0 <1.0 % LAB HEMETOLOGY METHOD 10/02/2024 2:07 PM [facility] NRBC Absolute 0.00 <0.10 K/mcL LAB HEMETOLOGY METHOD 10/02/2024 2:07 PM [facility] Neutrophils Relative 59.4 % LAB HEMETOLOGY METHOD 10/02/2024 2:07 PM [facility] Lymphocytes Relative 31.5 % LAB HEMETOLOGY METHOD 10/02/2024 2:07 PM [facility] Monocytes Relative 6.2 % LAB HEMETOLOGY METHOD 10/02/2024 2:07 PM [facility] Eosinophils Relative 1.9 % LAB HEMETOLOGY METHOD 10/02/2024 2:07 PM [facility] Basophils Relative 0.5 % LAB HEMETOLOGY METHOD 10/02/2024 2:07 PM [facility] Immature Granulocytes Relative 0.5 % LAB HEMETOLOGY METHOD 10/02/2024 2:07 PM EST [facility] Neutrophils Absolute 4.70 1.50 - 7.00 K/mcL LAB HEMETOLOGY METHOD 10/02/2024 2:07 PM EST [facility] Lymphocytes Absolute 2.49 1.00 - 5.00 K/mcL LAB HEMETOLOGY METHOD 10/02/2024 2:07 PM EST [facility] Monocytes Absolute 0.49 0.20 - 1.00 K/mcL LAB HEMETOLOGY METHOD 10/02/2024 2:07 PM EST [facility] Eosinophils Absolute 0.15 0.00 - 0.50 K/mcL LAB HEMETOLOGY METHOD 10/02/2024 2:07 PM EST [facility] Basophils Absolute 0.04 0.00 - 0.20 K/mcL LAB HEMETOLOGY METHOD 10/02/2024 2:07 PM EST [facility] Immature Granulocytes Absolute 0.04(H) 0.00 - 0.03 K/mcL LAB HEMETOLOGY METHOD 10/02/2024 2:07 PM EST [facility] Blood Venous blood specimen / Unknown Venipuncture / Unknown 10/02/2024 1:11 PM EST 10/02/2024 1:58 PM EST Jaspal Crockett DO LAB BLOOD ORDERABLES Final Result [facility] [address] [place] [address], * APTT (10/02/2024 1:11 PM EST) aPTT 30.7 24.1 - 39.3 sec LAB COAGULATION METHOD 10/02/2024 2:20 PM EST [facility] Blood Venous blood specimen / Unknown Venipuncture / Unknown 10/02/2024 1:11 PM EST 10/02/2024 1:58 PM EST us Jaspal Crockett DO LAB BLOOD ORDERABLES Final Result Performing Organization Address City/[facility]/ZIP Co de Phone Number [facility] [address] [place] [address], [place] [phone] * Prothrombin time with INR (10/02/2024 1:11 PM EST) Pathologist [facility] Protime 11.9 10.6 - 13.9 sec LAB COAGULATION METHOD 10/02/2024 2:20 PM EST [facility] INR 0.9 LAB COAGULATION METHOD 10/02/2024 2:20 PM EST [facility] Blood Venous blood specimen / Unknown Venipuncture / Unknown 10/02/2024 1:11 PM EST 10/02/2024 1:58 PM EST us Jaspal Crockett DO LAB BLOOD ORDERABLES Final Result Performing Organization Address [facility]/ZIP Co de Phone Number [facility] [address] [place] [address], [place] [phone] * Type and screen (10/02/2024 1:11 PM EST) [facility] ABO Group A 10/02/2024 3:49 PM EST [facility] Rh Type Positive 10/02/2024 3:49 PM EST [facility] Antibody Screen Negative 10/02/2024 3:49 PM EST [facility] Blood Venous blood specimen / Unknown Venipuncture / Unknown 10/02/2024 1:11 PM EST 10/02/2024 1:58 PM EST us Jaspal Crockett DO LAB BLOOD BANK TEST ORDERAB LES Final Result Performing Organization Address City/[facility]/ZIP Co de Phone Number [facility] [address] [place] [address], [place] [phone] * (ABNORMAL) Comprehensive metabolic panel (10/02/2024 1:11 PM EST) Sodium 139 133 - 145 mmol/L LAB CHEMISTRY METHOD 10/02/2024 2:33 PM [facility] Potassium 4.0 3.5 - 5.5 mmol/L LAB CHEMISTRY METHOD 10/02/2024 2:33 PM [facility] Chloride 108 96 - 110 mmol/L LAB CHEMISTRY METHOD 10/02/2024 2:33 PM [facility] CO2 25 21 - 32 mmol/L LAB CHEMISTRY METHOD 10/02/2024 2:33 PM [facility] Anion Gap 6 3 - 11 LAB CHEMISTRY METHOD 10/02/2024 2:33 PM [facility] Glucose 106(H) 70 - 100 mg/dL LAB CHEMISTRY METHOD 10/02/2024 2:33 PM [facility] BUN 9 5 - 25 mg/dL LAB CHEMISTRY METHOD 10/02/2024 2:33 PM [facility] Creatinine 0.71 0.70 - 1.30 mg/dL LAB CHEMISTRY METHOD 10/02/2024 2:33 PM [facility] eGFR 106 >=60 mL/min/1. 73m2 LAB CHEMISTRY METHOD 10/02/2024 2:33 PM [facility] Comment:Calculation based on the??Chronic Kidney Disease Epidemiology Collaboration (CKD-EPI) equation refit??without adjustment for race. BUN/Creatinine Ratio 12.7 LAB CHEMISTRY METHOD 10/02/2024 2:33 PM [facility] Calcium 9.0 8.5 - 10.5 mg/dL LAB CHEMISTRY METHOD 10/02/2024 2:33 PM [facility] AST (SGOT) 28 10 - 42 unit/L LAB CHEMISTRY METHOD 10/02/2024 2:33 PM [facility] ALT (SGPT) 21 10 - 60 unit/L LAB CHEMISTRY METHOD 10/02/2024 2:33 PM EST [facility] Alkaline Phosphatase 69 42 - 121 unit/L LAB CHEMISTRY METHOD 10/02/2024 2:33 PM [facility] Total Protein 6.8 6.0 - 8.0 g/dL LAB CHEMISTRY METHOD 10/02/2024 2:33 PM [facility] Albumin 4.0 3.2 - 5.0 g/dL LAB CHEMISTRY METHOD 10/02/2024 2:33 PM [facility] Total Bilirubin 0.7 0.0 - 1.4 mg/dL LAB CHEMISTRY METHOD 10/02/2024 2:33 PM [facility] Blood Venous blood specimen / Unknown Venipuncture / Unknown 10/02/2024 1:11 PM EST 10/02/2024 1:58 PM EST us Jaspal Crockett DO LAB BLOOD ORDERABLES Final Result [facility] [address] [place] [address], documented in this encounter Visit Diagnoses Diagnosis Acute right-sided low back pain with right-sided sciatica- Primary documented in this encounter Care Teams Supervisor Real Estate Office Relationship Specialty Start Date End Date Physician, No Pcp PCP - General 10/02/24 documented as of this encounter
--- OUTSIDE RECORDS SUMMARY | 2024-10-15 14:34 | XMS_ITS | Encounter Summary ---
Author Organization [employer] Address 75 [facility] 7t [place] [address] Care Team Providers Care Electronic Industrial Controls Mechanic Name Role Phone Karoline Beltrna GYPSUM BLOCK SETTER Primary Care Provider [phone] Anurag Lo Unavailable Unavailable Sarahi Rey RN Unavailable [phone] Azalia Villalta PharmD Unavailable [phone] Encounter Details Date Type Department Care Team (Late st Contact Info) Description 06/01/2023 Abstract [facility] [address] [place] [address] Karoline Beltran FNP 505 [place] [address] Social History Tobacco Use Types Packs/Day Years [...] Description 10/31/2024 9:00 AM EDT Office Visit [facility] [address] [place] [address] Leopoldo Bateman MD 230 [place] [address] 12/24/2024 1:45 PM EDT Office Visit [facility] 505 [place] [address] Karoline Beltran FNP 505 [place] [address] 01/21/2025 10:30 AM EDT Office Visit [facility] [address] [place] [address] Val Lugo, OD [address] [place] [address] documented as of this encounter Visit Diagnoses Not on filedocumented in this encounter Care Teams Electronic Industrial Controls Mechanic Relationship Specialty Start Date End Date Karoline Beltran FNP 230 [place] [address] PCP - General Family Medicine 06/15/21 Anurag Lo Community Health Worker 02/09/24 05/10/24 Sarahi Rey, ADARSH [address] [place] [address] Wet Roaster 02/09/24 05/10/24 Azalia Villalta, Maninder [address] [place] [address] Pharmacist Internal Medicine 05/15/24 documented as of this encounter
--- OUTSIDE RECORDS SUMMARY | 2024-10-15 14:34 | XMS_ITS | Encounter Summary ---
Author Organization [employer] Address 75 [facility] 7t [place] [address] Care Team Providers Care Specialty Transformer Assembler Name Role Phone Karoline Beltran STAFF PSYCHIATRIST Primary Care Provider [phone] Azalia Villalta PharmD Unavailable [phone] Reason for Referral * Consultation (Routine) - Authorized Specialty Diagnoses / Procedures Referred By Contac t Referred To Contact Pharmacy Diagnoses Essential (primary) hypertension Hawa Martins MD 230 [place] [address] Phone: tel: fax: Referral ID Status Reason Start Date Expiration Date Visits Requested Visits Authorized [id number] Authorized Consult and Treat 07/16/2024 07/16/2025 6 6 Encounter Details Date Type Department Care Team ([facility] st Contact Info) Description 07/16/2024 Orders Only [facility] [address] [place] [address] Hawa Martins MD 230 [place], [place] [phone] Essential (primary) hypertension (Primary Dx) Social History [...] Description 10/31/2024 9:00 AM EDT Office Visit [facility] [address] [place] [address] Leopoldo Bateman MD 230 [place] [address] 12/24/2024 1:45 PM EDT Office Visit [facility] [address] [place] [address] Karoline Beltran FNP 505 [place] [address] 01/21/2025 10:30 AM EDT Office Visit [facility] [address] [place] [address] ParishValentín kaurn, OD 230 [place] [address] Scheduled Referrals Name Type Priority Associated Diagnoses Orde r Schedule Referral to Pharmacy CDTM Outpatient Referral Routine Essential (primary) hypertension Ordered: 07/16/2024 documented as of this encounter Visit Diagnoses Diagnosis Essential (primary) hypertension- Primary Unspecified essential hypertension documented in this encounter Additional Health Concerns Assessment Noted Time PHQ-9 Depression Total Score: 15 024 12:05 PM EST documented as of this encounter Care Teams Specialty Transformer Assembler Relationship Specialty Start Date End Date Karoline Beltran FNP 230 [place] [address] PCP - General Family Medicine 06/15/21 Azalia Villalta, WillieD 230 [place] [address] Pharmacist Internal Medicine 05/15/24 documented as of this encounter
--- OUTSIDE RECORDS SUMMARY | 2024-10-15 14:34 | XMS_ITS | Encounter Summary ---
Author Organization [employer] Address 75 [facility] 7t [place] [address] Care Team Providers Care Rn Mds Coordinator Name Role Phone Karoline Beltran REHABILITATION ASSISTANT Primary Care Provider [phone] Azalia Villalta PharmD Unavailable [phone] Reason for Visit * Reason Comments GBAT Encounter Details Date Type Department Care Team (Latest Contact Info) Description 10/03/2024 9:00 AM EST Office Visit [facility] 230 [place], [place] [phone] Leopoldo Bateman MD 230 [place] [address] Opioid dependence, uncomplicated (CMS/HCC) (Primary Dx) Social [...] Following staff present at the visit: Physician, Fine Grader, Clinician, Team RN, and MedicalAssistant Opportunities provided [...] Following staff present at the visit: Physician, Fine Grader, Clinician, Team RN, and MedicalAssistant Opportunities provided [...] orders for this visit: Opioid dependence, uncomplicated ([facility]) (Primary) - POCT AVANI-14 Urine Drug Screen [...] faced situations that may trigger use [place] PLASTIC INJECTION MOLD MAKER reviewed Following staff present at the visit: Physician, Clinician, Team RN, Fine Grader and Balloon Dipper Follow up in 1 week for the [...] [facility] [address] [place] [address] Leopoldo Bateman MD [address] [place] [address] 12/24/2024 1:45 PM EDT Office Visit [facility] PEDS 505 [place], [place] [phone] Karoline Beltran, REHABILITATION ASSISTANT 505 [place], [place] [phone] 01/21/2025 10:30 AM EDT Office Visit [facility] OPTOMETRY [address] [place] [address] Parish, Val, OD [address] [place] [address] documented as of this encounter Procedures Procedure Name Priority Date/Time Associated Diagnosis Comments POCT AVANI-14 URINE DRUG SCREEN Routine 10/03/2024 8:54 AM EST Opioid dependence, uncomplicated ([facility]) documented in this encounter Results * POCT [...] documented as of this encounter Care Teams Rn Mds Coordinator Relationship Specialty Start Date End Date Karoline Beltran FNP 230 [place] [address] PCP - General Family Medicine 06/15/21 Azalia Villalta PharmD 230 [place] [address] Pharmacist Internal Medicine 05/15/24 documented as of this encounter
--- OUTSIDE RECORDS SUMMARY | 2024-10-15 14:34 | XMS_ITS | Encounter Summary ---
Author Organization [employer] Address 75 [facility] 7t [place] [address] Care Team Providers Care Seismic Interpreter Name Role Phone Karoline Beltran ELECTRICAL CONTINUITY INSPECTOR Primary Care Provider [phone] Azalia Villalta PharmD Unavailable [phone] Encounter Details Date Type Department Care Team [...] Description 10/31/2024 9:00 AM EDT Office Visit [facility] [address] [place] [address] Leopoldo Bateman MD 230 [place] [address] 12/24/2024 1:45 PM EDT Office Visit [facility] MED [facility] PEDS 505 [place] [address] Karoline Beltran FNP 505 [place] [address] 01/21/2025 10:30 AM EDT Office Visit [facility] OPTOMETRY [address] [place] [address] Val Lugo, JENNIFER 230 [place] [address] documented as of this encounter Visit Diagnoses Not on filedocumented in this encounter Additional Health Concerns Assessment Noted Time PHQ-9 Depression Total Score: 15 024 12:05 PM EST documented as of this encounter Care Teams Seismic Interpreter Relationship Specialty Start Date End Date Karoline Beltran FNP [address] [place] [address] PCP - General Family Medicine 06/15/21 Azalia Villalta, WillieD 230 [place] [address] Pharmacist Internal Medicine 05/15/24 documented as of this encounter
--- OUTSIDE RECORDS SUMMARY | 2024-10-15 14:34 | XMS_ITS | Encounter Summary ---
Author Organization [employer] Address 75 [facility] 7t [place] [address] Care Team Providers Care Refining Machine Operator Name Role Phone Karoline Beltran GEOSPATIAL INFORMATION TECHNOLOGIST Primary Care Provider [phone] Azalia Villalta PharmD Unavailable [phone] Encounter Details Date Type Department Care Team ([facility] st Contact Info) Description 05/14/2024 Telephone [facility] MED[facility]INE [address] [place], [place] [phone] Azalia Villalta, PharmD 230 [place] [address] Social History Tobacco Use Types Packs/Day Years [...] Description 10/31/2024 9:00 AM EDT Office Visit [facility] [address] [place] [address] Leopoldo Bateman MD [address] [place] [address] 12/24/2024 1:45 PM EDT Office Visit [facility] MED & PEDS [address] [place] [address] Karoline Beltran FNP [address] [place] [address] 01/21/2025 10:30 AM EDT Office Visit [facility] OPTOMETRY [address] [place] [address] Parish, Val, OD 230 [place] [address] documented as of this encounter Visit Diagnoses Diagnosis Essential (primary) hypertension- Primary Unspecified essential hypertension documented in this encounter Additional Health Concerns Assessment Noted Time PHQ-9 Depression Total Score: 12 01/28/ 024 8:34 PM EDT documented as of this encounter Care Teams Refining Machine Operator Relationship Specialty Start Date End Date Karoline Beltran FNP 230 [place] [address] PCP - General Family Medicine 06/15/21 Azalia Villalta PharmD [address] [place] [address] Pharmacist Internal Medicine 05/15/24 documented as of this encounter
--- OUTSIDE RECORDS SUMMARY | 2024-10-15 14:34 | XMS_ITS | Encounter Summary ---
Author Organization [employer] Address 75 [facility] 7t [place] [address] Care Team Providers Care Mountain Services Manager Name Role Phone Karoline Beltran LITHOGRAPHIC GENERAL WORKER Primary Care Provider [phone] Azalia Villalta PharmD Unavailable [phone] Reason for Referral * Consultation (Routine) - Authorized Specialty Diagnoses / Procedures Referred By Contac t Referred To Contact Pharmacy Diagnoses Essential (primary) hypertension Hawa Martins MD 230 [place] [address] Phone: tel: fax: Referral ID Status Reason Start Date Expiration Date Visits Requested Visits Authorized [id number] Authorized Consult and Treat 05/16/2024 05/16/2025 6 6 Encounter Details Date Type Department Care Team ([facility] Contact Info) Description 05/16/2024 Orders Only [facility] MEDICINE [address] [place] [phone] Hawa Martins MD 230 [place], [place] [phone] Essential (primary) hypertension (Primary Dx) Social History [...] Description 10/31/2024 9:00 AM EDT Office Visit [facility] MEDICINE 230 [place] [address] Leopoldo Bateman MD [address] [place] [address] 12/24/2024 1:45 PM EDT Office Visit [facility] MED & PEDS [address] [place] [address] Karoline Beltran FNP 505 [place] [address] 01/21/2025 10:30 AM EDT Office Visit [facility] OPTOMETRY [address] [place] [address] Parish Val, OD 230 [place] [address] Scheduled Referrals Name Type Priority Associated Diagnoses Orde r Schedule Referral to Pharmacy CDTM Outpatient Referral Routine Essential (primary) hypertension Ordered: 05/16/2024 documented as of this encounter Visit Diagnoses Diagnosis Essential (primary) hypertension- Primary Unspecified essential hypertension documented in this encounter Additional Health Concerns Assessment Noted Time PHQ-9 Depression Total Score: 12 024 8:34 PM EDT documented as of this encounter Care Teams Mountain Services Manager Relationship Specialty Start Date End Date Karoline Beltran FNP 230 [place] [address] PCP - General Family Medicine 06/15/21 Azalia Villalta, WillieD 230 [place] [address] Pharmacist Internal Medicine 05/15/24 documented as of this encounter
--- OUTSIDE RECORDS SUMMARY | 2024-10-15 14:34 | XMS_ITS | Encounter Summary ---
Author Organization [employer] Address 75 [facility] 7t [place] [address] Care Team Providers Care Financial Project Manager Name Role Phone Karoline Beltran Primary Care Provider [phone] Azalia Villalta PharmD Unavailable [phone] Reason for Visit * Reason Comments Med Refill Encounter Details Date Type Department Care Team ([facility] Contact Info) Description 10/10/2024 Refill [facility] 230 [place] [address] Karoline Beltran FNP [address] [place] [address] Lumbar facet arthropathy Social History Tobacco Use [...] the past 12 months, has t he hi5, gas, oil or water company threatened to [...] 9:00 AM EDT Office Visit [facility] [address] [place] [address] Leopoldo Bateman MD 230 [place] [address] 12/24/2024 1:45 PM EDT Office Visit [facility] MED & PEDS 505 [place] [address] Karoline Beltran FNP 505 [place] [address] 01/21/2025 10:30 AM EDT Office Visit [facility] OPTOMETRY [address] [place] [address] Val Lugo, OD 230 [place] [address] documented as of this encounter Goals Goal [...] documented as of this encounter Care Teams Financial Project Manager Relationship Specialty Start Date End Date Karoline Beltran FNP [address] [place] [address] PCP - General Family Medicine 06/15/21 Azalia Villalta PharmD [address] [place] [address] Pharmacist Internal Medicine 05/15/24 documented as of this encounter
--- OUTSIDE RECORDS SUMMARY | 2024-10-15 14:34 | XMS_ITS | Encounter Summary ---
Author Organization [employer] Address 75 [facility] 7t [place] [address] Care Team Providers Care Searchlight Operator Name Role Phone Karolien Beltran THERAPY DIRECTOR Primary Care Provider [phone] Azalia Villalta PharmD Unavailable [phone] Reason for Referral * Consultation (Routine) - Authorized Specialty Diagnoses / Procedures Referred By Contac t Referred To Contact Pharmacy Diagnoses Essential (primary) hypertension Hawa Martins MD 230 [place] [address] Phone: tel: fax: Referral ID Status Reason Start Date Expiration Date Visits Requested Visits Authorized [id number] Authorized Consult and Treat 06/15/2024 06/15/2025 6 6 Encounter Details Date Type Department Care Team ([facility] st Contact Info) Description 06/15/2024 Orders Only [facility] [address] [place] [address] [phone] Hawa Martins MD 230 [place], [place] [phone] Essential (primary) hypertension (Primary Dx) Social History [...] Description 10/31/2024 9:00 AM EDT Office Visit [facility] 230 [place] [address] Leopoldo Bateman MD 230 [place] [address] 12/24/2024 1:45 PM EDT Office Visit [facility] [address] [place] [address] Karoline Beltran FNP 505 [place] [address] 01/21/2025 10:30 AM EDT Office Visit [facility] OPTOMETRY [address] [place] [address] ParishVal akur, OD 230 [place] [address] Scheduled Referrals Name Type Priority Associated Diagnoses Orde r Schedule Referral to Pharmacy CDTM Outpatient Referral Routine Essential (primary) hypertension Ordered: 06/15/2024 documented as of this encounter Visit Diagnoses Diagnosis Essential (primary) hypertension- Primary Unspecified essential hypertension documented in this encounter Additional Health Concerns Assessment Noted Time PHQ-9 Depression Total Score: 12 024 8:34 PM EDT documented as of this encounter Care Teams Searchlight Operator Relationship Specialty Start Date End Date Karoline Beltran FNP 230 [place] [address] PCP - General Family Medicine 06/15/21 Azalia Villalta, WillieD 230 [place] [address] Pharmacist Internal Medicine 05/15/24 documented as of this encounter
--- OUTSIDE RECORDS SUMMARY | 2024-10-15 14:34 | XMS_ITS | Clinical Summary ---
Author Organization [facility] Address [address] [place] [address] Phone Care Team Providers Care Hand Icer Name Role Phone Physician, No Pcp Primary [...] EST - 10/02/2024 7:29 PM EST Emergency [facility] Emergency [address] [place] [address] Acute right-sided low back pain [...] and culture (10/02/2024 1:13 PM EST) Specific [place] Urine 1.018 1.003 - 1.030 LAB URINALYSIS - AUTOMATED METHOD 10/02/2024 2:41 PM EST [facility] pH, Urine 7.0 5.0 - 8.0 pH LAB URINALYSIS - AUTOMATED METHOD 10/02/2024 2:[address] [facility] Leukocytes, Urine Negative Negative LAB URINALYSIS - AUTOMATED METHOD 10/02/2024 2:[address] [facility] Nitrite, Urine Negative Negative LAB URINALYSIS - AUTOMATED METHOD 10/02/2024 2:[address] [facility] Protein, Urine Trace <=Trace mg/dL LAB URINALYSIS - AUTOMATED METHOD 10/02/2024 2:[address] [facility] Glucose, Urine Negative Negative mg/dL LAB URINALYSIS - AUTOMATED METHOD 10/02/2024 2:[address] [facility] Ketones, Urine Negative Negative mg/dL LAB URINALYSIS - AUTOMATED METHOD 10/02/2024 2:[address] [facility] Urobilinogen, Urine 1.0 0.2 - 1.0 mg/dL LAB URINALYSIS - AUTOMATED METHOD 10/02/2024 2:[address] [facility] Bilirubin, Urine Negative Negative LAB URINALYSIS - AUTOMATED METHOD 10/02/2024 2:[address] [facility] Blood, Urine Trace(A) Negative LAB URINALYSIS - AUTOMATED METHOD 10/02/2024 2:[address] [facility] RBC, Urine 2.3 0 - 4 /HPF LAB URINALYSIS - AUTOMATED METHOD 10/02/2024 2:[address] [facility] WBC, Urine 0.5 0 - 4 /HPF LAB URINALYSIS - AUTOMATED METHOD 10/02/2024 2:[address] [facility] Squamous Epithelial, Urine 5 0 - 60 /LPF LAB URINALYSIS - AUTOMATED METHOD 10/02/2024 2:[address] [facility] Bacteria, Urine Negative Negative /HPF LAB URINALYSIS - AUTOMATED METHOD 10/02/2024 2:[address] [facility] Hyaline Casts, Urine 0.0 0 - 3 /LPF LAB URINALYSIS - AUTOMATED METHOD 10/02/2024 2:41 PM EST [facility] Urine Urine specimen obtained by clean catch procedure / Unknown Non-blood Collection / Unknown 10/02/2024 1:13 PM EST 10/02/2024 1:59 PM EST Jaspal Crockett DO LAB URINE ORDERABLES Final Result [facility] [address] [place] [address], [place] [phone] * Russell urine culture tube (10/02/2024 1:13 PM EST) Pathologist [facility] Extra Tube Hold for add-ons. 10/02/2024 3:02 PM EST [facility] Comment:Auto resulted. Urine Urine specimen obtained by clean catch procedure / Unknown Non-blood Collection / Unknown 10/02/2024 1:13 PM EST 10/02/2024 1:58 PM EST Jaspal Crockett DO LAB URINE ORDERABLES Final Result Performing Organization Address City/[facility]/ZIP Co de Phone Number [facility] [address] [place] [address], [place] [phone] * (ABNORMAL) CBC auto differential (10/02/2024 1:11 PM EST) WBC 7.9 4.8 - 10.8 K/mcL LAB HEMETOLOGY METHOD 10/02/2024 2:07 PM EST [facility] RBC 4.30(L) 4.50 - 5.50 M/mcL LAB HEMETOLOGY METHOD 10/02/2024 2:07 PM EST [facility] Hemoglobin 13.6 13.5 - 17.5 g/dL LAB HEMETOLOGY METHOD 10/02/2024 2:07 PM EST [facility] Hematocrit 39.5(L) 42.0 - 54.0 % LAB HEMETOLOGY METHOD 10/02/2024 2:[address] [facility] MCV 92.1 79.0 - 98.0 FL LAB HEMETOLOGY METHOD 10/02/2024 2:[address] [facility] MCH 31.7 27.0 - 32.0 pcg LAB HEMETOLOGY METHOD 10/02/2024 2:[address] [facility] MCHC 34.4 32.0 - 37.0 g/dL LAB HEMETOLOGY METHOD 10/02/2024 2:[address] [facility] RDW 12.2 11.0 - 15.0 % LAB HEMETOLOGY METHOD 10/02/2024 2:[address] [facility] Platelets 220 130 - 400 K/mcL LAB HEMETOLOGY METHOD 10/02/2024 2:[address] [facility] MPV 10.2 7.0 - 11.0 FL LAB HEMETOLOGY METHOD 10/02/2024 2:[address] [facility] NRBC 0.0 <1.0 % LAB HEMETOLOGY METHOD 10/02/2024 2:[address] [facility] NRBC Absolute 0.00 <0.10 K/mcL LAB HEMETOLOGY METHOD 10/02/2024 2:[address] [facility] Neutrophils Relative 59.4 % LAB HEMETOLOGY METHOD 10/02/2024 2:[address] [facility] Lymphocytes Relative 31.5 % LAB HEMETOLOGY METHOD 10/02/2024 2:[address] [facility] Monocytes Relative 6.2 % LAB HEMETOLOGY METHOD 10/02/2024 2:[address] [facility] Eosinophils Relative 1.9 % LAB HEMETOLOGY METHOD 10/02/2024 2:[address] [facility] Basophils Relative 0.5 % LAB HEMETOLOGY METHOD 10/02/2024 2:07 PM EST [facility] Immature Granulocytes Relative 0.5 % LAB HEMETOLOGY METHOD 10/02/2024 2:[address] [facility] Neutrophils Absolute 4.70 1.50 - 7.00 K/mcL LAB HEMETOLOGY METHOD 10/02/2024 2:07 PM EST [facility] Lymphocytes Absolute 2.49 1.00 - 5.00 K/mcL LAB HEMETOLOGY METHOD 10/02/2024 2:07 PM EST [facility] Monocytes Absolute 0.49 0.20 - 1.00 K/mcL LAB HEMETOLOGY METHOD 10/02/2024 2:[address] [facility] Eosinophils Absolute 0.15 0.00 - 0.50 K/mcL LAB HEMETOLOGY METHOD 10/02/2024 2:07 PM EST [facility] Basophils Absolute 0.04 0.00 - 0.20 K/mcL LAB HEMETOLOGY METHOD 10/02/2024 2:07 PM EST [facility] Immature Granulocytes Absolute 0.04(H) 0.00 - 0.03 K/mcL LAB HEMETOLOGY METHOD 10/02/2024 2:[address] [facility] Blood Venous blood specimen / Unknown Venipuncture / Unknown 10/02/2024 1:11 PM EST 10/02/2024 1:58 PM EST us Jaspal Crockett DO LAB BLOOD ORDERABLES Final Result [facility] [address] [place] [address], * APTT (10/02/2024 1:11 PM EST) aPTT 30.7 24.1 - 39.3 sec LAB COAGULATION METHOD 10/02/2024 2:20 PM EST [facility] Blood Venous blood specimen / Unknown Venipuncture / Unknown 10/02/2024 1:11 PM EST 10/02/2024 1:58 PM EST us Jaspal Crockett DO LAB BLOOD ORDERABLES Final Result Performing Organization Address City/[facility]/ZIP Co de Phone Number [facility] [address] [place] [address], [place] [phone] * Prothrombin time with INR (10/02/2024 1:11 PM EST) Protime 11.9 10.6 - 13.9 sec LAB COAGULATION METHOD 10/02/2024 2:20 PM EST [facility] INR 0.9 LAB COAGULATION METHOD 10/02/2024 2:20 PM EST [facility] Blood Venous blood specimen / Unknown Venipuncture / Unknown 10/02/2024 1:11 PM EST 10/02/2024 1:58 PM EST us Jaspal Crockett DO LAB BLOOD ORDERABLES Final Result Performing Organization Address City/[facility]/ZIP Co de Phone Number [facility] [address] [place] [address], [place] [phone] * Type and screen (10/02/2024 1:11 PM EST) ABO Group A 10/02/2024 3:49 PM EST [facility] Rh Type Positive 10/02/2024 3:49 PM EST [facility] Antibody Screen Negative 10/02/2024 3:49 PM EST [facility] Blood Venous blood specimen / Unknown Venipuncture / Unknown 10/02/2024 1:11 PM EST 10/02/2024 1:58 PM EST us Jaspal Camposhon DO LAB BLOOD BANK TEST ORDERAB LES Final Result [facility] [address] [place] [address], * (ABNORMAL) Comprehensive metabolic panel (10/02/2024 1:11 PM EST) Sodium 139 133 - 145 mmol/L LAB CHEMISTRY METHOD 10/02/2024 2:33 PM EST [facility] Potassium 4.0 3.5 - 5.5 mmol/L LAB CHEMISTRY METHOD 10/02/2024 2:[address] [facility] Chloride 108 96 - 110 mmol/L LAB CHEMISTRY METHOD 10/02/2024 2:[address] [facility] CO2 25 21 - 32 mmol/L LAB CHEMISTRY METHOD 10/02/2024 2:[address] [facility] Anion Gap 6 3 - 11 LAB CHEMISTRY METHOD 10/02/2024 2:[address] [facility] Glucose 106(H) 70 - 100 mg/dL LAB CHEMISTRY METHOD 10/02/2024 2:[address] [facility] BUN 9 5 - 25 mg/dL LAB CHEMISTRY METHOD 10/02/2024 2:[address] [facility] Creatinine 0.71 0.70 - 1.30 mg/dL LAB CHEMISTRY METHOD 10/02/2024 2:[address] [facility] eGFR 106 >=60 mL/min/1. 73m2 LAB CHEMISTRY METHOD 10/02/2024 2:[address] [facility] Comment:Calculation based on the??Chronic Kidney Disease Epidemiology Collaboration (CKD-EPI) equation refit??without adjustment for race. BUN/Creatinine Ratio 12.7 LAB CHEMISTRY METHOD 10/02/2024 2:[address] [facility] Calcium 9.0 8.5 - 10.5 mg/dL LAB CHEMISTRY METHOD 10/02/2024 2:[address] [facility] AST (SGOT) 28 10 - 42 unit/L LAB CHEMISTRY METHOD 10/02/2024 2:[address] [facility] ALT (SGPT) 21 10 - 60 unit/L LAB CHEMISTRY METHOD 10/02/2024 2:[address] [facility] Alkaline Phosphatase 69 42 - 121 unit/L LAB CHEMISTRY METHOD 10/02/2024 2:[address] [facility] Total Protein 6.8 6.0 - 8.0 g/dL LAB CHEMISTRY METHOD 10/02/2024 2:33 PM EST [facility] Albumin 4.0 3.2 - 5.0 g/dL LAB CHEMISTRY METHOD 10/02/2024 2:[address] [facility] Total Bilirubin 0.7 0.0 - 1.4 mg/dL LAB CHEMISTRY METHOD 10/02/2024 2:[address] [facility] Blood Venous blood specimen / Unknown Venipuncture / Unknown 10/02/2024 1:11 PM EST 10/02/2024 1:58 PM EST us Jaspal Crockett DO LAB BLOOD ORDERABLES Final Result [facility] [address] [place] [address], from Last 3 Months Insurance MEDICAID - [place] Care Teams Hand Icer Relationship Specialty Start Date End Date Physician, No Pcp PCP - General 10/02/24
--- OUTSIDE RECORDS SUMMARY | 2024-10-15 14:34 | XMS_ITS | Encounter Summary ---
Author Organization [employer] Address [address] [facility] 7t [place] [address] Care Team Providers Care Photographer Scientific Name Role Phone Karoline Beltran PIPEFITTER HELPER Primary Care Provider [phone] Azalia Villalta PharmD Unavailable [phone] Encounter Details Date Type Department Care Team [...] 10/31/2024 9:00 AM EDT Office Visit [facility] MEDICINE [address] [place] [address] Leopoldo Bateman MD [address] [place] [address] 12/24/2024 1:45 PM EDT Office Visit [facility] CHC MED & PEDS [address] [place] [address] Karoline Beltran FNP [address] [place] [address] 01/21/2025 10:30 AM EDT Office Visit [facility] OPTOMETRY [address] [place] [address] Val Lugo, JENNIFER [address] [place] [address] documented as of this encounter Visit Diagnoses Not on filedocumented in this encounter Additional Health Concerns Assessment Noted Time PHQ-9 Depression Total Score: 15 024 12:05 PM EST documented as of this encounter Care Teams Photographer Scientific Relationship Specialty Start Date End Date Karoline Beltran FNP [address] [place] [address] PCP - General Family Medicine 06/15/21 Azalia Villalta, WillieD [address] [place] [address] Pharmacist Internal Medicine 05/15/24 documented as of this encounter
--- OUTSIDE RECORDS SUMMARY | 2024-10-15 14:34 | XMS_ITS | Encounter Summary ---
Author Organization [employer] Address [address] [facility] 7t [place] [address] Care Team Providers Care Dishwashing Machine Operator Name Role Phone Karoline Beltran CERAMICS TECHNICIAN Primary Care Provider [phone] Anurag Lo Unavailable Unavailable Sarahi Rey RN Unavailable [phone] Azalia Villalta PharmD Unavailable Reason for Visit * Reason Comments Med Refill Encounter Details Date Type Department Care Team (Late st Contact Info) Description 02/01/2023 Refill [facility] MEDICINE [address] [place] [address] Nj Hong MD [address] [place] [address] Opioid dependence, uncomplicated (CMS/HCC) Social History Tobacco [...] Description 10/31/2024 9:00 AM EDT Office Visit [facility] MEDICINE [address] [place] [address] Leopoldo Bateman MD [address] [place] [address] 12/24/2024 1:45 PM EDT Office Visit [facility] CHC MED & PEDS [address] [place] [address] Karoline Beltran FNP [address] [place] [address] 01/21/2025 10:30 AM EDT Office Visit [facility] OPTOMETRY [address] [place] [address] ParishVal kaur, OD [address] [place] [address] documented as of this encounter Visit Diagnoses Diagnosis Opioid dependence, uncomplicated (CMS/HCC) documented in this encounter Care Teams Dishwashing Machine Operator Relationship Specialty Start Date End Date Karoline Beltran FNP [address] [place] [address] PCP - General Family Medicine 06/15/21 Anurag Lo Community Health Worker 02/09/24 05/10/24 Sarahi Rey, ADARSH [address] [place] [address] Fuel Cell Technician 02/09/24 05/10/24 Azalia Villalta PharmD [address] [place] [address] Pharmacist Internal Medicine 05/15/24 documented as of this encounter
--- OUTSIDE RECORDS SUMMARY | 2024-10-15 14:34 | XMS_ITS | Encounter Summary ---
Author Organization [employer] Address [address] [facility] 7t [place] [address] Care Team Providers Care Cook Roast Name Role Phone Karoline Beltran REFINING EQUIPMENT OPERATOR Primary Care Provider [phone] Anurag Lo Unavailable Unavailable Sarahi Rey RN Unavailable [phone] Azalia Villalta PharmD Unavailable [phone] Encounter Details Date Type Department Care Team ([facility] st Contact Info) Description 11/29/2023 Telephone [facility] CHC MED & PEDS [address] [place], [place] [id number] Karoline Beltran FNP [address] [place] [address] Social History Tobacco Use Types Packs/Day Years [...] Pylori Antigen EIA Stool is viewable in [employer], ordered 11/28/23. Please call to follow up. [...] Description 10/31/2024 9:00 AM EDT Office Visit [facility] MEDICINE [address] [place] [address] Leopoldo Bateman MD [address] [place] [address] 12/24/2024 1:45 PM EDT Office Visit [facility] CHC MED & PEDS [address] [place] [address] Karoline Beltran FNP [address] [place] [address] 01/21/2025 10:30 AM EDT Office Visit [facility] OPTOMETRY [address] [place] [address] Val Lugo, OD [address] [place] [address] documented as of this encounter Visit Diagnoses Not on filedocumented in this encounter Care Teams Cook Roast Relationship Specialty Start Date End Date Karoline Beltran FNP [address] [place] [address] PCP - General Family Medicine 06/15/21 Anurag Lo Community Health Worker 02/09/24 05/10/24 Sarahi Rey, ADARSH [address] [place] [address] Vice President Investor Relations 02/09/24 05/10/24 Azalia Villalta PharmD [address] [place] [address] Pharmacist Internal Medicine 05/15/24 documented as of this encounter
--- OUTSIDE RECORDS SUMMARY | 2024-10-15 14:34 | XMS_ITS | Encounter Summary ---
Author Organization [employer] Address [address] [facility] 7t [place] [address] Care Team Providers Care Chief Engineer Research Name Role Phone Karoline Beltran GREEN FEED ATTENDANT Primary Care Provider [phone] Azalia Villalta PharmD Unavailable [phone] Reason for Visit * Reason Onset Date Comments Results 10/12/2024 Encounter Details Date Type Department Care Team ([facility] st Contact Info) Description 10/12/2024 Telephone [facility] MEDICINE [address] [place], [place] [phone] Katherine Guerrero MA Results Social History Tobacco [...] Telephone Encounter - Katherine Guerrero MA - 10/12/2024 2:25 PM EST Related information to Pt. Pt understood * Telephone Encounter - Katherine Guerrero MA - 10/12/2024 2:25 PM EST ----- Message from Doris Brooks sent at 10/12/2024 1:41 PM EST ----- Pls let pt know ultrasound was normal documented in this encounter Plan of Treatment Upcoming Encounters Date Type Department Care Team (Late st Contact Info) Description 10/31/2024 9:00 AM EDT Office Visit [facility] MEDICINE [address] [place] [address] Leopoldo Bateman MD [address] [place] [address] 12/24/2024 1:45 PM EDT Office Visit [facility] CHC MED & PEDS [address] [place] [address] Karoline Beltran FNP [address] [place] [address] 01/21/2025 10:30 AM EDT Office Visit [facility] OPTOMETRY [address] [place] [address] Val Lugo, OD [address] [place] [address] documented as of this encounter Goals Goal Patient Goal Type Associated Problems Recent Progress Patient-Stated? Author Increase coping skills to promote long-term recovery and improve ability to perform daily activities General On track( 025 1:28 PM EST) Zehra Danielle, ADARSH documented as of this encounter Visit Diagnoses Not on filedocumented in this encounter Additional Health Concerns Assessment Noted Time PHQ-9 Depression Total Score: 15 024 12:05 PM EST documented as of this encounter Care Teams Chief Engineer Research Relationship Specialty Start Date End Date Karoline Beltran FNP [address] [place] [address] PCP - General Family Medicine 06/15/21 Azalia Villalta PharmD [address] [place] [address] Pharmacist Internal Medicine 05/15/24 documented as of this encounter
--- OUTSIDE RECORDS SUMMARY | 2024-10-15 14:35 | XMS_ITS | Encounter Summary ---
Author Organization [employer] Address [address] [facility] 7t [place] [address] Care Team Providers Care Death Claim Clerk Name Role Phone Karoline Beltran AD OPERATIONS COORDINATOR Primary Care Provider [phone] Azalia Villalta PharmD Unavailable [phone] Reason for Visit * Reason Comments GBOT F/U Encounter Details Date Type Department Care Team (Latest Contact Info) Description 10/10/2024 9:00 AM EST Clinical Support [facility] MEDICINE [address] [place] [address] Zehra Rodgers, ADARSH Opioid dependence, uncomplicated (CMS/HCC) [...] the past 12 months, has t he [employer], [employer], oil or water [employer] threatened to shut off services in your [...] Following staff present at the visit: Physician, Director Of Outreach, Clinician, Team RN, and MedicalAssistant Opportunities provided [...] Detoxification Following staff present at the visit: Director Of Outreach, Clinician, Clinician Revit Drafter, Team RN, and Second Vp Hr Assessment Opportunities provided to address individual medical/medication/ concerns [...] Description 10/31/2024 9:00 AM EDT Office Visit [facility] MEDICINE [address] [place] [address] Leopoldo Bateman MD [address] [place] [address] 12/24/2024 1:45 PM EDT Office Visit [facility] CHC MED & PEDS [address] [place] [address] Karoline Beltran FNP [address] [place] [address] 01/21/2025 10:30 AM EDT Office Visit [facility] OPTOMETRY [address] [place] [address] Parish Val, OD [address] [place] [address] documented as of this encounter Goals Goal [...] documented as of this encounter Care Teams Death Claim Clerk Relationship Specialty Start Date End Date Karoline Beltran FNP [address] [place] [address] PCP - General Family Medicine 06/15/21 Azalia Villalta PharmD [address] [place] [address] Pharmacist Internal Medicine 05/15/24 documented as of this encounter
--- OUTSIDE RECORDS SUMMARY | 2024-10-15 14:35 | XMS_ITS | Encounter Summary ---
Author Organization [employer] Address [address] [facility] [address] [place] [address] Care Team Providers Care Blanket Inspector Name Role Phone Karoline Beltran HYDRAULIC SPECIALIST Primary Care Provider [phone] Azalia Villalta PharmD Unavailable [phone] Encounter Details Date Type Department Care Team [...] Description 10/31/2024 9:00 AM EDT Office Visit [facility] MEDICINE [address] [place] [address] Leopoldo Bateman MD [address] [place] [address] 12/24/2024 1:45 PM EDT Office Visit [facility] CHC MED & PEDS [address] [place] [address] Karoline Beltran FNP [address] [place] [address] 01/21/2025 10:30 AM EDT Office Visit [facility] OPTOMETRY [address] [place] [address] Val Lugo, JENNIFER [address] [place] [address] documented as of this encounter Visit Diagnoses Not on filedocumented in this encounter Additional Health Concerns Assessment Noted Time PHQ-9 Depression Total Score: 15 024 12:05 PM EST documented as of this encounter Care Teams Blanket Inspector Relationship Specialty Start Date End Date Karoline Beltran FNP [address] [place] [address] PCP - General Family Medicine 06/15/21 Azalia Villalta, WillieD [address] [place] [address] Pharmacist Internal Medicine 05/15/24 documented as of this encounter
--- OUTSIDE RECORDS SUMMARY | 2024-10-15 14:35 | XMS_ITS | Clinical Summary ---
Author Organization [employer] Address [address] [facility] 7t [place] [address] Care Team Providers Care Automotive Light Mechanic Name Role Phone Karoline Beltran PSYCH NURSE Primary Care Provider [phone] Azalia Villalta PharmD Unavailable [phone] Allergies Active Allergy Reactions Criticality Noted Date [...] IMMEDIATELY EVEN IF PATIENT RESPONDS. 2 each Active Blood Pressure kit Use to check blood pressure as directed and when symptomatic 1 kit Active tadalafil (Cialis) 10 MG tablet Take [...] NEEDED FOR PAIN MODERATE 30 tablet 2 Active nicotine (Nicoderm CQ) 14 MG/24HR patchIndications: [...] BY MOUTH AT BEDTIME 90 tablet 3 Active famotidine (Pepcid) 20 MG tabletIndications :Gastroesophageal [...] 03, 2024. 84 Film 025 2024 Active gabapentin (Neurontin) 800 MG tabletIndications :Lumbar facet arthropathy TAKE 1 TABLET BY MOUTH THREE TIMES DAILY IN THE MORNING, EVENING, AND BEDTIME 90 tablet 3 025 Active melatonin 3 MG tablet 1 tab [...] cleanup (will not trigger notification to Pharmacy)) gabapentin (Neurontin) 800 MG tabletIndications :Lumbar facet arthropathy Take 1 tablet (800 mg) by mouth 3 times daily. 90 tablet 3 024 2024 Discontinued Buprenorphine HCl-Naloxone HCl (Suboxone) 8-2 MG SL [...] 06/07/2024 Overview (06/07/2024): [place] [facility] Mar 2024 - review of CT [...] today Hematuria 02/01/2024 Overview (06/07/2024): Following with [facility] Urine cytology February 2024 negative for [...] Established with [facility] Consult Aug 2024 - plan for home sleep study Tinnitus of both ears 01/29/2024 Assessment & Plan (01/29/2024 8:27 PM EDT): Intermittent, bilateral, not worsening Check with pharmacy regarding possible med SE Consider referral to ENT if persistent Cystitis 12/22/2023 Overview (10/08/2024): Jun 2024: US retroperitoneal ordered by [facility] 1. There is increased bilateral renal cortical echotexture, which can be associated with medical renal disease. 2. No renal mass or calculus is seen bilaterally. There is mild right renal pelviectasis. No nery hydronephrosis is seen bilaterally. 3. There is mild prostatomegaly. Assessment & Plan (10/08/2024 4:33 PM EST): - Continues following with [facility] - Intermittent dysuria and CVA tenderness [...] as pharmacomtherapy, [facility] smoking cessation group, and [facility] pharmacy smoking cessation clinic -Continues with NRT patches with good effect -LDCT: form signed and faxed to [facility] 09/23/23 Lumbar facet arthropathy 09/02/2022 Overview (06/14/2023): [...] lidocaine patches PRN -Encouraged to continue with [facility] acupuncture clinic & PT as has noted improvement with intervention -Following with [facility] Management ?? Received lumbar injection on [...] with lidocaine patches PRN -Information provided about [facility] acupuncture clinic -Previously referred to PT [...] to stand mechanics training on [facility]. Patient benefited from verbal cues in order [...] med safety/SE -BMP WNL 09/20/22 -Established with [facility] Sep 2022 -Recurrent, assoc w BLE edema [...] (09/01/2022): Added automatically from request for surgery [id number] GERD (gastroesophageal reflux disease) 9 Assessment & Plan (12/05/2023 6:36 PM EDT): Refill omeprazole 40mg daily sent to the pharmacy Assessment & Plan (09/24/2023 2:49 PM EST): Refill sent to the pharmacy Insomnia 01/11/2019 Assessment & Plan (06/14/2023 10:25 AM EDT): ?? After appt, provider able to clarify information with [facility] pharmacy. Pt last picked up psych [...] has met all short term and 1 snuff grinder and screener goal. Limited progress towards mcfp goals 2nd to recent onset of B [...] Encounters Date Type Department Care Team Description 10/12/2024 Telephone [facility] MEDICINE [address] [place] [address] Katherine Guerrero MA Results 10/10/2024 9:00 AM EST Clinical Support [facility]INE [address] [place] [phone] Zehra Rodgers RN Opioid dependence, uncomplicated (CMS/HCC) 10/10/2024 Travel 10/10/[address] [address] Karoline Beltran, PSYCH NURSE Lumbar facet arthropathy 10/03/2024 9:00 AM EST Office Visit [address] [address] Leopoldo Bateman MD Opioid dependence, uncomplicated (CMS/HCC) (Primary Dx) 10/03/2024 Travel 09/28/2024 2:30 PM EST Office Visit [facility] [address] [place] [address] Karoline Beltran, PSYCH NURSE Positive colorectal cancer screening using Cologuard test (Primary Dx); Mass of right hand; UTI symptoms; Mixed hyperlipidemia; Cystitis; Loud snoring 09/28/2024 Travel 09/26/[address] [address] Zehra Rodgers RN Opioid dependence, uncomplicated (CMS/HCC) 09/26/[address] [address] Katherine Guerrero MA Results 09/25/2024 Telephone [facility] [address] [place] [address] Jayla Hager MA Chart Prep 09/25/2024 Orders Only [facility] [address] [place] [address] Karoline Beltran, PSYCH NURSE 09/24/2024 2:40 PM EST Office Visit [facility] [address] [place] [address] Doris Brooks NP Flank pain (Primary Dx); Dysuria; Hematuria, unspecified type 09/24/2024 Travel 09/19/2024 9:00 AM EST Office Visit [address] [address] Leopoldo Bateman MD Opioid dependence, uncomplicated (CMS/HCC) (Primary Dx) 09/19/2024 Patient Outreach [facility] MED[facility]INE [address] [place] [address] Bhatia Davy Recovery Supports 09/19/2024 Travel 08/31/2024 Refill [facility] MEDICINE [address] [place] [address] Zehra Rodgers RN Opioid dependence, uncomplicated (CMS/HCC) 08/23/2024 Refill [facility] [address] [place] [address] Karoline Beltran FNP Essential (primary) hypertension 08/16/2024 Telephone [facility] [address] [place] [address] Karoline Beltran FNP August08/08/2024 9:00 AM EST Office Visit [facility] MEDICINE [address] [place] [address] Leopoldo Bateman MD Opioid dependence, uncomplicated (CMS/HCC) (Primary Dx) 08/08/2024 Travel 08/07/2024 Refill [facility] MED[facility]INE [address] [place] [address] Zehra Rodgers RN Opioid dependence, uncomplicated (CMS/HCC) 08/07/2024 Refill [facility] MED[facility] [address] [place] [address] Zehra Rodgers RN Opioid dependence, uncomplicated (CMS/HCC) 08/01/2024 9:00 AM EST Office Visit [address] [address] Leopoldo Bateman MD Opioid dependence, uncomplicated (CMS/HCC) (Primary Dx) 08/01/2024 Travel 07/26/2024 Refill [facility] [address] [place] [address] Karoline Beltran FNP Gastroesophageal reflux disease, unspecified whether esophagitis present (Primary Dx) 07/25/2024 9:00 AM EST Clinical Support [facility] [address] [place] [address] Zehra Rodgers RN Opioid type dependence, continuous (CMS/HCC) 07/25/2024 Travel 07/18/2024 9:00 AM EST Clinical Support [facility] MEDICINE [address] [place] [address] Anahi Archibald RN Opioid type dependence, continuous (CMS/HCC) (Primary Dx) 07/18/2024 Travel 07/16/2024 Orders Only [facility] [address] [facility] [place] [address] Hawa Martins MD Essential (primary) hypertension (Primary Dx) from Last 3 Months Immunizations Name Administration [...] [facility] [address] [place] [address] Leopoldo Bateman MD [address] [place] [address] 12/24/2024 1:45 PM EDT Office Visit [facility] [address] [place], [place] [phone] Karoline Beltran, PSYCH NURSE [address] [place] [address] 01/21/2025 10:30 AM EDT Office Visit [facility] OPTOMETRY [address] [place] [address] Val Lugo, OD [address] [place] [address] Health Maintenance Due Date Last Done Comments [...] 06/01/2025 06/01/2024 Depression Screening 06/25/2025 06/25/2024, 06/25/20 24 Tobacco Screening 09/28/2025 09/28/2024 DTaP/Tdap/Td Vaccines (2 [...] General On track( 025 1:28 PM EST) eZhra Danielle RN Procedures Procedure Name Priority Date/Time Associated Diagnosis Comments US RENAL BI Routine 10/12/2024 10:36 AM EST Flank pain POCT AVANI-14 URINE DRUG SCREEN Routine 10/03/2024 [...] Recently Relevant to Health Maintenance Results * US RENAL BI (10/12/2024 10:36 AM EST) Anatomical Region Laterality Modality Abdomen Ultrasound 10/12/2024 10:3 6 AM EST Narrative 10/12/2024 10:37 AM EST ? [facility] ?[address] ?[place] [address] ? Ultrasound Report ? Signed ? Patient: Dedrick Dawn ?MR#: ?? [id number] ? : 1965 ?Acct:[id number] ? Age/Sex: 59 / M ?ADM Date: 10/10/24 ? Loc: HO.US ? Attending Dr: Doris Brooks BOBBIN PAINTER ? Ordering Physician: Doris Brooks NP ?? Date of Service: 10/10/24 ?? Procedure(s): US renal BI ?? Accession Number(s): [id number] ? cc: Doris Brooks BOBBIN PAINTER; Phalen,Karoline PSYCH NURSE ? CLINICAL HISTORY: flank pain, intermittent hematuria ? US Renal ? Comparison: None ? Findings: ?? Right kidney normal size and echotexture, 12.9 cm length. ?? Left kidney normal size and echotexture, 13.5 cm length. ? A few bilateral simple renal cysts measuring up to 21 mm. ?? Duplicated left renal collecting system. ?? No hydronephrosis. ? IMPRESSION: ?? No hydronephrosis. No evidence of renal stone on ultrasound. ? This document has been electronically signed by: Mary Hollis MD on ?? 10/12/2024 10:36:00 ? Dictated By: ?Mary Hollis MD ? Signed By: ?<Electronically signed by Mary Hollis MD in OV> ? 10/12/24 1037 ? DD/ 1036 ? TD/TT: 10/12/24 1036 ? Electrical Project Manager: ? Procedure Note Donmateuster, Image - 10/12/[address] [address] Ultrasound Report Signed Patient: Dedrick Dawn MMR#: [id number] : 1965Acct:[id number] Age/Sex: 59 / MADM Date: 10/10/24 Loc: .US Attending Dr: Doris Brooks NP Ordering Physician: Doris Brooks NP Date of Service: 10/10/24 Procedure(s): US renal BI Accession Number(s): [id number] cc: Doris Brooks BOBBIN PAINTER; Karoline Beltran PSYCH NURSE CLINICAL HISTORY: flank pain, intermittent hematuria US Renal Comparison: None Findings: Right kidney normal size and echotexture, 12.9 cm length. Left kidney normal size and echotexture, 13.5 cm length. A few bilateral simple renal cysts measuring up to 21 mm. Duplicated left renal collecting system. No hydronephrosis. IMPRESSION: No hydronephrosis. No evidence of renal stone on ultrasound. This document has been electronically signed by: Mary Hollis MD on 10/12/2024 10:36:00 Dictated By: Mary Hollis MD Signed By: <Electronically signed by Mary Hollis MD in OV> 10/12/24 1037 DD/ 1036 TD/TT: 10/12/24 1036 Electrical Project Manager: us Doris Brooks NP IMG US PROCEDURES Final Result * POCT AVANI-14 Urine Drug Screen (10/03/2024 [...] Date Urine 09/28/2024 3:12 PM EST Karoline NORMAN POINT OF CARE TEST ENTER/EDIT ORDERABLES Final Result * Hepatic Function Panel (09/25/2024 8:53 AM EST) Bilirubin, Total 0.7 0.0 - 1.0 mg/dL [facility] Bilirubin, Direct 0.2 0.0 - 0.5 mg/dL [facility] Aspartate Amino Transferase 33 5 - 37 U/L [facility] Alanine Aminotransferase 26 0 - 40 U/L [facility] Total Protein 7.5 6.5 - 8.0 g/dL [facility] Albumin Level 4.4 3.5 - 5.0 g/dL [facility] Alkaline Phosphatase 61 39 - 117 U/L [facility] 09/25/2024 8:53 AM EST 09/25/2024 11:27 AM EST Karoline Beltran [facility] BLOOD ORDERABLES Final Res ult Performing Organization Address [facility]/ZIP Co de Phone Number [facility] [address] [place] [phone] * (ABNORMAL) Lipid Panel, Standard (09/25/2024 8:53 AM EST) Triglycerides 97 <150 mg/dL [facility] Comment:Desirable Triglyceri de: less than 150 mg/dLBorderline High Triglyceride 150-199 mg/dLHigh Triglyceride: 200-499 mg/dLVery High Triglyceride: greater than or equal to 5OO mg/dL Cholesterol 176 <200 mg/dL [facility] Comment:Desirable Cholestero l: less than 200 mg/dLBorderline High Cholesterol: 200-239 mg/dLHigh Cholesterol: greater than 239 mg/dL LDL Cholesterol Calculated 121(H) <100 mg/dL [facility] Comment:Desirable LDL: less than 100 mg/dLNear Optimal/Above Optimal LDL: 110- 129 mg/dLBorderline High LDL: 130-159 mg/dLHigh LDL: 160-189 mg/dLVery High LDL: greater than or equal to 190 mg/dL HDL Cholesterol 36(L) >40 mg/dL [facility] Comment:Desirable HDL: great er than 40 mg/dL Note: This HDL assay may give artificially low results in patients with liver disease. 09/25/2024 8:53 AM EST 09/25/2024 11:27 AM EST Karoline Beltran PSYCH NURSE LAB BLOOD ORDERABLES Final Res ult Performing Organization Address [facility]/ZIP Co de Phone Number [facility] [address] [place] [phone] * Basic Metabolic Panel (09/25/2024 8:53 AM EST) Sodium 143 135 - 145 mmol/L [facility] Potassium 4.3 3.3 - 5.1 mmol/L [facility] Chloride 106 96 - 108 mmol/L [facility] Carbon Dioxide 27 22 - 29 mmol/L [facility] Anion Gap 14 12 - 20 [facility] Urea Nitrogen (BUN) 12 9 - 16 mg/dL [facility] Creatinine, Serum 0.81 0.5 - 1.4 mg/dL [facility] Estimated Glomerular Filt Rate >60 [facility] Comment:Chronic Kidney Disea se: Estimated GFR < 60 mL/min/1.37u1Ygctrp Kidney Disease: Estimated GFR < 15 mL/min/1.73m2 Glucose 96 60 - 115 mg/dL [facility] Calcium 9.1 8.4 - 10.2 mg/dL [facility] Blood Venous blood specimen / Unknown 09/25/2024 8:53 AM EST 09/25/2024 11:27 AM EST us Doris Brooks BOBBIN PAINTER LAB BLOOD ORDERABLES Final Resul t [facility] [address] [place] [phone] * Culture, Urine, Routine (09/24/2024 3:14 PM EST) Urine Urine specimen obtained by clean catch procedure / Unknown 09/24/2024 3:14 PM EST 09/24/2024 6:03 PM EST Comment:UACC Narrative [facility] - 09/26/2024 11:34 AM EST Urine Culture Report Result Urine Culture < 10,000 cfu/ml Specimen Source: Urine clean catch Doris Brooks NP LAB MICROBIOLOGY - GENERAL ORDER DANIEL Final Result Performing Organization Address City/[facility]/ZIP Co de Phone Number [facility] [address] [place] [phone] * (ABNORMAL) Cologuard?? colon cancer screening (07/05/2024 7:30 AM EST) Cologuard Result Positive( A) Negative 07/15/2024 3:28 AM EST [facility] (CLIA #:[id number]) Comment: POSITIVE TEST RESULT. A positive Cologuard [...] Rascon. et al, N Engl J Med 2014;370(14):2125-6866.) Cologuard may produce a false negative or false positive result (no colorectal cancer or precancerous polyp present at colonoscopy follow up). A negative Cologuard test result does not guarantee the absence of CRC or advanced adenoma (pre-cancer). The current Cologuard screening interval is every 3 years. ([place] [employer] and U.S. Multi-Society Task Force). Cologuard performance data in a 10,000 patient pivotal study using colonoscopy as the reference method can be accessed at the following location: www.[employer]/results. Additional description of the Cologuard test process, warnings and precautions can be found at www.cologuard.com. Stool specimen (specimen) 07/05/2024 7:30 AM EST 07/07/2024 3:42 PM EST Karoline Beltran [facility] MOLECULAR DIAGNOSTICS TODD BARAHONA Final Result Performing Organization Address City/[facility]/ZIP Co de Phone Number [facility] (CLIA #:[id number]) [address] [place] [address], * HIV-1 RNA, Quantitative, Real-Time PCR with Reflex to Genotype (RTI, PI, Integrase) (09/23/2022 9:32 AM EST) Pathologist [facility] HIV 1 RNA, QN PCR NOT DETECTED copies/mL [facility] [employer] [facility], HIV 1 RNA, QN PCR NOT DETECTED Log copies/mL [facility] [employer] [facility], Comment: REFERENCE RANGE: NOT DETECTED copies/mL ?NOT DETECTED ??Log copies/mL This test was performed using Real-Time Polymerase Chain Reaction. Reportable range is 20 to 10,000,000 copies/mL (1.30-7.00 Log copies/mL). 09/23/2022 9:32 AM EST 09/23/2022 9:33 AM EST Narrative [facility] - 09/26/2022 1:23 AM EST FASTING:UNKNOWN FASTING: UNKNOWN Karoline Beltran [facility] BLOOD ORDERABLES Final Res ult Performing Organization Address City/[facility]/ZIP Co de Phone Number [facility] [address], [place] [phone] [employer], [address] [place] [phone] from Last 3 Months or Most Recently Relevant to Health Maintenance Insurance [facility] C3 Care Teams Automotive Light Mechanic Relationship Specialty Start Date End Date Karoline Beltran FNP [address] [place] [address] PCP - General Family Medicine 06/15/21 Azalia Villalta, WillieD [address] [place] [address] Pharmacist Internal Medicine 05/15/24
--- OUTSIDE RECORDS SUMMARY | 2024-10-15 14:35 | XMS_ITS | Encounter Summary ---
Author Organization [employer] Address [address] [facility] 7t [place] [address] Care Team Providers Care Pipe Connector Name Role Phone Karoline Beltran FUNDS DEVELOPMENT DIRECTOR Primary Care Provider [phone] Azalia Villalta PharmD Unavailable [phone] Reason for Visit * Reason Comments Recovery Supports Encounter Details Date Type Department Care Team ([facility] Contact Info) Description 09/19/2024 Patient Outreach [facility] MEDICINE [address] [place], [place] [phone] Davy Bhatia Recovery Supports Social History Tobacco [...] with Dedrick today. Setting: in person at [facility] Recovery Wellness Goals worked on: Social Stability Action taken/next steps: Attended recovery support group and Offered person centered recovery support Additional comments: HERMINIO Bhatia documented in this encounter Plan of Treatment Upcoming Encounters Date Type Department Care Team ([facility] st Contact Info) Description 10/31/2024 9:00 AM EDT Office Visit [facility] MEDICINE [address] [place] [address] Leopoldo Bateman MD [address] [place] [address] 12/24/2024 1:45 PM EDT Office Visit [facility] [address] [place] [address] Karoline Beltran FNP [address] [place] [address] 01/21/2025 10:30 AM EDT Office Visit [facility] OPTOMETRY [address] [place] [address] Val Lugo, OD [address] [place] [address] documented as of this encounter Visit Diagnoses Not on filedocumented in this encounter Additional Health Concerns Assessment Noted Time PHQ-9 Depression Total Score: 15 024 12:05 PM EST documented as of this encounter Care Teams Pipe Connector Relationship Specialty Start Date End Date Karoline Beltran FNP [address] [place] [address] PCP - General Family Medicine 06/15/21 Azalia Villalta PharmD [address] [place] [address] Pharmacist Internal Medicine 05/15/24 documented as of this encounter
--- OUTSIDE RECORDS SUMMARY | 2024-10-15 14:35 | XMS_ITS | Encounter Summary ---
Author Organization [employer] Address [address] [facility] 7t [place] [address] Care Team Providers Care Insurance And Financial Services Agent Name Role Phone Karoline Beltran BLADDER CHANGER Primary Care Provider [phone] Azalia Villalta PharmD Unavailable [phone] Encounter Details Date Type Department Care Team [...] 9:00 AM EDT Office Visit [facility] MEDICINE [address] [place] [address] Leopoldo Bateman MD [address] [place] [address] 12/24/2024 1:45 PM EDT Office Visit [facility] MED [facility] PEDS [address] [place] [address] Karoline Beltran, BLADDER CHANGER [address] [place] [address] 01/21/2025 10:30 AM EDT Office Visit [facility] OPTOMETRY [address] [place] [address] Val Lugo, OD [address] [place] [address] documented as of this encounter Goals Goal [...] documented as of this encounter Care Teams Insurance And Financial Services Agent Relationship Specialty Start Date End Date Karoline Beltran FNP [address] [place] [address] PCP - General Family Medicine 06/15/21 Azalia Villalta, WillieD [address] [place] [address] Pharmacist Internal Medicine 05/15/24 documented as of this encounter
--- OUTSIDE RECORDS SUMMARY | 2024-10-15 14:35 | XMS_ITS | Encounter Summary ---
Author Organization [employer] Address [address] [facility] [address]t [place] [address] Care Team Providers Care Steward/Stewardess Chief Cargo Vessel Name Role Phone Karoline Beltran INSTRUCTOR OF SPANISH Primary Care Provider [phone] Azalia Villalta PharmD Unavailable [phone] Reason for Visit * Reason Comments GBAT Encounter Details Date Type Department Care Team (Latest Contact Info) Description 09/19/2024 9:00 AM EST Office Visit [facility] MEDICINE [address] [place], [place] [phone] Leopoldo Bateman MD [address] [place] [address] Opioid dependence, uncomplicated (CMS/HCC) (Primary Dx) Social [...] Following staff present at the visit: Physician, Stage Technician, Clinician, Team RN, and MedicalAssistant Opportunities provided to address individual medical/medication/BH concerns States doing well without cravings or relapse TODAY GBAT VISIT 09/19/2024 Patient presents for Group-Based Opioid Treatment for OUD Reviewed the group goals, expectations and policies Consented to the group treatment options Actively participated in the group discussion with the topic of: Extended Check-In Following staff present at the visit: Physician, Stage Technician, Clinician, Team RN, and MedicalAssistant Opportunities provided [...] faced situations that may trigger use Mass BISQUE BRUSHER reviewed Following staff present at the visit: Physician, Clinician, Team RN, Stage Technician and Dowel Pin Worker Follow up in 1 week for the [...] Description 10/31/2024 9:00 AM EDT Office Visit [facility] MEDICINE [address] [place] [address] Leopoldo Bateman MD [address] [place] [address] 12/24/2024 1:45 PM EDT Office Visit [facility] MED [facility] PEDS [address] [place] [address] Karoline Beltran FNP [address] [place] [address] 01/21/2025 10:30 AM EDT Office Visit [facility] OPTOMETRY [address] [place] [address] ParishVal kaur, OD [address] [place] [address] documented as of this encounter Visit Diagnoses Diagnosis Opioid dependence, uncomplicated (CMS/HCC)- Primary documented in this encounter Additional Health Concerns Assessment Noted Time PHQ-9 Depression Total Score: 15 024 12:05 PM EST documented as of this encounter Care Teams Steward/Stewardess Chief Cargo Vessel Relationship Specialty Start Date End Date Karoline Beltran FNP [address] [place] [address] PCP - General Family Medicine 06/15/21 Azalia Villalta PharmD [address] [place] [phone] Pharmacist Internal Medicine 05/15/24 documented as of this encounter
--- OUTSIDE RECORDS SUMMARY | 2024-10-15 14:35 | XMS_ITS | Encounter Summary ---
Author Organization [employer] Address [address] [facility] 7t [place] [address] Care Team Providers Care Cable Splicing Technician Name Role Phone Karoline Beltran PAPER FOLDING MACHINE OPERATOR Primary Care Provider [phone] Azalia Villalta PharmD Unavailable [phone] Reason for Referral * Imaging (Routine) - Closed Specialty Diagnoses / Procedures Referred By Contlorie t Referred To Contact Radiology Diagnoses Flank pain Procedures US RENAL BI Doris Brooks NP [address] [place] [address] Phone: tel: fax: [address] Phone: tel: fax: Referral ID Status Reason Start Date Expiration Date Visits Re quested Visits Authorized [id number] Closed 09/24/2024 09/24/2025 1 1 Reason for Visit * Reason Comments Flank Pain Encounter Details Date Type Department Care Team (Late st Contact Info) Description 09/24/2024 2:40 PM EST Office Visit [facility] [address] [place], [place] [phone] Doris Brooks NP [address] [place], [place] [phone] Flank pain (Primary Dx); Dysuria; Hematuria, unspecified [...] this encounter Progress Notes * Doris Brooks, AGENCY RECRUITER - 09/24/2024 3:20 PM EST Subjective: Dedrick Reed is a 59 y.o. male who presents to the office for a sick visit. HPI 1.5 weeks of kidney pain Has had two infections , treated with abx Getting up from a chair causes pain Finished yesterday, ampicillin from [place] No dysuria, intermittent hematuria Pain is constant [...] Addressed This Visit Hematuria Overview Following with [facility] [place] Urine cytology February 2024 negative for [...] medications for this visit. Visit Conducted in: Danish Translation by: Provided by [facility] staff member BA Cho , documented in this encounter Miscellaneous [...] previous kidney pain Ultrasound ordered Culture pending * Result Encounter Note - Doris Brooks NP - 09/24/2024 2:40 PM EST Pls let pt know ultrasound was normal documented in this encounter Plan of Treatment Upcoming Encounters Date Type Department Care Team (Late st Contact Info) Description 10/31/2024 9:00 AM EDT Office Visit [facility] [address] [place] [address] Leopoldo Bateman MD [address] [place] [address] 12/24/2024 1:45 PM EDT Office Visit [facility] MED & PEDS [address] [place] [address] Karoline Beltran FNP [address] [place] [address] 01/21/2025 10:30 AM EDT Office Visit [facility] OPTOM[facility] [address] [place] [address] Val Lugo, OD [address] [place] [address] documented as of this encounter Procedures Procedure Name Priority Date/Time Associated Diagnosis Comments US RENAL BI Routine 10/12/2024 10:36 AM EST Flank pain BASIC METABOLIC PANEL Routine 09/25/2024 8:53 AM EST Flank pain CULTURE, URINE, ROUTINE Routine 09/24/2024 3:14 PM EST Dysuria POCT URINALYSIS DIPSTICK Routine 09/24/2024 3:13 PM EST Dysuria documented in this encounter Results * US RENAL BI (10/12/2024 10:36 AM EST) Anatomical Region Laterality Modality Abdomen Ultrasound 10/12/2024 10:3 6 AM EST Narrative 10/12/2024 10:37 AM EST ? [facility] ?[address] ?[place] [address] ? Ultrasound Report ? Signed ? Patient: Reed Camargo,Ricardo ?MR#: ?? [id number] ? : 1965 ?Acct:[id number] ? Age/Sex: 59 / M ?ADM Date: 10/10/24 ? Loc: HO.US ? Attending Dr: Doris Brooks AGENCY RECRUITER ? Ordering Physician: Doris Brooks NP ?? Date of Service: 10/10/24 ?? Procedure(s): US renal BI ?? Accession Number(s): [id number] ? cc: Doris Brooks AGENCY RECRUITER; Karoline BeltranP ? CLINICAL HISTORY: flank pain, intermittent hematuria [...] DD/ 1036 ? TD/TT: 10/12/24 1036 ? Internet Systems Administrator: ? Procedure Note Donotuseinterpreter, Image - 10/12/[address] [address] Ultrasound Report Signed Patient: Dedrick Dawn MMR#: [id number] : 1965Acct:[id number] Age/Sex: 59 / MADM Date: 10/10/24 Loc: HO.US Attending Dr: Doris Brooks AGENCY RECRUITER Ordering Physician: Doris Brooks NP Date of Service: 10/10/24 Procedure(s): US renal BI Accession Number(s): [id number] cc: Doris Brooks AGENCY RECRUITER; Karoline Beltran CLINICAL HISTORY: flank pain, intermittent hematuria US [...] 10/12/24 1037 DD/ 1036 TD/TT: 10/12/24 1036 Internet Systems Administrator: us Doris Brooks AGENCY RECRUITER IMG US PROCEDURES Final Result * Basic Metabolic Panel (09/25/2024 8:53 AM EST) Sodium 143 135 - 145 mmol/L [facility] Potassium 4.3 3.3 - 5.1 mmol/L [facility] Chloride 106 96 - 108 mmol/L [facility] Carbon Dioxide 27 22 - 29 mmol/L [facility] Anion Gap 14 12 - 20 [facility] Urea Nitrogen (BUN) 12 9 - 16 mg/dL [facility] Creatinine, Serum 0.81 0.5 - 1.4 mg/dL [facility] Estimated Glomerular Filt Rate >60 [facility] Comment:Chronic Kidney Disea se: Estimated GFR < 60 mL/min/1.97g5Bmpekf Kidney Disease: Estimated GFR < 15 mL/min/1.73m2 Glucose 96 60 - 115 mg/dL [facility] Calcium 9.1 8.4 - 10.2 mg/dL [facility] Blood Venous blood specimen / Unknown 09/25/2024 8:53 AM EST 09/25/2024 11:27 AM EST Doris Brooks NP LAB BLOOD ORDERABLES Final Resul t Performing Organization Address City/[facility] Co de Phone Number [facility] [address] [place] [phone] * Culture, Urine, Routine (09/24/2024 3:14 PM EST) Urine Urine specimen obtained by clean catch procedure / Unknown 09/24/2024 3:14 PM EST 09/24/2024 6:03 PM EST Comment:UACC Narrative [facility] - 09/26/2024 11:34 AM EST Urine Culture Report Result Urine Culture < 10,000 cfu/ml Specimen Source: Urine clean catch Doris Brooks NP LAB MICROBIOLOGY - GENERAL ORDER DANIEL Final Result Performing Organization Address [facility] Co de Phone Number [facility] [address] [place] [phone] * (ABNORMAL) POCT urinalysis dipstick manually [...] Urine 09/24/2024 3:13 PM EST Doris Brooks AGENCY RECRUITER POINT OF CARE TEST ENTER/EDIT OR DERABLES Final Result documented in this encounter Visit Diagnoses Diagnosis Flank pain- Primary Abdominal pain, unspecified site Dysuria Hematuria, unspecified type documented in this encounter Additional Health Concerns Assessment Noted Time PHQ-9 Depression Total Score: 15 024 12:05 PM EST documented as of this encounter Care Teams Cable Splicing Technician Relationship Specialty Start Date End Date Karoline Beltran FNP [address] [place] [address] PCP - General Family Medicine 06/15/21 Azalia Villalta PharmD [address] [place] [address] Pharmacist Internal Medicine 05/15/24 documented as of this encounter
--- OUTSIDE RECORDS SUMMARY | 2024-10-15 14:35 | XMS_ITS | Encounter Summary ---
Author Organization [employer] Address [address] [facility] 7t [place] [address] Care Team Providers Care Energy Derivatives Trader Name Role Phone Karoline Beltran FARM OPERATOR Primary Care Provider [phone] Anurag Lo Unavailable Unavailable Sarahi Rey RN Unavailable [phone] Azalia Villalta PharmD Unavailable [phone] Reason for Visit * Reason Comments Med Refill Encounter Details Date Type Department Care Team (Late st Contact Info) Description 02/05/2024 Refill [facility] [address] [place] [address] Karoline Beltran FNP [address] [place] [address] Arthropathy Social History Tobacco Use Types Packs/Day [...] Office Visit [facility] [address] [place] [address] Leopoldo Bateman MD [address] [place] [address] 12/24/2024 1:45 PM EDT Office Visit [facility]EDS [address] [place] [address] Karoline Beltran FNP [address] [place] [address] 01/21/2025 10:30 AM EDT Office Visit [facility] OPTOMETRY [address] [place] [address] Val Lugo OD [address] [place] [address] documented as of this encounter Visit Diagnoses Diagnosis Arthropathy Unspecified arthropathy, site unspecified documented in this encounter Additional Health Concerns Assessment Noted Time PHQ-9 Depression Total Score: 12 024 8:34 PM EDT documented as of this encounter Care Teams Energy Derivatives Trader Relationship Specialty Start Date End Date Karoline Beltran FNP [address] [place] [address] PCP - General Family Medicine 06/15/21 Anurag Lo Community Health Worker 02/09/24 05/10/24 Sarahi Rey, ADARSH [address] [place] [address] Splitting Machine Feeder 02/09/24 05/10/24 Azalia Villalta, WillieD [address] [place] [address] Pharmacist Internal Medicine 05/15/24 documented as of this encounter
--- OUTSIDE RECORDS SUMMARY | 2024-10-15 14:35 | XMS_ITS | Encounter Summary ---
Author Organization [employer] Address [address] [facility] 7t [place] [address] Care Team Providers Care Internet Retailer Name Role Phone Karoline Beltran ELEVATOR ATTENDANT Primary Care Provider [phone] Azalia Villalta PharmD Unavailable [phone] Reason for Visit * Reason Onset Date Comments Med Refill 09/26/2024 Encounter Details Date Type Department Care Team (Late st Contact Info) Description 09/26/2024 Refill [facility] [address] [place] [address] Zehra Rodgers, ADARSH Opioid dependence, uncomplicated ([facility]) [...] the past 12 months, has t he [employer], [employer], oil or water [employer] threatened to shut off services in your [...] Description 10/31/2024 9:00 AM EDT Office Visit [facility] [address] [place] [address] Leopoldo Bateman MD [address] [place] [address] 12/24/2024 1:45 PM EDT Office Visit [facility] [address] [place] [address] Karoline Beltran, ELEVATOR ATTENDANT [address] [place] [address] 01/21/2025 10:30 AM EDT Office Visit [facility] OPTOMETRY [address] [place] [address] Val Lugo, OD [address] [place] [address] documented as of this encounter Visit Diagnoses Diagnosis Opioid dependence, uncomplicated (CMS/HCC) documented in this encounter Additional Health Concerns Assessment Noted Time PHQ-9 Depression Total Score: 15 024 12:05 PM EST documented as of this encounter Care Teams Internet Retailer Relationship Specialty Start Date End Date Karoline Beltran FNP [address] [place] [address] PCP - General Family Medicine 06/15/21 Azalia Villalta, Maninder [address] [place] [address] Pharmacist Internal Medicine 05/15/24 documented as of this encounter
--- OUTSIDE RECORDS SUMMARY | 2024-10-15 14:35 | XMS_ITS | Encounter Summary ---
Author Organization [employer] Address 75 [facility] 7t [place] [address] Care Team Providers Care Office Equipment Technician Name Role Phone Karoline Beltran SAP TREASURY CONSULTANT Primary Care Provider [phone] Azalia Villalta PharmD Unavailable [phone] Encounter Details Date Type Department Care Team [...] 10/31/2024 9:00 AM EDT Office [facility] [address] [place] [address] Leopoldo Bateman MD [address] [place] [address] 12/24/2024 1:45 PM EDT Office Visit [facility] MED [facility] PEDS [address] [place] [address] Karoline Beltran FNP [address] [place] [address] 01/21/2025 10:30 AM EDT Office Visit [facility] OPTOMETRY [address] [place] [address] Val Lugo, JENNIFER [address] [place] [address] documented as of this encounter Visit Diagnoses Not on filedocumented in this encounter Additional Health Concerns Assessment Noted Time PHQ-9 Depression Total Score: 15 024 12:05 PM EST documented as of this encounter Care Teams Office Equipment Technician Relationship Specialty Start Date End Date Karoline Beltran FNP [address] [place] [address] PCP - General Family Medicine 06/15/21 Azalia Villalta, WillieD [address] [place] [address] Pharmacist Internal Medicine 05/15/24 documented as of this encounter
--- OUTSIDE RECORDS SUMMARY | 2024-10-15 14:35 | XMS_ITS | Encounter Summary ---
Author Organization [employer] Address 75 [facility] 7t [place] [address] Care Team Providers Care Machine Heel Builder Name Role Phone Karoline Beltran Primary Care Provider [phone] Anurag Lo Unavailable Unavailable Sarahi Rey RN Unavailable [phone] Azalia Villalta PharmD Unavailable Reason for Visit * Reason Onset Date Comments Returning Call 05/07/2024 Encounter Details Date Type Department Care Team ([facility] st Contact Info) Description 05/07/2024 Telephone [facility] MED[facility]INE [address] [place] [address] Karoline Beltran FNP [address] [place] [address] Returning Call Social History Tobacco Use Types [...] 10/31/2024 9:00 AM EDT Office Visit [facility] [address] [place] [address] Leopoldo Bateman MD [address] [place] [address] 12/24/2024 1:45 PM EDT Office Visit [facility] MED [facility] PEDS [address] [place] [address] Karoline Beltran FNP [address] [place] [address] 01/21/2025 10:30 AM EDT Office Visit [facility] OPTOMETRY [address] [place] [address] Val Lugo, OD [address] [place] [address] documented as of this encounter Visit Diagnoses Not on filedocumented in this encounter Additional Health Concerns Assessment Noted Time PHQ-9 Depression Total Score: 12 024 8:34 PM EDT documented as of this encounter Care Teams Machine Heel Builder Relationship Specialty Start Date End Date Karoline Beltran FNP [address] [place] [address] PCP - General Family Medicine 06/15/21 Anurag Lo Community Health Worker 02/09/24 05/10/24 Sarahi Rey RN [address] [place] [address] Pullman Car Clerk 02/09/24 05/10/24 Azalia Villalta PharmD [address] [place] [address] Pharmacist Internal Medicine 05/15/24 documented as of this encounter
--- OUTSIDE RECORDS SUMMARY | 2024-10-15 14:35 | XMS_ITS | Encounter Summary ---
Author Organization [employer] Address [address] [facility] 7t [place] [address] Care Team Providers Care Architectural Sales Consultant Name Role Phone Karoline Beltran COCOA PRESS OPERATOR Primary Care Provider [phone] Azalia Villalta PharmD Unavailable [phone] Reason for Visit * Reason Onset Date Comments Chart Prep 09/25/2024 Encounter Details Date Type Department Care Team ([facility] st Contact Info) Description 09/25/2024 Telephone C [facility] [address] [place] [address] Jayla Hager MA Chart Prep Social History [...] the past 12 months, has t he [employer], gas, oil or water [employer] threatened to shut off services in your [...] 9:00 AM EDT Office Visit [facility] MEDICINE [address] [place] [address] Leopoldo Bateman MD [address] [place] [address] 12/24/2024 1:45 PM EDT Office Visit [facility] MED [facility] PEDS [address] [place], [place] [phone] Karoline Beltran FNP [address] [place] [address] 01/21/2025 10:30 AM EDT Office Visit [facility] [address] [place] [address] Val Lugo, OD [address] [place] [address] documented as of this encounter Visit Diagnoses Not on filedocumented in this encounter Additional Health Concerns Assessment Noted Time PHQ-9 Depression Total Score: 15 024 12:05 PM EST documented as of this encounter Care Teams Architectural Sales Consultant Relationship Specialty Start Date End Date Karoline Beltran FNP [address] [place] [address] PCP - General Family Medicine 06/15/21 Azalia Villalta, WillieD [address] [place] [address] Pharmacist Internal Medicine 05/15/24 documented as of this encounter
--- OUTSIDE RECORDS SUMMARY | 2024-10-15 14:35 | XMS_ITS | Encounter Summary ---
Author Organization [employer] Address [address] [facility] 7t [place] [address] Care Team Providers Care Welding Systems And Equipment Repairer Name Role Phone Karoline Beltran Primary Care Provider [phone] Azalia Villalta PharmD Unavailable [phone] Reason for Referral * Consultation (Routine) - Authorized Specialty Diagnoses / Procedures Referred By Dusty latif Referred To Contact Gastroenterology Diagnoses Positive colorectal cancer screening using Cologuard test Karoline Beltran FNP [address] [place] [address] Phone: tel: fax: [facility] [address] [facility] 3rd [address] [place], [place] Phone: tel: fax: Referral ID Status Reason Start Date Expiration Date Visits Requested Visits Authorized [id number] Authorized Specialty Services Required 10/08/2024 10/08/2025 1 1 * Imaging (Routine) - Authorized Specialty Diagnoses / Procedures Referred By Dusty latif Referred To Contact Radiology Diagnoses Mass of right hand Procedures US SOFT TISSUE Karoline Beltran FNP [address] [place] [address] Phone: tel: fax: [facility] [address] [place] [address] Phone: tel: fax: Referral ID Status Reason Start Date Expiration Date V isits Requested Visits Authorized [id number] Authorized 09/28/2024 09/28/2025 1 1 Encounter Details Date Type Department Care Team (Late st Contact Info) Description 09/28/2024 2:30 PM EST Office Visit [facility] MED [facility] PED[facility] [address] [place] [address] Karoline Beltran FNP [address] [place] [address] Positive colorectal cancer screening using Cologuard test [...] this encounter Progress Notes * Karoline Beltran, ORNAMENTAL IRONWORKING SUPERVISOR - 09/28/2024 2:30 PM EST Subjective: Dedrick Reed is a 59 y.o. male w/ PMH GERD, Hep C s/p tx, H.Pylori, LTBI, OUD on suboxone, who presents to the office for a follow up visit: chronic conditions. Interim History: Last PCP visit: 06/01/24 Cologuard positive on 07/05/24. He was scheduled for [facility] GI appt in Jul 2024 for decreased appetite (does not recall if he attended appt - will request records and send updated referral for positive cologuard). HPI: - Intermittent dysuria with flank pain. Has been following closely with [facility]. Denies any gross hematuria. Reports symptoms [...] 01/23/24 Established with [facility] Consult Aug 2024 - plan for home sleep study Genitourinary Cystitis Overview Jun 2024: US retroperitoneal ordered by [facility] 1. There is increased bilateral renal cortical echotexture, which can be associated with medical renal disease. 2. No renal mass or calculus is seen bilaterally. There is mild right renal pelviectasis. No nery hydronephrosis is seen bilaterally. 3. There is mild prostatomegaly. Current Assessment & Plan - Continues following with [facility] - Intermittent dysuria and CVA tenderness [...] ESTAssociated Problem(s): Cystitis - Continues following with [facility] - Intermittent dysuria and CVA tenderness [...] Description 10/31/2024 9:00 AM EDT Office Visit [facility] MEDICINE [address] [place] [address] Leopoldo Bateman MD [address] [place] [address] 12/24/2024 1:45 PM EDT Office Visit [facility] MED & PEDS [address] [place] [address] Karoline Beltran FNP [address] [place] [address] 01/21/2025 10:30 AM EDT Office Visit [facility] OPTOMETRY [address] [place] [address] Val Lugo, JENNIFER [address] [place] [address] Scheduled Orders Name Type Priority Associated Diagnoses [...] Media Lot # [id number] Lot# Expiration Date ,268 Urine 09/28/2024 3:12 PM EST Karoline NORMAN [...] documented as of this encounter Care Teams Welding Systems And Equipment Repairer Relationship Specialty Start Date End Date Karoline Beltran FNP [address] [place] [address] PCP - General Family Medicine 06/15/21 Azalia Villalta PharmD [address] [place] [address] Pharmacist Internal Medicine 05/15/24 documented as of this encounter
--- OUTSIDE RECORDS SUMMARY | 2024-10-15 14:35 | XMS_ITS | Encounter Summary ---
Author Organization [employer] Address [address] [facility] 7t [place] [address] Care Team Providers Care Health And Safety Advisor Name Role Phone Ruby Karoline SALES PROMOTION DIRECTOR Primary Care Provider [phone] Azalia Villalta PharmD Unavailable [phone] Encounter Details Date Type Department Care Team ([facility] st Contact Info) Description 09/25/[address] [facility] CHC MED & PEDS [address] [place], [place] [phone] Karoline Beltran FNP [address] [place] [address] Social History Tobacco Use Types Packs/Day Years [...] the past 12 months, has t he [employer], gas, oil or water company threatened to [...] 10/31/2024 9:00 AM EDT Office Visit [facility] MEDICINE [address] [place] [address] Leopoldo Bateman MD [address] [place] [address] 12/24/2024 1:45 PM EDT Office Visit [facility] CHC MED & PEDS [address] [place] [address] Karoline Beltran, SALES PROMOTION DIRECTOR [address] [place] [address] 01/21/2025 10:30 AM EDT Office Visit [facility] OPTOMETRY [address] [place] [address] ParishVal kaur, OD [address] [place] [address] documented as of this encounter Procedures Procedure Name Priority Date/Time Associated Diagnosis Comments HEPATIC FUNCTION PANEL Routine 09/25/2024 8:53 AM EST LIPID PANEL, STANDARD Routine 09/25/2024 8:53 AM EST documented in this encounter Results * (ABNORMAL) Lipid Panel, Standard (09/25/2024 8:53 AM EST) Triglycerides 97 <150 mg/dL [facility] Comment:Desirable Triglyceri de: less than 150 mg/dLBorderline High Triglyceride 150-199 mg/dLHigh Triglyceride: 200-499 mg/dLVery High Triglyceride: greater than or equal to 5OO mg/dL Cholesterol 176 <200 mg/dL [facility] Comment:Desirable Cholestero l: less than 200 mg/dLBorderline High Cholesterol: 200-239 mg/dLHigh Cholesterol: greater than 239 mg/dL LDL Cholesterol Calculated 121(H) <100 mg/dL [facility] Comment:Desirable LDL: less than 100 mg/dLNear Optimal/Above Optimal LDL: 110- 129 mg/dLBorderline High LDL: 130-159 mg/dLHigh LDL: 160-189 mg/dLVery High LDL: greater than or equal to 190 mg/dL HDL Cholesterol 36(L) >40 mg/dL [facility] Comment:Desirable HDL: great er than 40 mg/dL Note: This HDL assay may give artificially low results in patients with liver disease. 09/25/2024 8:53 AM EST 09/25/2024 11:27 AM EST us Karoline Beltran SALES PROMOTION DIRECTOR LAB BLOOD ORDERABLES Final Res ult [facility] [address] [place] [address] [phone] * Hepatic Function Panel (09/25/2024 8:53 AM EST) Bilirubin, Total 0.7 0.0 - 1.0 mg/dL [facility] Bilirubin, Direct 0.2 0.0 - 0.5 mg/dL [facility] Aspartate Amino Transferase 33 5 - 37 U/L [facility] Alanine Aminotransferase 26 0 - 40 U/L [facility] Total Protein 7.5 6.5 - 8.0 g/dL [facility] Albumin Level 4.4 3.5 - 5.0 g/dL [facility] Alkaline Phosphatase 61 39 - 117 U/L [facility] 09/25/2024 8:53 AM EST 09/25/2024 11:27 AM EST us Karoline NORMAN LAB BLOOD ORDERABLES Final Res ult [facility] [address] [place] [address] [phone] documented in this encounter Visit Diagnoses Not on filedocumented in this encounter Additional Health Concerns Assessment Noted Time PHQ-9 Depression Total Score: 15 024 12:05 PM EST documented as of this encounter Care Teams Health And Safety Advisor Relationship Specialty Start Date End Date Karoline Beltran FNP [address] [place] [address] PCP - General Family Medicine 06/15/21 Azalia Villalta, WillieD [address] [place] [address] Pharmacist Internal Medicine 05/15/24 documented as of this encounter
--- OUTSIDE RECORDS SUMMARY | 2024-10-15 14:35 | XMS_ITS | Encounter Summary ---
Author Organization [employer] Address [address] [facility] 7t [place] [address] Care Team Providers Care Review Coordinator Name Role Phone Karoline Beltran TIE PRESSER Primary Care Provider [phone] Azalia Villalta PharmD Unavailable [phone] Reason for Visit * Reason Onset Date Comments Med Refill 08/07/2024 Encounter Details Date Type Department Care Team (Late st Contact Info) Description 08/07/2024 Refill [facility] MEDICINE [address] [place] [address] Zehra Rodgers, ADARSH Opioid dependence, uncomplicated ([facility]) Social History Tobacco Use Types Packs/Day Years [...] the past 12 months, has t he Compliance Assurance, [place], oil or water Stolen [employer] threatened to shut off services in your [...] 9:00 AM EDT Office Visit [facility] MEDICINE [address] [place] [address] Leopoldo Bateman MD [address] [place] [address] 12/24/2024 1:45 PM EDT Office Visit [facility] CHC MED & PEDS [address] [place] [address] Karoline Beltran, TIE PRESSER [address] [place] [address] 01/21/2025 10:30 AM EDT Office Visit [facility] OPTOMETRY [address] [place] [address] Val Lugo, OD [address] [place] [address] documented as of this encounter Visit Diagnoses Diagnosis Opioid dependence, uncomplicated (CMS/HCC) documented in this encounter Additional Health Concerns Assessment Noted Time PHQ-9 Depression Total Score: 15 024 12:05 PM EST documented as of this encounter Care Teams Review Coordinator Relationship Specialty Start Date End Date Karoline Beltran FNP [address] [place] [address] PCP - General Family Medicine 06/15/21 Azalia Villalta, Maninder [address] [place] [address] Pharmacist Internal Medicine 05/15/24 documented as of this encounter
== END 2024-10-15 12:53 | disposition home or self-care (01) ==
LOC: HO.US 12:52
PROVIDERS: PCP Registered Nurse; Visit Provider Registered Nurse
DX: R22.31 Localized swelling, mass and lump, right upper limb (principal)
CPT/HCPCS: 76882

== ENCOUNTER → 2024-10-15 12:58 | Outpatient (BNV) | payer MEDICAID, SELFPAY | PROVIDERS: PCP Registered Nurse; Visit Provider Nuclear Medicine | DX: R22.31 Localized swelling, mass and lump, right upper limb (principal) | CPT/HCPCS: 76882 ==

== ENCOUNTER 2024-12-07 13:23 | Outpatient (AMB) | payer MEDICAID, SELFPAY ==
--- NOTE | 2024-12-07 13:31 | MHC.OFFVIS ---
Intake Visit Reasons: Cystoscopy Intake Note: Pt presents to the office today for a Cystoscopy procedure. Pt decided not to go through with procedure. Allergies No Known Allergies Allergy (Verified 12/07/24 13:31) HPI Comments Details: Milton is a pleasant Tamazight-speaking male. He is a patient of Dr. Beltran. He seen for the following urologic conditions - recurrent urinary tract infections Presentation today for cystoscopy after evaluation with nurse-practitioner Tamazight translation provided by qualified medical records administrator Does not want to proceed with cystoscopy Describes effective urination with good stream Optic to parameters show effective bladder emptying. Ultrasound without any abnormalities. Not currently on prostate medications. Denies past constipation. Multiple urine cultures noted for pansensitive E coli. Six-month follow-up nurse-practitioner [facility] Medical History Nicotine dependence, cigarettes, uncomplicated History of latent tuberculosis Polysubstance abuse High cholesterol Surgical History History of cholecystectomy (~2004) Social History Alcohol intake: current Alcohol intake frequency: a few times a week Patient Tobacco Use Status: Current everyday Tobacco user Current occupational status: unemployed Current occupation: right hand dominant Review of Systems Const Denies chills and Denies fever(s) Card Reports no additional complaints and Denies syncope Resp Denies cough GI Denies abdominal pain and Denies heartburn Reports as per HPI and Denies change in libido Neuro Denies syncope Psych Denies change in libido Endo Denies change in libido Physical Exam Const General: cooperative, healthy appearing, comfortable and no acute distress Orientation/consciousness: patient oriented x3 HEENT Face and sinus: Yes normal facial exam Mouth: moist mucous membranes Neck Neck: Yes normal visual inspection, Yes full ROM and Yes trachea midline Chest Chest palpation & inspection: normal inspection of the chest Resp Effort & Inspection: normal respiratory effort, able to speak in complete sentences and no respiratory distress GI Inspection: Yes normal to inspection Back/Spine/Pelvis Cervical Spine: normal cervical lordosis Thoracic/Lumbar Spine: thoracic and lumbar spine normal to inspection Skin General skin exam: no rashes or lesions noted Neuro General: patient oriented x3, gait normal, tone normal and moves all extremities Extrem General: Yes normal to inspection and Yes capillary refill normal Assessment & Plan Assessment & Plan (1) Complicated urinary tract infection: Code(s): N39.0 - Urinary tract infection, site not specified Category: Medical Plan Six-month follow-up POACHER OPERATOR Patient Instructions: This note is constructed using voice recognition software. While every effort has been made to ensure accuracy mark up designer errors may have been included. Imaging studies, laboratory and physical exam results were discussed and reviewed in detail. No major barriers to patient understanding were identified. An opportunity to ask questions regarding the treatment plan was provided. All questions were answered. The patient expressed understanding and agreement with the above treatment plan. The patient is aware they should contact our office by phone for worsening of their current condition or the appearance of new urologic symptoms. Compliance is encouraged with any medications and followup testing that is ordered. It is a privilege to participate in the urologic care of your patient. If you have any questions or concerns regarding treatment for the above conditions, or other urologic issues, please do not hesitate to contact me. The office telephone contact is [phone]. Sincerely, Dr Ed Chapa MD, [facility] - Urology Compassionate Specialist Care for the Genitourinary System Coding Level of Care Code Est Pt Level 3 (71432) Diagnoses Complicated urinary tract infection N39.0
--- OUTSIDE RECORDS SUMMARY | 2024-12-07 13:51 | XMS_ITS | Clinical Summary ---
Author Organization [facility] Address [address] [place] [address] Phone Care Team Providers Care Advanced Practice Psychiatric Nurse Name Role Phone Physician, No Pcp Primary Care Provider Unavaila ble Allergies No known active allergies Medications methocarbamoL (ROBAXIN) 750 mg tablet Take 1 tablet (750 mg total) by mouth 4 (four) times a day for 5 days. 20 each 10/02/2024 Active Encounters Date Type Department Care Team Description 10/23/2024 Lab Requisition [facility] - Main Lab [address] [facility] [place] [address] Edgard Taylor PA Benign essential microscopic hematuria 10/02/2024 5:54 PM EST - 10/02/2024 7:29 PM EST Emergency [facility] Emergency [address] [place] [address] Acute right-sided low back pain [...] (Lipid Panel) 09/25/2029 09/25/2024, 07/06/2024 RSV Immunization Adult Patients (1 - 1-dose 75+ series) 2040 Pneumococcal [...] age to complete this topic Meningococcal B Vaccine Aged Out No l onger eligible based on patient's age to complete this topic RSV Immunization Patients Under 20 months Aged Out No longer eligible based on patient's age to complete this topic Varicella Vaccines Aged Out No longer eligible based on patient's age to complete this topic Procedures Procedure Name Priority Date/Time Associated Diagnosis Comments AP OUTSIDE CONSULT Routine 10/22/2024 12 :00 AM EST Benign essential microscopic hematuria RUSSELL URINE CULTURE TUBE STAT 10/02/2024 1:13 PM EST URINALYSIS WITH [...] EST from Last 3 Months Results * Anatomic pathology outside consult (10/22/2024 12:00 AM EST) Addendum Results of UroVysion fluorescence in situ hybridization (FISH) testing: CEP3: Normal CEP7: Normal CEP17: Normal LSI 9p21: Normal Interpretation: Normal profile Controls stained appropriately. Note: The results are intended as a screening device and should be interpreted in association with other clinical and pathological findings. 11/08/2024 11:13 AM EDT [facility] Addendum electronically signed by Nikos Post MD on 11/08/2024 at 11:13 AM Final Diagnosis A. Urine, Voided, ([id number]): Atypical urothelial cells. Note: Based upon the cytologic findings, UroVysion testing will be performed, the result to follow in an addendum. 11/08/2024 11:13 AM EDT [facility] Clinical Information Benign essential microscopic hematuria R31.1 Urine cytology with reflex UroVysion ([facility]) 11/08/2024 11:13 AM [facility] Gross Description A. Urine, Voided, ([id number]): Received is one ThinPrep slide for cytology. 11/08/2024 11:13 AM [facility] Disclaimer Unless otherwise specified, all tissue is 10% NB formalin fixed and paraffin embedded. Technical pathology services provided by [facility] at [address] [place] [address] [address], [place] [address] (CLIA #[id number]/Lidia Leos MD, Supervisor [employer]) 11/08/2024 11:13 AM [facility] Tissue Urine specimen from urethra / Unknown 10/22/2024 10/23/2024 3:54 PM EST us Edgard DHILLON LAB PATHOLOGY ORDERAB LES Edited Result - Final [facility] [address] [place] [address], * (ABNORMAL) Urinalysis with reflex microscopic and culture (10/02/2024 1:13 PM EST) [facility] Specific [place] Urine 1.018 1.003 - 1.030 LAB URINALYSIS - AUTOMATED METHOD 10/02/2024 2:41 PM [facility] pH, Urine 7.0 5.0 - 8.0 pH LAB URINALYSIS - AUTOMATED METHOD 10/02/2024 2:41 PM [facility] Leukocytes, Urine Negative Negative LAB URINALYSIS - AUTOMATED METHOD 10/02/2024 2:41 PM [facility] Nitrite, Urine Negative Negative LAB URINALYSIS - AUTOMATED METHOD 10/02/2024 2:41 PM [facility] Protein, Urine Trace <=Trace mg/dL LAB URINALYSIS - AUTOMATED METHOD 10/02/2024 2:41 PM [facility] Glucose, Urine Negative Negative mg/dL LAB URINALYSIS - AUTOMATED METHOD 10/02/2024 2:41 PM [facility] Ketones, Urine Negative Negative mg/dL LAB URINALYSIS - AUTOMATED METHOD 10/02/2024 2:41 PM [facility] Urobilinogen, Urine 1.0 0.2 - 1.0 mg/dL LAB URINALYSIS - AUTOMATED METHOD 10/02/2024 2:41 PM [facility] Bilirubin, Urine Negative Negative LAB URINALYSIS - AUTOMATED METHOD 10/02/2024 2:41 PM [facility] Blood, Urine Trace(A) Negative LAB URINALYSIS - AUTOMATED METHOD 10/02/2024 2:41 PM [facility] RBC, Urine 2.3 0 - 4 /HPF LAB URINALYSIS - AUTOMATED METHOD 10/02/2024 2:41 PM [facility] WBC, Urine 0.5 0 - 4 /HPF LAB URINALYSIS - AUTOMATED METHOD 10/02/2024 2:41 PM [facility] Squamous Epithelial, Urine 5 0 - 60 /LPF LAB URINALYSIS - AUTOMATED METHOD 10/02/2024 2:41 PM EST [facility] Bacteria, Urine Negative Negative /HPF LAB URINALYSIS - AUTOMATED METHOD 10/02/2024 2:41 PM EST [facility] Hyaline Casts, Urine 0.0 0 - 3 /LPF LAB URINALYSIS - AUTOMATED METHOD 10/02/2024 2:41 PM EST [facility] Urine Urine specimen obtained by clean catch procedure / Unknown Non-blood Collection / Unknown 10/02/2024 1:13 PM EST 10/02/2024 1:59 PM EST Jaspal Crockett LAB URINE ORDERABLES Final Result Performing Organization Address [facility]/ZIP Co de Phone Number [facility] [address] [place] [address], [place] [phone] * Russell urine culture tube (10/02/2024 1:13 PM EST) Pathologist [facility] Extra Tube Hold for add-ons. 10/02/2024 3:02 PM EST [facility] Comment:Auto resulted. Urine Urine specimen obtained by clean catch procedure / Unknown Non-blood Collection / Unknown 10/02/2024 1:13 PM EST 10/02/2024 1:58 PM EST Jaspal Crockett DO [facility] URINE ORDERABLES Final Result [facility] [address] [place] [address], [place] [phone] * (ABNORMAL) CBC auto differential (10/02/2024 1:11 PM EST) WBC 7.9 4.8 - 10.8 K/[facility] LAB HEMETOLOGY METHOD 10/02/2024 2:07 PM EST [facility] RBC 4.30(L) 4.50 - 5.50 M/[facility] LAB HEMETOLOGY METHOD 10/02/2024 2:07 PM [facility] Hemoglobin 13.6 13.5 - 17.5 g/dL LAB HEMETOLOGY METHOD 10/02/2024 2:07 PM [facility] Hematocrit 39.5(L) 42.0 - 54.0 % LAB HEMETOLOGY METHOD 10/02/2024 2:07 PM [facility] MCV 92.1 79.0 - 98.0 FL LAB HEMETOLOGY METHOD 10/02/2024 2:07 PM [facility] MCH 31.7 27.0 - 32.0 pcg LAB HEMETOLOGY METHOD 10/02/2024 2:07 PM [facility] MCHC 34.4 32.0 - 37.0 g/dL LAB HEMETOLOGY METHOD 10/02/2024 2:07 PM [facility] RDW 12.2 11.0 - 15.0 % LAB HEMETOLOGY METHOD 10/02/2024 2:07 PM [facility] Platelets 220 130 - 400 K/mcL LAB HEMETOLOGY METHOD 10/02/2024 2:07 PM [facility] MPV 10.2 7.0 - 11.0 FL LAB HEMETOLOGY METHOD 10/02/2024 2:07 PM [facility] NRBC 0.0 <1.0 % LAB HEMETOLOGY METHOD 10/02/2024 2:07 PM [facility] NRBC Absolute 0.00 <0.10 K/mcL LAB HEMETOLOGY METHOD 10/02/2024 2:07 PM [facility] Neutrophils Relative 59.4 % LAB HEMETOLOGY METHOD 10/02/2024 2:07 PM [facility] Lymphocytes Relative 31.5 % LAB HEMETOLOGY METHOD 10/02/2024 2:07 PM [facility] Monocytes Relative 6.2 % LAB HEMETOLOGY METHOD 10/02/2024 2:07 PM [facility] Eosinophils Relative 1.9 % LAB HEMETOLOGY METHOD 10/02/2024 2:07 PM [facility] Basophils Relative 0.5 % LAB HEMETOLOGY METHOD 10/02/2024 2:07 PM [facility] Immature Granulocytes Relative 0.5 % LAB HEMETOLOGY METHOD 10/02/2024 2:07 PM [facility] Neutrophils Absolute 4.70 1.50 - 7.00 K/mcL LAB HEMETOLOGY METHOD 10/02/2024 2:07 PM [facility] Lymphocytes Absolute 2.49 1.00 - 5.00 K/mcL LAB HEMETOLOGY METHOD 10/02/2024 2:07 PM [facility] Monocytes Absolute 0.49 0.20 - 1.00 K/mcL LAB HEMETOLOGY METHOD 10/02/2024 2:07 PM EST [facility] Eosinophils Absolute 0.15 0.00 - 0.50 K/mcL LAB HEMETOLOGY METHOD 10/02/2024 2:07 PM [facility] Basophils Absolute 0.04 0.00 - 0.20 K/mcL LAB HEMETOLOGY METHOD 10/02/2024 2:07 PM [facility] Immature Granulocytes Absolute 0.04(H) 0.00 - 0.03 K/mcL LAB HEMETOLOGY METHOD 10/02/2024 2:07 PM [facility] Blood Venous blood specimen / Unknown Venipuncture / Unknown 10/02/2024 1:11 PM EST 10/02/2024 1:58 PM EST us Jaspal Crockett DO LAB BLOOD ORDERABLES Final Result [facility] [address] [place] [address], * APTT (10/02/2024 1:11 PM EST) aPTT 30.7 24.1 - 39.3 sec LAB COAGULATION METHOD 10/02/2024 2:20 PM EST [facility] Blood Venous blood specimen / Unknown Venipuncture / Unknown 10/02/2024 1:11 PM EST 10/02/2024 1:58 PM EST us Jaspal Crockett DO LAB BLOOD ORDERABLES Final Result [facility] [address] [place] [address], [place] [phone] * Prothrombin time with INR (10/02/2024 1:11 PM EST) Pathologist [facility] Protime 11.9 10.6 - 13.9 sec LAB COAGULATION METHOD 10/02/2024 2:20 PM EST [facility] INR 0.9 LAB COAGULATION METHOD 10/02/2024 2:20 PM EST [facility] Blood Venous blood specimen / Unknown Venipuncture / Unknown 10/02/2024 1:11 PM EST 10/02/2024 1:58 PM EST us Jaspal Crockett DO LAB BLOOD ORDERABLES Final Result [facility] [address] [place] [address], [place] [phone] * Type and screen (10/02/2024 1:11 PM EST) Pathologist [facility] ABO Group A 10/02/2024 3:49 PM EST [facility] Rh Type Positive 10/02/2024 3:49 PM EST [facility] Antibody Screen Negative 10/02/2024 3:49 PM EST [facility] Blood Venous blood specimen / Unknown Venipuncture / Unknown 10/02/2024 1:11 PM EST 10/02/2024 1:58 PM EST Jaspal Crockett DO LAB BLOOD BANK TEST ORDERAB LES Final Result [facility] [address] [place] [address], * (ABNORMAL) Comprehensive metabolic panel (10/02/2024 1:11 PM EST) Sodium 139 133 - 145 mmol/L LAB CHEMISTRY METHOD 10/02/2024 2:33 PM [facility] Potassium 4.0 3.5 - 5.5 mmol/L LAB CHEMISTRY METHOD 10/02/2024 2:33 PM [facility] Chloride 108 96 - 110 mmol/L LAB CHEMISTRY METHOD 10/02/2024 2:33 PM [facility] CO2 25 21 - 32 mmol/L LAB CHEMISTRY METHOD 10/02/2024 2:33 PM [facility] Anion Gap 6 3 - 11 LAB CHEMISTRY METHOD 10/02/2024 2:33 PM [facility] Glucose 106(H) 70 - 100 mg/dL LAB CHEMISTRY METHOD 10/02/2024 2:33 PM [facility] BUN 9 5 - 25 mg/dL LAB CHEMISTRY METHOD 10/02/2024 2:33 PM [facility] Creatinine 0.71 0.70 - 1.30 mg/dL LAB CHEMISTRY METHOD 10/02/2024 2:33 PM [facility] eGFR 106 >=60 mL/min/1. 73m2 LAB CHEMISTRY METHOD 10/02/2024 2:33 PM [facility] Comment:Calculation based on the??Chronic Kidney Disease Epidemiology Collaboration (CKD-EPI) equation refit??without adjustment for race. BUN/Creatinine Ratio 12.7 LAB CHEMISTRY METHOD 10/02/2024 2:33 PM [facility] Calcium 9.0 8.5 - 10.5 mg/dL LAB CHEMISTRY METHOD 10/02/2024 2:33 PM [facility] AST (SGOT) 28 10 - 42 unit/L LAB CHEMISTRY METHOD 10/02/2024 2:33 PM [facility] ALT (SGPT) 21 10 - 60 unit/L LAB CHEMISTRY METHOD 10/02/2024 2:33 PM [facility] Alkaline Phosphatase 69 42 - 121 unit/L LAB CHEMISTRY METHOD 10/02/2024 2:33 PM [facility] Total Protein 6.8 6.0 - 8.0 g/dL LAB CHEMISTRY METHOD 10/02/2024 2:33 PM [facility] Albumin 4.0 3.2 - 5.0 g/dL LAB CHEMISTRY METHOD 10/02/2024 2:33 PM [facility] Total Bilirubin 0.7 0.0 - 1.4 mg/dL LAB CHEMISTRY METHOD 10/02/2024 2:33 PM [facility] Blood Venous blood specimen / Unknown Venipuncture / Unknown 10/02/2024 1:11 PM EST 10/02/2024 1:58 PM EST Jaspal Crockett DO LAB BLOOD ORDERABLES Final Result [facility] [address] [place] [address], from Last 3 Months Insurance MEDICAID - [place] Care Teams Advanced Practice Psychiatric Nurse Relationship Specialty Start Date End Date Physician, No Pcp PCP - General 10/02/24
--- OUTSIDE RECORDS SUMMARY | 2024-12-07 13:51 | XMS_ITS | Encounter Summary ---
Author Organization [employer] Address [address] [facility] [address] [address] Care Team Providers Care Manager Multicultural Name Role Phone Karoline Beltran BOX LIDDER Primary Care Provider [phone] Anurag Lo Unavailable Unavailable Sarahi Rey RN Unavailable [phone] Azalia Villalta PharmD Unavailable [phone] Encounter Details Date Type Department Care Team (Late st Contact Info) Description 06/01/[address] [facility] MEDICINE [address] [place] [address] Karoline Beltran FNP [address] [place] [address] Social History Tobacco Use Types Packs/Day Years [...] housing situation today? I have doraparker gayle 05/30/[address] you [...] Care Team (Late st Contact Info) Description 12/24/2024 1:45 PM EDT Office Visit [facility] CH[facility] MED & PEDS [address] [place] [address] Karoline Beltran FNP [address] [place] [address] 12/26/2024 9:00 AM EDT Office Visit [facility] MED[facility]INE [address] [place] [phone] eLopoldo Bateman MD [address] [place] [address] 12/31/2024 1:00 PM EDT Medication Management [facility] [address] [place] [phone] Azalia Villalta, PharmD [address] [place] [phone] documented as of this encounter Visit Diagnoses Not on filedocumented in this encounter Care Teams Manager Multicultural Relationship Specialty Start Date End Date Karoline Beltran FNP [address] [place] [phone] PCP - General Family Medicine 06/15/21 Anurag Lo Community Health Worker 02/09/24 05/10/24 Sarahi Rey, ADARSH [address] [place] [phone] Electric Power Line Examiner 02/09/24 05/10/24 Azalia Villalta, WillieD [address] [place] [phone] Pharmacist Internal Medicine 05/15/24 documented as of this encounter
--- OUTSIDE RECORDS SUMMARY | 2024-12-07 13:51 | XMS_ITS | Encounter Summary ---
Author Organization [employer] Address [address] [facility] 7t [place] [address] Care Team Providers Care School Age Lead Teacher Name Role Phone Karoline Beltran Primary Care Provider [phone] Anurag Lo Unavailable Unavailable Sarahi Rey RN Unavailable [phone] Azalia Villalta PharmD Unavailable [phone] Reason for Visit * Reason Onset Date Comments Ultrasound Order 11/29/2023 Encounter Details Date Type Department Care Team ([facility] st Contact Info) Description 11/29/2023 Telephone [facility] [address] [place] [address] Karoline Beltran FNP [address] [place] [address] Ultrasound Order Social History Tobacco Use Types [...] If any questions please contact Dilan at [phone]. documented in this encounter Plan of Treatment Upcoming Encounters Date Type Department Care Team ([facility] st Contact Info) Description 12/24/2024 1:45 PM EDT Office Visit [facility] MED & PEDS [address] [place] [address] Karoline Beltran FNP [address] [place] [address] 12/26/2024 9:00 AM EDT Office Visit [facility] [address] [place] [phone] Leopoldo Bateman MD [address] [place] [address] 12/31/2024 1:00 PM EDT Medication Management [facility] [address] [place] [phone] Azalia Villalta, WillieD [address] [place] [address] documented as of this encounter Visit Diagnoses Not on filedocumented in this encounter Care Teams School Age Lead Teacher Relationship Specialty Start Date End Date Karoline Beltran FNP [address] [place] [address] PCP - General Family Medicine 06/15/21 Anurag Lo Community Health Worker 02/09/24 05/10/24 Sarahi Rey, ADARSH [address] [place] [phone] Minute Clerk For Basic Traffic 02/09/24 05/10/24 Azalia Villalta, Maninder [address] [place] [address] Pharmacist Internal Medicine 05/15/24 documented as of this encounter
--- OUTSIDE RECORDS SUMMARY | 2024-12-07 13:51 | XMS_ITS | Encounter Summary ---
Author Organization [employer] Address 75 [facility] 7t [place] [address] Care Team Providers Care Cook Specialty Name Role Phone Karoline Beltran CARD PROCESSING CLERK Primary Care Provider [phone] Azalia Villalta PharmD Unavailable [phone] Reason for Referral * Consultation (Routine) - Authorized Specialty Diagnoses / Procedures Referred By Contac t Referred To Contact Pharmacy Diagnoses Essential (primary) hypertension Hawa Martins MD [address] [place] [address] Phone: tel: fax: Referral ID Status Reason Start Date Expiration Date Visits Requested Visits Authorized [id number] Authorized Consult and Treat 07/16/2024 07/16/2025 6 6 Encounter Details Date Type Department Care Team ([facility] st Contact Info) Description 07/16/2024 Orders Only [facility] MEDICINE [address] [place] [address] Hawa Martins MD [address] [place], [place] [phone] Essential (primary) hypertension (Primary Dx) Social History [...] Upcoming Encounters Date Type Department Care Team ([facility] st Contact Info) Description 12/24/2024 1:45 PM EDT Office Visit [facility] CHC MED & PEDS [address] [place] [address] Karoline Beltran FNP [address] [place] [address] 12/26/2024 9:00 AM EDT Office Visit [facility] MEDICINE [address] [place] [address] Leopoldo Bateman MD [address] [place] [address] 12/31/2024 1:00 PM EDT Medication Management [facility] MEDICINE [address] [place] [address] Azalia Villalta PharmD [address] [place] [address] Scheduled Referrals Name Type Priority Associated Diagnoses Orde r Schedule Referral to Pharmacy CDTM Outpatient Referral Routine Essential (primary) hypertension Ordered: 07/16/2024 documented as of this encounter Visit Diagnoses Diagnosis Essential (primary) hypertension- Primary Unspecified essential hypertension documented in this encounter Additional Health Concerns Assessment Noted Time PHQ-9 Depression Total Score: 15 024 12:05 PM EST documented as of this encounter Care Teams Cook Specialty Relationship Specialty Start Date End Date Karoline Beltran FNP [address] [place] [address] PCP - General Family Medicine 06/15/21 Azalia Villalta PharmD [address] [place] [address] Pharmacist Internal Medicine 05/15/24 documented as of this encounter
--- OUTSIDE RECORDS SUMMARY | 2024-12-07 13:51 | XMS_ITS | Encounter Summary ---
Author Organization [employer] Address 75 [facility] 7t [place] [address] Care Team Providers Care Multimedia Services Manager Name Role Phone Karoline Beltran FUNERAL HOME ASSOCIATE Primary Care Provider [phone] Azalia Villalta PharmD Unavailable [phone] Reason for Referral * Consultation (Routine) - Authorized Specialty Diagnoses / Procedures Referred By Contac t Referred To Contact Pharmacy Diagnoses Essential (primary) hypertension Hawa Martins MD [address] [place] [address] Phone: tel: fax: Referral ID Status Reason Start Date Expiration Date Visits Requested Visits Authorized [id number] Authorized Consult and Treat 05/16/2024 05/16/2025 6 6 Encounter Details Date Type Department Care Team ([facility] Contact Info) Description 05/16/2024 Orders Only [facility] MEDICINE [address] [place] [address] [phone] Hawa Martins MD [address] [place], [place] [phone] Essential (primary) hypertension (Primary Dx) Social History [...] Description 12/24/2024 1:45 PM EDT Office Visit [facility] CHC MED & PEDS 505 [place] [address] Karoline Beltran FNP 505 [place] [address] 12/26/2024 9:00 AM EDT Office Visit [facility] MEDICINE [address] [place] [address] Leopoldo Bateman MD [address] [place] [address] 12/31/2024 1:00 PM EDT Medication Management [facility] MEDICINE [address] [place] [address] Azalia Villalta PharmD [address] [place] [address] Scheduled Referrals Name Type Priority Associated Diagnoses Orde r Schedule Referral to Pharmacy CDTM Outpatient Referral Routine Essential (primary) hypertension Ordered: 05/16/2024 documented as of this encounter Visit Diagnoses Diagnosis Essential (primary) hypertension- Primary Unspecified essential hypertension documented in this encounter Additional Health Concerns Assessment Noted Time PHQ-9 Depression Total Score: 12 024 8:34 PM EDT documented as of this encounter Care Teams Multimedia Services Manager Relationship Specialty Start Date End Date Karoline Beltran FNP [address] [place] [address] PCP - General Family Medicine 06/15/21 Azalia Villalta PharmD [address] [place] [address] Pharmacist Internal Medicine 05/15/24 documented as of this encounter
--- OUTSIDE RECORDS SUMMARY | 2024-12-07 13:51 | XMS_ITS | Encounter Summary ---
Author Organization [employer] Address 75 [facility] 7t [place] [address] Care Team Providers Care Route Sales Associate Name Role Phone Karoline Beltran OPERATOR AUTOMATED PROCESS Primary Care Provider [phone] Anurag Lo Unavailable Unavailable Sarahi Rey RN Unavailable [phone] Azalia Villalta PharmD Unavailable [phone] Reason for Visit * Reason Comments Med Refill Encounter Details Date Type Department Care Team (Late st Contact Info) Description 02/05/2024 Refill [facility] MEDICINE [address] [place] [address] Karoline Beltran FNP [address] [place] [address] Arthropathy Social History Tobacco Use Types Packs/Day [...] 1:45 PM EDT Office Visit [facility] CHC MED & PEDS 505 [place] [address] Karoline Beltran, ESTER 505 [place] [address] 12/26/2024 9:00 AM EDT Office Visit [facility] MEDICINE [address] [place] [address] Leopoldo Bateman MD [address] [place] [address] 12/31/2024 1:00 PM EDT Medication Management [facility] MEDICINE [address] [place] [address] Azalia Villalta, WillieD [address] [place] [address] documented as of this encounter Visit Diagnoses Diagnosis Arthropathy Unspecified arthropathy, site unspecified documented in this encounter Additional Health Concerns Assessment Noted Time PHQ-9 Depression Total Score: 12 024 8:34 PM EDT documented as of this encounter Care Teams Route Sales Associate Relationship Specialty Start Date End Date Karoline Beltran FNP [address] [place] [address] PCP - General Family Medicine 06/15/21 Anurag Lo Community Health Worker 02/09/24 05/10/24 Sarahi Rey RN [address] [place] [address] Engine Cowling Installer 02/09/24 05/10/24 Azalia Villalta PharmD [address] [place] [address] Pharmacist Internal Medicine 05/15/24 documented as of this encounter
--- OUTSIDE RECORDS SUMMARY | 2024-12-07 13:51 | XMS_ITS | Encounter Summary ---
Author Organization [employer] Address 75 [facility] 7t [place] [address] Care Team Providers Care House Fellow Name Role Phone Karoline Beltran TOWER LOADER OPERATOR Primary Care Provider [phone] Azalia Villalta PharmD Unavailable [phone] Reason for Visit * Reason Comments RC Recovery Supports Encounter Details Date Type Department Care Team ([facility] Contact Info) Description 12/03/2024 Patient Outreach [facility] MEDICINE [address] [place], [place] [phone] Rene Chavira [address] [place] [address] Recovery Supports Social History Tobacco Use Types [...] as of this encounter Progress Notes * Rene Chavira - 12/03/2024 4:02 PM EDT I met with Dedrick today. Setting: in person at [facility] Recovery Wellness Goals worked on: Physical Health/Mental Health, Social Stability, and Spiritual Wellness Action taken/next steps: Attended recovery support group Additional comments: Rene Chavira documented in this encounter Plan of Treatment Upcoming Encounters Date Type Department Care Team (Late st Contact Info) Description 12/24/2024 1:45 PM EDT Office Visit [facility] CHC MED & PEDS [address] [place] [address] Karoline Beltran FNP 505 [place] [address] 12/26/2024 9:00 AM EDT Office Visit [facility] MEDICINE [address] [place], [place] [phone] Leopoldo Bateman MD [address] [place] [address] [phone] 12/31/2024 1:00 PM EDT Medication Management [facility] MEDICINE [address] [place] [address] [phone] Azalia Villalta PharmD [address] [place], [place] [phone] documented as of this encounter Goals Goal Patient Goal Type Associated Problems Recent Progress Patient-Stated? Author Increase coping skills to promote long-term recovery and improve ability to perform daily activities General On track( 025 1:52 PM EDT) Zehra Danielle, ADARSH documented as of this encounter Visit Diagnoses Not on filedocumented in this encounter Additional Health Concerns Assessment Noted Time PHQ-9 Depression Total Score: 15 024 12:05 PM EST documented as of this encounter Care Teams House Fellow Relationship Specialty Start Date End Date Karoline Beltran FNP [address] [place] [address] PCP - General Family Medicine 06/15/21 Azalia Villalta PharmD [address] [place] [address] [phone] Pharmacist Internal Medicine 05/15/24 documented as of this encounter
--- OUTSIDE RECORDS SUMMARY | 2024-12-07 13:51 | XMS_ITS | Encounter Summary ---
Author Organization [employer] Address 75 [facility] 7t [place] [address] Care Team Providers Care Physicians And Surgeons Name Role Phone Karoline Beltran ADJUNCT PROFESSOR Primary Care Provider [phone] Azalia Villalta PharmD Unavailable [phone] Reason for Visit * Reason Comments Med Refill Encounter Details Date Type Department Care Team ([facility] Contact Info) Description 10/30/2024 Refill [facility] MEDICINE [address] [place] [address] Azalia Villalta, PharmD [address] [place] [address] Mixed hyperlipidemia Social History Tobacco Use Types Packs/Day Years [...] t he electric, gas, oil or water Visible Measures threatened to shut off services in your [...] Description 12/24/2024 1:45 PM EDT Office Visit [facility] CHC MED & PEDS [address] [place] [address] Karoline Beltran, ADJUNCT PROFESSOR 505 [place] [address] 12/26/2024 9:00 AM EDT Office Visit [facility] MEDICINE [address] [place] [address] Leopoldo Bateman MD [address] [place] [address] 12/31/2024 1:00 PM EDT Medication Management [facility] MEDICINE [address] [place] [address] Azalia Villalta, WillieD [address] [place] [address] documented as of this encounter Goals Goal Patient Goal Type Associated Problems Recent Progress Patient-Stated? Author Increase coping skills to promote long-term recovery and improve ability to perform daily activities General On track( 025 1:52 PM EDT) Zehra Danielle RN documented as of this encounter Visit Diagnoses Diagnosis Mixed hyperlipidemia documented in this encounter Additional Health Concerns Assessment Noted Time PHQ-9 Depression Total Score: 15 024 12:05 PM EST documented as of this encounter Care Teams Physicians And Surgeons Relationship Specialty Start Date End Date Karoline Beltarn FNP 230 [place] [address] PCP - General Family Medicine 06/15/21 Azalia Villalta, Maninder [address] [place] [address] Pharmacist Internal Medicine 05/15/24 documented as of this encounter
--- OUTSIDE RECORDS SUMMARY | 2024-12-07 13:51 | XMS_ITS | Encounter Summary ---
Author Organization [employer] Address 75 [facility] 7t [place] [address] Care Team Providers Care Block Out Machine Operator Name Role Phone Karoline Beltran MEDICAL FILE CLERK Primary Care Provider [phone] Anurag Lo Unavailable Unavailable Sarahi Rey RN Unavailable [phone] Azalia Villalta PharmD Unavailable Reason for Visit * Reason Comments Med Refill Encounter Details Date Type Department Care Team (Late st Contact Info) Description 02/01/2023 Refill [facility] MEDICINE 230 [place] [address] Nj Hong MD [address] [place] [address] Opioid dependence, uncomplicated (CMS/HCC) Social History Tobacco [...] Description 12/24/2024 1:45 PM EDT Office Visit [facility] CHC MED & PEDS [address] [place] [address] Karoline Beltran FNP [address] [place] 12/26/2024 9:00 AM EDT Office Visit [facility] MEDICINE [address] [place] [address] Leopoldo Bateman MD [address] [place] [address] 12/31/2024 1:00 PM EDT Medication Management [facility] MEDICINE [address] [place] [address] Azalia Villalta PharmD [address] [place] [address] documented as of this encounter Visit Diagnoses Diagnosis Opioid dependence, uncomplicated (CMS/HCC) documented in this encounter Care Teams Block Out Machine Operator Relationship Specialty Start Date End Date Karoline Beltran FNP [address] [place] [address] PCP - General Family Medicine 06/15/21 Anurag Lo Community Health Worker 02/09/24 05/10/24 Sarahi Rey RN [address] [place] [address] Brim And Crown Presser 02/09/24 05/10/24 Azalia Villalta PharmD [address] [place] [address] Pharmacist Internal Medicine 05/15/24 documented as of this encounter
--- OUTSIDE RECORDS SUMMARY | 2024-12-07 13:51 | XMS_ITS | Encounter Summary ---
Author Organization [employer] Address [address] [place] [address] Care Team Providers Care Packaging Operator Name Role Phone Physician, No Pcp Primary Care Provider Unavaila ble Encounter Details Date Type Department Care Team (Late st Contact Info) Description 10/23/2024 Lab Requisition [facility] - Main Lab [address] [facility] [place] [address] Edgard Taylor PA [address] [facility] [address] [place] [phone] Benign essential microscopic hematuria Social History Tobacco Use Types Packs/Day Years Used Date Smoking Tobacco: Every Day Cigarettes Smokeless Tobacco: Never Alcohol Use Standard Drinks/Week Comments Not Currently 0 (1 standard drink = 0.6 oz pur e alcohol) Sex and Gender Information Value Date Recorded Sex Assigned at Male 10/02/2024 6:54 PM EST Legal Sex Male 1:10 PM EST Gender Identity Male 10/02/2024 6:54 PM EST Sexual Orientation Straight 10/02/2024 6: 54 PM EST documented as of this encounter Plan of Treatment Not on file documented as of this encounter Procedures Procedure Name Priority Date/Time Associated Diagnosis Comments AP OUTSIDE CONSULT Routine 10/22/2024 12 :00 AM EST Benign essential microscopic hematuria documented in this encounter Results * Anatomic pathology outside consult (10/22/2024 12:00 AM EST) Addendum Results of UroVysion fluorescence in situ hybridization (FISH) testing: CEP3: Normal CEP7: Normal CEP17: Normal LSI 9p21: Normal Interpretation: Normal profile Controls stained appropriately. Note: The results are intended as a screening device and should be interpreted in association with other clinical and pathological findings. 11/08/2024 11:13 AM EDT [facility] Addendum electronically signed by Nikos Post MD on 11/08/2024 at 11:13 AM Final Diagnosis A. Urine, Voided, ([id number]): Atypical urothelial cells. Note: Based upon the cytologic findings, UroVysion testing will be performed, the result to follow in an addendum. 11/08/2024 11:13 AM EDT [facility] Clinical Information Benign essential microscopic hematuria R31.1 Urine cytology with reflex UroVysion ([facility]) 11/08/2024 11:13 AM [facility] Gross Description A. Urine, Voided, ([id number]): Received is one ThinPrep slide for cytology. 11/08/2024 11:13 AM EDT [facility] Disclaimer Unless otherwise specified, all tissue is 10% NB formalin fixed and paraffin embedded. Technical pathology services provided by [facility] at [address] [facility] [address], [place] [address] (CLIA #[id number]/Lidia Leos MD, Medical Services Coordinator) 11/08/2024 11:13 AM [facility] Tissue Urine specimen from urethra / Unknown 10/22/2024 10/23/2024 3:54 PM EST us [facility] PATH[facility]Y ORDERAB LES Edited Result - Final [facility] [address] [place] [address], documented in this encounter Visit Diagnoses Diagnosis Benign essential microscopic hematuria documented in this encounter Care Teams Packaging Operator Relationship Specialty Start Date End Date Physician, No Pcp PCP - General 10/02/24 documented as of this encounter
--- OUTSIDE RECORDS SUMMARY | 2024-12-07 13:51 | XMS_ITS | Encounter Summary ---
Author Organization [employer] Address 75 [facility] 7t [place] [address] Care Team Providers Care Dtp Operator Name Role Phone Karoline Beltran GOLF TOURNAMENT CONSULTANT Primary Care Provider [phone] Azalia Villalta PharmD Unavailable [phone] Encounter Details Date Type Department Care Team ([facility] st Contact Info) Description 05/14/2024 Telephone [facility] MEDICINE [address] [place], [place] [phone] Azalia Villalta, PharmD [address] [place] [address] Social History Tobacco Use Types Packs/Day Years [...] Description 12/24/2024 1:45 PM EDT Office Visit [facility] CHC MED & PEDS [address] [place] [address] Karoline Beltran FNP [address] [place] [address] 12/26/2024 9:00 AM EDT Office Visit [facility] MEDICINE [address] [place] [address] Leopoldo Bateman MD [address] [place] [address] 12/31/2024 1:00 PM EDT Medication Management [facility] MEDICINE [address] [place] [address] Azalia Villalta, Maninder [address] [place] [address] documented as of this encounter Visit Diagnoses Diagnosis Essential (primary) hypertension- Primary Unspecified essential hypertension documented in this encounter Additional Health Concerns Assessment Noted Time PHQ-9 Depression Total Score: 12 024 8:34 PM EDT documented as of this encounter Care Teams Dtp Operator Relationship Specialty Start Date End Date Karoline Beltran FNP [address] [place] [address] PCP - General Family Medicine 06/15/21 Azalia Villalta PharmD [address] [place] [address] Pharmacist Internal Medicine 05/15/24 documented as of this encounter
--- OUTSIDE RECORDS SUMMARY | 2024-12-07 13:51 | XMS_ITS | Encounter Summary ---
Author Organization [employer] Address 75 [facility] 7t [place] [address] Care Team Providers Care Solar Power Installer Name Role Phone Karoline Beltran SENIOR APPLICATIONS ANALYST Primary Care Provider [phone] Azalia Villalta PharmD Unavailable [phone] Reason for Referral * Consultation (Routine) - Authorized Specialty Diagnoses / Procedures Referred By Contac t Referred To Contact Pharmacy Diagnoses Essential (primary) hypertension Hawa Martins MD [address] [place] [address] Phone: tel: fax: Referral ID Status Reason Start Date Expiration Date Visits Requested Visits Authorized [id number] Authorized Consult and Treat 06/15/2024 06/15/2025 6 6 Encounter Details Date Type Department Care Team ([facility] st Contact Info) Description 06/15/2024 Orders Only [facility] MEDICINE [address] [place] [address] [phone] Hawa Martins MD [address] [place], [place] [phone] Essential (primary) hypertension (Primary Dx) Social History [...] Upcoming Encounters Date Type Department Care Team ([facility] st Contact Info) Description 12/24/2024 1:45 PM EDT Office Visit [facility] CHC MED & PEDS [address] [place] [address] Karoline Beltran FNP [address] [place] [address] 12/26/2024 9:00 AM EDT Office Visit [facility] MEDICINE [address] [place] [address] Leopoldo Bateman MD [address] [place] [address] 12/31/2024 1:00 PM EDT Medication Management [facility] MEDICINE [address] [place] [address] Azalia Villalta PharmD [address] [place] [address] Scheduled Referrals Name Type Priority Associated Diagnoses [...] documented as of this encounter Care Teams Solar Power Installer Relationship Specialty Start Date End Date Karoline Beltran FNP [address] [place] [address] PCP - General Family Medicine 06/15/21 Azalia Villalta PharmD [address] [place] [address] Pharmacist Internal Medicine 05/15/24 documented as of this encounter
--- OUTSIDE RECORDS SUMMARY | 2024-12-07 13:51 | XMS_ITS | Clinical Summary ---
Author Organization [employer] Address [address] [facility] 7[address] [place] [address] Care Team Providers Care Forensic Pathologist Name Role Phone Karoline Beltran CARE ATTENDANT Primary Care Provider [phone] Azalia Villalta PharmD Unavailable [phone] Allergies Active Allergy Reactions Criticality Noted Date [...] HOURS DIRECTED 30 patch 11 024 Active cyclobenzaprine (Flexeril) 10 MG tabletIndications [...] daily 20 tablet 1 024 2024 Active nicotine (Nicoderm CQ) 14 MG/24HR patchIndications: [...] AT BEDTIME 90 tablet 3 024 Active famotidine (Pepcid) 20 MG tabletIndications :Gastroesophageal reflux disease, unspecified whether esophagitis present Take 1 tablet (20 mg) by mouth if needed in the morning and at bedtime for heartburn or indigestion. 180 tablet 1 024 Active gabapentin (Neurontin) 800 MG tabletIndications :Lumbar facet arthropathy TAKE 1 TABLET BY MOUTH THREE TIMES DAILY IN THE MORNING, EVENING, AND BEDTIME 90 tablet 3 025 Active meloxicam (Mobic) 15 MG tablet TAKE 1 TABLET BY MOUTH EVERY DAY NEEDED FOR MODERATE PAIN 30 tablet 2 025 Active ezetimibe (Zetia) 10 MG tabletIndications :Mixed hyperlipidemia TAKE 1 TABLET BY MOUTH ONCE DAILY 90 tablet 025 Active omeprazole (PriLOSEC) [address] capsuleIndication s:Gastroesophagea l reflux disease, unspecified whether esophagitis present TAKE 1 CAPSULE BY MOUTH EVERY MORNING 90 capsule 1 025 Active olmesartan (BENIcar) 5 MG tabletIndications :Essential (primary) hypertension TAKE 1 TABLET BY MOUTH EVERY MORNING 90 tablet 025 Active Buprenorphine HCl-Naloxone HCl (Suboxone) 8-2 MG SL filmIndications:O pioid dependence, uncomplicated (CMS/HCC) Place 1 Film under the tongue 3 times daily for 28 days. Do not start before November 28, 2024. 84 Film 025 2024 Active omeprazole (PriLOSEC) [address] capsuleIndication s:Gastroesophagea l reflux disease, unspecified whether esophagitis present TAKE 1 CAPSULE BY MOUTH EVERY DAY BEFORE BREAKFAST DO NOT BREAK, CRUSH, DISSOLVE OR CHEW 90 capsule 024 2024 Discontinued olmesartan (BENIcar) 5 MG tabletIndications :Essential (primary) hypertension TAKE 1 TABLET BY MOUTH EVERY MORNING 90 tablet 025 2024 Discontinued Buprenorphine HCl-Naloxone HCl (Suboxone) 8-2 MG SL filmIndications:O pioid dependence, uncomplicated (CMS/HCC) Place 1 Film under the tongue 3 times daily for 28 days. Do not start before October 31, 2024. 84 Film 025 2024 Discontinued(R eorder [...] Overview (06/07/2024): Followed by Urology - [facility] Consult Mar 2024 - review of CT [...] Hematuria 02/01/2024 Overview (06/07/2024): Following with [facility]/ Urology Urine cytology February 2024 negative for [...] 01/23/24 Established with [facility] Consult Aug 2024 - plan for home sleep study Tinnitus of both ears 01/29/2024 Assessment & Plan (01/29/2024 8:27 PM EDT): Intermittent, bilateral, not worsening Check with pharmacy regarding possible med SE Consider referral to ENT if persistent Cystitis 12/22/2023 Overview (10/08/2024): Jun 2024: US retroperitoneal ordered by [facility] Urology 1. There is increased bilateral renal cortical echotexture, which can be associated with medical renal disease. 2. No renal mass or calculus is seen bilaterally. There is mild right renal pelviectasis. No nery hydronephrosis is seen bilaterally. 3. There is mild prostatomegaly. Assessment & Plan (10/08/2024 4:33 PM EST): - Continues following with [facility] Urology - Intermittent dysuria and CVA tenderness [...] as pharmacomtherapy, [facility] smoking cessation group, and [facility] pharmacy smoking cessation clinic -Continues with NRT patches with good effect -LDCT: form signed and faxed to [facility] 09/23/23 Lumbar facet arthropathy 09/02/2022 Overview (06/14/2023): [...] lidocaine patches PRN -Encouraged to continue with [facility] acupuncture clinic & PT as has noted improvement with intervention -Following with [facility] Pain Management ?? Received lumbar injection on [...] with lidocaine patches PRN -Information provided about [facility] acupuncture clinic -Previously referred to PT [...] to stand mechanics training on [facility]. Patient benefited from verbal cues in [...] (09/01/2022): Added automatically from request for surgery [id number] GERD (gastroesophageal reflux disease) 9 Assessment & Plan (12/05/2023 6:36 PM EDT): Refill omeprazole 40mg daily sent to the pharmacy Assessment & Plan (09/24/2023 2:49 PM EST): Refill sent to the pharmacy Insomnia 01/11/2019 Assessment & Plan (06/14/2023 10:25 AM EDT): ?? After appt, provider able to clarify information with [facility] pharmacy. Pt last picked up psych [...] has met all short term and 1 terminal worker goal. Limited progress towards terminal worker goals 2nd to recent onset of B [...] Encounters Date Type Department Care Team Description 12/05/2024 Patient Outreach [address] [address] Davy Bhatia Recovery Supports 12/03/2024 Patient Outreach [address] [address] Rene Chavira Recovery Supports 11/29/2024 Patient Outreach [address] [address] Rene Chavira Recovery Supports 11/28/2024 9:00 AM EDT Office Visit [address] [address] Leopoldo Bateman MD Uncomplicated opioid dependence (CMS/HCC) (Primary Dx) 11/28/2024 Travel 11/26/2024 Patient Outreach [facility] [address] [place] [address] Rene Chavira Recovery Supports 11/23/2024 11:15 AM EDT Office Visit [facility] [address] [place] [address] Parish, Val, OD Presbyopia (Primary Dx) 11/22/2024 Refill [facility] [address] [place] [address] Zehra Rodgers RN Opioid dependence, uncomplicated (CMS/HCC) 11/22/2024 Refill [facility] [address] [place] [address] Karoline Beltran FNP Essential (primary) hypertension 11/21/2024 9:00 AM EDT Office Visit [facility] [address] [place] [phone] Leopoldo Bateman MD Uncomplicated opioid dependence (CMS/HCC) (Primary Dx) 11/21/2024 Travel 11/14/2024 9:00 AM EDT Office Visit [facility] [address] [place] [address] Leopoldo Bateman MD Opioid dependence, uncomplicated (CMS/HCC) (Primary Dx) 11/14/2024 Travel 11/11/2024 Refill [facility] [address] [place] [address] Karoline Beltran FNP Gastroesophageal reflux disease, unspecified whether esophagitis present 11/07/2024 9:00 AM EDT Clinical Support [facility] [address] [place] [address] Zehra Rodgers RN Opioid dependence, uncomplicated (CMS/HCC) 11/07/2024 Travel 11/02/2024 Population Health Risk Score [facility] (C[facility]) Department [address] [place] [phone] Provider, Population Health Generic 10/31/2024 9:00 AM EDT Office Visit [facility] [address] [place] [address] Leopoldo Bateman MD Opioid dependence, uncomplicated (CMS/HCC) (Primary Dx) 10/31/2024 Travel 10/31/2024 Telephone [facility] [address] [place] [address] Azalia Villalta, PharmD 10/30/2024 Refill [facility] [address] [place] [address] Azalia Villalta, PharmD Mixed hyperlipidemia 10/24/2024 3:00 PM EST Office Visit [facility] [address] [place] [address] Parish, Val, OD Optic nerve asymmetry, right (Primary Dx); Physiologic anisocoria; Combined forms of age-related cataract of both eyes; Meibomian gland disease, unspecified laterality; Presbyopia 10/24/2024 9:00 AM EST Office Visit [facility] [address] [place] [address] Leopoldo Bateman MD Opioid dependence, uncomplicated ([facility]/HCC) (Primary Dx) 10/24/2024 Refill [facility] [address] [place] [phone] Zehra Rodgers RN Opioid dependence, uncomplicated (CMS/HCC) 10/24/2024 Travel 10/24/2024 Refill [facility] [address] [place] [address] Karoline Beltran FNP 10/18/2024 Telephone [facility] [address] [place] [phone] Karoline Beltran FNP Results 10/17/2024 9:00 AM EST Office Visit [facility] [address] [place] [address] Leopoldo Bateman MD Opioid dependence, uncomplicated (CMS/HCC) (Primary Dx) 10/17/2024 Travel 10/12/2024 Telephone [facility] [address] [place] [address] Katherine Guerrero MA Results 10/10/2024 9:00 AM EST Clinical Support [facility] [address] [place] [address] Zehra Rodgers RN Opioid dependence, uncomplicated ([facility]/HCC) 10/10/2024 Travel 10/10/2024 Refill [facility] [address] [place] [phone] Karoline Beltran, CARE ATTENDANT Lumbar facet arthropathy 10/03/2024 9:00 AM EST Office Visit [facility] [address] [place] [phone] Leopoldo Bateman MD Opioid dependence, uncomplicated (CMS/HCC) (Primary Dx) 10/03/2024 Travel 09/28/2024 2:30 PM EST Office Visit [facility] [address] [place] [address] Karoline Beltran, CARE ATTENDANT Positive colorectal cancer screening using Cologuard test (Primary Dx); Mass of right hand; UTI symptoms; Mixed hyperlipidemia; Cystitis; Loud snoring 09/28/2024 Travel 09/26/[address] [address] Zehra Rodgers RN Opioid dependence, uncomplicated (CMS/HCC) 09/26/2024 Telephone [facility] [address] [place] [phone] Katherine Guerrero MA Results 09/25/2024 Telephone [facility] [address] [place] [address] Jayla Hager MA Chart Prep 09/25/2024 Orders Only [facility] [address] [place] [address] Karoline Beltran, CARE ATTENDANT 09/24/2024 2:40 PM EST Office Visit [facility] [address] [place] [phone] Doris Brooks NP Flank pain (Primary Dx); Dysuria; Hematuria, unspecified type 09/24/2024 Travel 09/19/2024 9:00 AM EST Office Visit [address] [address] Leopoldo Bateman MD Opioid dependence, uncomplicated (CMS/HCC) (Primary Dx) 09/19/2024 Patient Outreach [facility] [address] [place] [phone] Davy Bhatia Recovery Supports 09/19/2024 Travel from Last 3 Months Immunizations Name Administration [...] Description 12/24/2024 1:45 PM EDT Office Visit [facility] [address] [place] [address] Karoline Beltran FNP [address] [place] [address] 12/26/2024 9:00 AM EDT Office Visit [facility] [address] [place] [address] Leopoldo Bateman MD [address] [place] [address] 12/31/2024 1:00 PM EDT Medication Management [facility] [address] [place] [address] Azalia Villalta, PharmD [address] [place] [address] Health Maintenance Due Date Last Done Comments CT Colonography 1965 Colonoscopy 1965 FIT 1965 FOBT 1965 Sigmoidoscopy 1965 Hepatitis A Vaccines (1 of 2 - Risk 2-dose series) 1984 Zoster Vaccines (2 of 2) 10/03/2024 08/08/2024 Colorectal Cancer Screening 10/08/2024 FIT DNA/Cologuard 10/08/2024 07/05/2024 Depression Monitoring 12/23/2024 06/25/2024, 024 SDOH Screening 02/08/2025 02/09/2024 Alcohol/Substance Use Screening 06/01/2025 06/01/2024 Depression Screening 06/25/2025 06/25/2024, 06/25/20 Tobacco Screening 11/09/2025 11/09/2024 DTaP/Tdap/Td Vaccines (2 - Td or Tdap) [...] 025 1:52 PM EDT) Zehra Danielle RN Procedures Procedure Name Priority Date/Time Associated Diagnosis Comments POCT AVANI-14 URINE DRUG SCREEN Routine 11/28/2024 9:05 AM EDT Uncomplicated opioid dependence (CMS/HCC) POCT AVANI-14 URINE DRUG SCREEN Routine 10/31/2024 9:48 AM EDT Opioid dependence, uncomplicated (CMS/HCC) US EXTREMITY NON-VASCULAR Routine 10/16/2024 3:40 PM EST US RENAL BI Routine 10/12/2024 10:36 AM [...] DIPSTICK Routine 09/24/2024 3:13 PM EST Dysuria LAB COLOGUARD?? COLON CANCER SCREEN Routine 07/05/2024 7:30 AM EST Screening for colon cancer HIV 1 RNA, QN PCR W/RFL VLADIMIR (RTI,PI,INTEGRASE) Routine 09/23/2022 9:32 AM EST Routine adult health maintenance from Last 3 Months or Most Recently Relevant to Health Maintenance Results * POCT AVANI-14 Urine Drug Screen (11/28/2024 9:05 AM EDT) Only the most recent of3 resultswithin the time period is included. THC Positive Cocaine Screen, Urine Negative Opiate Screen, Urine Negative Methamphetamine Screen Urine Negative Amphetamine Screen, Urine Negative Benzodiazepines Screen, Urine Negative Barbiturate Screen, Urine Negative Methadone Screen, Urine Negative Buprenophine Screen, Urine Positive TCA, Urine Negative MDMA Urine Negative ng/mL Oxycodone Screen, Urine Negative Phencyclidine (PCP), Urine Negative Fentanyl, Urine Negative Urine Urine specimen obtained by clean catch procedure / Unknown 11/28/2024 9:05 AM EDT Leopoldo Bateman MD POINT OF CARE TEST ENTER/EDIT OR DERABLES Final Result * US Extremity Non Vascular (10/16/2024 3:40 PM EST) Anatomical Region Laterality Modality Ultrasound 10/16/2024 3:40 PM EST Narrative 10/16/2024 3:41 PM EST ? [facility] ?[address] ?[place] [address] ? Ultrasound Report ? Signed ? Patient: Dedrick Dawn ?MR#: ?? [id number] ? : 1965 ?Acct:[id number] ? Age/Sex: 59 / M ?ADM Date: 02/24/25 ? Loc: HO.US ? Attending Dr: Karoline NORMAN ? Ordering Physician: Karoline Beltran ?? Date of Service: 10/15/24 ?? Procedure(s): US extremity nonvascular ?? Accession Number(s): [id number] ? cc: Karoline Beltran ? CLINICAL HISTORY: MASS OF RIGHT HAND, 12MM CYSTIC APPEARING LESION ? Soft tissue ultrasound of the right hand 3rd metacarpophalangeal joint ?? area. ? Comparison: None ? FINDINGS: ? Images were obtained in the area of clinical concern. ? In this region, the soft tissue shows normal appearing heterogeneous ?? echotexture. ? There is no discrete mass or acoustic shadowing. There is no fluid ?? collection identified. ? IMPRESSION: ? Negative soft tissue ultrasound. ? If clinically warranted, further evaluation with MRI may be of benefit. ? This document has been electronically signed by: Kris Escalona MD on ?? 10/16/2024 15:40:27 ? Dictated By: ?Kris Escalona MD ? Signed By: ?<Electronically signed by Kris Escalona MD in OV> ? 10/16/24 1541 ? DD/ 1540 ? TD/TT: 10/16/24 1540 ? Avionics Systems Integration Specialist: ? Procedure Note Shahbaz Terrell - 10/16/2024 [place] [address] Ultrasound Report Signed Patient: Dedrick Dawn [facility]#: [id number] : 1965Acct:[id number] Age/Sex: 59 / MADM Date: 10/15/24 Loc: HO.US Attending Dr: Karoline NORMAN Ordering Physician: Karoline Beltran Date of Service: 10/15/24 Procedure(s): US extremity nonvascular Accession Number(s): [id number] cc: Karoline Beltran CLINICAL HISTORY: MASS OF RIGHT HAND, 12MM CYSTIC APPEARING LESION Soft tissue ultrasound of the right hand 3rd metacarpophalangeal joint area. Comparison: None FINDINGS: Images were obtained in the area of clinical concern. In this region, the soft tissue shows normal appearing heterogeneous echotexture. There is no discrete mass or acoustic shadowing. There is no fluid collection identified. IMPRESSION: Negative soft tissue ultrasound. If clinically warranted, further evaluation with MRI may be of benefit. This document has been electronically signed by: Kris Escalona MD on 10/16/2024 15:40:27 Dictated By: Kris Escalona MD Signed By: <Electronically signed by Kris Escalona MD in OV> 10/16/24 1541 DD/ 1540 TD/TT: 10/16/24 1540 Avionics Systems Integration Specialist: us Karoline Beltran CARE ATTENDANT IMG US PROCEDURES Final Result * US RENAL BI (10/12/2024 10:36 AM EST) Anatomical Region Laterality Modality Abdomen Ultrasound 10/12/2024 10:3 6 AM EST Narrative 10/12/2024 10:37 AM EST ? [facility] ?[address] ?[place] [address] ? Ultrasound Report ? Signed ? Patient: Reed CamargoDedrick bowie ?MR#: ?? [id number] ? : 1965 ?Acct:[id number] ? Age/Sex: 59 / M ?ADM Date: 10/10/24 ? Loc: HO.US ? Attending Dr: Doris Brooks NP ? Ordering Physician: Doris Brooks NP ?? Date of Service: 10/10/24 ?? Procedure(s): US renal BI ?? Accession Number(s): [id number] ? cc: Doris Brooks RIG WELDER; Karoline BeltranP ? CLINICAL HISTORY: flank pain, [...] DD/ 1036 ? TD/TT: 10/12/24 1036 ? Avionics Systems Integration Specialist: ? Procedure Note Xander, Image - 10/12/[address] [address] Ultrasound Report Signed Patient: Dedrick Dawn [facility]#: [id number] : 1965Acct:[id number] Age/Sex: 59 / MADM Date: 10/10/24 Loc: .US Attending Dr: Doris Brooks RIG WELDER Ordering Physician: Doris Brooks NP Date of Service: 10/10/24 Procedure(s): US renal BI Accession Number(s): [id number] cc: Doris Brooks RIG WELDER; Karoline Beltran CLINICAL HISTORY: flank pain, intermittent [...] 10/12/24 1037 DD/ 1036 TD/TT: 10/12/24 1036 Avionics Systems Integration Specialist: us Doris Brooks RIG WELDER IMG US PROCEDURES Final Result * (ABNORMAL) POCT Urinalysis (09/28/2024 [...] Urine 09/28/2024 3:12 PM EST Karoline Beltran CARE ATTENDANT POINT OF CARE TEST ENTER/EDIT ORDERABLES Final Result * Hepatic Function Panel (09/25/2024 8:53 AM EST) Bilirubin, Total 0.7 0.0 - 1.0 mg/dL [facility] Bilirubin, Direct 0.2 0.0 - 0.5 mg/dL [facility] Aspartate Amino Transferase 33 5 - 37 U/L [facility] Alanine Aminotransferase 26 0 - 40 U/L [facility] Total Protein 7.5 6.5 - 8.0 g/dL [facility] Albumin Level 4.4 3.5 - 5.0 g/dL [facility] Alkaline Phosphatase 61 39 - 117 U/L [facility] 09/25/2024 8:53 AM EST 09/25/2024 11:27 AM EST us Karoline Beltran CARE ATTENDANT LAB BLOOD ORDERABLES Final Res ult [facility] [address] [place] [phone] * (ABNORMAL) Lipid Panel, Standard (09/25/2024 8:53 AM EST) Triglycerides 97 <150 mg/dL [facility] Comment:Desirable Triglyceri de: less than 150 mg/dLBorderline High Triglyceride 150-199 mg/dLHigh Triglyceride: 200-499 mg/dLVery High Triglyceride: greater than or equal to 5OO mg/dL Cholesterol 176 <200 mg/dL [facility] Comment:Desirable Cholestero l: less than 200 mg/dLBorderline High Cholesterol: 200-239 mg/dLHigh Cholesterol: greater than 239 mg/dL LDL Cholesterol Calculated 121(H) <100 mg/dL [facility] Comment:Desirable LDL: less than 100 mg/dLNear Optimal/Above Optimal LDL: 110- 129 mg/dLBorderline High LDL: 130-159 mg/dLHigh LDL: 160-189 mg/dLVery High LDL: greater than or equal to 190 mg/dL HDL Cholesterol 36(L) >40 mg/dL [facility] Comment:Desirable HDL: great er than 40 mg/dL Note: This HDL assay may give artificially low results in patients with liver disease. 09/25/2024 8:53 AM EST 09/25/2024 11:27 AM EST us Karoline Beltran CARE ATTENDANT LAB BLOOD ORDERABLES Final Res ult Performing Organization Address [facility] Co de Phone Number [facility] [address] [place] [address] [phone] * Basic Metabolic Panel (09/25/2024 8:53 AM EST) Sodium 143 135 - 145 mmol/L [facility] Potassium 4.3 3.3 - 5.1 mmol/L [facility] Chloride 106 96 - 108 mmol/L [facility] Carbon Dioxide 27 22 - 29 mmol/L [facility] Anion Gap 14 12 - 20 [facility] Urea Nitrogen (BUN) 12 9 - 16 mg/dL [facility] Creatinine, Serum 0.81 0.5 - 1.4 mg/dL [facility] Estimated Glomerular Filt Rate >60 [facility] Comment:Chronic Kidney Disea se: Estimated GFR < 60 mL/min/1.28x4Jzsihk Kidney Disease: Estimated GFR < 15 mL/min/1.73m2 Glucose 96 60 - 115 mg/dL [facility] Calcium 9.1 8.4 - 10.2 mg/dL [facility] Blood Venous blood specimen / Unknown 09/25/2024 8:53 AM EST 09/25/2024 11:27 AM EST us Doris Brooks RIG WELDER LAB BLOOD ORDERABLES Final Resul t Performing Organization Address [facility]/ZIP Co de Phone Number [facility] [address] [place] [phone] * Culture, Urine, Routine (09/24/2024 3:14 PM EST) Urine Urine specimen obtained by clean catch procedure / Unknown 09/24/2024 3:14 PM EST 09/24/2024 6:03 PM EST Comment:[facility] Narrative [facility] - 09/26/2024 11:34 AM EST Urine Culture Report Result Urine Culture < 10,000 cfu/ml Specimen Source: Urine clean catch us Doris Brooks RIG WELDER LAB MICROBIOLOGY - GENERAL ORDER DANIEL Final Result [facility] [address] [place] [address] [phone] * (ABNORMAL) Cologuard?? colon cancer screening (07/05/2024 7:30 AM EST) Cologuard Result Positive( A) Negative 07/15/2024 3:28 AM EST [facility] (CLIA #:[id number]) Comment: POSITIVE TEST RESULT. A positive Cologuard [...] (Nik Mittal al, N Engl J Med 2014;370(14):1901-6199.) Cologuard may produce a false negative or false positive result (no colorectal cancer or precancerous polyp present at colonoscopy follow up). A negative Cologuard test result does not guarantee the absence of CRC or advanced adenoma (pre-cancer). The current Cologuard screening interval is every 3 years. ([place] [employer] Society and U.S. Multi-Society Task Force). Cologuard performance data in a 10,000 patient pivotal study using colonoscopy as the reference method can be accessed at the following location: www.[employer]/results. Additional description of the Cologuard test process, warnings and precautions can be found at www.[employer]. Stool specimen (specimen) 07/05/2024 7:30 AM EST 07/07/2024 3:42 PM EST Karoline Beltran [facility] [place] Final Result [facility] (CLIA #:[id number]) [address] [place] [address], * HIV-1 RNA, Quantitative, Real-Time PCR with Reflex to Genotype (RTI, PI, Integrase) (09/23/2022 9:32 AM EST) Pathologist [facility] HIV 1 RNA, QN PCR NOT DETECTED copies/mL [facility] [employer] [facility], HIV 1 RNA, QN PCR NOT DETECTED Log copies/mL [facility] [employer] [facility], Comment: REFERENCE RANGE: NOT DETECTED copies/mL ?NOT DETECTED ??Log copies/mL This test was performed using Real-Time Polymerase Chain Reaction. Reportable range is 20 to 10,000,000 copies/mL (1.30-7.00 Log copies/mL). 09/23/2022 9:32 AM EST 09/23/2022 9:33 AM EST Narrative [facility] - 09/26/2022 1:23 AM EST FASTING:UNKNOWN FASTING: UNKNOWN Karoline NORMAN LAB BLOOD ORDERABLES Final Res ult [facility] [address], [place] [phone] [facility]/[employer] [facility], [facility] [place] [address] from Last 3 Months or Most Recently Relevant to Health Maintenance [place] [address] [address] C3 Care Teams Forensic Pathologist Relationship Specialty Start Date End Date Karoline Beltran FNP [address] [place] [phone] PCP - General Family Medicine 06/15/21 Azalia Villalta, PharmD [address] [place] [phone] Pharmacist Internal Medicine 05/15/24
--- OUTSIDE RECORDS SUMMARY | 2024-12-07 13:51 | XMS_ITS | Encounter Summary ---
Author Organization [employer] Address [address] [facility] 7t [place] [address] Care Team Providers Care Livestock Yard Attendant Name Role Phone Karoline Beltran Primary Care Provider [phone] Anurag Lo Unavailable Unavailable Sarahi Rey RN Unavailable [phone] Azalia Villalta PharmD Unavailable Reason for Visit * Reason Onset Date Comments Returning Call 05/07/2024 Encounter Details Date Type Department Care Team ([facility] st Contact Info) Description 05/07/2024 Telephone [facility]INE [address] [place] [address] Karoline Beltran FNP 505 [place] [address] Returning Call Social History Tobacco Use Types [...] Description 12/24/2024 1:45 PM EDT Office Visit [facility] CH[facility] MED & PEDS 505 [place] [address] Karoline Beltran FNP 505 [place] [address] 12/26/2024 9:00 AM EDT Office Visit [facility] MED[facility]INE [address] [place] [address] Leopoldo Bateman MD [address] [place], [place] [phone] 12/31/2024 1:00 PM EDT Medication Management [facility] [address] [place] [address] Azalia Villalta, Maninder [address] [place] [address] documented as of this encounter Visit Diagnoses Not on filedocumented in this encounter Additional Health Concerns Assessment Noted Time PHQ-9 Depression Total Score: 12 024 8:34 PM EDT documented as of this encounter Care Teams Livestock Yard Attendant Relationship Specialty Start Date End Date Karoline Beltran FNP [address] [place] [address] PCP - General Family Medicine 06/15/21 Anurag Lo Community Health Worker 02/09/24 05/10/24 Sarahi Rey RN [address] [place] [address] Beef Ribber 02/09/24 05/10/24 Azalia Villalta, Maninder [address] [place] [address] Pharmacist Internal Medicine 05/15/24 documented as of this encounter
--- OUTSIDE RECORDS SUMMARY | 2024-12-07 13:51 | XMS_ITS | Encounter Summary ---
Author Organization [employer] Address 75 [facility] 7t [place] [address] Care Team Providers Care Custodian Blood Bank Name Role Phone Karoline Beltran FAMILY LAW MEDIATOR Primary Care Provider [phone] Azalia Villalta PharmD Unavailable [phone] Reason for Visit * Reason Comments Recovery Supports Encounter Details Date Type Department Care Team ([facility] Contact Info) Description 12/05/2024 Patient Outreach [facility] MEDICINE [address] [place], [place] [phone] Davy Bhatia Recovery Supports Social History Tobacco [...] encounter Progress Notes * Davy Bhatia - 12/05/2024 2:07 PM EDT I met with Dedrick today. Setting: in person at [facility] Recovery Wellness Goals worked on: Social Stability Action taken/next steps: Attended recovery support group and Offered person centered recovery support Additional comments: The patient participated in the group, which focused on recognizing and celebrating one's progress,no matter how big or small. Davy Bhatia documented in this encounter Plan of Treatment Upcoming Encounters Date Type Department Care Team (Late st Contact Info) Description 12/24/2024 1:45 PM EDT Office Visit [facility] CHC MED & PEDS 505 [place] [address] Karoline Beltran FNP 505 [place] [address] 12/26/2024 9:00 AM EDT Office Visit [facility] MEDICINE [address] [place] [address] Leopoldo Bateman MD [address] [place] [address] 12/31/2024 1:00 PM EDT Medication Management [facility] MEDICINE [address] [place] [address] [phone] Azalia Villalta PharmD [address] [place] [phone] documented as of this encounter Goals Goal Patient Goal Type Associated Problems Recent Progress Patient-Stated? Author Increase coping skills to promote long-term recovery and improve ability to perform daily activities General On track( 025 1:52 PM EDT) No Zehra Rodgers, ADARSH documented as of this encounter Visit Diagnoses Not on filedocumented in this encounter Additional Health Concerns Assessment Noted Time PHQ-9 Depression Total Score: 15 024 12:05 PM EST documented as of this encounter Care Teams Custodian Blood Bank Relationship Specialty Start Date End Date Karoline Beltran FNP [address] [place] [address] PCP - General Family Medicine 06/15/21 Azalia Villalta PharmD [address] [place] [address] [phone] Pharmacist Internal Medicine 05/15/24 documented as of this encounter
--- OUTSIDE RECORDS SUMMARY | 2024-12-07 13:51 | XMS_ITS | Encounter Summary ---
Author Organization [employer] Address 75 [facility] 7t [place] [address] Care Team Providers Care Supervisor Fitting Name Role Phone Karoline Beltran PROPERTY ADJUSTER Primary Care Provider [phone] Anurag Lo Unavailable Unavailable Sarahi Rey RN Unavailable [phone] Azalia Villalta PharmD Unavailable [phone] Encounter Details Date Type Department Care Team ([facility] st Contact Info) Description 11/29/2023 Telephone [facility] CHC MED & PEDS [address] [place], [place] [phone] Karoline Beltran FNP [address] [place] [address] Social History Tobacco Use Types Packs/Day Years [...] Miscellaneous Notes * Telephone Encounter - Steph Aelx - 11/29/2023 1:42 PM EDT Pt calling in to inform had a missed call from the office . But I did not see any message tasked . Pt is waiting for a response regarding last message . * Telephone Encounter - ESTER Sterling - 11/29/2023 1:15 PM EDT The H . Pylori Antigen EIA Stool is viewable in [employer], ordered 11/28/23. Please call to follow up. [...] Description 12/24/2024 1:45 PM EDT Office Visit [facility] MED & PEDS [address] [place] [address] Karoline Beltran FNP [address] [place] [address] 12/26/2024 9:00 AM EDT Office Visit [facility] MEDICINE 230 [place] [address] Leopoldo Bateman MD [address] [place] [address] 12/31/2024 1:00 PM EDT Medication Management [facility] MEDICINE [address] [place] [address] Azalia Villalta PharmD [address] [place] [address] documented as of this encounter Visit Diagnoses Not on filedocumented in this encounter Care Teams Supervisor Fitting Relationship Specialty Start Date End Date Karoline Beltran FNP [address] [place] [address] PCP - General Family Medicine 06/15/21 Anurag Lo Community Health Worker 02/09/24 05/10/24 Sarahi Rey, ADARSH [address] [place] [address] Educational Technology Specialist 02/09/24 05/10/24 Azalia Villalta PharmD [address] [place] [address] Pharmacist Internal Medicine 05/15/24 documented as of this encounter
== END 2024-12-07 14:19 | disposition home or self-care (01) ==
LOC: HO.HUSH 13:23
PROVIDERS: PCP Registered Nurse; Visit Provider Urology
DX: N39.0 Urinary tract infection, site not specified (principal)
CPT/HCPCS: 99213

== ENCOUNTER → 2024-12-07 13:23 | Outpatient (BNVA) | payer MEDICAID, SELFPAY | PROVIDERS: PCP Registered Nurse; Visit Provider Urology | DX: N39.0 Urinary tract infection, site not specified (principal) | CPT/HCPCS: 99212 ==

== ENCOUNTER → 2025-02-16 13:14 | Outpatient (BNV) | payer MEDICAID, SELFPAY | PROVIDERS: PCP Registered Nurse; Visit Provider Radiology Diagnostic Radiology | DX: M47.896 Other spondylosis, lumbar region (principal); M51.26 Other intervertebral disc displacement, lumbar region | CPT/HCPCS: 72148 ==

== ENCOUNTER 2025-02-16 13:18 | Outpatient (REF) | payer MEDICAID, SELFPAY ==
--- NOTE | ~2025-02-16 | MR_ITS ---
EXAMINATION: MR LUMBAR SPINE WITHOUT CONTRAST CLINICAL INFORMATION: Lumbar facet arthropathy and chronic low back pain. COMPARISON: January 01, 2019. TECHNIQUE: MRI of the lumbar spine was obtained using routine sequences without contrast. FINDINGS: Last rib-bearing vertebra labeled T12. Modic type I endplate changes at L4-5. Bone marrow STIR signal within the endplates of L4-5 and the posterior superior endplate of L3. Multilevel marginal osteophyte formation and disc desiccation from T11-12 to L5-S1. Grade 1 retrolisthesis L5-S1 and to a lesser extent L2-3. Multilevel Schmorl nodes. Conus medullaris ends at superior endplate of L1 with normal signal. Spina bifida occulta S1 and S2. T12-L1: No disc herniation. No neuroforamina stenosis. L1-2: No disc herniation. No neuroforamina stenosis. L2-3: There is a broad-based left subarticular and foraminal disc herniation resulting in ventral indentation to the thecal sac and likely encroaching the left L3 nerve root on its lateral recess and left neuroforamina stenosis encroaching the L2 nerve root. Facet joint hypertrophy. L3-4: Broad-based disc bulging. Facet joint and ligamentum flavum hypertrophy. Reduced AP diameter of the thecal sac and bilateral neuroforamina narrowing. L4-5: Broad-based disc bulging. Facet joint hypertrophy. Reduced AP diameter of the thecal sac and bilateral neuroforamina stenosis likely encroaching the L5 and L4 nerve roots. L5-S1: Broad-based disc bulging encroaching the S1 nerve roots on the lateral recesses. Facet joint hypertrophy bilaterally. Bilateral neuroforamina stenosis encroaching the L5 exiting nerve roots. No prevertebral compartment hematoma, mass or fluid collections. Multifocal different sizes exophytic hyperintense T2 cystic lesions in the kidneys. MR/MR lumbar spine wo con IMPRESSION: Multilevel spondylosis more pronounced at L2-3, L4-5 and L5-S1 levels, encroaching the respective exiting nerve roots. Left subarticular and foraminal broad-based disc herniation at L2-3 encroaching likely compressing the left L3 and L2 exiting nerve roots. Electronically signed by: Akshat Duque MD 02/18/2025 08:53 AM EDT
== END 2025-02-16 13:19 | disposition home or self-care (01) ==
LOC: HO.MRI 13:18
PROVIDERS: PCP Registered Nurse; Visit Provider Registered Nurse
DX: M47.816 Spondylosis without myelopathy or radiculopathy, lumbar region (principal)
CPT/HCPCS: 72148

== ENCOUNTER 2025-05-27 08:39 | Outpatient (REF) | payer MEDICAID, SELFPAY ==
--- OUTSIDE RECORDS SUMMARY | 2025-05-27 09:19 | XMS_ITS | Encounter Summary ---
Author Organization [facility] Address [address] [place] [address] Care Team Providers Care Lining Feller Blindstitch Name Role Phone Physician, No Pcp Primary Care Provider Unavaila ble Encounter Details Date Type Department Care Team (Late st Contact Info) Description 10/23/2024 Lab Requisition [facility] - Main Lab [address] [facility] [place] [address] Edgard Taylor PA [address] [place] [address] Benign essential microscopic hematuria Social History Tobacco [...] and pathological findings. 11/08/2024 11:13 AM EDT [facility] Addendum electronically signed by Nikos Post MD on 11/08/2024 at 11:13 AM Final Diagnosis A. Urine, Voided, ([id number]): Atypical urothelial cells. Note: Based upon the cytologic findings, UroVysion testing will be performed, the result to follow in an addendum. 11/08/2024 11:13 AM EDT [facility] Clinical Information Benign essential microscopic hematuria R31.1 Urine cytology with reflex UroVysion ([facility]) 11/08/2024 11:13 AM [facility] Gross Description A. Urine, Voided, ([id number]): Received is one ThinPrep slide for cytology. 11/08/2024 11:13 AM EDT [facility] Disclaimer Unless otherwise specified, all tissue is 10% NB formalin fixed and paraffin embedded. Technical pathology services provided by [facility] at [address] [facility] [address], [place] [address] (CLIA #[id number]/Lidia Leos MD, Warp Dresser) 11/08/2024 11:13 AM [facility] Tissue Urine specimen from urethra / Unknown 10/22/2024 10/23/2024 3:54 PM EST us Edgard [facility] PATHOLOGY ORDERAB LES Edited Result - Final [facility] [address] [place] [address], documented in this encounter Visit Diagnoses Diagnosis Benign essential microscopic hematuria documented in this encounter Care Teams Lining Feller Blindstitch Relationship Specialty Start Date End Date Physician, No Pcp PCP - General 10/02/24 documented as of this encounter
--- OUTSIDE RECORDS SUMMARY | 2025-05-27 09:19 | XMS_ITS | Encounter Summary ---
Author Organization [facility] Address [address] [place] [address] Care Team Providers Care Glove Printer Name Role Phone Physician, No Pcp Primary Care Provider Unavaila ble Encounter Details Date Type Department Care Team (Late st Contact Info) Description 05/13/2025 Lab Requisition [facility] - Main Lab [address] [facility] [place] [address] Edgard Taylor PA [address] [place] [phone] Benign essential microscopic hematuria Social History Tobacco [...] as of this encounter Plan of Treatment Pending Results Name Type Priority Associated Diagnoses Date /Time Non-gynecologic cytology Pathology and Cytology Routine Benign essential microscopic hematuria 05/06/2025 12:00 AM EDT documented as of this encounter Visit Diagnoses Diagnosis Benign essential microscopic hematuria documented in this encounter Care Teams Glove Printer Relationship Specialty Start Date End Date Physician, No Pcp PCP - General 10/02/24 documented as of this encounter
--- OUTSIDE RECORDS SUMMARY | 2025-05-27 09:19 | XMS_ITS | Clinical Summary ---
Author Organization [facility] Address [address] [place] [address] Phone Care Team Providers Care Amphibious Operations Officer Name Role Phone Physician, No Pcp Primary Care Provider Unavaila ble Allergies No known active allergies Medications methocarbamoL (ROBAXIN) 750 mg tablet Take 1 tablet (750 mg total) by mouth 4 (four) times a day for 5 days. 20 each 10/02/2024 Active Encounters Date Type Department Care Team Description 05/13/2025 Lab Requisition [facility] - Main Lab [address] [facility] [place] [address] Edgard Taylor PA Benign essential microscopic hematuria from Last 3 Months Surgical History Surgery [...] 63 10/02/2024 4:22 PM EST Temperature 37 C (98.6 F) 10/02/2024 4:22 PM EST Respiratory Rate 19 10/02/2024 4:22 PM EST Oxygen Saturation 98% 10/02/2024 4:22 PM EST Inhaled Oxygen Concentration - - Weight 104 kg (230 lb) 10/02/2024 12:28 PM EST Height 170.2 cm (5' 7 ) 10/02/2024 12:28 PM EST Body Mass Index 36.02 10/02/2024 12:28 PM EST Plan of Treatment Health Maintenance Due Date Last Done Comments Colorectal Cancer Screening: Colonoscopy 1965 Hepatitis A Vaccines (1 of 2 - Risk 2-dose series) 1984 Hepatitis B Vaccines (1 of 3 - 19+ 3-dose series) 1984 HIV Screening 07/20/2022 Hepatitis C Screening 07/20/2022 Social Influencers of Health Screening 07/20/2022 Depression Screening 08/22/2024 Zoster Vaccines (2 of 2) 10/03/2024 08/08/2024 Influenza Vaccine (#1) 2025 , 06/01/2023, 07/06/2022, Additional history exists Hypertension/CHF/CAD Annual BMP Blood Test 10/02/2025 10/02/2024, 09/25/2024, 07/06/2024 DTaP,Tdap,and Td Vaccines (2 - Td or Tdap) 04/28/2028 04/28/2018 Cholesterol Screening (Lipid Panel) 09/25/2029 09/25/2024, 07/06/2024 RSV Immunization Adult Patients (1 - 1-dose 75+ series) 2040 Pneumococcal Vaccine: 50+ Years Completed 02/03/2023, 04/28/2018 COVID-19 Vaccine Completed 06/01/2024, 10/2023, 12/02/2022, Additional [...] Procedure Name Priority Date/Time Associated Diagnosis Comments COMPREHENSIVE METABOLIC PANEL STAT 10/02/2024 1:11 PM EST from Last 3 Months or Most Recently Relevant to Health Maintenance Results * (ABNORMAL) Comprehensive metabolic panel (10/02/2024 1:11 PM EST) Sodium 139 133 - 145 mmol/L LAB CHEMISTRY METHOD 10/02/2024 2:33 PM [facility] Potassium 4.0 3.5 - 5.5 mmol/L LAB CHEMISTRY METHOD 10/02/2024 2:33 PM [facility] Chloride 108 96 - 110 mmol/L LAB CHEMISTRY METHOD 10/02/2024 2:33 PM [facility] CO2 25 21 - 32 mmol/L LAB CHEMISTRY METHOD 10/02/2024 2:33 PM [facility] Anion Gap 6 3 - 11 LAB CHEMISTRY METHOD 10/02/2024 2:33 PM [facility] Glucose 106(H) 70 - 100 mg/dL LAB CHEMISTRY METHOD 10/02/2024 2:33 PM [facility] BUN 9 5 - 25 mg/dL LAB CHEMISTRY METHOD 10/02/2024 2:33 PM [facility] Creatinine 0.71 0.70 - 1.30 mg/dL LAB CHEMISTRY METHOD 10/02/2024 2:33 PM [facility] eGFR 106 >=60 mL/min/1. 73m2 LAB CHEMISTRY METHOD 10/02/2024 2:33 PM [facility] Comment:Calculation based on the Chronic Kidney Disease Epidemiology Collaboration (CKD-EPI) equation refit without adjustment for race. BUN/Creatinine Ratio 12.7 LAB CHEMISTRY METHOD 10/02/2024 2:33 PM [facility] Calcium 9.0 8.5 - 10.5 mg/dL LAB CHEMISTRY METHOD 10/02/2024 2:33 PM EST [facility] AST (SGOT) 28 10 - 42 unit/L LAB CHEMISTRY METHOD 10/02/2024 2:33 PM [facility] ALT (SGPT) 21 10 - 60 unit/L LAB CHEMISTRY METHOD 10/02/2024 2:33 PM [facility] Alkaline Phosphatase 69 42 - 121 unit/L LAB CHEMISTRY METHOD 10/02/2024 2:33 PM [facility] Total Protein 6.8 6.0 - 8.0 g/dL LAB CHEMISTRY METHOD 10/02/2024 2:33 PM [facility] Albumin 4.0 3.2 - 5.0 g/dL LAB CHEMISTRY METHOD 10/02/2024 2:33 PM [facility] Total Bilirubin 0.7 0.0 - 1.4 mg/dL LAB CHEMISTRY METHOD 10/02/2024 2:33 PM [facility] Blood Venous blood specimen / Unknown Venipuncture / Unknown 10/02/2024 1:11 PM EST 10/02/2024 1:58 PM EST us Jaspal Crockett DO LAB BLOOD ORDERABLES Final Result [facility] [address] [place] [address], from Last 3 Months or Most Recently Relevant to Health Maintenance Insurance MEDICAID - [place] Care Teams Amphibious Operations Officer Relationship Specialty Start Date End Date Physician, No Pcp PCP - General 10/02/24
[2025-05-27 11:51] LABS: Cholesterol 210 mg/dL (<200); HDL Cholesterol 40 mg/dL (>40); Triglycerides 124 mg/dL (<150)
== END 2025-05-27 08:40 | disposition home or self-care (01) ==
LOC: HO.HHCL 08:39
PROVIDERS: PCP Registered Nurse; Visit Provider Registered Nurse
DX: E78.2 Mixed hyperlipidemia (principal)
CPT/HCPCS: 36415; 80061

== ENCOUNTER 2025-07-03 09:16 | Outpatient (REF) | payer MEDICAID, SELFPAY ==
--- OUTSIDE RECORDS SUMMARY | 2025-07-03 10:12 | XMS_ITS | Encounter Summary ---
Author Organization [employer] Address [address] [facility] 7t [place] [address] Care Team Providers Care Senior Chemist Name Role Phone Karoline Beltran BOAT AND PLANT UTILITY SUPERVISOR Primary Care Provider [phone] Azalia Villalta PharmD Unavailable [phone] Anurag Lo Unavailable Zane Alvares RN Unavailable [phone] Reason for Visit * Reason Onset Date Comments Appointment Request 05/01/2025 Encounter Details Date Type Department Care Team ([facility] Contact Info) Description 05/01/2025 Telephone [facility] CHC MED & PEDS [address] [place], [place] [phone] Karoline Beltran FNP [address] [place], [place] [phone] Appointment Request Social History Tobacco Use Types Packs/Day Years [...] Answer Date Recorded Patient Health Questionnaire-9 Score 1 03/08/2025 Patient Health Questionnaire-9 Score 1 03/08/2025 Last PHQ-9: Questionnaire Data Not on file 0 03/08/2025 Housing Stability Answer Date Recorded What is your housing situation today? I have dora gayle 03/04/[address] you li ve. Do you have problems with any of the following? None of the above 03/04/2025 Food Insecurity Answer Date Recorded Within the past 12 months, y ou worried that your food would run out before you got money to buy more: Never True 03/04/2025 Within the past 12 months,th e food you bought just didn't last and you didn't have enough money to get more: Never True Transportation Answer Date Recorded In the past 12 months, has l ack of transportation kept you from medical appts, meetings, work or from getting things needed for daily living? Yes, it has kept me from medical appointments or getting medications. 03/08/2025 Utilities Answer Date Recorded In the past 12 months, has t he electric, gas, oil or water company threatened to shut off services in your home? No 03/04/2025 Depression Answer Date Recorded Patient Health Questionnaire-2 Score 0 03/08/2025 Internet Access Answer Date Recorded Internet Access Q1 Yes 03/04/2025 Internet Access Q2 Not on file 03/04/2025 Sex and Gender Information Value Date Recorded Sex Assigned at Male 06/21/2022 10:19 AM EDT Legal Sex Male 10:19 AM EDT Gender Identity Male 06/21/2022 10:19 AM EDT Sexual Orientation Straight 06/21/2022 10 :19 AM EDT documented as of this encounter Miscellaneous Notes * Telephone Encounter - Melecio Espinal - 05/01/2025 2:57 PM EDT Tc from pt requesting to reschedule CDTM apt that was scheduled today as he couldn't make it due totransportation Contact pt at [phone] (georgian) documented in this encounter Plan of Treatment Upcoming Encounters Date Type Department Care Team (Late st Contact Info) Description 07/10/2025 9:00 AM EST Office Visit [facility] MEDICINE [address] [place] [address] Leopoldo Bateman MD [address] [place], [place] [phone] 08/28/2025 11:15 AM EST Office Visit [facility] MEDICINE [address] [place] [address] Karoline Beltran FNP [address] [place] [address] documented as of this encounter Goals Goal Patient Goal Type Associated Problems Recent Progress Patient-Stated? Author Increase coping skills to promote long-term recovery and improve ability to perform daily activities General On track( 025 4:26 PM EDT) Zehra Danielle, ADASRH documented as of this encounter Visit Diagnoses Not on filedocumented in this encounter Additional Health Concerns Assessment Noted Time PHQ-9 Depression Total Score: 1 03/08/20 1:40 PM EDT documented as of this encounter Care Teams Senior Chemist Relationship Specialty Start Date End Date Karoline Beltran FNP [address] [place] [address] PCP - General Family Medicine 06/15/21 Azalia Villalta PharmD [address] [place] [address] Pharmacist Internal Medicine 05/15/24 Anurag Lo 02/25/25 05/14/25 Zane Alvares, RN [address] [place] [address] Registered Nurse Family Medicine 04/29/25 05/17/25 documented as of this encounter
--- OUTSIDE RECORDS SUMMARY | 2025-07-03 10:13 | XMS_ITS | Encounter Summary ---
Author Organization [employer] Address [address] [facility] 7t [place] [address] Care Team Providers Care Tank Builder Supervisor Name Role Phone Karoline Beltran Primary Care Provider [phone] Azalia Villalta PharmD Unavailable [phone] Sarahi Rey RN Unavailable Unavailable Anurag Lo Unavailable Zane Alvares RN Unavailable [phone] Reason for Visit * Reason Comments Med Refill Encounter Details Date Type Department Care Team (Late st Contact Info) Description 02/19/2025 Refill [facility] MEDICINE [address] [place] [address] Karoline Beltran FNP [address] [place], [place] [phone] Lumbar facet arthropathy; Essential (primary) hypertension Social History Tobacco Use Types Packs/Day Years [...] Description 07/10/2025 9:00 AM EST Office Visit [facility] MEDICINE [address] [place] [address] Leopoldo Bateman MD [address] [place] [address] 08/28/2025 11:15 AM EST Office Visit [facility] MEDICINE [address] [place] [address] Karoline Beltran FNP [address] [place] [address] documented as of this encounter Goals Goal Patient Goal Type Associated Problems Recent Progress Patient-Stated? Author Increase coping skills to promote long-term recovery and improve ability to perform daily activities General On track( 025 4:26 PM EDT) No Zehra Rodgers, ADARSH documented as of this encounter Visit Diagnoses Diagnosis Lumbar facet arthropathy Spondylosis of unspecified site without mention of myelopathy Essential (primary) hypertension Unspecified essential hypertension documented in this encounter Additional Health Concerns Assessment Noted Time PHQ-9 Depression Total Score: 15 024 12:05 PM EST documented as of this encounter Care Teams Tank Builder Supervisor Relationship Specialty Start Date End Date Karoline Beltran FNP [address] [place] [address] PCP - General Family Medicine 06/15/21 Azalia Villalta, WillieD [address] [place] [address] Pharmacist Internal Medicine 05/15/24 Sarahi Rey, ADARSH [address] [place] [address] Registered Nurse Family Medicine 02/25/25 04/29/25 Anurag Lo 02/25/25 05/14/25 Zane Alvares, ADARSH [address] [place] [address] Registered Nurse Family Medicine 04/29/25 05/17/25 documented as of this encounter
--- OUTSIDE RECORDS SUMMARY | 2025-07-03 10:13 | XMS_ITS | Encounter Summary ---
Author Organization [employer] Address [address] [facility] 7t [place] [address] Care Team Providers Care Grocery Store Courtesy Clerk Name Role Phone Karoline Beltran Primary Care Provider [phone] Azalia Villalta PharmD Unavailable [phone] Sarahi Rey RN Unavailable Unavailable Anurag Lo Unavailable Zane Alvares RN Unavailable [phone] Reason for Visit * Reason Comments Med Refill Encounter Details Date Type Department Care Team (Late st Contact Info) Description 02/14/2025 Refill [facility] [address] [place] [address] Karoline Beltran FNP [address] [place], [place] [phone] Lumbar facet arthropathy Social History Tobacco Use [...] Description 07/10/2025 9:00 AM EST Office Visit [facility] [address] [place] [phone] Leopoldo Bateman MD [address] [place] [address] 08/28/2025 11:15 AM EST Office Visit [facility] [address] [place] [phone] Karoline Beltran FNP [address] [place] [address] documented as of this encounter Goals Goal Patient Goal Type Associated Problems Recent Progress Patient-Stated? Author Increase coping skills to promote long-term recovery and improve ability to perform daily activities General On track( 025 4:26 PM EDT) Zehra Danielle, ADARSH documented as of this encounter Visit Diagnoses Diagnosis Lumbar facet arthropathy Spondylosis of unspecified site without mention of myelopathy documented in this encounter Additional Health Concerns Assessment Noted Time PHQ-9 Depression Total Score: 15 024 12:05 PM EST documented as of this encounter Care Teams Grocery Store Courtesy Clerk Relationship Specialty Start Date End Date Karoline Beltran FNP [address] [place] [address] PCP - General Family Medicine 06/15/21 Azalia Villalta PharmD [address] [place] [address] Pharmacist Internal Medicine 05/15/24 Sarahi Rey RN [address] [place] [address] Registered Nurse Family Medicine 02/25/25 04/29/25 Anurag Lo 02/25/25 05/14/25 Zane Alvares, RN [address] [place] [address] Registered Nurse Family Medicine 04/29/25 05/17/25 documented as of this encounter
--- OUTSIDE RECORDS SUMMARY | 2025-07-03 10:13 | XMS_ITS | Encounter Summary ---
Author Organization [employer] Address [address] [facility] [address] [place] [address] Care Team Providers Care Asw/Asuw Tactical Air Controller Name Role Phone Karoline Beltran ERISA ATTORNEY Primary Care Provider [phone] Anurag Lo Unavailable Sarahi Rey RN Unavailable Unavailable Azalia Villalta PharmD Unavailable [phone] Sarahi Rey RN Unavailable Unavailable Anurag Lo Unavailable Zane Alvares RN Unavailable [phone] Reason for Visit * Reason Comments Med Refill Encounter Details Date Type Department Care Team (Late st Contact Info) Description 02/01/2023 Refill [facility] [address] [place], [place] [phone] Nj Hong MD [address] [place] [address] Opioid dependence, uncomplicated (CMS/HCC) Social History Tobacco [...] Description 07/10/2025 9:00 AM EST Office Visit [address] [address] Leopoldo Bateman MD [address] [place] [address] 08/28/2025 11:15 AM EST Office Visit [address] [address] Karoline Beltran FNP [address] [place] [address] documented as of this encounter Visit Diagnoses Diagnosis Opioid dependence, uncomplicated (CMS/HCC) (HCC) documented in this encounter Care Teams Asw/Asuw Tactical Air Controller Relationship Specialty Start Date End Date Karoline Beltran FNP [address] [place] [address] PCP - General Family Medicine 06/15/21 Anurag Lo Community Health Worker 02/09/2405/10 Sarahi Rey RN Jewelry Consultant 02/09/24 05/10/24 Azalia Villalta, WillieD [address] [place] [address] Pharmacist Internal Medicine 05/15/24 Sarahi Rey RN Registered Nurse Family Medicine 02/25/25 04/29/25 Anurag Lo 02/25/25 05/14/25 Zane Alvares, RN [address] [place] [address] Registered Nurse Family Medicine 04/29/25 05/17/25 documented as of this encounter
--- OUTSIDE RECORDS SUMMARY | 2025-07-03 10:13 | XMS_ITS | Encounter Summary ---
Author Organization [employer] Address [address] [facility] 7t [place] [address] Care Team Providers Care Corporate Sales Representative Name Role Phone Karoline Beltran RECORDS SUPERVISOR Primary Care Provider Azalia Villalta PharmD Unavailable [phone] Sarahi Rey RN Unavailable Unavailable Anurag Lo Unavailable Zane Alvares RN Unavailable [phone] Reason for Visit * Reason Comments Med Refill Encounter Details Date Type Department Care Team (Late st Contact Info) Description 01/22/2025 Refill [facility] [address] [place], [place] [phone] Azalia Villalta, PharmD [address] [place] [address] Mixed hyperlipidemia Social History Tobacco Use Types [...] Telephone Encounter - Azalia Villalta PharmD - 01/29/2025 3:05 PM EDT Refill previously provided documented in this encounter Plan of Treatment Upcoming Encounters Date Type Department Care Team (Late st Contact Info) Description 07/10/2025 9:00 AM EST Office Visit [facility] MED[facility]INE [address] [place] [address] Leopoldo Bateman MD [address] [place] [address] 08/28/2025 11:15 AM EST Office Visit [facility] [address] [place] [address] Karoline Beltran FNP [address] [place] [address] documented as of this encounter Goals Goal [...] documented as of this encounter Care Teams Corporate Sales Representative Relationship Specialty Start Date End Date Karoline Beltran FNP [address] [place] [address] PCP - General Family Medicine 06/15/21 Azalia Villalta, WillieD [address] [place] [address] Pharmacist Internal Medicine 05/15/24 Sarahi Rey, ADARSH [address] [place] [address] Registered Nurse Family Medicine 02/25/25 04/29/25 Anurag Lo 02/25/25 05/14/25 Zane Alvares, RN [address] [place] [address] Registered Nurse Family Medicine 04/29/25 05/17/25 documented as of this encounter
--- OUTSIDE RECORDS SUMMARY | 2025-07-03 10:13 | XMS_ITS | Clinical Summary ---
Author Organization [employer] Address [address] [facility] [address] [place] [address] Care Team Providers Care Electric Powerline Examiner Name Role Phone Karoline Beltran CYTOLOGIST Primary Care Provider [phone] Azalia Villalta PharmD Unavailable [phone] Allergies Active Allergy Reactions Criticality Noted Date Comments Bupropion Anaphylaxis High 07/31/2020 Medications * This document contains information received from the source organization and may not represent a complete record from that organization. multivitamin (Theragran) tablet 019 Active lidocaine (Lidoderm) 5 % patch APPLY 1 PATCH TOPICALLY TO SKIN, LEAVE ON FOR 12 HOURS AND OFF FOR 12 HOURS DIRECTED 30 patch 11 024 Active naloxone (Narcan) 4 mg/0.1 mL nasal spray FOR SUSPECTED OPIOID OVERDOSE. SPRAY 0.1mL IN ONE NOSTRIL. REPEAT IN ALTERNATE NOSTRIL 2-3 MINUTES IF NEEDED. SEEK MEDICAL ATTENTION IMMEDIATELY EVEN IF PATIENT RESPONDS. 2 each 11 Active Additional Information Patient not taking.Reported on 03/08/2025 atorvastatin (Lipitor) 80 MG tablet TAKE 1 TABLET BY MOUTH AT BEDTIME 90 tablet 3 024 Active meloxicam (Mobic) 15 MG tablet TAKE 1 TABLET BY MOUTH EVERY DAY NEEDED FOR MODERATE PAIN 30 tablet 2 025 Active docusate sodium (Colace) 100 MG capsule TAKE 1 CAPSULE BY MOUTH TWICE DAILY NEEDED FOR CONSTIPATION 180 capsule 3 025 Active famotidine (Pepcid) 20 MG tabletIndications :Gastroesophageal reflux disease, unspecified whether esophagitis present TAKE 1 TABLET BY MOUTH TWICE DAILY IN THE MORNING AND AT BEDTIME NEEDED FOR HEARTBURN OR INDIGESTION 180 tablet 1 025 Active ezetimibe (Zetia) 10 MG tabletIndications :Mixed hyperlipidemia TAKE 1 TABLET BY MOUTH ONCE DAILY 90 tablet 1 025 Active nicotine polacrilex (Nicotine Mini) 2 MG lozengeIndication s:Cigarette smoker One lozenge PO every 1-2 hours PRN x first 6 weeks. Reduce to 1 lozenge PO every 2- 4 hours PRN weeks 7 to 9 and 1 lozenge PO every 4-8 hours PRN in weeks 10 to 12, then stop.Max 5 lozenges/6 hours or 20 /day 100 lozenge 1 025 Active melatonin 5 MG tabletIndications :Sleep difficulties Take 1-2 tablets (5-10 mg) by mouth if needed at bedtime (sleep difficulties). Take 1 hour before bed. 60 tablet 3 025 Active acetaminophen (Tylenol) 325 MG tablet TAKE 2 TABLETS BY MOUTH EVERY 6 HOURS 025 Active omeprazole (PriLOSEC) [address] capsuleIndication s:Gastroesophagea l reflux disease, unspecified whether esophagitis present TAKE 1 CAPSULE BY MOUTH EVERY MORNING 90 capsule 1 025 Active nicotine (Nicoderm CQ) 7 MG/24HR patchIndications: Cigarette smoker Place 1 patch on the skin 1 (one) time each day at the same time. 14 patch 025 Active olmesartan (Benicar) 20 MG tabletIndications :Essential (primary) hypertension Take 1 tablet (20 mg) by mouth Once per day. 90 tablet 025 Active Buprenorphine HCl-Naloxone HCl (Suboxone) 8-2 MG SL filmIndications:O pioid dependence, uncomplicated (CMS/HCC) (HCC) Place 1 Film under the tongue 3 times daily for 28 days. Do not start before June 12, 2025. 84 Film 025 2024 Active gabapentin (Neurontin) 800 MG tabletIndications :Lumbar facet arthropathy Take 1 tablet (800 mg) by mouth 3 times daily. 90 tablet 3 025 Active tadalafil (Cialis) 10 MG tablet Take 1 tablet (10 mg) by mouth if needed for erectile dysfunction. 10 mg as a single dose 30 minutes or more prior to anticipated sexual activity; do not take more than once daily 20 tablet 1 024 2024 Discontinued(M ed list cleanup (will not trigger notification to Pharmacy)) gabapentin (Neurontin) 800 MG tabletIndications :Lumbar facet arthropathy Take 1 tablet (800 mg) by mouth 3 times daily. 90 tablet 3 025 2024 Discontinued(R eorder (will not trigger notification to Pharmacy)) Buprenorphine HCl-Naloxone HCl (Suboxone) 8-2 MG SL filmIndications:O pioid dependence, uncomplicated (CMS/HCC) (HCC) Place 1 Film under the tongue 3 times daily for 28 days. Do not start before May 15, 2025. 84 Film 025 2024 Discontinued(R eorder (will not trigger notification to Pharmacy)) olmesartan (BENIcar) 5 MG tabletIndications :Essential (primary) hypertension TAKE 1 TABLET BY MOUTH EVERY MORNING 90 tablet 1 025 2024 Discontinued(D ose adjustment) nicotine (Nicoderm CQ) 14 MG/24HR patchIndications: Cigarette smoker Place 1 patch on the skin 1 (one) time each day at the same time. 18 patch 025 2024 Discontinued(M ed list cleanup (will not trigger notification to Pharmacy)) Active Problems Problem Noted Date Diagnosed Date Flank pain 09/24/2024 Assessment & Plan (09/24/2024 6:44 PM EST): See plan below,. Ua reassuring pt reports completed abx course Culture pending Dysuria 09/24/2024 Moderate episode of recurren t major depressive disorder (CMS/HCC) 06/25/2024 Bilateral renal cysts 06/07/2024 Overview (06/07/2024): Followed by Urology - [facility] Consult Mar 2024 - review of CT abdomen w/ & w/o, demonstrated few stones in right kidney and low density calcification in left kidney. Also demonstrated bilateral simple cysts and 1.1cm Bosniak cat 2 cyst in right kidney lower pole. Non- obstructing nephrolithiasis Healthcare maintenance 06/01/2024 Overview (12/24/2024): Colon cancer screening: positive cologuard followed by colonoscopy 11/27/24 at [facility]. Tubulovillous adenoma. Due for repeat 3 years. PSA: followed by Urology (2023) Assessment & Plan (06/07/2024 8:03 PM EDT): COVID IZ administered today Hematuria 02/01/2024 Overview (06/07/2024): Following with [facility]/ Urology Urine cytology February 2024 negative for [...] 01/23/24 Established with [facility] Consult Aug 2024 - plan for home sleep study Tinnitus of both ears 01/29/2024 Assessment & Plan (01/29/2024 8:27 PM EDT): Intermittent, bilateral, not worsening Check with pharmacy regarding possible med SE Consider referral to ENT if persistent Cystitis 12/22/2023 Overview (10/08/2024): Jun 2024: US retroperitoneal ordered by [facility] 1. There is increased bilateral renal cortical echotexture, which can be associated with medical renal disease. 2. No renal mass or calculus is seen bilaterally. There is mild right renal pelviectasis. No nery hydronephrosis is seen bilaterally. 3. There is mild prostatomegaly. Assessment & Plan (10/08/2024 4:33 PM EST): - Continues following with [facility] - Intermittent dysuria and CVA tenderness [...] Encouraged smoking cessation resources such as pharmacomtherapy, [facility] smoking cessation group, and [facility] pharmacy smoking cessation clinic -Continues with NRT patches with good effect -LDCT: form signed and faxed to [facility] 09/23/23 Lumbar facet arthropathy 09/02/2022 Overview (03/04/2025): MRI lumbar spine December 2018: There is mild to moderate facet arthropathy at L5-S1 and there is a broad-based posterior disc protrusion. There is impingement on the traversing left S1 nerve root. MRI Lumbar January 2025: Multilevel spondylosis more pronounced at L2-3, L4-5 and L5-S1 levels, encroaching the respective exiting nerve roots. Left subarticular and foraminal broad-based disc herniation at L2-3 encroaching likely compressing the left L3 and L2 exiting nerve roots. -Discussed multimodal approach to chronic pain including pharm and non-pharm options. -Continue with gabapentin 800mg TID, reviewed med safety and SE -Continue with lidocaine patches PRN -Previously following with acupuncture and physical therapy -Previously followed with [facility] Received lumbar injection on 05/31/23 and 06/08/23 with noted relief - Referral to Pain Management and Neurosurgery placed 03/04/25 Assessment & Plan (03/04/2025 2:12 PM EDT): - Reviewed imaging results with pt, all questions answered. Referrals as above. ED/urgent care precautions. Assessment & Plan (12/24/2024 2:25 PM EDT): - Referral to physical therapy and updated Lumbar MRI Assessment & Plan (06/07/2024 8:03 PM EDT): -DME request for low back support brace sent May 2024 Assessment & Plan (09/02/2022 7:52 AM EST): -Discussed multimodal approach to chronic pain including pharm and non-pharm options. -Continue with gabapentin 800mg BID, reviewed med safety and SE -Continue with lidocaine patches PRN -Information provided about [facility] acupuncture clinic -Previously referred to PT and reports has noted mild improvement in pain -Consider referral to pain management/physiatry Opioid dependence, uncomplicated ([facility]/HCC) 08/30 History of cholecystectomy 02/28/2021 Overview (09/01/2022): Surgical [...] to stand mechanics training on edge of int. Patient benefited from verbal cues in order [...] EDT): -Continue with med management through [facility] Atorvastatin 80mg nightly (refill through PCP sent today) PCSK9-I Repatha -Reviewed lifestyle modifications Lab Results Component Value Date CHOLESTEROL 323 (H) 09/23/2022 LDLCHOL 254 (H) 09/23/2022 TRIG 147 09/23/2022 HDLCHOL 38 (L) 09/23/2022 CHOLHDLRAT 8.5 (H) 09/23/2022 Assessment & Plan (02/04/2023 4:37 PM EDT): -Continue with med management through [facility] Atorvastatin 80mg nightly PCSK9-I Repatha -Reviewed lifestyle modifications Lab Results Component Value Date CHOLESTEROL 323 (H) 09/23/2022 LDLCHOL 254 (H) 09/23/2022 TRIG 147 09/23/2022 HDLCHOL 38 (L) 09/23/2022 CHOLHDLRAT 8.5 (H) 09/23/2022 Assessment & Plan (12/12/2022 8:37 PM EDT): -Continue with med management through [facility] Atorvastatin 80mg nightly PCSK9-I Repatha -Discontinue rosuvastatin prescribed through primary [...] med safety/SE -BMP WNL 09/20/22 -Established with 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 Pt last picked up psych meds on 02/11/23 for 30 day supply: Seroquel Doxepin Hydroxyzine Psychiatrist: Dr. Whitaker. Pt is not sure [...] for primary complaint of radicular low back pain. Patient has made good progress to date since evaluation towards goals and has met all short term and 1 watcher automat long goods goal. Limited progress towards longterm goals 2nd to recent onset of B [...] organization. Date Type Department Care Team Description 07/02/2025 Travel 06/12/2025 9:00 AM EDT Office Visit [facility] [address] [place] [phone] Leopoldo Bateman MD Uncomplicated opioid dependence (CMS/HCC) (HCC) (Primary Dx) 06/12/2025 Travel 06/11/2025 Refill [facility] [address] [place] [phone] Karoline Beltran FNP Lumbar facet arthropathy 06/10/2025 Refill [facility] [address] [place] [address] [phone] Zehra Rodgers RN Opioid dependence, uncomplicated (CMS/HCC) (HCC) 06/07/2025 Results Follow-Up [facility] [address] [place] [phone] ABD/PELVIS W/O + W/ IV CONTRAST 06/07/2025 Orders Only [facility] [address] [place] [address] Mark Simmons MD 06/06/2025 Refill [facility] [address] [place], [place] [phone] Karoline Beltran FNP Lumbar facet arthropathy 06/05/2025 9:00 AM EDT Office Visit [facility] [address] [place] [phone] Leopoldo Bateman MD Uncomplicated opioid dependence (CMS/HCC) (HCC) (Primary Dx) 06/05/2025 Travel 06/04/2025 Orders Only [facility] [address] [place] [address] Hawa Martins MD Essential (primary) hypertension (Primary Dx); Mixed hyperlipidemia 06/04/2025 Telephone [facility] [address] [place] [phone] Azalia Villalta, PharmD 06/04/2025 Travel 05/29/2025 9:00 AM EDT Office Visit [facility] [address] [place] [phone] Leopoldo Bateman MD Uncomplicated opioid dependence (CMS/HCC) (HCC) (Primary Dx) 05/29/2025 Travel 05/27/2025 Orders Only [facility] [address] [place] [address] Karoline Beltran FNP 05/22/2025 9:00 AM EDT Office Visit [facility] [address] [place] [phone] Leopoldo Bateman MD Uncomplicated opioid dependence (CMS/HCC) (HCC) (Primary Dx) 05/22/2025 Travel 05/17/2025 Patient Outreach [facility] [address] [place] [address] Karoline Beltran FNP Care Management ([facility]- F/U call) 05/14/2025 Travel 05/14/2025 Patient Outreach [facility] [address] [place] [phone] Karoline Beltran FNP Care Coordination (C3/W Betsy Whatley f/u call, program graduation ) 05/14/2025 Refill [facility] [address] [place] [address] Karoline Beltran FNP Essential (primary) hypertension 05/13/2025 Refill [facility] [address] [place] [address] Karoline Beltarn FNP Gastroesophageal reflux disease, unspecified whether esophagitis present 05/08/2025 9:00 AM EDT Office Visit [facility] [address] [place] [phone] Leopoldo Bateman MD Uncomplicated opioid dependence (CMS/HCC) (Primary Dx) 05/08/2025 Refill [facility] [address] [place] [address] 19869 Zehra Rodgers, ADARSH Opioid dependence, uncomplicated (CMS/HCC) 05/08/2025 Travel 05/02/2025 Telephone [facility] [address] [place] [phone] Karoline Beltran FNP Referral 05/01/2025 9:00 AM EDT Office Visit [address] [phone] Leopoldo Bateman MD Opioid dependence, uncomplicated (CMS/HCC) (Primary Dx) 05/01/2025 Telephone [facility] [address] [place], [place] [phone] Karoline Beltran FNP Appointment Request 05/01/2025 Travel 04/30/2025 Patient Outreach [address] [address] Karoline Beltran FNP Care Coordination (C3/CHW Anurag Lo, TC #2 Sdks f/u_[facility]) 04/24/[address] [address] Karoline Beltran FNP Appointment Request 04/17/2025 9:00 AM EDT Clinical Support [address] [address] Zehra Rodgers RN Opioid dependence, uncomplicated (CMS/HCC) (Primary Dx) 04/17/2025 Travel 04/16/2025 Patient Outreach [facility] [address] [place] [address] Karoline Beltran FNP 04/12/2025 Patient Outreach [address] [address] Karoline Beltran FNP Care Management ([facility]- F/U call (covering for Sarahi APPLE)) 04/10/[address] [address] Zehra Rodgers RN Opioid dependence, uncomplicated (CMS/HCC) 04/03/2025 9:00 AM EDT Office Visit [address] [address] Leopoldo Bateman MD Opioid dependence, uncomplicated (CMS/HCC) (Primary Dx) 04/03/2025 Travel from Last 3 Months Immunizations Immunization Administration Dates Next Due Influenza Injectable Quadriv alant Preservative Free IIV4 MDCK 05/21/2021 Influenza injectable quadriv alent preservative free 06/01/2023,07/06/2022,06/13/2020 Influenza, seasonal, injecta ble, preservative free 06/04/2025,05/15/2024 Moderna Covid-19 Vaccine 6+ Bivalent 12/02/2022, 11/18/2022 Pfizer Covid-19 Vaccine 12+ 06/01/2024, Pneumococcal Conjugate PCV 20 02/03/2023 Pneumococcal Polysaccharide PPSV23 04/28/2018 Tdap 04/28/2018 Zoster, Recombinant 05/14/2025,08/08/2024 Family History Medical History Relation Name Comments Diabetes Brother Coronary artery disease Father Heart attack Father Hypertension Mother Relation Name Status Comments Brother Father Mother Social History Tobacco Use Types Packs/Day Years Used Date Smoking Tobacco: Former Cigarettes Q uit: 04/30/2025 Passive Smoke Exposure: Past Smokeless Tobacco: Never Tobacco Cessation:Counseling Given: Yes Comments:Pt stated stop smoking two [...] Sign Reading Time Taken Comments Blood Pressure 130/80 07/02/2025 11:46 AM EST Pulse 97 07/02/2025 11:46 AM EST Temperature 36.8 C (98.2 F) 03/29/2025 2:25 PM EDT Respiratory Rate 12 03/29/2025 2:25 PM EDT Oxygen Saturation 98% 03/29/2025 2:25 PM EDT Inhaled Oxygen Concentration - - Weight 105 kg (232 lb) 03/29/2025 2:25 PM EDT Height 170.2 cm (5' 7 ) 03/29/2025 2:25 PM EDT Body Mass Index 36.34 03/29/2025 2:25 PM EDT Plan of Treatment Upcoming Encounters Date Type Department Care Team (Late st Contact Info) Description 07/10/2025 9:00 AM EST Office Visit [facility] [address] [place] [phone] Leopoldo Bateman MD [address] [place] [phone] 08/28/2025 11:15 AM EST Office Visit [facility] [address] [place] [phone] Karoline Beltran FNP [address] [place] [address] Health Maintenance Due Date Last Done Comments CT Colonography 1965 FIT 1965 Sigmoidoscopy 1965 Disability Screening 1965 Hepatitis A Vaccines (1 of 2 - Risk 2-dose series) 1984 RSV Patients and Patients Aged 60 years or older (1 - Risk 50-74 years 1-dose series) 2015 COVID-19 Vaccine ( season) 2025 06/01/2024, 01/23/2024, 12/02/2022, Additional history exists FOBT 07/05/2025 07/05/2024 Alcohol/Substance Use Screening 03/08/2026 03/08/2025 Depression Screening 03/08/2026 03/08/2025, 03/08/20 25 SDOH Screening 03/08/2026 03/08/2025 Tobacco Screening 05/15/2026 05/15/2025 FIT DNA/Cologuard 07/05/2027 07/05/2024 Colonoscopy 11/28/2027 11/27/2024 Colorectal Cancer Screening 11/28/2027 DTaP/Tdap/Td Vaccines (2 - Td or Tdap) 04/28/2028 04/28/2018 Lipid Panel 05/27/2030 05/27/2025, 11/2024, 07/06/2024, Additional history exists HIV Screening Completed 09/23/2022, 05/23, 12/16/2021, Additional history exists Pneumococcal Vaccine: 50+ Years Completed 02/03/2023, 04/28/2018 Zoster Vaccines Completed 05/14/2025, 08/08/2024 Influenza Vaccine Completed 06/04/2025, , 06/01/2023, Additional history exists HIB Vaccines Aged Out [...] On track( 025 4:26 PM EDT) Zehra Danielle RN Procedures Procedure Name Priority Date/Time Associated Diagnosis Comments POCT AVANI-14 URINE DRUG SCREEN Routine 06/12/2025 10:06 AM EDT Uncomplicated opioid dependence (CMS/HCC) (HCC) LIPID PANEL, STANDARD Routine 05/27/2025 8:[address] ABD/PELVIS W/O + W/ IV CONTRAST Routine 05/16/2025 11:44 AM EDT POCT AVANI-14 URINE DRUG SCREEN Routine 04/17/2025 10:24 AM EDT Opioid dependence, uncomplicated (CMS/HCC) HM COLONOSCOPY Routine 11/27/2024 2:29 PM EDT LAB COLOGUARD COLON CANCER SCREEN Routine 07/05/2024 7:30 AM EST Screening for colon cancer HIV 1 RNA, QN PCR W/RFL VLADIMIR (RTI,PI,INTEGRASE) Routine 09/23/2022 9:32 AM EST Routine adult health maintenance from Last 3 Months or Most Recently Relevant to Health Maintenance Results * (ABNORMAL) POCT AVANI-14 Urine Drug Screen (06/12/2025 10:06 AM EDT) Only the most recent of2 resultswithin the time period is included. THC Positive(A) Negative Cocaine Screen, Urine Negative Negative Opiate Screen, Urine Negative Negative Methamphetamine Screen Urine Negative Negative Amphetamine Screen, Urine Negative Negative Benzodiazepines Screen, Urine Negative Negative Barbiturate Screen, Urine Negative Negative Methadone Screen, Urine Negative Negative Buprenophine Screen, Urine Positive(A) Negative TCA, Urine Negative Negative MDMA Urine Negative Negative ng/mL Oxycodone Screen, Urine Negative Negative Phencyclidine (PCP), Urine Negative Negative Fentanyl, Urine Negative Negative Urine Urine specimen obtained by clean catch procedure / Unknown 06/12/2025 10:06 AM EDT Leopoldo Bateman MD POINT OF CARE TEST ENTER/EDIT OR DERABLES Final Result * (ABNORMAL) Lipid Panel, Standard (05/27/2025 8:45 AM EDT) Triglycerides 124 <150 mg/dL [facility] Comment:Desirable Triglyceri de: less than 150 mg/dLBorderline High Triglyceride 150-199 mg/dLHigh Triglyceride: 200-499 mg/dLVery High Triglyceride: greater than or equal to 5OO mg/dL Cholesterol 210(H) <200 mg/dL [facility] Comment:Desirable Cholestero l: less than 200 mg/dLBorderline High Cholesterol: 200-239 mg/dLHigh Cholesterol: greater than 239 mg/dL LDL Cholesterol Calculated 146(H) <100 mg/dL [facility] Comment:Desirable LDL: less than 100 mg/dLNear Optimal/Above Optimal LDL: 110- 129 mg/dLBorderline High LDL: 130-159 mg/dLHigh LDL: 160-189 mg/dLVery High LDL: greater than or equal to 190 mg/dL HDL Cholesterol 40(L) >40 mg/dL [facility] Comment:Desirable HDL: great er than 40 mg/dL Note: This HDL assay may give artificially low results in patients with liver disease. 05/27/2025 8:45 AM EDT 05/27/2025 11:17 AM EDT us Karoline Beltarn CYTOLOGIST LAB BLOOD ORDERABLES Final Res ult [facility] [address] [place] [phone] * CT ABD/PELVIS W/O + W/ IV CONTRAST (05/16/2025 11:44 AM EDT) Anatomical Region Laterality Modality Body, Pelvis, Abdomen Computed T omography us Historical Provider IMChing CT PROCEDURES Final R esult * Hm Colonoscopy (11/27/2024 2:29 PM EDT) us Historical Provider HEALTH MAINTENANCE Final Result * (ABNORMAL) Cologuard?? colon cancer screening (07/05/2024 7:30 AM EST) Cologuard Result Positive( A) Negative 07/15/2024 3:28 AM EST [employer] (CLIA #:[id number]) Comment: POSITIVE TEST RESULT. A positive Cologuard result should be followed with a colonoscopy or visual examination of the colon. The normal value (reference range) for this assay is negative. TEST DESCRIPTION: Composite algorithmic analysis of stool DNA-biomarkers with hemoglobin immunoassay. Quantitative values of individual biomarkers are not [...] (Nik Mittal al, N Engl J Med 2014;370(14):8641-2400.) Cologuard may produce a false negative or false positive result (no colorectal cancer or precancerous polyp present at colonoscopy follow up). A negative Cologuard test result does not guarantee the absence of CRC or advanced adenoma (pre-cancer). The current Cologuard screening interval is every 3 years. ([place] [employer] and U.S. Multi-Society Task Force). Cologuard performance data in a 10,000 patient pivotal study using colonoscopy as the reference method can be accessed at the following location: www.[email or web address]/results. Additional description of the Cologuard test process, warnings and precautions can be found at [email or web address] [email or web address].com. Stool specimen (specimen) 07/05/2024 7:30 AM EST 07/07/2024 3:42 PM EST Karoline Beltran [facility] MOLECULAR DIAGNOSTICS TODD BARAHONA Final Result Performing Organization Address [facility]/ZIP Co de Phone Number [employer] [facility] (CLIA #:[id number]) [address] [place] [address], * HIV-1 RNA, Quantitative, Real-Time PCR with Reflex to Genotype (RTI, PI, Integrase) (09/23/2022 9:32 AM EST) Pathologist [facility] HIV 1 RNA, QN PCR NOT DETECTED copies/mL [facility], HIV 1 RNA, QN PCR NOT DETECTED Log copies/mL [facility], Comment: REFERENCE RANGE: NOT DETECTED copies/mL NOT DETECTED Log copies/mL This test was performed using Real-Time Polymerase Chain Reaction. Reportable range is 20 to 10,000,000 copies/mL (1.30-7.00 Log copies/mL). 09/23/2022 9:32 AM EST 09/23/2022 9:33 AM EST Narrative [facility] - 09/26/2022 1:23 AM EST FASTING:UNKNOWN FASTING: UNKNOWN Karoline Beltran [facility] BLOOD ORDERABLES Final Res ult Performing Organization Address City/[facility]/ZIP Co de Phone Number [facility] [address], [place] [address] [employer], [address] [place] [address] from Last 3 Months or Most Recently Relevant to Health Maintenance [place] [place] [address] C3 Care Teams Electric Powerline Examiner Relationship Specialty Start Date End Date Karoline Beltran FNP [address] [place] [address] PCP - General Family Medicine 06/15/21 Azalia Villalta PharmD [address] [place] [address] Pharmacist Internal Medicine 05/15/24
--- OUTSIDE RECORDS SUMMARY | 2025-07-03 10:13 | XMS_ITS | Encounter Summary ---
Author Organization [facility] Address [address] [place] [address] Care Team Providers Care Hammer Smith Name Role Phone Physician, No Pcp Primary Care Provider Unavaila ble Encounter Details Date Type Department Care Team (Late st Contact Info) Description 05/13/[address] [facility] - Main Lab [address] [facility] [place] [address] Edgard Taylor PA [address] [place] [phone] Benign essential microscopic hematuria Social History Tobacco [...] Procedure Name Priority Date/Time Associated Diagnosis Comments NON-GYNECOLOGIC CYTOLOGY Routine 05/06/2025 12:00 AM EDT Benign essential microscopic hematuria documented in this encounter Results * Non-gynecologic cytology (05/06/2025 12:00 AM EDT) Final Diagnosis Urine, Voided [id number]: Negative for high grade urothelial carcinoma. 06/04/2025 1:25 PM EDT [facility] at 1325 EDT Specimen A Adequacy Satisfactory for evaluation 06/04/2025 1:25 PM EDT [facility] Clinical Information Benign essential microscopic hematuria R31.1 Urine cytology with reflex UroVysion ([facility]) 06/04/2025 1:25 PM EDT [facility] Gross Description A. Urine, Voided, [id number]: Received one ThinPrep slide for cytology. 06/04/2025 1:25 PM EDT [facility] Disclaimer Unless otherwise specified, all tissue is 10% NB formalin fixed and paraffin embedded. Technical pathology services provided by [facility] at [address] [facility] [address], [place] [address] (CLIA #[id number]/Anup Leos MD, Sail Repairer) 06/04/2025 1:25 PM EDT [facility] Urine Urine specimen from urethra / Unknown 05/06/2025 05/13/2025 1:27 PM EDT us [facility] CYTOLOGY ORDERABL ES Final Result [facility] [address] [place] [address], documented in this encounter Visit Diagnoses Diagnosis Benign essential microscopic hematuria documented in this encounter Care Teams Hammer Smith Relationship Specialty Start Date End Date Physician, No Pcp PCP - General 10/02/24 documented as of this encounter
--- OUTSIDE RECORDS SUMMARY | 2025-07-03 10:13 | XMS_ITS | Encounter Summary ---
Author Organization [facility] Address [address] [facility] 7t [place] [address] Care Team Providers Care Auction Block Clerk Name Role Phone Karoline Beltran PRESIDENT [employer]IV[employer] Primary Care Provider [phone] Azalia Villalta PharmD Unavailable [phone] Encounter Details Date Type Department Care Team (Late st Contact Info) Description 06/07/2025 Orders Only [facility] [address] [place] [address] Provider, MD Mark Social History Tobacco Use Types Packs/Day Years Used Date Smoking Tobacco: Former Cigarettes Q uit: 04/30/2025 Passive Smoke Exposure: Past Smokeless Tobacco: Never Comments:Pt stated stop smok [...] Description 07/10/2025 9:00 AM EST Office Visit [facility] [address] [place] [address] Leopoldo Bateman MD [address] [place] [address] 08/28/2025 11:15 AM EST Office Visit [facility] [address] [place] [address] Karoline Beltran FNP [address] [place] [address] documented as of this encounter Goals Goal Patient Goal Type Associated Problems Recent Progress Patient-Stated? Author Increase coping skills to promote long-term recovery and improve ability to perform daily activities General On track( 025 4:26 PM EDT) Zehra Danielle, ADARSH documented as of this encounter Procedures Procedure Name Priority Date/Time Associated Diagnosis Comments CT ABD/PELVIS W/O + W/ IV CONTRAST Routine 05/16/2025 11:44 AM EDT documented in this encounter Results * CT ABD/PELVIS W/O + W/ IV CONTRAST (05/16/2025 11:44 AM EDT) Anatomical Region Laterality Modality Body, Pelvis, Abdomen Computed T omography us Historical Provider MD HUERTA CT PROCEDURES Final R esult documented in this encounter Visit Diagnoses Not on filedocumented in this encounter Additional Health Concerns Assessment Noted Time PHQ-9 Depression Total Score: 1 03/08/20 25 1:40 PM EDT documented as of this encounter Care Teams Auction Block Clerk Relationship Specialty Start Date End Date Karoline Beltran FNP [address] [place] [address] PCP - General Family Medicine 06/15/21 Azalia Villalta PharmD [address] [place] [address] Pharmacist Internal Medicine 05/15/24 documented as of this encounter
--- OUTSIDE RECORDS SUMMARY | 2025-07-03 10:13 | XMS_ITS | Encounter Summary ---
Author Organization [facility] Address [address] [facility] 7[address] [place] [address] Care Team Providers Care Graphic Manager Name Role Phone Karoline Beltran Primary Care Provider [phone] Azalia Villalta PharmD Unavailable [phone] Sarahi Rey RN Unavailable Unavailable Anurag Lo Unavailable Zane Alvares RN Unavailable [phone] Reason for Visit * Reason Onset Date Comments Appointment Request 04/24/2025 Encounter Details Date Type Department Care Team (Late st Contact Info) Description 04/24/2025 Telephone [facility] [address] [place] [address] Karoline Beltran FNP [address] [place], [place] [phone] Appointment Request Social History Tobacco Use Types [...] encounter Miscellaneous Notes * Telephone Encounter - Veena Garces - 04/24/2025 2:32 PM EDT Tc from pt requesting a call back to reschedule ppt from 04/24 Contact pt at [phone] Need instrumentation supervisor documented in this encounter Plan of Treatment Upcoming Encounters Date Type Department Care Team (Late st Contact Info) Description 07/10/2025 9:00 AM EST Office Visit [facility] [address] [place] [address] Leopoldo Bateman MD [address] [place] [address] 08/28/2025 11:15 AM EST Office Visit [facility] [address] [place] [address] Karoline Beltran FNP [address] [place] [address] documented as of this encounter Goals Goal [...] documented as of this encounter Care Teams Graphic Manager Relationship Specialty Start Date End Date Karoline Beltran FNP [address] [place] [address] PCP - General Family Medicine 06/15/21 Azalia Villalta, WillieD [address] [place] [address] Pharmacist Internal Medicine 05/15/24 Sarahi Rey, ADARSH [address] [place] [address] Registered Nurse Family Medicine 02/25/25 04/29/25 Anurag Lo 02/25/25 05/14/25 Zane Alvares, ADARSH [address] [place] [address] Registered Nurse Family Medicine 04/29/25 05/17/25 documented as of this encounter
--- OUTSIDE RECORDS SUMMARY | 2025-07-03 10:13 | XMS_ITS | Encounter Summary ---
Author Organization [facility] Address [address] [facility] 7[address] [place] [address] Care Team Providers Care Drop Shipment Clerk Name Role Phone Karoline Beltran Primary Care Provider [phone] Anurag Lo Unavailable Sarahi Rey RN Unavailable Unavailable Azalia Villalta PharmD Unavailable [phone] Sarahi Rey RN Unavailable Unavailable Anurag Lo Unavailable Zane Alvares RN Unavailable [phone] Reason for Visit * Reason Onset Date Comments Ultrasound Order 11/29/2023 Encounter Details Date Type Department Care Team (Late st Contact Info) Description 11/29/2023 Telephone [facility] [address] [place] [address] Karoline Beltran FNP [address] [place], [place] [phone] Ultrasound Order Social History Tobacco Use Types [...] encounter Miscellaneous Notes * Telephone Encounter - iVraj Albert - 11/29/2023 12:48 PM EDT Tc from Dilan with [facility] calling to inform ultrasound order of the abdomen with elastography can't be completed with them. If any questions please contact Dilan at [phone]. documented in this encounter Plan of Treatment Upcoming Encounters Date Type Department Care Team (Late st Contact Info) Description 07/10/2025 9:00 AM EST Office Visit [facility] [address] [place] [address] Leopoldo Bateman MD [address] [place] [address] 08/28/2025 11:15 AM EST Office Visit [facility] [address] [place] [address] Karoline Beltran FNP [address] [place] [address] documented as of this encounter Visit Diagnoses Not on filedocumented in this encounter Care Teams Drop Shipment Clerk Relationship Specialty Start Date End Date Karoline Beltran FNP [address] [place] [address] PCP - General Family Medicine 06/15/21 Anurag Lo Community Health Worker 02/09/2405/10 Sarahi Rey, ADARSH Lead Pressman 02/09/24 05/10/24 Azalia Villalta, WillieD [address] [place] [address] Pharmacist Internal Medicine 05/15/24 Sarahi Rey, ADARSH Registered Nurse Family Medicine 02/25/25 04/29/25 Anurag Lo 02/25/25 05/14/25 Zane Alvares, ADARSH [address] [place] [address] Registered Nurse Family Medicine 04/29/25 05/17/25 documented as of this encounter
--- OUTSIDE RECORDS SUMMARY | 2025-07-03 10:13 | XMS_ITS | Encounter Summary ---
Author Organization [employer] [facility] Address 75 [facility] 7t [place] [address] Care Team Providers Care Conservation Specialist Name Role Phone Rachelldayanna Karoline ENVIRONMENTAL HEALTH PHYSICIAN Primary Care Provider [phone] Azalia Villalta PharmD Unavailable [phone] Reason for Visit * Reason Comments Med Refill Encounter Details Date Type Department Care Team ([facility] st Contact Info) Description 06/06/2025 Refill [facility] [address] [place], [place] [phone] Karoline Beltran FNP [address] [place] [address] Lumbar facet arthropathy Social History Tobacco Use [...] Description 07/10/2025 9:00 AM EST Office Visit [facility] [address] [place] [address] Leopoldo Bateman MD [address] [place] [address] 08/28/2025 11:15 AM EST Office Visit [facility] [address] [place] [address] Karoline Beltran FNP [address] [place] [address] documented as of this encounter Goals Goal Patient Goal Type Associated Problems Recent Progress Patient-Stated? Author Increase coping skills to promote long-term recovery and improve ability to perform daily activities General On track( 025 4:26 PM EDT) No Zehra Rodgers, RN documented as of this encounter Visit Diagnoses Diagnosis Lumbar facet arthropathy Spondylosis of unspecified site without mention of myelopathy documented in this encounter Additional Health Concerns Assessment Noted Time PHQ-9 Depression Total Score: 1 03/08/20 25 1:40 PM EDT documented as of this encounter Care Teams Conservation Specialist Relationship Specialty Start Date End Date Karoline Beltran FNP [address] [place] [address] PCP - General Family Medicine 06/15/21 Azalia Villalta PharmD [address] [place] [address] Pharmacist Internal Medicine 05/15/24 documented as of this encounter
--- OUTSIDE RECORDS SUMMARY | 2025-07-03 10:13 | XMS_ITS | Encounter Summary ---
Author Organization [facility] Address [address] [place] [address] Care Team Providers Care Supervisor Vine Fruit Farming Name Role Phone Physician, No Pcp Primary Care Provider Unavaila ble Encounter Details Date Type Department Care Team (Late st Contact Info) Description 10/23/2024 Lab Requisition [facility] - Main Lab [address] [place] [address] Edgard Taylor PA [address] [place] [address] Benign essential microscopic hematuria Social [...] and pathological findings. 11/08/2024 11:13 AM EDT [facility] Addendum electronically signed by Nikos Post MD on 11/08/2024 at 11:13 AM Final Diagnosis A. Urine, Voided, ([id number]): Atypical urothelial cells. Note: Based upon the cytologic findings, UroVysion testing will be performed, the result to follow in an addendum. 11/08/2024 11:13 AM EDT [facility] Clinical Information Benign essential microscopic hematuria R31.1 Urine cytology with reflex UroVysion ([facility]) 11/08/2024 11:13 AM [facility] Gross Description A. Urine, Voided, ([id number]): Received is one ThinPrep slide for cytology. 11/08/2024 11:13 AM EDT [facility] Disclaimer Unless otherwise specified, all tissue is 10% NB formalin fixed and paraffin embedded. Technical pathology services provided by [facility] at [address] [facility] [address], [place] [address] (CLIA #[id number]/Lidia Leos MD, Straight Knife Cutter Machine) 11/08/2024 11:13 AM [facility] Tissue Urine specimen from urethra / Unknown 10/22/2024 10/23/2024 3:54 PM EST us [facility] PATHOLOGY ORDERAB LES Edited Result - Final [facility] [address] [place] [address], documented in this encounter Visit Diagnoses Diagnosis Benign essential microscopic hematuria documented in this encounter Care Teams Supervisor Vine Fruit Farming Relationship Specialty Start Date End Date Physician, No Pcp PCP - General 10/02/24 documented as of this encounter
--- OUTSIDE RECORDS SUMMARY | 2025-07-03 10:13 | XMS_ITS | Encounter Summary ---
Author Organization [employer] [facility] Address [address] [facility] 7t [place] [address] Care Team Providers Care Pediatric Neuropsychologist Name Role Phone Karoline Beltran Primary Care Provider [phone] Anurag Lo Unavailable Sarahi Rey RN Unavailable Unavailable Azalia Villalta PharmD Unavailable [phone] Sarahi Rey RN Unavailable Unavailable Anurag Lo Unavailable Zane Alvares RN Unavailable [phone] Encounter Details Date Type Department Care Team (Late st Contact Info) Description 11/29/2023 Telephone [facility]S [address] [place], [place] [phone] Karoline Beltran FNP [address] [place], [place] [phone] Social History Tobacco Use Types Packs/Day Years [...] Pylori Antigen EIA Stool is viewable in Peer60, ordered 11/28/23. Please call to follow up. [...] Description 07/10/2025 9:00 AM EST Office Visit [address] [address] Leopoldo Bateman MD [address] [place] [address] 08/28/2025 11:15 AM EST Office Visit [address] [address] Karoline Beltran FNP 505 [place] [address] documented as of this encounter Visit Diagnoses Not on filedocumented in this encounter Care Teams Pediatric Neuropsychologist Relationship Specialty Start Date End Date Karoline Beltran FNP [address] [place] [address] PCP - General Family Medicine 06/15/21 Anurag Lo Community Health Worker 02/09/2405/10 Sarahi Rey RN Physical Therapy Aides Teacher 02/09/24 05/10/24 Azalia Villalta, Maninder [address] [place] [address] Pharmacist Internal Medicine 05/15/24 Sarahi Rey RN Registered Nurse Family Medicine 02/25/25 04/29/25 Anurag Lo 02/25/25 05/14/25 Zane Alvares, ADARSH [address] [place] [address] [place] [address] Registered Nurse Family Medicine 04/29/25 05/17/25 documented as of this encounter
--- OUTSIDE RECORDS SUMMARY | 2025-07-03 10:13 | XMS_ITS | Encounter Summary ---
Author Organization [employer] [facility] Address 75 [facility] 7t [place] [address] Care Team Providers Care Nuclear Plant Operator Name Role Phone Karoline Beltran INSTRUCTOR MODELING Primary Care Provider [phone] Azalia Villalta PharmD Unavailable [phone] Sarahi Rey RN Unavailable Unavailable Anurag Lo Unavailable Zane Alvares RN Unavailable [phone] Reason for Referral * Consultation (Routine) - Closed Specialty Diagnoses / Procedures Referred By Contlorie t Referred To Contact Pharmacy Diagnoses Essential (primary) hypertension Hawa Martins MD [address] [place] [address] Phone: tel: fax: Referral ID Status Reason Start Date Expiration Date V isits Requested Visits Authorized [id number] Closed Consult and Treat 06/15/2024 06/15/2025 6 6 Encounter Details Date Type Department Care Team (Late st Contact Info) Description 06/15/2024 Orders Only [facility] [address] [place], [place] [phone] Hawa Martins MD [address] [place], [place] [phone] Essential (primary) hypertension (Primary Dx) Social History [...] Upcoming Encounters Date Type Department Care Team ([facility] st Contact Info) Description 07/10/2025 9:00 AM EST Office Visit [facility] [address] [place] [address] Leopoldo Bateman MD [address] [place] [address] 08/28/2025 11:15 AM EST Office Visit [facility] [address] [place] [address] Karoline Beltran FNP [address] [place] [address] Scheduled Referrals Name Type Priority Associated Diagnoses Orde r Schedule Referral to Pharmacy CDTM Outpatient Referral Routine Essential (primary) hypertension Ordered: 06/15/2024 documented as of this encounter Visit Diagnoses Diagnosis Essential (primary) hypertension- Primary Unspecified essential hypertension documented in this encounter Additional Health Concerns Assessment Noted Time PHQ-9 Depression Total Score: 12 024 8:34 PM EDT documented as of this encounter Care Teams Nuclear Plant Operator Relationship Specialty Start Date End Date Karoline Beltran FNP [address] [place] [address] PCP - General Family Medicine 06/15/21 Azalia Villalta PharmD [address] [place] [address] Pharmacist Internal Medicine 05/15/24 Sarahi Rey, ADARSH [address] [place] [address] Registered Nurse Family Medicine 02/25/25 04/29/25 Anurag Lo 02/25/25 05/14/25 Zane Alvares, ADARSH [address] [place] [address] Registered Nurse Family Medicine 04/29/25 05/17/25 documented as of this encounter
--- OUTSIDE RECORDS SUMMARY | 2025-07-03 10:13 | XMS_ITS | Encounter Summary ---
Author Organization [employer] Address 75 [facility] 7t [place] [address] Care Team Providers Care Assistant Professor Of Geography Name Role Phone Karoline Beltran J2EE ANDROID DEVELOPER Primary Care Provider [phone] Azalia Villalta PharmD Unavailable [phone] Encounter Details Date Type Department Care Team (Latest Contact Info) Description 07/02/2025 Travel Social History Tobacco Use Types Packs/Day [...] Description 07/10/2025 9:00 AM EST Office Visit [address] [address] Leopoldo Bateman MD [address] [place] [address] 08/28/2025 11:15 AM EST Office Visit [address] [address] Karoline Beltran FNP [address] [place] [address] documented as of this encounter Goals Goal Patient Goal Type Associated Problems Recent Progress Patient-Stated? Author Increase coping skills to promote long-term recovery and improve ability to perform daily activities General On track( 025 4:26 PM EDT) No Zehra Rodgers RN documented as of this encounter Visit Diagnoses Not on filedocumented in this encounter Additional Health Concerns Assessment Noted Time PHQ-9 Depression Total Score: 1 03/08/20 25 1:40 PM EDT documented as of this encounter Care Teams Assistant Professor Of Geography Relationship Specialty Start Date End Date Karoline Beltran FNP [address] [place] [address] PCP - General Family Medicine 06/15/21 Azalia Villalta, WillieD [address] [place] [address] Pharmacist Internal Medicine 05/15/24 documented as of this encounter
--- OUTSIDE RECORDS SUMMARY | 2025-07-03 10:13 | XMS_ITS | Encounter Summary ---
Author Organization [employer] Address 75 [facility] 7t [place] [address] Care Team Providers Care Button Facing Machine Operator Name Role Phone Karoline Beltran MARKER SHIPMENTS Primary Care Provider [phone] Azalia Villalta PharmD Unavailable [phone] Reason for Referral * Consultation (Routine) - Authorized Specialty Diagnoses / Procedures Referred By Contac t Referred To Contact Pharmacy Diagnoses Essential (primary) hypertension Mixed hyperlipidemia Hawa Martins MD [address] [place] [address] Phone: tel: fax: Referral ID Status Reason Start Date Expiration Date Visits Requested Visits Authorized [id number] Authorized Consult and Treat 06/04/2025 06/04/2026 6 6 Encounter Details Date Type Department Care Team (Late st Contact Info) Description 06/04/2025 Orders Only [facility] [address] [place] [address] Hawa Martins MD [address] [place], [place] [phone] Essential (primary) hypertension (Primary Dx); Mixed hyperlipidemia Social History Tobacco Use Types [...] Upcoming Encounters Date Type Department Care Team ([facility] st Contact Info) Description 07/10/2025 9:00 AM EST Office Visit [facility] [address] [place] [address] Leopoldo Bateman MD [address] [place] [address] 08/28/2025 11:15 AM EST Office Visit [facility] [address] [place] [address] Karoline Beltran FNP [address] [place] [address] Scheduled Referrals Name Type Priority Associated Diagnoses Orde r Schedule Referral to Pharmacy CDTM Outpatient Referral Routine Essential (primary) hypertension Mixed hyperlipidemia Ordered: 06/04/2025 documented as of this encounter Goals Goal Patient Goal Type Associated Problems Recent Progress Patient-Stated? Author Increase coping skills to promote long-term recovery and improve ability to perform daily activities General On track( 025 4:26 PM EDT) Zhera Danielle, ADARSH documented as of this encounter Visit Diagnoses Diagnosis Essential (primary) hypertension- Primary Unspecified essential hypertension Mixed hyperlipidemia documented in this encounter Additional Health Concerns Assessment Noted Time PHQ-9 Depression Total Score: 1 03/08/20 25 1:40 PM EDT documented as of this encounter Care Teams Button Facing Machine Operator Relationship Specialty Start Date End Date Karoline Beltran FNP [address] [place] [address] PCP - General Family Medicine 06/15/21 Azalia Villalta, WillieD [address] [place] [address] Pharmacist Internal Medicine 05/15/24 documented as of this encounter
--- OUTSIDE RECORDS SUMMARY | 2025-07-03 10:13 | XMS_ITS | Clinical Summary ---
Author Organization [facility] Address [address] [place] [address] Phone Care Team Providers Care Director Of Pharmacy Name Role Phone Physician, No Pcp Primary Care Provider Unavaila ble Allergies No known active allergies Medications methocarbamoL (ROBAXIN) 750 mg tablet Take 1 tablet (750 mg total) by mouth 4 (four) times a day for 5 days. 20 each 10/02/2024 Active Encounters Date Type Department Care Team Description 05/13/2025 Lab Requisition [facility] - Main Lab [address] [facility] [place] [address] Edgard Taylor PA Benign essential [...] of 3 - 19+ 3-dose series) 1984 RSV Immunization Adult Patients (1 - Risk 50-74 years 1-dose series) 2015 HIV Screening 07/20/2022 Hepatitis C Screening 07/20/2022 Social Influencers of Health Screening 07/20/2022 Depression Screening 08/22/2024 Zoster Vaccines (2 of 2) 10/03/2024 08/08/2024 COVID-19 Vaccine ( season) 2025 06/01/2024, 01/23/2024, 12/02/2022, Additional history exists Influenza Vaccine (#1) 2025 , 06/01/2023, 07/06/2022, Additional history exists Hypertension/CHF/CAD Annual BMP Blood Test 10/02/2025 10/02/2024, 09/25/2024, 07/06/2024 DTaP,Tdap,and Td Vaccines (2 - Td or Tdap) 04/28/2028 04/28/2018 Cholesterol Screening (Lipid Panel) 09/25/2029 09/25/2024, 07/06/2024 Pneumococcal Vaccine: 50+ Years Completed 02/03/2023, 04/28/2018 HIB Vaccines Aged Out No longer eligi [...] 12:00 AM EDT Benign essential microscopic hematuria COMPREHENSIVE METABOLIC PANEL STAT 10/02/2024 1:11 PM EST from Last 3 Months or Most Recently Relevant to Health Maintenance Results * Non-gynecologic cytology (05/06/2025 12:00 AM EDT) Final Diagnosis Urine, Voided [id number]: Negative for high grade urothelial carcinoma. 06/04/2025 1:25 PM EDT [facility] at 1325 EDT Specimen A Adequacy Satisfactory for evaluation 06/04/2025 1:25 PM EDT [facility] Clinical Information Benign essential microscopic hematuria R31.1 Urine cytology with reflex UroVysion (AUC/SHGUC) 06/04/2025 1:25 PM EDT [facility] Gross Description A. Urine, Voided, [id number]: Received one ThinPrep slide for cytology. 06/04/2025 1:25 PM EDT [facility] Disclaimer Unless otherwise specified, all tissue is 10% NB formalin fixed and paraffin embedded. Technical pathology services provided by [facility] at [address] [place] [address] [address], [place] [address] (CLIA #[id number]/Anup Leos MD, Data Modeling Architect) 06/04/2025 1:25 PM EDT [facility] Urine Urine specimen from urethra / Unknown 05/06/2025 05/13/2025 1:27 PM EDT Edgard DHILLON LAB CYTOLOGY ORDERABL ES Final Result [facility] [address] [place] [address], * (ABNORMAL) Comprehensive metabolic panel (10/02/2024 1:11 PM EST) Sodium 139 133 - 145 mmol/L LAB CHEMISTRY METHOD 10/02/2024 2:33 PM EST [facility] Potassium 4.0 3.5 - 5.5 mmol/L LAB CHEMISTRY METHOD 10/02/2024 2:33 PM EST [facility] Chloride 108 96 - 110 mmol/L LAB CHEMISTRY METHOD 10/02/2024 2:33 PM EST [facility] CO2 25 21 - 32 mmol/L LAB CHEMISTRY METHOD 10/02/2024 2:33 PM [facility] Anion Gap 6 3 - 11 LAB CHEMISTRY METHOD 10/02/2024 2:33 PM [facility] Glucose 106(H) 70 - 100 mg/dL LAB CHEMISTRY METHOD 10/02/2024 2:33 PM [facility] BUN 9 5 - 25 mg/dL LAB CHEMISTRY METHOD 10/02/2024 2:33 PM [facility] Creatinine 0.71 0.70 - 1.30 mg/dL LAB CHEMISTRY METHOD 10/02/2024 2:33 PM [facility] eGFR 106 >=60 mL/min/1. 73m2 LAB CHEMISTRY METHOD 10/02/2024 2:33 PM [facility] Comment:Calculation based on the Chronic Kidney Disease Epidemiology Collaboration (CKD-EPI) equation refit without adjustment for race. BUN/Creatinine Ratio 12.7 LAB CHEMISTRY METHOD 10/02/2024 2:33 PM [facility] Calcium 9.0 8.5 - 10.5 mg/dL LAB CHEMISTRY METHOD 10/02/2024 2:33 PM [facility] AST (SGOT) 28 10 - 42 unit/L LAB CHEMISTRY METHOD 10/02/2024 2:33 PM EST [facility] ALT (SGPT) 21 10 - 60 unit/L LAB CHEMISTRY METHOD 10/02/2024 2:33 PM [facility] Alkaline Phosphatase 69 42 - 121 unit/L LAB CHEMISTRY METHOD 10/02/2024 2:33 PM [facility] Total Protein 6.8 6.0 - 8.0 g/dL LAB CHEMISTRY METHOD 10/02/2024 2:33 PM EST [facility] Albumin 4.0 3.2 - 5.0 g/dL LAB CHEMISTRY METHOD 10/02/2024 2:33 PM [facility] Total Bilirubin 0.7 0.0 - 1.4 mg/dL LAB CHEMISTRY METHOD 10/02/2024 2:33 PM [facility] Blood Venous blood specimen / Unknown Venipuncture / Unknown 10/02/2024 1:11 PM EST 10/02/2024 1:58 PM EST us Jaspal Crockett DO LAB BLOOD ORDERABLES Final Result [facility] [address] [place] [address], from Last 3 Months or Most Recently Relevant to Health Maintenance Insurance MEDICAID - [place] Care Teams Director Of Pharmacy Relationship Specialty Start Date End Date Physician, No Pcp PCP - General 10/02/24
--- OUTSIDE RECORDS SUMMARY | 2025-07-03 10:13 | XMS_ITS | Encounter Summary ---
Author Organization [employer] Address [address] [facility] 7t [place] [address] Care Team Providers Care [place] Attendant Name Role Phone Karoline Beltran SENIOR STATISTICAL PROGRAMMER Primary Care Provider [phone] Azalia Villalta PharmD Unavailable [phone] Sarahi Rey RN Unavailable Unavailable Anurag Lo Unavailable Zane Alvares RN Unavailable [phone] Encounter Details Date Type Department Care Team (Late st Contact Info) Description 05/14/2024 Telephone [facility] [address] [place], [place] [phone] Azalia Villalta, PharmD [address] [place], [place] [phone] Social History Tobacco Use Types Packs/Day Years [...] Description 07/10/2025 9:00 AM EST Office Visit [facility] [address] [place] [address] Leopoldo Bateman MD [address] [place] [address] 08/28/2025 11:15 AM EST Office Visit [facility] [address] [place] [address] Karoline Beltran FNP [address] [place] [address] documented as of this encounter Visit Diagnoses Diagnosis Essential (primary) hypertension- Primary Unspecified essential hypertension documented in this encounter Additional Health Concerns Assessment Noted Time PHQ-9 Depression Total Score: 12 01/28/ 024 8:34 PM EDT documented as of this encounter Care Teams [place] Attendant Relationship Specialty Start Date End Date Karoline Beltran FNP [address] [place] [address] PCP - General Family Medicine 06/15/21 Azalia Villalta PharmD [address] [place] [address] Pharmacist Internal Medicine 05/15/24 Sarahi Rey RN [address] [place] [address] Registered Nurse Family Medicine 02/25/25 04/29/25 Anurag Lo 02/25/25 05/14/25 Zane Alvares, ADARSH [address] [place] [address] Registered Nurse Family Medicine 04/29/25 05/17/25 documented as of this encounter
--- OUTSIDE RECORDS SUMMARY | 2025-07-03 10:13 | XMS_ITS | Encounter Summary ---
Author Organization [employer] Address [address] [facility] 7t [place] [address] Care Team Providers Care Consulting Psychiatrist Name Role Phone Karoline Beltran ACCOUNTING TEACHER Primary Care Provider Azalia Villalta PharmD Unavailable [phone] Encounter Details Date Type Department Care Team (Late st Contact Info) Description 06/07/2025 Results Follow-Up [facility] [address] [place] [address] Leopoldo Bateman MD [address] [place] [address] CT ABD/PELVIS W/O + W/ IV CONTRAST Social History Tobacco Use Types Packs/Day Years [...] Description 07/10/2025 9:00 AM EST Office Visit [facility] [address] [place] [phone] Leopoldo Bateman MD [address] [place] [address] 08/28/2025 11:15 AM EST Office Visit [facility] [address] [place] [address] Karoline Beltran FNP [address] [place] [address] documented as of this encounter Goals Goal [...] documented as of this encounter Care Teams Consulting Psychiatrist Relationship Specialty Start Date End Date Karoline Beltran FNP [address] [place] [address] PCP - General Family Medicine 06/15/21 Azalia Villalta, Maninder [address] [place] [address] Pharmacist Internal Medicine 05/15/24 documented as of this encounter
--- OUTSIDE RECORDS SUMMARY | 2025-07-03 10:13 | XMS_ITS | Encounter Summary ---
Author Organization [employer] Address [address] [facility] 7t [place] [address] Care Team Providers Care Vice President Biostatistics Name Role Phone Karoline Beltran Primary Care Provider [phone] Anurag Lo Unavailable Sarahi Rey RN Unavailable Unavailable Azalia Villalta PharmD Unavailable [phone] Sarahi Rey RN Unavailable Unavailable Anurag Lo Unavailable Zane Alvares RN Unavailable [phone] Reason for Visit * Reason Comments Med Refill Encounter Details Date Type Department Care Team (Late st Contact Info) Description 02/05/2024 Refill [facility] [address] [place] [address] Karoline Beltran FNP [address] [place] [address] Arthropathy Social History Tobacco Use Types Packs/Day [...] Visit [facility] [address] [place] [address] Leopoldo Bateman MD [address] [place] [address] 08/28/2025 11:15 AM EST Office Visit [facility] [address] [place] [address] Karoline Beltran FNP [address] [place] [address] documented as of this encounter Visit Diagnoses Diagnosis Arthropathy Unspecified arthropathy, site unspecified documented in this encounter Additional Health Concerns Assessment Noted Time PHQ-9 Depression Total Score: 12 024 8:34 PM EDT documented as of this encounter Care Teams Vice President Biostatistics Relationship Specialty Start Date End Date Karoline Beltran FNP [address] [place] [address] PCP - General Family Medicine 06/15/21 Anurag Lo Community Health Worker 02/09/2405/10 Sarahi Rey, RN Driver Lifter Of Sanitation Truck 02/09/24 05/10/24 Azalia Villalta, WillieD [address] [place] [address] Pharmacist Internal Medicine 05/15/24 Sarahi Rey, ADARSH Registered Nurse Family Medicine 02/25/25 04/29/25 Anurag Lo 02/25/25 05/14/25 Zane Alvares, RN [address] [place] [address] Registered Nurse Family Medicine 04/29/25 05/17/25 documented as of this encounter
--- OUTSIDE RECORDS SUMMARY | 2025-07-03 10:13 | XMS_ITS | Encounter Summary ---
Author Organization [employer] Address [address] [facility] 7t [place] [address] Care Team Providers Care Office Specialist Name Role Phone Karoline Beltran Primary Care Provider [phone] Azalia Villalta PharmD Unavailable [phone] Sarahi Rey RN Unavailable Unavailable Anurag Lo Unavailable Zane Alvares RN Unavailable [phone] Reason for Referral * Imaging (Routine) - Closed Specialty Diagnoses / Procedures Referred By Dusty t Referred To Contact Radiology Diagnoses Lumbar facet arthropathy Procedures MR Lumbar Spine w/o Contrast Karoline Beltran FNP [address] [place] [address] Phone: tel: fax: [address] Phone: tel: fax: Referral ID Status Reason Start Date Expiration Date Visits Re quested Visits Authorized [id number] Closed 01/28/2025 01/28/2026 1 1 Encounter Details Date Type Department Care Team (Late st Contact Info) Description 01/28/2025 Orders Only [facility] [address] [place], [place] [phone] Karoline Beltran FNP [address] [place] [address] Lumbar facet arthropathy (Primary Dx) Social History Tobacco Use Types [...] Description 07/10/2025 9:00 AM EST Office Visit [facility] [address] [place] [address] Leopoldo Bateman MD [address] [place] [address] 08/28/2025 11:15 AM EST Office Visit [facility] [address] [place] [address] Karoline Beltran FNP [address] [place] [address] documented as of this encounter Goals Goal Patient Goal Type Associated Problems Recent Progress Patient-Stated? Author Increase coping skills to promote long-term recovery and improve ability to perform daily activities General On track( 025 4:26 PM EDT) No Zehra Rodgers RN documented as of this encounter Procedures Procedure Name Priority Date/Time Associated Diagnosis Comments MR LUMBAR SPINE WO CONTRAST Routine 02/16/2025 1:40 PM EDT Lumbar facet arthropathy documented in this encounter Results * MR Lumbar Spine w/o Contrast (02/16/2025 1:40 PM EDT) Anatomical Region Laterality Modality Spine, L-spine Magnetic Resonan ce 02/16/2025 1:40 PM EDT Narrative 02/18/2025 8:56 AM EDT [facility] [address] [place] [address] Magnetic Resonance Report Signed Patient: Dedrick Dawn MR#: [id number] : 1965 Acct:[id number] Age/Sex: 59 / M ADM Date: 02/16/25 Loc: HO.MRI Attending Dr: Karoline NORMAN Ordering Physician: Karoline Beltran Date of Service: 02/16/25 Procedure(s): MR lumbar spine wo con Accession Number(s): [id number] cc: Karoline Beltran EXAMINATION: MR LUMBAR SPINE WITHOUT CONTRAST CLINICAL INFORMATION: Lumbar facet arthropathy and chronic low back pain. COMPARISON: January 01, 2019. TECHNIQUE: MRI of the lumbar spine was obtained using routine sequences without contrast. FINDINGS: Last rib-bearing vertebra labeled T12. Modic type I endplate changes at L4-5. Bone marrow STIR signal within the endplates of L4-5 and the posterior superior endplate of L3. Multilevel marginal osteophyte formation and disc desiccation from T11-12 to L5-S1. Grade 1 retrolisthesis L5-S1 and to a lesser extent L2-3. Multilevel Schmorl nodes. Conus medullaris ends at superior endplate of L1 with normal signal. Spina bifida occulta S1 and S2. T12-L1: No disc herniation. No neuroforamina stenosis. L1-2: No disc herniation. No neuroforamina stenosis. L2-3: There is a broad-based left subarticular and foraminal disc herniation resulting in ventral indentation to the thecal sac and likely encroaching the left L3 nerve root on its lateral recess and left neuroforamina stenosis encroaching the L2 nerve root. Facet joint hypertrophy. L3-4: Broad-based disc bulging. Facet joint and ligamentum flavum hypertrophy. Reduced AP diameter of the thecal sac and bilateral neuroforamina narrowing. L4-5: Broad-based disc bulging. Facet joint hypertrophy. Reduced AP diameter of the thecal sac and bilateral neuroforamina stenosis likely encroaching the L5 and L4 nerve roots. L5-S1: Broad-based disc bulging encroaching the S1 nerve roots on the lateral recesses. Facet joint hypertrophy bilaterally. Bilateral neuroforamina stenosis encroaching the L5 exiting nerve roots. No prevertebral compartment hematoma, mass or fluid collections. Multifocal different sizes exophytic hyperintense T2 cystic lesions in the kidneys. MR/MR lumbar spine wo con IMPRESSION: Multilevel spondylosis more pronounced at L2-3, L4-5 and L5-S1 levels, encroaching the respective exiting nerve roots. Left subarticular and foraminal broad-based disc herniation at L2-3 encroaching likely compressing the left L3 and L2 exiting nerve roots. Electronically signed by: Akshat Duque MD 02/18/2025 08:53 AM EDT Dictated By: Akshat Macario MD Signed By: <Electronically signed by Akshat Velarde MD in OV> 02/18/25 0853 DD/ 1340 TD/TT: 02/16/25 1358 Government Property Inspector: Procedure Note Maniotroldaninterpreter, Image - 02/18/2025 [place] [address] Magnetic Resonance Report Signed Patient: Dedrick Dawn [facility]#: [id number] : 1965Acct:[id number] Age/Sex: 59 / MADM Date: 02/16/25 Loc: HO.MRI Attending Dr: Karoline NORMAN Ordering Physician: Karoline Beltran Date of Service: 02/16/25 Procedure(s): MR lumbar spine wo con Accession Number(s): [id number] cc: Karoline Beltran EXAMINATION: MR LUMBAR SPINE WITHOUT CONTRAST CLINICAL INFORMATION: Lumbar facet arthropathy and chronic low back pain. COMPARISON: January 01, 2019. TECHNIQUE: MRI of the lumbar spine was obtained using routine sequences without contrast. FINDINGS: Last rib-bearing vertebra labeled T12. Modic type I endplate changes at L4-5. Bone marrow STIR signal within the endplates of L4-5 and the posterior superior endplate of L3. Multilevel marginal osteophyte formation and disc desiccation from T11-12 to L5-S1. Grade 1 retrolisthesis L5-S1 and to a lesser extent L2-3. Multilevel Schmorl nodes. Conus medullaris ends at superior endplate of L1 with normal signal. Spina bifida occulta S1 and S2. T12-L1: No disc herniation. No neuroforamina stenosis. L1-2: No disc herniation. No neuroforamina stenosis. L2-3: There is a broad-based left subarticular and foraminal disc herniation resulting in ventral indentation to the thecal sac and likely encroaching the left L3 nerve root on its lateral recess and left neuroforamina stenosis encroaching the L2 nerve root. Facet joint hypertrophy. L3-4: Broad-based disc bulging. Facet joint and ligamentum flavum hypertrophy. Reduced AP diameter of the thecal sac and bilateral neuroforamina narrowing. L4-5: Broad-based disc bulging. Facet joint hypertrophy. Reduced AP diameter of the thecal sac and bilateral neuroforamina stenosis likely encroaching the L5 and L4 nerve roots. L5-S1: Broad-based disc bulging encroaching the S1 nerve roots on the lateral recesses. Facet joint hypertrophy bilaterally. Bilateral neuroforamina stenosis encroaching the L5 exiting nerve roots. No prevertebral compartment hematoma, mass or fluid collections. Multifocal different sizes exophytic hyperintense T2 cystic lesions in the kidneys. MR/MR lumbar spine wo con IMPRESSION: Multilevel spondylosis more pronounced at L2-3, L4-5 and L5-S1 levels, encroaching the respective exiting nerve roots. Left subarticular and foraminal broad-based disc herniation at L2-3 encroaching likely compressing the left L3 and L2 exiting nerve roots. Electronically signed by: Akshat Duque MD 02/18/2025 08:53 AM EDT RP Dictated By: Akshat Macario MD Signed By: <Electronically signed by Akshat Velarde MDin OV> 02/18/25 0853 DD/ 1340 TD/TT: 02/16/25 1358 Government Property Inspector: Karoline NORMAN IMG MRI PROCEDURES Final Resul t documented in this encounter Visit Diagnoses Diagnosis Lumbar facet arthropathy- Primary Spondylosis of unspecified site without mention of myelopathy documented in this encounter Additional Health Concerns Assessment Noted Time PHQ-9 Depression Total Score: 15 024 12:05 PM EST documented as of this encounter Care Teams Office Specialist Relationship Specialty Start Date End Date Karoline Beltran FNP [address] [place] [address] PCP - General Family Medicine 06/15/21 Azalia Villalta PharmD [address] [place] [address] Pharmacist Internal Medicine 05/15/24 Sarahi Rey RN [address] [place] [address] Registered Nurse Family Medicine 02/25/25 04/29/25 Anurag Lo 02/25/25 05/14/25 Zane Alvares, ADARSH [address] [place] [address] Registered Nurse Family Medicine 04/29/25 05/17/25 documented as of this encounter
--- OUTSIDE RECORDS SUMMARY | 2025-07-03 10:13 | XMS_ITS | Encounter Summary ---
Author Organization [employer] Address [address] [facility] 7[address] [place] [address] Care Team Providers Care Automotive General Sales Manager Name Role Phone Karoline Beltran Primary Care Provider [phone] Anurag Lo Unavailable Sarahi Rey RN Unavailable Unavailable Azalia Villalta PharmD Unavailable [phone] Sarahi Rey RN Unavailable Unavailable Anurag Lo Unavailable Zane Alvares RN Unavailable [phone] Encounter Details Date Type Department Care Team (Late st Contact Info) Description 06/01/2023 Abstract [facility] [address] [place] [address] Karoline Beltran FNP [address] [place] [address] Social History Tobacco Use Types Packs/Day Years [...] Description 07/10/2025 9:00 AM EST Office Visit [facility] [address] [place] [address] Leopoldo Bateman MD [address] [place] [address] 08/28/2025 11:15 AM EST Office Visit [facility] [address] [place] [address] Karoline Beltran FNP [address] [place] [address] documented as of this encounter Visit Diagnoses Not on filedocumented in this encounter Care Teams Automotive General Sales Manager Relationship Specialty Start Date End Date Karoline Beltran FNP [address] [place] [address] PCP - General Family Medicine 06/15/21 Anurag Lo Community Health Worker 02/09/2405/10 Sarahi Rey RN Ocular Pathologist 02/09/24 05/10/24 Azalia Villalta, PharmD [address] [place] [address] Pharmacist Internal Medicine 05/15/24 Sarahi Rey, RN Registered Nurse Family Medicine 02/25/25 04/29/25 Anurag Lo 02/25/25 05/14/25 Zane Alvares, ADARSH [address] [place] [address] Registered Nurse Family Medicine 04/29/25 05/17/25 documented as of this encounter
--- OUTSIDE RECORDS SUMMARY | 2025-07-03 10:13 | XMS_ITS | Encounter Summary ---
Author Organization [employer] Address [address] [facility] [address] [place] [address] Care Team Providers Care Manager Web Application Name Role Phone Karoline Beltran CARGO AGENT Primary Care Provider [phone] Azalia Villalta PharmD Unavailable [phone] Sarahi Rey RN Unavailable Unavailable Anurag Lo Unavailable Zane Alvares RN Unavailable [phone] Reason for Referral * Consultation (Routine) - Canceled Specialty Diagnoses / Procedures Referred By Dusty latif Referred To Contact Pharmacy Diagnoses Essential (primary) hypertension Hawa Martins MD [address] [place] [address] Phone: tel: fax: Referral ID Status Reason Start Date Expiration Date V isits Requested Visits Authorized [id number] Canceled Consult and Treat 05/16/2024 05/16/2025 6 6 Encounter Details Date Type Department Care Team (Late st Contact Info) Description 05/16/2024 Orders Only [facility] [address] [place], [place] [phone] Hawa Martins MD [address] [place] [address] Essential (primary) hypertension (Primary Dx) Social History [...] Description 07/10/2025 9:00 AM EST Office Visit [facility] [address] [place] [address] Leopoldo Bateman MD [address] [place] [address] 08/28/2025 11:15 AM EST Office Visit [facility] [address] [place] [address] Karoline Beltran FNP [address] [place] [address] Scheduled Referrals Name Type Priority Associated Diagnoses Orde r Schedule Referral to Pharmacy CDTM Outpatient Referral Routine Essential (primary) hypertension Ordered: 05/16/2024 documented as of this encounter Visit Diagnoses Diagnosis Essential (primary) hypertension- Primary Unspecified essential hypertension documented in this encounter Additional Health Concerns Assessment Noted Time PHQ-9 Depression Total Score: 12 024 8:34 PM EDT documented as of this encounter Care Teams Manager Web Application Relationship Specialty Start Date End Date Karoline Beltran FNP [address] [place] [address] PCP - General Family Medicine 06/15/21 Azalia Villalta PharmD [address] [place] [address] Pharmacist Internal Medicine 05/15/24 Sarahi Rey, ADARSH [address] [place] [address] Registered Nurse Family Medicine 02/25/25 04/29/25 Anurag Lo 02/25/25 05/14/25 Zane Alvares, RN [address] [place] [address] Registered Nurse Family Medicine 04/29/25 05/17/25 documented as of this encounter
--- OUTSIDE RECORDS SUMMARY | 2025-07-03 10:13 | XMS_ITS | Encounter Summary ---
Author Organization [employer] Address [address] [facility] [address] [place] [address] Care Team Providers Care Plumber And Tinner Name Role Phone Karoline Beltran Primary Care Provider [phone] Anurag Lo Unavailable Sarahi Rey RN Unavailable Unavailable Azalia Villalta PharmD Unavailable [phone] Sarahi Rey RN Unavailable Unavailable Anurag Lo Unavailable Zane Alvares RN Unavailable [phone] Reason for Visit * Reason Onset Date Comments Returning Call 05/07/2024 Encounter Details Date Type Department Care Team (Late st Contact Info) Description 05/07/2024 Telephone [facility] [address] [place] [address] Karoline Beltran FNP [address] [place], [place] [phone] Returning Call Social History Tobacco Use Types [...] 07/10/2025 9:00 AM EST Office Visit [facility] [address] [place] [address] Leopoldo Bateman MD [address] [place] [address] 08/28/2025 11:15 AM EST Office Visit [facility] [address] [place] [address] Karoline Beltran FNP [address] [place] [address] documented as of this encounter Visit Diagnoses Not on filedocumented in this encounter Additional Health Concerns Assessment Noted Time PHQ-9 Depression Total Score: 12 024 8:34 PM EDT documented as of this encounter Care Teams Plumber And Tinner Relationship Specialty Start Date End Date Karoline Beltran FNP [address] [place] [address] PCP - General Family Medicine 06/15/21 Anurag Lo Community Health Worker 02/09/2405/10 Sarahi Rey, RN Instrument Technician Helper 02/09/24 05/10/24 Azalia Villalta, WillieD [address] [place] [address] Pharmacist Internal Medicine 05/15/24 Sarahi Rey, ADARSH Registered Nurse Family Medicine 02/25/25 04/29/25 Anurag Lo 02/25/25 05/14/25 Zane Alvares, RN [address] [place] [address] Registered Nurse Family Medicine 04/29/25 05/17/25 documented as of this encounter
--- OUTSIDE RECORDS SUMMARY | 2025-07-03 10:13 | XMS_ITS | Encounter Summary ---
Author Organization [employer] Address [address] [facility] [address] [place] [address] Care Team Providers Care Industrial Safety And Health Manager Name Role Phone Karoline Beltran ELECTRICAL ENGINEERING DIRECTOR Primary Care Provider [phone] Azalia Villalta PharmD Unavailable [phone] Sarahi Rey RN Unavailable Unavailable Anurag Lo Unavailable Zane Alvares RN Unavailable [phone] Reason for Referral * Consultation (Routine) - Pending Review Specialty Diagnoses / Procedures Referred By Dusty latif Referred To Contact Pharmacy Diagnoses Essential (primary) hypertension Hawa Martins MD [address] [place] [address] Phone: tel: fax: Referral ID Status Reason Start Date Expiration Date Visits Requested Visits Authorized [id number] Pending Review Consult and Treat 4 07/16/2025 6 6 Encounter Details Date Type Department Care Team (Late st Contact Info) Description 07/16/2024 Orders Only [facility] [address] [place], [place] [phone] Hawa Martins MD [address] [place] [address] Essential (primary) hypertension (Primary Dx) [...] Upcoming Encounters Date Type Department Care Team ([facility] st Contact Info) Description 07/10/2025 9:00 AM EST Office Visit [facility] [address] [place] [address] Leopoldo Bateman MD [address] [place] [address] 08/28/2025 11:15 AM EST Office Visit [facility] [address] [place] [address] Karoline Beltran FNP [address] [place] [address] Scheduled Referrals Name Type Priority Associated Diagnoses Orde r Schedule Referral to Pharmacy CDTM Outpatient Referral Routine Essential (primary) hypertension Ordered: 07/16/2024 documented as of this encounter Visit Diagnoses Diagnosis Essential (primary) hypertension- Primary Unspecified essential hypertension documented in this encounter Additional Health Concerns Assessment Noted Time PHQ-9 Depression Total Score: 15 024 12:05 PM EST documented as of this encounter Care Teams Industrial Safety And Health Manager Relationship Specialty Start Date End Date Karoline Beltran FNP [address] [place] [address] PCP - General Family Medicine 06/15/21 Azalia Villalta PharmD [address] [place] [address] Pharmacist Internal Medicine 05/15/24 Sarahi Rey, ADARSH [address] [place] [address] Registered Nurse Family Medicine 02/25/25 04/29/25 Anurag Lo 02/25/25 05/14/25 Zane Alvares, ADARSH [address] [place] [address] Registered Nurse Family Medicine 04/29/25 05/17/25 documented as of this encounter
--- OUTSIDE RECORDS SUMMARY | 2025-07-03 10:13 | XMS_ITS | Encounter Summary ---
Author Organization [employer] Address [address] [facility] [address] [place] [address] Care Team Providers Care Advertising Sales Representative Name Role Phone Karoline Beltran COLLEGE TEACHER Primary Care Provider Azalia Villalta PharmD Unavailable [phone] Sarahi Rey RN Unavailable Unavailable Anurag Lo Unavailable Zane Alvares RN Unavailable [phone] Reason for Visit * Reason Comments Med Refill Encounter Details Date Type Department Care Team (Late st Contact Info) Description 10/30/[address] [facility] [address] [place], [place] [phone] Azalia Villalta, PharmD [address] [place] [address] Mixed hyperlipidemia Social History Tobacco Use Types [...] Description 07/10/2025 9:00 AM EST Office Visit [facility] [address] [place] [phone] Leopoldo Bateman MD [address] [place] [phone] 08/28/2025 11:15 AM EST Office Visit [facility] [address] [place] [address] Karoline Beltran FNP [address] [place] [address] documented as of this encounter Goals Goal [...] documented as of this encounter Care Teams Advertising Sales Representative Relationship Specialty Start Date End Date Karoline Beltran FNP [address] [place] [address] PCP - General Family Medicine 06/15/21 Azalia Villalta PharmD [address] [place] [address] Pharmacist Internal Medicine 05/15/24 Sarahi Rey RN [address] [place] [address] Registered Nurse Family Medicine 02/25/25 04/29/25 Anurag Lo 02/25/25 05/14/25 Zane Alvares, ADARSH [address] [place] [phone] Registered Nurse Family Medicine 04/29/25 05/17/25 documented as of this encounter
[2025-07-03 12:44] LABS: Anion Gap 10 (12-20); Blood Urea Nitrogen 14 mg/dL (9-16); Calcium 9.3 mg/dL (8.4-10.2); Carbon Dioxide 27 mmol/L (22-29); Chloride 106 mmol/L (96-108); Estimated Glomerular Filt Rate > 60; Potassium 3.9 mmol/L (3.3-5.1); Sodium 139 mmol/L (135-145)
== END 2025-07-03 09:17 | disposition home or self-care (01) ==
LOC: HO.HHCL 09:16
PROVIDERS: PCP Registered Nurse; Visit Provider Registered Nurse
DX: I10 Essential (primary) hypertension (principal)
CPT/HCPCS: 36415; 80048